=== PATIENT | male | born 1980 | race Caucasian/White ===

== ENCOUNTER 2020-02-26 09:19 | Emergency (ER) | payer OTHER ==
[~2020-02-26] VITALS: Ht 185.4 cm; Wt 65.8 kg
--- OUTSIDE RECORDS SUMMARY | ~2020-02-26 | XMS | Encounter Summary ---
Demographics + + + | Address | [address] [place] [address] | | | [place] [address] | + + + | Home Phone | | + + + | Preferred Language | Unknown | + + + | Marital Status | | + + + | Bahai Affiliation | Unknown | + + + | Race | Unknown | + + + | Ethnic Group | Unknown | + + + Author + + + | Author | [facility] | | | and [place] | + + + | Organization | [facility] | | | and [place] | + + + | Address | Unknown | + + + | Phone | Unavailable | + + + Support + + + + + | Name | Relationship | Address | Phone | + + + + + | Tyesha Mason | ECON | [address] | | | | | [place] | | | | | [address] | | + + + + + Care Team Providers + +------+ + | Care Rn Resource Nurse Name | Role | Phone | + +------+ + | No, Physician | PCP | Unavailable | + +------+ + Encounter Details +--------+ + + + + | Date | Type | Department | Care Team | Description | +--------+ + + + + | 10/31/ | Documentati | [facility] | Shagufta Matoszidavie Solano, | | | 2017 | on | MED CTR SPEECH | Speech Pathologist | | | | | [address] | | | | | | [place], | | | | | | [place] [address] | | | | | | [phone] | | | +--------+ + + + + Social History + + + +--------+------+ | Tobacco Use | Types | Packs/Day | Years | Date | | | | | Used | | + + + +--------+------+ | Current Every Day | Cigarettes | 0.25 | 25 | | | Smoker | | | | | + + + +--------+------+ + +---+---+--------+ | Smokeless Tobacco: | | | Quit: | | Former User | | | 2007 | + +---+---+--------+ + + +---------+ + | Alcohol Use | Drinks/Week | oz/Week | Comments | + + +---------+ + | Yes | | | Social | + + +---------+ + + + + | Sex Assigned at | Date Recorded | | | | + + + | Not on file | | + + + + + + + | Job Start Date | Occupation | Industry | + + + + | Not on file | Not on file | Not on file | + + + + + + + + | Travel History | Travel Start | Travel End | + + + + + + | No recent travel history available. | + + documented as of this encounter Progress Notes Divina Matos Speech Pathologist - 10/31/2017 9:34 [facility] [address] [place] [address] Cancellation/No Show Date: 10/31/2017 Patient Information Patient Name: Mookie Mason Date of : 1980 Age: 37 y.o. Reason for missed visit: Cancellation, Pt is ill Phone call placed: yes - Pt called to cancel Plan: Scheduling will call to see if he would like to re-schedule appointment for (authorization from 10/03/17- 11/03/17) 4 visits Electronically signed by: Marilee Anderson, 10/31/2017 9:35 Patient Name: Mookie Mason/: 1980/ docum ented in this encounter Plan of Treatment Not on filedocumented as of this encounter Visit Diagnoses + + | Diagnosis | + + | Traumatic brain injury, without loss of consciousness, subsequent encounter | + + documented in this encounter"
--- OUTSIDE RECORDS SUMMARY | ~2020-02-26 | XMS | Encounter Summary ---
Demographics + + + | Address | [address] [place] [address] | | | [place] [address] | + + + | Home Phone | | + + + | Preferred Language | Unknown | + + + | Marital Status | | + + + | Scientology Affiliation | Unknown | + + + | Race | Unknown | + + + | Ethnic Group | Unknown | + + + Author + + + | Author | [facility] | | | and [place] | + + + | Organization | [facility] | | | and [...] [place] | | | | | [address] | | + + + + + Care Team Providers + +------+ + | Care Tower Erector Name | Role | Phone | + +------+ + | Juli Squires DO | PCP | | + +------+ + Reason for Visit +--------+ + | Reason | Comments | +--------+ + | Other | | +--------+ + Encounter Details +--------+ + + + + | Date | Type | Department | Care Team | Description | +--------+ + + + + | 06/19/ | Telephone | [facility] | Iris Mast | Other | | 2018 | | OCCUPATIONAL HEALTH | MD Barb [address] | | | | | [address] [place] | | | | | [address] [place] | [place] [address] | | | | | [place], [place] | [phone] | | | | | [address] | | | | | | [phone] | | | +--------+ + + + [...] | | Former User | | | 2008 | + +---+---+--------+ + + +---------+ + [...] + + documented as of this encounter Plan of Treatment Not on filedocumented as of this encounter Visit Diagnoses Not on filedocumented in this encounter"
--- OUTSIDE RECORDS SUMMARY | ~2020-02-26 | XMS | Encounter Summary ---
Demographics + + + | Address | [address] [place] [address] | | | [place] [address] | + + + | Home Phone | | + + + | Preferred Language | Unknown | + + + | Marital Status | | + + + | Christian Affiliation | Unknown | + + + | Race | Unknown | + + + | Ethnic Group | Unknown | + + + Author + + + | Author | [facility] | | | and [place] | + + + | Organization | [facility] | | | and [...] [place] | | | | | [address] | | + + + + + Care Team Providers + +------+ + | Care Press Technician Name | Role | Phone | + +------+ + | No, Physician | PCP | Unavailable | + +------+ + Reason for Referral Evaluate & Treat (Routine) +--------+ + + + + + | Status | Reason | Specialty | Diagnoses / | Referred By | Referred To | | | | | Procedures | Contact | Contact | +--------+ + + + + + | Closed | Specialty | Orthopedic | Diagnoses | Pro, | [place], | | | Services | Surgery | Place of | Iris | Barrie Solano DO | | | Required | | occurrence, | MD Barb | [address] | | | | | industrial | [address] [place] | | | | | places and | [address] | [place], [place] | | | | | premises | [place], | [address] | | | | | Incomplete | [place] [address] | Phone: | | | | | tear of left | Phone: | [phone] | | | | | rotator | [phone] | Fax: | | | | | cuff | Fax: | [phone] | | | | | | [phone] | | +--------+ + + + + + Reason for Visit + + + | Reason | Comments | + + + | Head Injury | | + + + | Arm Injury | left arm injury | + + + Encounter Details +--------+---------+ + + + | Date | Type | Department | Care Team | Description | +--------+---------+ + + + | 09/28/ | Office | [facility] | Iris Mast | Incomplete tear of | | 2017 | Visit | OCCUPATIONAL HEALTH | MD [address] | left rotator cuff | | | | [address] | [address] [place] | (Primary Dx); Lumbar | | | | [address] [place] | [place] [address] | transverse process | | | | [place], [place] | [phone] | fracture, closed, | | | | [address] | | initial encounter | | | | [phone] | | (FORM[facility]LY [facility]); Place of | | | | | | occurrence, | | | | | | industrial places | | | | | | and premises | +--------+---------+ + + + Social History + + [...] + + documented as of this encounter Last Filed Vital Signs + + + + + | Vital Sign | Reading | Time Taken | Comments | + + + + + | Blood Pressure | 127/83 | 09/28/2017 1:36 PM | | | | | PST | | + + + + + | Pulse | 92 | 09/28/2017 1:36 PM | | | | | PST | | + + + + + | Temperature | 37.1 C (98.7 F) | 09/28/2017 1:36 PM | | | | | PST | | + + + + + | Respiratory Rate | - | - | | + + + + + | Oxygen Saturation | - | - | | + + + + + | Inhaled Oxygen | - | - | | | Concentration | | | | + + + + + | Weight | 63 kg (139 lb) | 09/28/2017 1:36 PM | | | | | PST | | + + + + + | Height | 185.4 cm (6' 1") | 09/28/2017 1:36 PM | | | | | PST | | + + + + + | Body Mass Index | 18.34 | 09/28/2017 1:36 PM | | | | | PST | | + + + + + documented in this encounter Progress Notes Iris Mast MD - 09/28/2017 2:00 PM PSTEmployer: [employer] Guarantor: [employer] Date of injury: 05/31/17 Claim number: [id number] Chief complaint: Follow-up multiple injuries Subjective: Injured workers a 37-year-old male presents today for scheduled follow-up. He states since his last visit his mental clarity has improved significantly. The fogginess that he was john nielson mentally has improved, has not had any dizzy episodes for the last 2 weeks. Has been attending physical therapy for this and feels that he has improved significantly. He contin ues to be under the care of Dr. veliz for his head injury. He is also been attending physic al therapy for the left shoulder. Recently had MRI imaging of the left shoulder which did r eveal partial supraspinatus tear. He states he has attended 3 sessions so far and feels charley t they were overly aggressive at the beginning of therapy and his symptoms were significantl y made worse. In terms of the humeral fracture he is doing well. Does have some mild disco mfort in the forearm and elbow region but not as significant as in the left shoulder. At mo s last visit with Dr. Henderson, he was essentially released from care. Still occasionally fee ls a popping sensation in the left rib, only notices when he takes a deep breath, feels a po p upon inhalation and then again with end of exhalation. No pain associated with this and h e has had no cough or shortness of breath and no fever or chills. Since his last visit peng thomas he has had increased tenderness over the lower lumbar spine, just to the left of the mid line. No new activities or injuries that may have exacerbated the symptoms. States that mo s last visit he felt that his back was doing better, but then started noticing increased ten derness mainly with just palpation. No radiation of pain into the legs or feet and no assoc iated numbness, tingling, or weakness. Denies saddle-type anesthesia or bladder incontinenc e. Past medical history, medications, allergies reviewed Review of systems: As per HPI Objective: Vital signs as noted, nursing notes reviewed. Csfbedb-laxf-dednhaszq, well-nourished, in no apparent distress, pleasant cooperative. Left Shoulder-normal to inspection. No gross asymmetry or bony deformity. Nearly full for de la torre flexion, abduction limited to approximately 120. Full extension. Pain and weakness with supraspinatus testing. Able to internally and externally rotate. Left elbow-full range of motion without limitation. Back-normal to inspection. No paraspinous muscle spasticity. No vertebral point tendernes s, crepitus, or step-off. Does have tenderness to palpation over the left paravertebral mus cles. No CVA tenderness. Full forward flexion, will not extend. Unlimited bilateral later al flexion. Neuro-Motor strength 5/5 bilat lower extremities DTR's- patellar and ankle - 2+/4 bilat Neg SLR from a seated position bilat Normal toe/heel walk Normal squat Gait steady and symmetric Sensation grossly intact to light touch bilat lower extremities. Skin-warm, dry, intact. No rashes or other suspicious lesions. Imaging/diagnostics: X-rays lumbar spine-per my review-no acute findings. Radiology review pending 08/30/17-MRI left shoulder-per radiology dictated report- IMPRESSIONS: Partial thickness articular sided tear of the supraspinatus tendon as detailed above with associated tendinosis. Dictated and Signed by: Silvestre Zacarias MD Pending interventions: Continue conservative management. Assessment: 1. Left shoulder sprain-partial rotator cuff tear 2. L1, 2, 3 transverse process fractures 3. Traumatic brain injury-post concussive Plan: Still with increased discomfort and restricted range of motion of the left shoulder. We wi ll send another referral to Dr. Henderson for this. Also the back has become more symptomatic. Will await radiology review of x-rays. Continue treatment as recommended by Dr. veliz for the head injury. Return here in 4 weeks, sooner for acute worsening other concerns. He vo ices understanding and agreement. E: Off work R: Off work Impairment undetermined at this point in time, based on current objective findings it is no t an anticipated consequence of this injury however patient has not yet reached MMI status. This note was dictated using Jike Xueyuan voice recognition software. Occasional wrong- word or sound-alike substitutions may have occurred due to the inherent limitations of voice recogni tion software. Please read the chart carefully and recognize, using context, where these zamora bstitutions have occurred. documented in th is encounter Plan of Treatment + + +--------+ + + | Name | Type | Priori | Associated Diagnoses | Order Schedule | | | | ty | | | + + +--------+ + + | amb ref ortho - | Outpatient | Routin | Place of | Ordered: 09/28/2017 | | [facility]ad | Referral | e | occurrence, | | | | | | industrial places | | | | | | and premises | | | | | | Incomplete tear of | | | | | | left rotator cuff | | + + +--------+ + + documented as of this encounter Results XR Lumbar Spine 2 or 3 Vw (09/28/2017 2:09 PM PST) + + | Specimen | + + | | + + + + + | Narrative | Performed At | + + + | XR LUMBAR SPINE 2 OR 3 VW 09/28/2017 2:09 PM HISTORY: pain. | [facility] | | COMPARISON: None. FINDINGS: There are no acute osseous findings. | | | Vertebral body height are preserved with no evidence for compression | | | fractures. Intervertebral disc spaces are preserved. Facets are | | | intact. Visualized ribs and pelvic osseous structures show no acute | | | findings. Soft tissues are unremarkable. IMPRESSION - No acute | | | findings. Normal 2 views of the lumbar spine. Healing chronic | | | fracture deformity of the left L3 transverse process. Dictated and | | | Signed by: Kaleb Combs MD Electronically signed: 09/28/2017 | | | 2:33 PM | | + + + + + | Procedure Note | + + | [place], Rad Results In - 09/28/2017 2:36 PM PST XR LUMBAR SPINE 2 OR 3 VW 09/28/2017 | | 2:09 PMHISTORY: pain.COMPARISON: None.FINDINGS:There are no acute osseous findings. | | Vertebral body height are preserved with noevidence for compression fractures. | | Intervertebral disc spaces are preserved.Facets are intact. Visualized ribs and pelvic | | osseous structures show no acutefindings. Soft tissues are unremarkable. IMPRESSION -No | | acute findings.Normal 2 views of the lumbar spine.Healing chronic fracture deformity of | | the left L3 transverse process.Dictated and Signed by: Kaleb Combs MD Electronically | | signed: 09/28/2017 2:33 PM | |evidence for compression fractures. Intervertebral disc spaces are preserved. | |Facets are intact. Visualized ribs and pelvic osseous structures show no acute | |findings. Soft tissues are unremarkable. | | | |IMPRESSION - | |No acute findings. | | | |Normal 2 views of the lumbar spine. | | | |Healing chronic fracture deformity of the left L3 transverse process. | | | |Dictated and Signed by: Kaleb Combs MD | | Electronically signed: 09/28/2017 2:33 PM | + + + +---------+ + + | Performing | Address | City/State/Zipcode | Phone Number | | Organization | | | | + +---------+ + + | [facility] | | | | + +---------+ + + documented in this encounter Visit Diagnoses + + | Diagnosis | + + | Incomplete tear of left rotator cuff - Primary | + + | Lumbar transverse process fracture, closed, initial encounter (HCC) | + + | Place of occurrence, industrial places and premises | + + documented in this encounter
--- OUTSIDE RECORDS SUMMARY | ~2020-02-26 | XMS | Encounter Summary ---
Demographics + + + | Address | [address] [place] [address] | | | [place] [address] | + + + | Home Phone | | + + + | Preferred Language | Unknown | + + + | Marital Status | | + + + | Oriental Orthodox Affiliation | Unknown | + + + [...] + + + + + | Tyesha Carolina | ECON | [address] | | | | | [place] | | | | | [address] | | + + + + + Care Team Providers + +------+ + | Care Registered Respiratory Technician Name | Role | Phone | + +------+ + | No, Physician | PCP | Unavailable | + +------+ + Reason for Visit + + + | Reason | Comments | + + + | Therapy Daily | | | Treatment | | + + + Evaluate & Treat (Routine) +--------+ + + + + + | Status | Reason | Specialty | Diagnoses / | Referred By | Referred To | | | | | Procedures | Contact | Contact | +--------+ + + + + + | Closed | Specialty | Physical | Diagnoses | Pro, | [facility] | | | Services | Therapy / | Incomplete | Iris | Pt Op [address] | | | Required | Rehabilitatio | tear of left | MD Barb | [address] | | | | n | rotator | [address] | [place], | | | | | cuff Place | [address] | [place] [address] | | | | | of | [place], | Phone: | | | | | occurrence, | [place] [address] | [phone] | | | | | industrial | Phone: | Fax: | | | | | places and | [phone] | [phone] | | | | | premises | Fax: | | | | | | | [phone] | | +--------+ + + + + + Encounter Details +--------+---------+ + + + | Date | Type | Department | Care Team | Description | +--------+---------+ + + + | 10/24/ | Office | [facility] | Iris Mast | Closed fracture of | | 2018 | Visit | MED CTR THERAPY PT | MD Barb [address] | shaft of left | | | | OP [address] | [address] [place] | humerus with routine | | | | [place], [place] | [place] [address] | healing, | | | | [address] | [phone] | unspecified fracture | | | | [phone] | | morphology, | | | | | Catie Squires, PT | subsequent | | | | | [address] | encounter; Dizziness | | | | | [place], [place] | due to old head | | | | | [address] | injury; Left upper | | | | | | arm pain; Imbalance; | | | | | | Place of | | | | | | occurrence, | | | | | | industrial places | | | | | | and premises; | | | | | | Chronic left-sided | | | | | | low back pain | | | | | | without sciatica; | | | | | | Neck pain | +--------+---------+ + + + Social History [...] + documented as of this encounter Progress Catie Mckenzie, PT - 10/24/2017 9:00 AM PST [facility] MED CTR THERAPY PT OP [address] [place] [address] Physical Therapy Daily Treatment Note Date: 10/24/2017 Patient Information Patient Name: Mookie Mason Date of : 1980 Age: 37 y.o. Encounter Diagnoses Code Name Primary? S42.302D Closed fracture of shaft of left humerus with routine healing, unspecified fra cture morphology, subsequent encounter 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 M79.622 Left upper arm pain R26.[address] occurrence, industrial places and premises M54.5, G89.29 Chronic left-sided low back pain without sciatica M54.2 Neck pain Date of Onset: 05/31/2017 Referring Provider: Iris Mast MD Rehab Precautions Flowsheet Row Office Visit from 08/10/2017 in [facility] CTR THERAPY PT OP Rehab Precautions Precautions None Rehab Learning Style Flowsheet Row Office Visit from 08/10/2017 in [facility] CTR THERAPY PT OP [facility] OP EVAL from 07/26/[address] [facility] SPEECH THERAPY Learning Style Patient's [employer] Learning Style listening, observation listening, observation Start Time: 0900 Stop time: 944 Duration: 45 minutes Timed Treatment Codes: 45 minutes # of PT Visits to Date: 14 Subjective: Long gap in care due to waiting for insurance auth. Pt reports that he is no longer having headaches/dizziness and balance is back to baseline. Pt reports that he cont. To have left a rm/shoulder pain and neck pain. Pt has new orders for OT to work on left arm so will now have PT focus on neck pain. Pain Assessment: Pain Scale Used: NUMERIC Pain Rating Pre Assessment: 4 Pain Rating During Assessment: 1 Location: neck Objective: Pre tx; right neck rotation 65 deg 4/10 pain Left neck rotation 55 deg 5/10 pain Manual therapy: STM and TPR to intra scap, pec., upper trap., levator scap., scalenes Grade III mob to left clavicle, SANGs to C3, C4 (central/extension and lateral/rotation) Post tx: right neck rotation 90 deg 0/10 pain Left neck rotation 85 deg 2/10 pain TherEx: neck rotation Left/Right 2x10 Levator scap. Stretch 3x30 sec Assessment: Pt tolerated session well and demonstrated improved neck ROM and less pain by end of sessio n. Pt would benefit from cont. Therapy with focus on cervical spine to increase strength, po sture and ROM to improve ability to complete daily tasks and return to work without limitati ons. Next Visit: received auth for 8 visits. Cont to progress neck ROM and posterior chain [facility] Electronically signed by: Catie Squires PT, 10/24/2017 10:01 Patient Name: Mookie Palmer Lu/: 1980/ documented in this enco unter Plan of Treatment + + +--------+ + + | Name | Type | Priori | Associated Diagnoses | Order Schedule | | | | ty | | | + + +--------+ + + | Ambulatory referral | Outpatient | Routin | Incomplete tear of | Ordered: 10/19/2017 | | to Physical Therapy | Referral | e | left rotator cuff | | | | | | Place of occurrence, | | | | | | industrial places | | | | | | and premises | | + + +--------+ + + documented as of this encounter Visit Diagnoses + + | Diagnosis | + + | Closed fracture of shaft of left humerus with routine healing, unspecified fracture | | morphology, subsequent encounter | + + | Dizziness due to old head injury Dizziness and giddiness | + + | Left upper arm pain Pain in limb | + + | Imbalance Abnormality of gait | + + | Place of occurrence, industrial places and premises | + + | Chronic left-sided low back pain without sciatica | + + | Neck pain Cervicalgia | + + documented in this encounter"
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
--- OUTSIDE RECORDS SUMMARY | ~2020-02-26 | XMS | Encounter Summary ---
Demographics + + + | Address | [address] [place] [address] | | | [place] [address] | + + + | Home Phone | | + + + | Preferred Language | Unknown | + + + | Marital Status | | + + + | Zoroastrianism Affiliation | Unknown | + + + | Race | Unknown | + + + | Ethnic Group | Unknown | + + + Author + + + | Author | [facility] | | | and [place] | + + + | Organization | [facility] | | | and [...] [place] | | | | | [address] | | + + + + + Care Team Providers + +------+ + | Care Chip Tester Name | Role | Phone | + +------+ + | Juli Squires DO | PCP | | + +------+ + Reason for Visit + + + | Reason | Comments | + + + | Re-Assessment/ | | | Significant Change | | | Assessment | | + + + Evaluate & Treat (Routine) +--------+--------+ + + + + | Status | Reason | Specialty | Diagnoses / | Referred By | Referred To | | | | | Procedures | Contact | Contact | +--------+--------+ + + + + | Closed | | Speech | Diagnoses | Pro, | Carlo, | | | | Pathology / | Place of | Iris | Mandy Solano, | | | | Rehabilitatio | occurrence, | Barb, MD | Speech | | | | n | industrial | [address] | Pathologist | | | | | places and | [address] | | | | | | premises | [place], | | | | | | Closed head | [place] [address] | | | | | | injury with | Phone: | | | | | | brief loss | [phone] | | | | | | of | Fax: | | | | | | consciousnes | [phone] | | | | | | s (HCC) | | | | | | | S06.9X9S | | | | | | | (ICD-10-CM) | | | | | | | - 907.0 | | | | | | | (ICD-9-CM) - | | | | | | | Traumatic | | | | | | | brain injury | | | | | | | with loss | | | | | | | of | | | | | | | consciousnes | | | | | | | s, sequela | | | | | | | (HCC) | | | | | | | G31.84 | | | | | | | (ICD-10-CM) | | | | | | | - 331.83 | | | | | | | (ICD-9-CM) - | | | | | | | Mild | | | | | | | cognitive | | | | | | | impairment | | | | | | | Procedures | | | | | | | [facility] | | | | | | | TREATMENT | | | +--------+--------+ + + + + Encounter Details +--------+ + + + + | Date | Type | Department | Care Team | Description | +--------+ + + + + | 12/20/ | Hospital | [facility] | Iris Mast | Traumatic brain | | 2018 | Encounter | MED CTR SPEECH | MD Barb [address] | injury, with loss of | | | | THERAPY [address] [place] | consciousness of 30 | | | | [place], | [place] [address] | minutes or less, | | | | [place] [address] | [phone] | initial encounter | | | | [phone] | | ([facility]) | | | | | Mandy Matos, | | | | | | Speech Pathologist | | +--------+ + + + + [...] + + documented as of this encounter Medications at Time of Discharge + + + +---------+ + + | Medication | Sig | Dispensed | Refills | Start | End Date | | | | | | Date | | + + + +---------+ + + | acetaminophen | Take 1,000 mg by | | 0 | 06/04/20 | | | (TYLENOL) 500 mg | mouth 2 times daily. | | | 17 | | | tablet | | | | | | + + + +---------+ + + | acetaminophen | Take 2 tablets by | 100 | 0 | 12/19/19 | | | (MAPAP) 500 mg | mouth every 6 hours | tablet | | 18 | 8 | | tablet | as needed for Pain. | | | | | + + + +---------+ + + | acetaminophen | Take 1,000 mg by | | 0 | 06/04/20 | | | (TYLENOL) 500 mg | mouth 4 times daily. | | | 17 | 9 | | tablet | | | | | | + + + +---------+ + + | citalopram | Take 1 tablet by | 30 | 2 | 12/07/19 | | | (CELEXA) 20 mg | mouth Daily. | tablet | | 18 | 8 | | tablet | | | | | | + + + +---------+ + + | docusate sodium | Take 100 mg by | | 0 | 06/04/20 | | | (COLACE) 100 mg | mouth. | | | 17 | 9 | | capsule | | | | | | + + + +---------+ + + | ibuprofen (ADVIL, | Take 200 mg by mouth | | 0 | | | | MOTRIN) 200 mg | daily (with | | | | 8 | | tablet | breakfast). | | | | | + + + +---------+ + + | methocarbamol | Take 750 mg by | | 0 | 06/04/20 | | | (ROBAXIN) 750 mg | mouth. | | | 17 | 9 | | tablet | | | | | | + + + +---------+ + + | oxyCODONE | Take 5-15 mg by | | 0 | 06/04/20 | | | (ROXICODONE) 5 mg | mouth. | | | 17 | 9 | | tablet | | | | | | + + + +---------+ + + | senna (SENEXON) | Take 8.6 mg by | | 0 | 06/04/20 | | | 8.6 mg tablet | mouth. | | | 17 | 9 | + + + +---------+ + + | traZODone | Take 1 tablet by | 30 | 2 | 12/07/19 | | | (DESYREL) 50 mg | mouth nightly. | tablet | | 18 | 8 | | tablet | | | | | | + + + +---------+ + + documented as of this encounter Progress Notes Mandy Matos, Speech Pathologist - 12/20/2017 8:08 AM PDT [facility] SPEECH THERAPY [address] [place] [address] Speech Therapy Progress Assessment Date: 12/20/2017 Patient Information Patient Name: Mookie Mason Date of : 1980 Age: 37 y.o. History Encounter Diagnoses Code Name Primary? S06.9X1A Traumatic brain injury, with loss of consciousness of 30 minutes or less, init ial encounter ([facility]) Date of Onset: 05/31/2017 Referring Provider: Iris Mast MD Rehab Precautions Flowsheet Row Office Visit from 08/10/2017 in [facility] CTR THERAPY PT OP Rehab Precautions Precautions None Rehab Learning Style Flowsheet Row Office Visit from 08/10/2017 in [facility] THERAPY PT OP [facility] OP EVAL from 07/26/2017 in [facility] SPEECH THERAPY Learning Style Patient's Optimum Learning Style listening, observation listening, observation Subjective Mookie Mason has completed 88 for treatment of Cognitive deficits s/p TB I. Patient reports improvements with use of compensatory strategies/memory strategies. Chitra er continues to report difficulty with attention, auditory comprehension, reading comprehens ion, visuospatial deficits, extra time to complete tasks and significant concussion symptoms after completing cognitive exercises which are limiting participation in ADLs. Objective: Cognitive aspects of Language: Significant overall improvements across all tested areas not ed. Moderate deficits in the area of attention impacting ability to participate successfully in auditory comprehension, safety (reports of several instances gettting distracted with it ems left burning on stove due to reduced attention to tasks), problem solving for safety wit h cooking discussed (timers, avoiding use of stove if not remaining in kitchen or if alone) reduced processing time, needs extra time to complete tasks. Halting/pausing noted in conver sation, needs extra time to answer and find words effectively. Standardized Tests: Test Date:07/26/17 Repeatable Battery for the Assessment of Neuropsychological Status (RBANS) The RBANS is comprised of 12 individual subtests and provides a measure of functioning acro ss a variety of cognitive domains. Subtest raw scores are converted to index scores for six general areas:immediate memory, visuospatial/constructional ability, language, attention , delayed memory, and overall function. Immediate Memory Visuospatial / Constructional Language Attention Delayed Memory TOTAL SCALE Index Score 83 78 74 53 56 61 Percentile 0.5 Test Date:10/03/17 Repeatable Battery for the Assessment of Neuropsychological Status (RBANS) The RBANS is comprised of 12 individual subtests and provides a measure of functioning acro ss a variety of cognitive domains. Subtest raw scores are converted to index scores for six general areas:immediate memory, visuospatial/constructional ability, language, attention , delayed memory, and overall function. Immediate Memory Visuospatial / Constructional Language Attention Delayed Memory TOTAL SCALE Index Score 90 96 112 75 91 89 Severity AVG AVG High AVG Borderline Moderate impairment AVG 23rd %ile Concussion symptoms (taken from the ImPACT test) Please give each item a score from 0-6. 0 = No symptom 6 = The worst possible symptom Date: 10/03/17 Symptoms Score Headache 2 Nausea 0 Vomiting 0 Balance Problems 1 Dizziness 2 Fatigue 3 Trouble falling asleep 4 Sleeping more than usual 3 Sleeping less than usual 3 Drowsiness 3 Sensitivity to light 2 Sensitivity to noise 2 Irritability 2 Sadness 0 Nervousness 2 Feeling more emotional 2 Numbness or tingling 0 Feeling slowed down 2 Feeling mentally foggy 3 Difficulty concentrating 3 Difficulty remembering 2 Visual problems 3 Total Symptom Score 44 Concussion Symptoms Re-Assessment Test Date 12/06/17: Overall concussion symptom score of 10 which improved significantly from 10/03/17 Assessment Mookie Mason has been participating in therapy for treatment of cognitive deficits s/p TBI. Patient demonstrates objective improvements with improved concussion symptoms, feliciano ry, attention, visuospatial skills, language and delayed memory. Mookie Mason contin ues to have impairments with moderate boarderline deficits in the area of attention and onse t of concussion symptoms after completing 10-15 minutes of cognitive exercises which is sofie rely limiting abilities to participate in ADLs. Informal assessment also had identified nota ble intermittent halting/pausing and losing train of thought due to word-finding difficultie s, difficulty sustaining concentration/attention and increased concussion symptoms of increa sed dizziness, mental fogginess, and c/o nausea after 10-15 minutes of cognitive exercises ( worse sx noted with computer based visuospatial tasks. These impairments and diagnosis are c ausing functional limitations with patient's inability to perform activities of sustained si mple elementary level reading tasks (Severe change from prior), maintaining attention, retur n to work, recall details from conversation participate and recall activities (reports has l eft stove on and walked away x2 this week and was alerted with burning smell for reminder), also reports inability to read/do paperwork for more than 10-15 minutes without headache whi ch has improved from 5 minutes prior. Signs and symptoms are consistent with cognitive defic its following a TBI. Complexities contributing to frequency and duration of therapy: Insuran ce evaluation only until further authorized visits. Skilled ST recommended and necessary to increase ability to maintain/sustain attention, perform cognitive rehabilitation exercises t o support return to PLOF, improve recall, instruct and support use of memory strategies and word finding techniques to increase ability to express thoughts/ideas effectively and effici ently. Rehabilitation potential: Patient demonstrates good potential to achieve established goals to address the documented impairments by participating in skilled speech and language therap y services. Goals: Patient Specific Functional Scale Goal 1: Pt will reduce concussion symptom score of <25 in 12 weeks. Patient Specific Functional Scale Goal 1 Status Comment: GOAL MET, GOAL CHANGED to particip ate in cognitive exercises for up to 20 minutes without onset of concussion symptoms. Only able to participate for about 10 minutes- 5 minutes with computer based exercises. Patient Specific Functional Scale Goal 2: Pt will complete moderate level delayed memory ta sks x90% accuracy with initial instruction of memory strategies in 12 weeks. Patient Specific Functional Scale Goal 2 Status Comment: Goal ALMOST MET, using memory stra tegies consisitently to support recall. Able to recall F:4 x100% with min-mod cues to use st rategies and F:5 x60% Alina and x80% with moderate phonemic cues/semantic cues Patient Specific Functional Scale Goal 3: Pt will complete divided and switching attention tasks x90% accuracy with min cues in 12 weeks. Patient Specific Functional Scale Goal 3 Status Comment: GOAL EMERGING, moderate-boarderlin e deficits. With categorization/deductive reasoning tasks needed moderate cues and verbal pr ompts to support organization of written materials/ categorization, needed increased time to complete switching attention tasks with word finds of differing topics and mathematical mix ed problems. Reduced accuracy and need for increased cues as task persisits (sustained atten tion deficits) Increased ability to sustain attention for 15 minutes today. Needs breaks between tasks d/t increased concussion sxs. Plan Date of Onset: 05/31/2017 Start of Care Date: 07/26/2017 Requested # of Visits: 12 visits 1x/week for 12 weeks Certification From: 12/21/17 Certification To: 03/23/18 Treatment Plan/Interventions 99989 - Cognitive [id number] - Cognitive [id number] - Speech Sound Language Comprehens [id number] - Speech/Hearing Treatment Patient and/or family has indicated understanding of treatment needs and actively participa elijah in the creation of this plan for care. Electronically signed by: Mandy Matos Speech Pathologist, 12/21/2017 12:36 Patient Name: Mookie Mason/: 1980/ documented in th is encounter Plan of Treatment Not on filedocumented as of this encounter Visit Diagnoses + + | Diagnosis | + + | Traumatic brain injury, with loss of consciousness of 30 minutes or less, initial | | encounter (HCC) | + + documented in this encounter"
--- OUTSIDE RECORDS SUMMARY | ~2020-02-26 | XMS | Encounter Summary ---
Demographics + + + | Address | [address] [place] [address] | | | [place] [address] | + + + | Home Phone | | + + + | Preferred Language | Unknown | + + + | Marital Status | | + + + | Scientologist Affiliation | Unknown | + + + | Race | Unknown | + + + | Ethnic Group | Unknown | + + + Author + + + | Author | [facility] | | | and [place] | + + + | Organization | [facility] | | | [...] [place] | | | | | [address] | | + + + + + Care Team Providers + +------+ + | Care Hog Cutter Name | Role | Phone | + +------+ + | Juli Squires DO | PCP | | + +------+ + Reason for Visit + + + | Reason | Comments | + + + | Head Injury | | + + + | Hip Injury | | + + + | Arm Injury | | + + + Encounter Details +--------+---------+ + + + | Date | Type | Department | Care Team | Description | +--------+---------+ + + + | 03/16/ | Office | [facility] | Iris Mast | Closed left arm | | 2018 | Visit | [facility]ALTH | MD Barb [address] | fracture, with | | | | [facility] [address] [place] | routine healing, | | | | [address] [place] | [place] [address] | subsequent encounter | | | | [facility], [place] | [phone] | (Primary Dx); Place | | | | [address] | | of occurrence, | | | | [phone] | | industrial places | | | [...] + + + | Blood Pressure | 135/83 | 03/16/2018 1:08 PM | | | | | PDT | | + + + + + | Pulse | 78 | 03/16/2018 1:08 PM | | | | | PDT | | + + + + + | Temperature | 37.1 C (98.7 F) | 03/16/2018 1:08 PM | | | | | PDT | | + + + + + | Respiratory Rate | - | - | | + + + + + | Oxygen Saturation | - | - | | + + + + + | Inhaled Oxygen | - | - | | | Concentration | | | | + + + + + | Weight | 63 kg (139 lb) | 03/16/2018 1:08 PM | | | | | PDT | | + + + + + | Height | 185.4 cm (6' 1") | 03/16/2018 1:08 PM | | | | | PDT | | + + + + + | Body Mass Index | 18.34 | 03/16/2018 1:08 PM | | | | | PDT | | + + + + + documented in this encounter Progress Notes Iris Mast MD - 03/16/2018 1:00 PM PDTEmployer: [employer] Guarantor: RIZWAN Date of injury: 05/31/17 Claim number: [id number] Chief complaint: Follow-up multiple injuries Subjective: Injured workers a 37-year-old male who presents today for scheduled follow-up. Since his l ast visit he has had reparative surgery on the left upper extremity. He was initially sched uled for hardware removal of the left upper extremity. He states they did not remove all christie rdware, he did have a bone graft from the left hip. He has already seen improvement in the discomfort in the left arm and improved range of motion only being 3 weeks postop. He does continue to have discomfort over the bone graft site of the left hip but otherwise feel that he is doing well. He is still understood and participating in physical therapy and he feel s that he can lie down without difficulty and has had enough healing from the recent surgery . X-rays obtained at his last visit reviewed by the radiologist, there were some questions about a possible labral injury of the right hip because of some acetabular calcifications. He states the majority of his discomfort is on the left side, occasionally feels a catching sensation in the left hip and on the right. Has intermittent discomforts random and alterna ting in the low back and occasionally bilateral groin. Past medical history, medications, allergies reviewed Review of systems: As per HPI Objective: Vital signs as noted, nursing notes reviewed. Vxriuow-iren-wywtosnez, well-nourished, in no apparent distress, pleasant cooperative. Left arm-healing surgical incision medial left upper arm. Is able to fully extend and flex . Bruising is noted of the proximal arm. No erythema or swelling. Left hip-healed surgical incision over the left bony pelvis. Full flexion and extension, i nternal and external rotation. Minimal discomfort with full internal rotation. No pain or limitation with AMBER testing. Right hip-normal to inspection. Nontender. Full flexion, extension, internal and external rotation. Mild discomfort with full internal rotation. No pain or limitation with AMBER t esting. Imaging/diagnostics: None indicated this visit Pending interventions: Continue conservative management. Assessment: 1. Left humerus fracture Plan: Continue with post operative activity modifications and rehabilitation per orthopedic recom mendations. When he feels he is able to participate fully, he will notify us that he may pr oceed with physical therapy services for the back injury. Hip exam today normal bilaterally . Return in 4 weeks, sooner for acute worsening other concerns. He voices understanding an d agreement. E: Modified duty R: No use of the left arm Impairment undetermined at this point in time, based on current objective findings it is an anticipated consequence of this injury however patient has not yet reached MMI status. This note was dictated using [employer] voice recognition software. Occasional wrong- word or sound-alike substitutions may have occurred due to the inherent limitations of voice recogni tion software. Please read the chart carefully and recognize, using context, where these zamora bstitutions have occurred. documented in th is encounter Plan of Treatment Not on filedocumented as of this encounter Visit Diagnoses + + | Diagnosis | + + | Closed left arm fracture, with routine healing, subsequent encounter - Primary | + + | Place of occurrence, industrial places and premises | + + documented in this encounter
--- OUTSIDE RECORDS SUMMARY | ~2020-02-26 | XMS | Encounter Summary ---
Demographics + + + | Address | [address] [place] [address] | | | [place] [address] | + + + | Home Phone | | + + + | Preferred Language | Unknown | + + + | Marital Status | | + + + | Baptist Affiliation | Unknown | + + + | Race | Unknown | + + + | Ethnic Group | Unknown | + + + Author + + + | Author | [facility] | | | and [place] | + + + | Organization | [facility] | | | and [place] | + + + | Address | Unknown | + + + | Phone | Unavailable | + + + Support + + + + + | Name | Relationship | Address | Phone | + + + + + | Tyesha Mason | ECON | [address] | | | | | [place] | | | | | [address] | | + + + + + Care Team Providers + +------+ + | Care Developer Analyst Name | Role | Phone | + +------+ + | Juli Squires DO | PCP | | + +------+ + Reason for Referral Evaluate & Treat (Routine) +--------+ + + + + + | Status | Reason | Specialty | Diagnoses / | Referred By | Referred To | | | | | Procedures | Contact | Contact | +--------+ + + + + + | Closed | Specialty | Physical | Diagnoses | Pro, | [facility] | | | Services | Therapy | Place of | Iris | PHYSICAL | | | Required | | occurrence, | MD Barb | THERAPY - | | | | | industrial | [address] | [place] | | | | | places and | [address] | [place] | | | | | premises | [place], | [address] | | | | | Lumbar | [place] [address] | [address] | | | | | transverse | Phone: | [facility] | | | | | process | [phone] | [place], [place] | | | | | fracture, | Fax: | [address] | | | | | closed, | [phone] | Phone: | | | | | initial | | [phone] | | | | | encounter | | Fax: | | | | | ([facility]) | | [phone] | +--------+ + + + + + + + | Scheduling Instructions | + + | [facility], [facility] | + + Encounter Details +--------+ + + + + | Date | Type | Department | Care Team | Description | +--------+ + + + + | 06/19/ | Orders Only | [facility] | [facility] | Lumbar transverse | | 2017 | | [facility] | MD Barb [address] | process fracture, | | | | [facility] [address] [place] | closed, initial | | | | [address] [place] | [place] [address] | encounter (HCC) | | | | [place], [place] | [phone] | (Primary Dx); Place | | | | [address] | | of occurrence, | | | | [phone] | | industrial places | | | | | | and premises | +--------+ + + + + Social [...] as of this encounter Plan of Treatment + + +--------+ + + | Name | Type | Priori | Associated Diagnoses | Order Schedule | | | | ty | | | + + +--------+ + + | Ambulatory referral | Outpatient | Routin | Place of | Ordered: 06/19/2018 | | to Physical Therapy | Referral | e | occurrence, | | | | | | industrial places | | | | | | and premises Lumbar | | | | | | transverse process | | | | | | fracture, closed, | | | | | | initial encounter | | | | | | ([facility]) | | + + +--------+ + + documented as of this encounter Visit Diagnoses + + | Diagnosis | + + | Lumbar transverse process fracture, closed, initial encounter ([facility]) - Primary | + + | Place of occurrence, industrial places and premises | + + documented in this encounter"
--- OUTSIDE RECORDS SUMMARY | ~2020-02-26 | XMS | Encounter Summary ---
Demographics + + + | Address | [address] [place] [address] | | | [place] [address] | + + + | Home Phone | | + + + | Preferred Language | Unknown | + + + | Marital Status | | + + + | Worship Affiliation | Unknown | + + + | Race | Unknown | + + + | Ethnic Group | Unknown | + + + Author + + + | Author | [facility] | | | and [place] | + + + | Organization | [facility] | | | [...] [place] | | | | | [address] | | + + + + + Care Team Providers + +------+ + | Care Injection Molding Machine Operator Name | Role | Phone | + +------+ + PCP | Unavailable | + +------+ + Encounter Details +--------+ + + + + | Date | Type | Department | Care Team | Description | +--------+ + + + + | 06/20/ | [facility] | PAVAN GONZALEZ | Horacio Ramey | | | 2014 | Encounter | HOSPITAL XRAY [address] | [place] [address] | | | | | [address] | [place] | | | | | [place] | [address] | | | | | [address] | | | | | | [phone] | | | +--------+ + + + + Social History + +-------+ +--------+------+ | Tobacco Use | Types | Packs/Day | Years | Date | | | | | Used | | + +-------+ +--------+------+ | Never Assessed | | | | | + +-------+ +--------+------+ + + + | Sex Assigned at [...] Not on filedocumented as of this encounter Procedures + +--------+ + + + | Procedure Name | Priori | Date/Time | Associated Diagnosis | Comments | | | ty | | | | + +--------+ + + + | XR LUMBAR SPINE 4 + | Routin | 06/20/2015 | | Results for this | | VW | e | 1:47 PM | | procedure are in the | | | | PDT | | results section. | + +--------+ + + + | XR THORACIC SPINE 2 | Routin | 06/20/2015 | | Results for this | | VW | e | 1:47 PM | | procedure are in the | | | | PDT | | results section. 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 | | | Findings: The alignment of the thoracic spine is normal. No | | | fracture, focal bone lesion, or subluxation is present. The disc | | | space height is well maintained, with no evidence of significant disc | | | degeneration. The paravertebral soft tissue interfaces also appear | | | normal. Summary: No evidence of acute radiographic abnormality. | | | Read By: ANTONIO PRADO MD Date: 06/20/2015 14:19 | | + + + + + | Procedure Note | + + | Andre Avila Results In - 08/09/2017 8:24 PM PST | | Clinical Indication: Reason for study: | | chiropractor | | | | . | | | | Findings: The alignment of the thoracic spine is normal. No fracture, | | focal bone lesion, or subluxation is present. The disc space height is well | | maintained, with no evidence of significant disc degeneration. The | | paravertebral soft tissue interfaces also appear normal. | | | | Summary: No evidence of acute radiographic abnormality. 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 | | | Findings: The alignment of the lumbar spine is normal. No fracture | | | or focal bone lesion is present. The disc spaces show normal | | | height, with no evidence of significant degenerative change. The | | | facet joints appear normal. No soft tissue abnormality is visible. | | | Summary: No evidence of acute radiographic abnormality. Read | | | By: ANTONIO PRADO MD Date: 06/20/2015 14:17 | | + + + + + | Procedure Note | + + | Austin, Andre Results In - 08/09/2017 8:24 PM PST | | Clinical Indication: Reason for study: | | chiropractor | | | | . | | | | Findings: The alignment of the lumbar spine is normal. No fracture or | | focal bone lesion is present. The disc spaces show normal height, with no | | evidence of significant degenerative change. The facet joints appear | | normal. No soft tissue abnormality is visible. | | | | Summary: No evidence of acute radiographic abnormality. | | | | Read By: ANTONIO PRADO MD | | Date: 06/20/2015 14:17 | | | + + documented in this encounter Visit Diagnoses Not on filedocumented in this encounter"
--- OUTSIDE RECORDS SUMMARY | ~2020-02-26 | XMS | Encounter Summary ---
Demographics + + + | Address | [address] [place] [address] | | | [place] [address] | + + + | Home Phone | | + + + | Preferred Language | Unknown | + + + | Marital Status | | + + + | Rastafari Affiliation | Unknown | + + + | Race | Unknown | + + + | Ethnic Group | Unknown | + + + Author + + + | Author | [facility] | | | and [place] | + + + | Organization | [facility] | | | [...] [place] | | | | | [address] | | + + + + + Care Team Providers + +------+ + | Care Orthoptist Name | Role | Phone | + +------+ + | No, Physician | PCP | Unavailable | + +------+ + Encounter Details +--------+ + + + + | Date | Type | Department | Care Team | Description | +--------+ + + + + | 08/29/ | Imaging | [facility] | Provider, | | | 2017 | Exam | [facility] | MD [address] | | | | | IMAGING [address] | [address] | | | | | [place] [address] | [place] [address] | | | | | [place] [address] | | | | | | [phone] | | | +--------+ + + + [...] + +--------+ + + + | XR PELVIS 1 OR 2 VW | Routin | 05/31/2017 | | Results for this | | | e | 2:55 PM | | procedure are in the | | | | PDT | | results section. | + +--------+ + + + documented in this encounter Results XR Pelvis 1 or 2 Vw (05/31/2017 2:55 PM PDT) + + | Specimen | + + | | + + + + + | Narrative | Performed At | + + + | External films | [facility] | | for comparison only - no result from [place]. | | + + + + +---------+ + + | Performing | Address | City/State/Zipcode | Phone Number | | Organization | | | | + +---------+ + + | [facility] | | | | + +---------+ + + documented in this encounter Visit Diagnoses Not on filedocumented in this encounter"
--- OUTSIDE RECORDS SUMMARY | ~2020-02-26 | XMS | Encounter Summary ---
Demographics + + + | Address | [address] [place] [address] | | | [place] [address] | + + + | Home Phone | | + + + | Preferred Language | Unknown | + + + | Marital Status | | + + + | Spiritism Affiliation | Unknown | + + + | Race | Unknown | + + + | Ethnic Group | Unknown | + + + Author + + + | Author | [facility] | | | and [place] | + + + | Organization | [facility] | | | [...] [place] | | | | | [address] | | + + + + + Care Team Providers + +------+ + | Care Java Technical Architect Name | Role | Phone | + +------+ + | No, Physician | PCP | Unavailable | + +------+ + Reason for Visit + + + | Reason | Comments | + + + | Results, Imaging | | + + + Encounter Details +--------+ + + + + | Date | Type | Department | Care Team | Description | +--------+ + + + + | 08/02/ | Telephone | [facility] | Raudel Chong | Results, Imaging | | 2017 | | NEUROSURGERY [address] | [address] | | | | | [address] | [address] | | | | | [place], [place] | [place] | | | | | [address] | [address] | | | | | [phone] | | | +--------+ + + + [...]
--- OUTSIDE RECORDS SUMMARY | ~2020-02-26 | XMS | Encounter Summary ---
Demographics + + + | Address | [address] [place] [address] | | | [place] [address] | + + + | Home Phone | | + + + | Preferred Language | Unknown | + + + | Marital Status | | + + + | Mu-Ism Affiliation | Unknown | + + + | Race | Unknown | + + + | Ethnic Group | Unknown | + + + Author + + + | Author | [facility] | | | and [place] | + + + | Organization | [facility] | | | [...] [place] | | | | | [address] | | + + + + + Care Team Providers + +------+ + | Care Offset Printing Operator Name | Role | Phone | + +------+ + | Juli Squires DO | PCP | | + +------+ + Reason for Visit + + + | Reason | Comments | + + + | Arm Injury | | + + + | Head Injury | | + + + Encounter Details +--------+---------+ + + + | Date | Type | Department | Care Team | Description | +--------+---------+ + + + | 07/13/ | Office | [facility] | Iris Mast | Closed fracture of | | 2018 | Visit | [facility] | MD [address] | shaft of left | | | | [address] [place] | humerus with routine | | | | [address] [place] | [place] [address] | healing, | | | | [place], [place] | [phone] | unspecified fracture | | | | [address] | | morphology, | | | | [phone] | | subsequent encounter | | | | | | (Primary Dx); Place | | | | | | of occurrence, | | | | | [...] + + + | Blood Pressure | 147/105 | 07/13/2018 1:05 PM | | | | | PDT | | + + + + + | Pulse | 95 | 07/13/2018 1:05 PM | | | | | PDT | | + + + + + | Temperature | 37.2 C (99 F) | 07/13/2018 1:05 PM | | | | | PDT [...] Weight | 63 kg (139 lb) | 07/13/2018 1:05 PM | | | | | PDT | | + + + + + | Height | 185.4 cm (6' 1") | 07/13/2018 1:05 PM | | | | | PDT | | + + + + + | Body Mass Index | 18.34 | 07/13/2018 1:05 PM | | | | | PDT | | + + + + + documented in this encounter Progress Notes Iris Mast MD - 07/13/2018 1:00 PM PDTEmployer: Tea mar Guarantor: RIZWAN Date of injury: 05/31/17 Claim number: [id number] Chief complaint: Follow-up multiple injuries Subjective: Injured workers a 38-year-old male presents today for scheduled follow-up. Since his last visit he has been participating in physical therapy for the low back and pelvis. He states he has had more discomfort in the pelvis and starting therapy. They have been asking him to do exercises that he is having a lot of difficulty with. The low back discomfort however h as seemed to improve but the pelvis is worsened. In terms of the rib fracture, he no longer is feeling any popping in that area. He has however noticed interval increase in discomfor t in the left arm. Feels like something sharp and stabbing in the bicep area especially whe n random direct pressure is applied to the arm. He feels that his symptoms are the same as they were prior to having the second surgery and voices frustration about this. Essentially is been released from care from the operating surgeon for the arm so is unsure if there is anything else to do. Prior to the second surgery he did participating in physical therapy, was given a variety of home exercises and he has been continuing to do these at home but has not felt that has been helpful. Past medical history, medications, allergies reviewed Review of systems: As per HPI Objective: Vital signs as noted, nursing notes reviewed. Axryhmk-atiu-wudggmhsf, well-nourished, in no apparent distress, pleasant cooperative. Imaging/diagnostics: Left humerus [id number] personally reviewed by me with the injured worker this visit-evid ence of healed fracture, hardware intact. Radiology review pending. Pending interventions: Continue conservative management. Assessment: 1. Left humeral fracture-status post ORIF 2 Plan: Left humerus x-rays today reveal fracture be healed, and hardware in place. Radiology revi ew is pending. I recommended he phoned his operating surgeon for the left arm to discuss hi s persistent and worsening symptoms and complaints of pain, to discuss the potential for oth er treatment options. He is participating in home exercise program with therapy for strengt hening and does not feel that formal therapy would be very helpful. In terms of the pelvic fracture, it has been temporarily worsened by the physical therapy. He may refrain from fur ther therapy if he desires, it is likely that the discomfort in the pelvis may continue for several months as per noted by Dr. veliz, physiatry, and part of the healing process, only t o be helped by the passage of time. He'll return here in 6 weeks, sooner for acute worsenin g or other concerns. He voices understanding and agreement. E: Regular duty R: None Impairment undetermined at this point in time, based on current objective findings it is no t an anticipated consequence of this injury however patient has not yet reached MMI status. This note was dictated using [employer] voice recognition software. Occasional wrong- word or sound-alike substitutions may have occurred due to the inherent limitations of voice recogni tion software. Please read the chart carefully and recognize, using context, where these zamora bstitutions have occurred. documented in th is encounter Plan of Treatment Not on filedocumented as of this encounter Results XR Humerus Left 2 + Vw (07/13/2018 1:45 PM PDT) + + | Specimen | + + | | + + + + + | Narrative | Performed At | + + + | TWO VIEWS LEFT HUMERUS 07/13/2018 1:45 PM CLINICAL HISTORY: s/p | [facility] | | ORIF COMPARISON: Radiographs April 13 and more remote imaging | | | FINDINGS: Lateral plate and screw fixation hardware persists along the | | | mid humeral diaphysis and appears stable in position. Fracture of | | | the neck of the fourth most superior screw is now apparent, and the | | | most distal screw demonstrates slightly proud positioning. The | | | hardware otherwise appears intact and well seated. Previously noted | | | fracture of the mid diaphysis now demonstrates a more completely | | | healed appearance, without deformity. No new osseous fracture or | | | subluxation is evident. The shoulder and elbow are grossly | | | unremarkable. Two surgical clips persist in the superficial soft | | | tissues of the lateral, mid upper arm. IMPRESSION - 1. NEW | | | FRACTURE OF ONE OF THE HUMERAL FIXATION SCREWS AND SLIGHTLY PROUD | | | POSITIONING OF THE MOST DISTAL SCREW WITH PROGRESSIVE HEALING OF THE | | | MID DIAPHYSEAL FRACTURE. Dictated and Signed by: Raj Almazan MD | | | Electronically signed: 07/13/2018 2:29 PM | | + + + + + | Procedure Note | + + | Austin, Rad Results In - 07/13/2018 2:32 PM PDT TWO VIEWS LEFT HUMERUS 07/13/2018 1:45 | | PMCLINICAL HISTORY: s/p ORIFCOMPARISON: Radiographs April 13 and more remote | | imagingFINDINGS: Lateral plate and screw fixation hardware persists along the midhumeral | | diaphysis and appears stable in position. Fracture of the neck of thefourth most | | superior screw is now apparent, and the most distal screwdemonstrates slightly proud | | positioning. The hardware otherwise appears intactand well seated. Previously noted | | fracture of the mid diaphysis nowdemonstrates a more completely healed appearance, | | without deformity. No newosseous fracture or subluxation is evident. The shoulder and | | elbow are grosslyunremarkable. Two surgical clips persist in the superficial soft | | tissues of thelateral, mid upper arm.IMPRESSION -1. NEW FRACTURE OF ONE OF THE HUMERAL | | FIXATION SCREWS AND SLIGHTLY PROUDPOSITIONING OF THE MOST DISTAL SCREW WITH PROGRESSIVE | | HEALING OF THE MIDDIAPHYSEAL FRACTURE.Dictated and Signed by: Raj Almazan MD | | Electronically signed: 07/13/2018 2:29 PM | |unremarkable. Two surgical clips persist in the superficial soft tissues of the | |lateral, mid upper arm. | | | |IMPRESSION - | |1. NEW FRACTURE OF ONE OF THE HUMERAL FIXATION SCREWS AND SLIGHTLY PROUD | |POSITIONING OF THE MOST DISTAL SCREW WITH PROGRESSIVE HEALING OF THE MID | |DIAPHYSEAL FRACTURE. | | | |Dictated and Signed by: Raj Almazan MD | | Electronically signed: 07/13/2018 2:29 PM | + + + +---------+ + [...] unspecified fracture | | morphology, subsequent encounter - Primary | + + | Place of occurrence, industrial places and premises | + + documented in this encounter
--- OUTSIDE RECORDS SUMMARY | ~2020-02-26 | XMS | Encounter Summary ---
Demographics + + + | Address | [address] [place] [address] | | | [place] [address] | + + + | Home Phone | | + + + | Preferred Language | Unknown | + + + | Marital Status | | + + + | Rastafari Affiliation | Unknown | + + + | Race | Unknown | + + + | Ethnic Group | Unknown | + + + Author + + + | Author | [facility] | | | and [place] | + + + | Organization | [facility] | | | [...] [place] | | | | | [address] | | + + + + + Care Team Providers + +------+ + | Care Law Firm Administrator Name | Role | Phone | + [...] | | Services | Therapy / | Place of | [place] | Pt Op [address] | | | Required | Rehabilitatio | occurrence, | MD Barb | [address] | | | | n | industrial | [address] | [place], | | | | | places and | [address] | [place] [address] | | | | | premises | [place], | Phone: | | | | | Closed head | [place] [address] | [phone] | | | | | injury with | Phone: | Fax: | | | | | brief loss | [phone] | [phone] | | | | | of | Fax: | | | | | | consciousnes | [phone] | | | | | | s (HCC) | | | | | | | S06.9X9A | | | | | | | (ICD-10-CM) | | | | | | | - 850.5 | | | | | | | (ICD-9-CM) - | | | | | | | Closed head | | | | | | | injury with | | | | | | | brief loss | | | | | | | of | | | | | | | consciousnes | | | | | | | s (HCC) | | | | | | | Procedures | | | | | | | pt eval | | | +--------+ + + + + + Encounter Details +--------+---------+ + + + | Date | Type | Department | Care Team | Description | +--------+---------+ + + + | 09/07/ | Office | [facility] | Iris Mast | Dizziness due to old | | 2017 | Visit | MED CTR THERAPY PT | MD [address] | head injury; Left | | | | OP [address] | [address] [place] | upper arm pain; | | | | [place], [place] | [place] [address] | Imbalance; Place of | | | | [address] | [phone] | occurrence, | | | | [phone] | | industrial places | | | | | Lashawn Cornelius, | and premises; | | | | | [employer] [address] | Chronic left-sided | | | | | [place], [place] | low back pain | | | | | [address] | without sciatica; | | | | [...] documented as of this encounter Progress Notes Lashawn Cornelius, [employer] - 09/07/2017 11:00 AM PST [facility] THERAPY PT OP [address] [place] [address] Physical Therapy Daily Treatment Note Date: 09/07/2017 Patient Information Patient Name: Mookie Mason Date of : 1980 Age: 37 y.o. Encounter Diagnoses Code Name Primary? 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 M79.622 Left upper arm pain R26.[address] occurrence, industrial places and premises M54.5, G89.29 Chronic left-sided low back pain without sciatica M54.2 Neck pain Date of Onset: 05/31/2017 Referring Provider: Iris Mast MD Rehab Precautions Flowsheet Row Office Visit from 08/10/2017 in [facility] CTR THERAPY PT OP Rehab Precautions Precautions None Rehab Learning Style Flowsheet Row Office Visit from 08/10/2017 in [facility] CTR THERAPY PT OP [facility] OP EVAL from 07/26/2017 in [facility] SPEECH THERAPY Learning Style Patient's [employer] Learning Style listening, observation listening, observation Start Time: 1100 Stop time: 1140 Duration: 40 minutes Timed Treatment Codes: 40 minutes # of PT Visits to Date: 6 Subjective: Pt reports that he has not had any dizziness since last visit, continues to have difficulty with focusing, still feels foggy but is improving. Pt does report that he has been "taking it easy" but wants to try reading and see how it go es. Pt's main complaint today is neck pain and left upper arm pain Pain Assessment: Pain Rating Pre Assessment: 5 Location: left arm, low back, neck, ninth rib Objective: Standing and on ariex pad: Eye exercises included saccades and smooth pursuits x10 for eac h position Green disc balance and bosu balance, did not have LOB. Walking with eyes fixed on discrete target with head turns/nod 15 feet x4 each (no dizziness or LOB with any vestibular ex) felt foggy not dizzy Manual therapy: STM and TPR to suboccipitals, levator scap, trap. Many tender paoints Cervical rotation: left 70 deg (2/10 pain on left), Right 70 deg (2/10 pain on left) Upper cycle 1 min x 2 forward Assessment: Pt demonstrated improved oculomotor function and did not have any dizziness this session. C omplete gentle soft tissue mobilizations; But did not tolerate them well. pt demonstrated improved ROM and decreased pain after. Did tolerate the upper cycle in forward. Pt is slow ly progressing towards goals and would benefit from cont. Therapy to improve strength, yeni ce and ROM to improve ability to complete daily tasks. Next Visit: Received new referral for UE eval; will complete re-eval next visit Electronically signed by: Lashawn Cornelius PTA, 09/07/2017 13:46 Patient Name: Mookie Mason/: 1980/ documented in this encounter Plan of Treatment Not on filedocumented as of this encounter Visit Diagnoses + + | Diagnosis | + + | Dizziness due to [...] Cervicalgia | + + documented in this encounter
--- OUTSIDE RECORDS SUMMARY | ~2020-02-26 | XMS | Encounter Summary ---
Demographics + + + | Address | [address] [place] [address] | | | [place] [address] | + + + | Home Phone | | + + + | Preferred Language | Unknown | + + + | Marital Status | | + + + | Spiritism Affiliation | Unknown | + + + | Race | Unknown | + + + | Ethnic Group | Unknown | + + + Author + + + | Author | [facility] | | | and [place] | + + + | Organization | [facility] | | | and [place] | + + + | Address | Unknown | + + + | Phone | Unavailable | + + + Support + + + + + | Name | Relationship | Address | Phone | + + + + + | Tyesha Marlon | ECON | [address] | | | | | [place] | | | | | [address] | | + + + + + Care Team Providers + +------+ + | Care Skein Dyer Name | Role | Phone | + +------+ + | No, Physician | PCP | Unavailable | + +------+ + Reason for Visit + + + | Reason | Comments | + + + | Medication Refill | | + + + Encounter Details +--------+--------+ + + + | Date | Type | Department | Care Team | Description | +--------+--------+ + + + | 03/02/ | Refill | [facility] | Iris Mast | Medication Refill | | 2018 | | [facility] | MD [address] | | | | | [address] | [address] [place] | | | | | [address] [place] | [place] [address] | | | | | [place], [place] | [phone] | | | | | [address] | | | | | | [phone] | | | +--------+--------+ + + + Social History + + [...]
--- OUTSIDE RECORDS SUMMARY | ~2020-02-26 | XMS | Encounter Summary ---
Demographics + + + | Address | [address] [place] [address] | | | [place] [address] | + + + | Home Phone | | + + + | Preferred Language | Unknown | + + + | Marital Status | | + + + | Jehovah'S Witness Affiliation | Unknown | + + + | Race | Unknown | + + + | Ethnic Group | Unknown | + + + Author + + + | Author | [facility] | | | and [place] | + + + | Organization | [facility] | | | and [...] [place] | | | | | [address] | | + + + + + Care Team Providers + +------+ + | Care Hinging Machine Operator Name | Role | Phone | + +------+ + | Juli Squires DO | PCP | | + +------+ + Reason for Visit + + + | Reason | Comments | + + + | Re-Assessment/ | | | Significant Change | | | Assessment | | + + + Encounter Details +--------+ + + + + | Date | Type | Department | Care Team | Description | +--------+ + + + + | 11/23/ | Documentati | [facility] | Mandy Matos, | Re-Assessment/ | | 2018 | on | MED CTR SPEECH | Speech Pathologist | Significant Change | | | | THERAPY [address] | | Assessment | | | | [place], | | | | | | [place] [address] | | | | | | [phone] | | | +--------+ + + + [...] Progress Notes Mandy Matos, Speech Pathologist - 11/23/2017 2:08 PM PST [facility] SPEECH THERAPY [address] [facility] [address] Speech Therapy Progress Assessment Date: 11/23/2017 Patient Information Patient Name: Mookie Mason Date of : 1980 Age: 37 y.o. History Encounter Diagnoses Code Name Primary? S06.9X1A Traumatic brain injury, with loss of consciousness of 30 minutes or less, init ial encounter ([facility]) Date of Onset: 05/31/2017 Referring Provider: No ref. provider found Rehab Precautions Flowsheet Row Office Visit from 08/10/[address] [facility] CTR THERAPY PT OP Rehab Precautions Precautions None Rehab Learning Style Flowsheet Row Office Visit from 08/10/[address] [facility] CTR THERAPY PT OP [facility] OP EVAL from 07/26/[address] [facility] CTR SPEECH THERAPY Learning Style Patient's Optimum Learning Style listening, observation listening, observation Subjective Mookie Mason has completed 5 for treatment of Cognitive deficits s/p TB I. Patient reports improvements with use of compensatory strategies/memory strategies. [facility] er continues to report difficulty with attention, auditory comprehension, reading comprehens ion, visuospatial deficits, extra time to complete tasks and significant concussion symptoms limiting participation in ADLs. Objective: Cognitive aspects [...] 74 53 56 61 Percentile 0.5 Test Date:07/26/17 Repeatable Battery for the Assessment [...] AVG High AVG Borderline Moderate impairment AVG rd %ile Concussion symptoms (taken from the ImPACT [...] Visual problems 3 Total Symptom Score 44 Overall total score consistent with prior, reduction of most severe symptom ratings except the area of trouble falling asleep. Assessment Mookie Mason has been participating in therapy for treatment of cognitive deficits s/p TBI. Patient demonstrates objective improvements with memory, attention, visuospatial sk ills, language and delayed memory. Mookie Mason continues to have impairments with m oderate boarderline deficits in the area of attention and consistent concussion symptoms mahajan iting abilities to participate in ADLs. Informal assessment also had identified notable inte rmittent halting/pausing and losing train of thought due to word-finding difficulties, diffi culty sustaining concentration/attention and increased concussion symptoms of increased dizz iness, mental fogginess, and c/o nausea. These impairments and diagnosis are causing functio nal limitations with patient's inability to perform activities of reading, maintaining atten tion, return to work, recall details from conversation participate and recall activities (corin santiago has left stove on and walked away x2 this week and was alerted with burning smell for reminder), also reports inability to read/do paperwork for more than 5 minutes without heada rody. Signs and symptoms are consistent with cognitive deficits following a TBI. Complexities contributing to frequency and duration of therapy: Insurance evaluation only until further authorized visits. Skilled ST recommended and necessary to increase ability to maintain/sust ain attention, perform cognitive rehabilitation exercises to support return to PLOF, improve recall, instruct and support use of memory strategies and word finding techniques to increa se ability to express thoughts/ideas effectively and efficiently. Rehabilitation potential: Patient demonstrates good potential to achieve established goals to address the documented impairments by participating in skilled speech and language therap y services. Goals: Patient Specific Functional Scale Goal 1: Pt will reduce concussion symptom score of <25 in 12 weeks. Patient Specific Functional Scale Goal 1 Status Comment: Goal not met, currently 44 Patient Specific Functional Scale Goal 2: Pt will complete moderate level delayed memory ta sks x90% accuracy with initial instruction of memory strategies in 12 weeks. Patient Specific Functional Scale Goal 2 Status Comment: Goal almost met, using memory stra tegies consisitently to support recall Patient Specific Functional Scale Goal 3: Pt will complete divided and switching attention tasks x90% accuracy with min cues in 12 weeks. Patient Specific Functional Scale Goal 3 Status Comment: Goal emerging, moderate-boarderlin e deficits. Plan Date of Onset: 05/31/2017 Start of Care Date: 07/26/2017 Requested # of Visits: 12 visits 1x/week for 12 weeks Certification From: 11/23/17 Certification To: 02/20/18 Treatment Plan/Interventions [id number] - Cognitive [id number] - Cognitive [id number] - Speech Sound Language Comprehens [id number] - Speech/Hearing Treatment Patient and/or family has indicated understanding of treatment needs and actively participa elijah in the creation of this plan for care. Electronically signed by: Mandy Matos Speech Pathologist, 11/23/2017 14:22 Patient Name: Mookie Mason/: 1980/ docum ented in this encounter Plan of Treatment Not on filedocumented as of this encounter Visit Diagnoses + + | Diagnosis | + + | Traumatic brain injury, with loss of consciousness of 30 minutes or less, initial | | encounter (HCC) | + + documented in this encounter"
--- OUTSIDE RECORDS SUMMARY | ~2020-02-26 | XMS | Encounter Summary ---
Demographics + + + | Address | [address] [place] [address] | | | [place] [address] | + + + | Home Phone | | + + + | Preferred Language | Unknown | + + + | Marital Status | | + + + | Islam Affiliation | Unknown | + + + | Race | Unknown | + + + | Ethnic Group | Unknown | + + + Author + + + | Author | [facility] | | | and [place] | + + + | Organization | [facility] | | [...] [place] | | | | | [address] | | + + + + + Care Team Providers + +------+ + | Care Fiber Product Cutting Machine Operator Name | Role | Phone | + +------+ + PCP | Unavailable | + +------+ + Encounter Details +--------+ + + + + | Date | Type | Department | Care Team | Description | +--------+ + + + + | 05/15/ | Hospital | [facility] | Ciro Cabrales | | | 2012 | Encounter | [facility] | MD [address] | | | | | C[address] | [address] | | | | | [address] [place], [place] | [place] [address] | | | | | [address] | [phone] | | | | | [phone] | | | +--------+ + + + [...]
--- OUTSIDE RECORDS SUMMARY | ~2020-02-26 | XMS | Encounter Summary ---
Demographics + + + | Address | [address] [place] [address] | | | [place] [address] | + + + | Home Phone | | + + + | Preferred Language | Unknown | + + + | Marital Status | | + + + | Jain Affiliation | Unknown | + + + | Race | Unknown | + + + | Ethnic Group | Unknown | + + + Author + + + | Author | [facility] | | | and [place] | + + + | Organization | [facility] | [...] [place] | | | | | [address] | | + + + + + Care Team Providers + +------+ + | Care Loader Operator/Ground Leader Name | Role | Phone | + +------+ + | Juli Squires DO | PCP | | + +------+ + Encounter Details +--------+ + + + + | Date | Type | Department | Care Team | Description | +--------+ + + + + | 02/27/ | Documentati | [facility] | Catie Squires, | | | 2018 | on | MED CTR THERAPY PT | PT [address] | | | | | OP [address] | [place], [place] | | | | | [place], [place] | [address] | | | | | [address] | | | | | | [phone] | | | +--------+ + + + [...] documented as of this encounter Progress Notes Catie Squires PT - 02/27/2018 3:56 [facility] [address] [place] [address] Physical Therapy Discharge Note This discharge is associated with the evaluation completed on 08/10/18. Date: 02/27/2018 Patient Information Patient Name: Mookie Mason Date of : 1980 Age: 37 y.o. No diagnosis found. Date of Onset: No data was found Referring Provider: Iris Mast Total Number of Visits Completed: 25 Total Cancellations: 1 Total No Shows: 0 Patient has failed to return to therapy for further treatment. Goal status is unknown at th is time. This note serves as discharge from therapy. Patient wished to postpone therapy. Pt had a recent surgery and is unable to attend physica l therapy at this time and requested to cancel appts. At this time we find it necessary to d ischarge this patient from therapy services. The last progress note or the patients initial evaluation will serve as objective status fo r purposes of discharge. Electronically signed by: Catie Squires PT, 02/27/2018 15:56 Patient Name: Mookie Mason/: 1980/ documented in this enco unter Plan of Treatment Not on filedocumented as of this encounter Visit Diagnoses Not on filedocumented in this encounter"
--- OUTSIDE RECORDS SUMMARY | ~2020-02-26 | XMS | Encounter Summary ---
Demographics + + + | Address | [address] [place] [address] | | | [place] [address] | + + + | Home Phone | | + + + | Preferred Language | Unknown | + + + | Marital Status | | + + + | Jew Affiliation | Unknown | + + + | Race | Unknown | + + + | Ethnic Group | Unknown | + + + Author + + + | Author | [facility] | | | and [place] | + + + | Organization | [facility] | | [...] [place] | | | | | [address] | | + + + + + Care Team Providers + +------+ + | Care Anesthesiology Faculty Name | Role | Phone | + [...] + + + | Closed | | Physical | Diagnoses | Pro, | Squires, | | | | Therapy / | Dizziness | Iris | Catie B, PT | | | | Rehabilitatio | and | MD Barb | [address] | | | [address] | fuad | [address] [place] | | | | | Procedures | [address] | [place] | | | | | [facility] | [place], | [address] Phone: | | | | | TREATMENT [address] | [place] [address] | [phone] | | | | | | Phone: | Fax: | | | | | | [phone] | [phone] | | | | | | Fax: | | | | | | | [phone] | | +--------+--------+ + + + + Encounter Details +--------+---------+ + + + | Date | Type | Department | Care Team | Description | +--------+---------+ + + + | 09/26/ | Office | [facility] | Iris Mast | Dizziness due to old | | 2017 | Visit | MED CTR THERAPY PT | MD Barb [address] | head injury; Left | | | | OP [address] | [address] [place] | upper arm pain; | | | | [place], [place] | [place] [address] | Imbalance; Place of | | | | [address] | [phone] | occurrence, | | | | [phone] | | industrial places | | | | | Catie Squires, PT | and premises; | | | | | [address] | Chronic left-sided | | | | | [place], [place] | low back pain | | | | | [address] | without sciatica; | | | | [...] as of this encounter Progress Notes Catie Squires, PT - 09/26/2017 9:45 AM PST [facility] CTR THERAPY PT OP [address] [place] [address] Physical Therapy Daily Treatment Note Date: 09/26/2017 Patient Information Patient Name: Mookie Mason Date [...] Flowsheet Row Office Visit from 08/10/2017 in [facility] CTR THERAPY PT OP Rehab Precautions Precautions None Rehab Learning Style Flowsheet Row Office Visit from 08/10/2017 in [facility] CTR THERAPY PT OP [facility] OP EVAL from 07/26/2017 in [facility] CTR SPEECH THERAPY Learning Style Patient's Optimum Learning Style listening, observation listening, observation Start Time: 944 Stop time: 1029 Duration: 45 minutes Timed Treatment Codes: 45 minutes # of PT Visits to Date: 9 Subjective: Pt reports that he has not been dizzy for the past few weeks, still feels "foggy" on occasi on. Pt reports that he is having increased pain since last session in his left shoulder and poi nts to anterior/pec. Area. Was feeling good that day but noticed that next day had increased pain. Pt continues to reports low back pain and is very sensitive to touch (can't lean against ch air due to pain). Pt reports that he had so much pain yesterday in his arm just from picking up a puppy (approx. 5#) Pain Assessment: Pain Rating Pre Assessment: 5 Location: left shoulder/forearm, low back (4/10) Objective: Manual therapy: STM and TPR to intra scap, pec., suboccipitals, left bicep/tricep TherEx: isometric scap. Retraction and depression, GH abd and flexion 2x10 each Gentle pec., bicep and Upper trap stretches 3x30 sec Assessment: Pt tolerated session with no increase in left shoulder pain but continues to have left fore arm, neck, low back pain. Pt was unable to tolerate therEx from previous session so did gent le isometrics. Pt is slowly progressing towards goals and has not been dizzy for a few weeks . Pt would benefit from cont. Therapy to improve strength, balance and ROM to improve abilit y to complete daily tasks and return to work. Next Visit: Cont. To progress left shoulder ROM and balance/vestibular rehab. Electronically signed by: Catie Squires PT, 09/26/2017 11:32 Patient Name: Mookie Mason/: 1980/ documented in [...]
--- OUTSIDE RECORDS SUMMARY | ~2020-02-26 | XMS | Encounter Summary ---
Demographics + + + | Address | [address] [place] [address] | | | [place] [address] | + + + | Home Phone | | + + + | Preferred Language | Unknown | + + + | Marital Status | | + + + | Rastafarian Affiliation | Unknown | + + + | Race | Unknown | + + + | Ethnic Group | Unknown | + + + Author + + + | Author | [facility] | | | and [place] | + + + | Organization | [facility] | | | and [...] [place] | | | | | [address] | | + + + + + Care Team Providers + +------+ + | Care Skin Piler Name | Role | Phone | + [...] Physical | Diagnoses | Pro, | [facility] | | | Services | Therapy / | Closed left | Iris | Oncology | | | Required | Rehabilitatio | arm | MD Barb | Therapy [address] | | | | n | fracture, | [address] | | | | | with routine | [address] | [place], | | | | | healing, | [place], | [place] [address] | | | | | subsequent | [place] [address] | Phone: | | | | | encounter | Phone: | [phone] | | | | | Place of | [phone] | Fax: | | | | | occurrence, | Fax: | [phone] | | | | | industrial | [phone] | | | | | | places and | | | | | | | premises | | | +--------+ + + + + + Encounter Details +--------+---------+ + + + | Date | Type | Department | Care Team | Description | +--------+---------+ + + + | 12/21/ | Office | [facility] | Iris Mast | Decreased activities | | 2018 | Visit | MED CNT ONCOLOGY | MD Barb [address] | of daily living | | | | THERAPY [address] [place] | (ADL); Left upper | | | | [place], | [place] [address] | arm pain | | | | [place] [address] | [phone] | | | | | [phone] | | | | | | | Iris Adan, OT | | | | | | [address] | | | | | | [place], [place] | | | | | | [address] | | | | | | | | +--------+---------+ + + + Social History [...] documented as of this encounter Progress Notes Iris Adan OT - 12/21/2017 1:45 PM PDTFormatting of this note might be different fr om the original. [facility] MED CTR THERAPY OT OP [address] [place] [address] Occupational Therapy Daily Treatment Note Date: 12/21/2017 Patient Information Patient Name: Mookie Mason Date of : 1980 Age: 37 y.o. History Encounter Diagnoses Code Name Primary? Z78.9 Decreased activities of daily living (ADL) M79.622 Left upper arm pain Date of Onset: 05/31/2017 Referring Provider: Iris Mast MD Rehab Precautions Flowsheet Row Office Visit from 08/10/2017 in [facility] CTR THERAPY PT OP Rehab Precautions Precautions None Rehab Learning Style Flowsheet Row Office Visit from 08/10/2017 in [facility] CTR THERAPY PT OP [facility] OP EVAL from 07/26/2017 in [facility] SPEECH THERAPY Learning Style Patient's Optimum Learning Style listening, observation listening, observation Today's Treatment Start Time: 1350 Stop time: Duration: minutes Timed Treatment Codes: minutes # of OT Visits: 4 Subjective: I was more sore yesterday after working more on the day before. I also didn't take any ibuprofen or tylenol yesterday. The laser and working on the tendon really helped. I don't remember if the TENS helped to decrease the pain in my am last tx. I know the both laser and working on the inside of the arm helped. Pain Assessment: Pain Rating Pre Assessment: 4 Objective Pt seen for LLLT to medial humerus x3 in preparation for MFR and cupping . Pt not patrick to t olerate the cupping due to increased pain over some areas. Pt seen for MFR and gentle positioning of the shoulder to improve ergonomic positioning and decrease pain. Pt seen for K tape to shoulder with applying the tape for training for home use. Pt seen for demonstration of theracane. He seemed to like the cane and will look for one f or home use Assessment Pt does not state that he has pain with treatment, but he grimaces and has tightness of the muscles that demonstrate pain with palpation and motion. Therapist continues to monitor du ring tx to be sure that the program is modified as indicated to limit pain and increase use of the arm Patient will benefit from continued OT for pain control, progressive strengthening, tissue management, upgrade HEP, ROM. . Plan Use TENS to determine if it will decrease the pain in the arm.tissue mobilization, gentle e xercises, possibly dowel. Exercise. Electronically signed by: Iris Adan OT, 12/21/2017 13:51 Patient Name: Mookie Palmer [place]/: 1980/ documented in this e ncounter Plan of Treatment Not on filedocumented as of this encounter Visit Diagnoses + + | Diagnosis | + + | Decreased activities of daily living (ADL) | + + | Left upper arm pain Pain in limb | + + documented in this encounter"
--- OUTSIDE RECORDS SUMMARY | ~2020-02-26 | XMS | Encounter Summary ---
Demographics + + + | Address | [address] [place] [address] | | | [place] [address] | + + + | Home Phone | | + + + | Preferred Language | Unknown | + + + | Marital Status | | + + + | Catholic Affiliation | Unknown | + + + [...] [place] | | | | | [address] | | + + + + + Care Team Providers + +------+ + | Care Family Medicine Physician Name | Role | Phone | + +------+ + PCP | Unavailable | + +------+ + Encounter Details +--------+ + + + + | Date | Type | Department | Care Team | Description | +--------+ + + + + | 10/12/ | [facility] | [facility] | Cedric Hameed MD | | | 2001 | Encounter | [facility] | [address] | | | | | EMERGENCY CENTER | [place], [place] | | | | | [address] | [phone] | | | | | [place], [place] | | | | | | [address] | | | | | | [phone] | | | +--------+ + + + [...]
--- OUTSIDE RECORDS SUMMARY | ~2020-02-26 | XMS | Encounter Summary ---
Demographics + + + | Address | [address] [place] [address] | | | [place] [address] | + + + | Home Phone | | + + + | Preferred Language | Unknown | + + + | Marital Status | | + + + | Quaker Affiliation | Unknown | + + + | Race | Unknown | + + + | Ethnic Group | Unknown | + + + Author + + + | Author | [facility] | | | and [place] | + + + | Organization | [facility] | | | [...] [place] | | | | | [address] | | + + + + + Care Team Providers + +------+ + | Care Teacher Of The Deaf/Hard Of Hearing Name | Role | Phone | + [...] + + | Closed | Specialty | Speech | Diagnoses | Pro, | [facility] | | | Services | Pathology / | Place of | [place] | [employer] Supervisor [address] | | | Required | Speech | occurrence, | MD Barb | [address] | | | | Therapy | industrial | [address] | [place] | | | | | places and | [address] | [address] | | | | | premises | [place], | Phone: | | | | | Closed head | [place] [address] | [phone] | | | | | injury with | Phone: | Fax: | | | | | brief loss | [phone] | [phone] | | | | | of | Fax: | | | | | | consciousnes | [phone] | | | | | | s ([facility]) | | | | | | | Procedures | | | | | | | music executive eval | | | +--------+ + + + + + Encounter Details +--------+ + + + + | Date | Type | Department | Care Team | Description | +--------+ + + + + | 10/25/ | Hospital | [facility] | [facility] [place] | Traumatic brain | | 2018 | Encounter | MED [facility] | MD Barb [address] | injury, with loss of | | | | THERAPY [address] [place] | consciousness of 30 | | | | [place], | [place] [address] | minutes or less, | | | | [place] [address] | [phone] | subsequent encounter | | | | [phone] | | (Primary Dx) | | | | | Mandy Matos, [...] tablets by | 100 | 0 | 10/19/19 | | | (MAPAP) 500 mg | [...] Take 1 tablet by | 30 | 1 | 09/14/20 | | | (CELEXA) 20 mg | mouth Daily. | tablet | | 17 | 8 | | tablet | | [...] Take 1 tablet by | 30 | 1 | 09/14/20 | | | (DESYREL) 50 mg | mouth nightly. | tablet | | 17 | 8 | | tablet | | | | | | + + + +---------+ + + documented as of this encounter Progress Notes Mnady Matos, Speech Pathologist - 10/25/2017 9:23 AM PST [facility] [address] [place] [address] Speech Therapy Daily Treatment Note Date: 10/25/2017 Patient Information Patient Name: Mookie Mason Date of : 1980 Age: 37 y.o. Encounter Diagnoses Code Name Primary? S06.9X1D Traumatic brain injury, with loss of consciousness of 30 minutes or less, subs equent encounter Yes Date of Onset: 05/31/2017 Referring Provider: Iris Mast MD Rehab Precautions Flowsheet Row Office Visit from 08/10/2017 in [facility]ERAPY PT OP Rehab Precautions Precautions None Rehab Learning Style Flowsheet Row Office Visit from 08/10/2017 in [facility] PT OP [facility] OP EVAL from 07/26/2017 in [facility] Learning Style Patient's [employer] Learning Style listening, observation listening, observation Today's Treatment Start Time: 919 Stop time: 100 Duration: 45 minutes Timed Treatment Codes: 45 minutes # of Speech Visits to Date: 4 Pain Assessment: Pain Scale Used: NUMERIC Pain Rating Pre Assessment: 5 Location: Arm, neck, pelvic Subjective: Again pt reports significant improvement with overall cognition and reduction o f dizziness/concussion symptoms. Reports some memory loss with (time lapse), using narration and active listening for memory strategy, continued mental fogginess. Home programming radha mmendations discussed.Offered to change rooms due to previous c/o trouble concentrating with fluorescent lights, no difficulty today. Objective/Assessment: Moderate deficits in the area of attention impacting ability to part icipate successfully in auditory comprehension with audiobook today (needed min-moderate cue s to identify problem in story, and state beginning/middle/end summary of story, safety (rep orts improved safety with cooking and more frequent checking on timers etc. to compensate fo r reduced attention to tasks), , needs extra time to complete tasks, increased difficulty pa rticipating in tasks with sustained attention greater than 15 minutes, difficulty switching between targeted stimuli with shape matching vs not visual/speed/attention activity. Halting /pausing noted in conversation, needs extra time to answer and find words effectively. Targeted visuo-spatial skills with moving targets able to initally identify location of f:4 with x1 error, with background noise significantly increased errors and only able to track 2 moving targets. Needs extra time. Brain HQ used throughout the session. Plan: ST to target attention, speed of thought and improved rate with conversational word f inding. 1 more authorized visit by 11/03/17. Electronically signed by: Mandy Matos Speech Pathologist, 10/25/2017 11:06 Patient Name: Mookie Mason/: 1980/ docum ented in this encounter Plan of Treatment Not on filedocumented as of this encounter Visit Diagnoses + + | Diagnosis | + + | Traumatic brain injury, with loss of consciousness of 30 minutes or less, subsequent | | encounter - Primary | + + documented in this encounter"
--- OUTSIDE RECORDS SUMMARY | ~2020-02-26 | XMS | Encounter Summary ---
Demographics + + + | Address | [address] [place] [address] | | | [place] [address] | + + + | Home Phone | | + + + | Preferred Language | Unknown | + + + | Marital Status | | + + + | Protestant Affiliation | Unknown | + + + | Race | Unknown | + + + | Ethnic Group | Unknown | + + + Author + + + | Author | [facility] | | | and [place] | + + + | Organization | [facility] | | | [...] BREANNA SMITH | | | | | [address] | | + + + + + Care Team Providers + +------+ + | Care Driver Starting Gate Name | Role | Phone | + [...] / | Dizziness | Iris | Catie Nash PT | | | | Rehabilitatio | and | MD Barb | [address] | | | | n | giddiness | [address] | | | | | Procedures | [address] | [place] | | | | | [facility] | [place] | [address] Phone: | | | | | TREATMENT [address] | [place] [address] | [phone] | | | | | | Phone: | Fax: | | | | | | [phone] | [phone] | | | | | | Fax: | | | | | | | [phone] | | +--------+--------+ + + + + Encounter Details +--------+---------+ + + + | Date | Type | Department | Care Team | Description | +--------+---------+ + + + | 10/06/ | Office | [facility] | Iris Mast | Closed fracture of | | 2018 | Visit | [facility] | MD Barb [address] | shaft of left | | | | OP [address] | [address] [place] | humerus with routine | | | | [place] | [place] [address] | healing, | | | | [address] | [phone] | unspecified fracture | | | | [phone] | | morphology, | | | | | Catie Squires, PT | subsequent encounter | | | | | [address] | (Primary Dx); | | | | | [place] | Dizziness due to old | | | | | [address] | head injury; Left | | | | | | upper arm pain; | | | | | | Imbalance; Place of | | | | | [...] this encounter Progress Catie Mckenzie, PT - 10/06/2017 1:00 PM PST Physical Therapy Plan of Care Date: 10/06/2017 Patient Name: Mookie Mason Date of : 1980 Encounter Diagnoses Code Name Primary? 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 pt reports that on 05/31/17 he fell off of a roof while at work approx. 20 foot fall. Pt had several injuries and was treated in [place]. S/p left humerus ORIF. Pt reports that he has been cleared by surgeon for left UE use but continues to have left ar m weakness and pain. Patient demonstrates improvements with dizziness and balance, minimal objective improvements with strength (due to pain in left UE), improved cervical spine and l eft shoulder ROM and pain intensity/frequency. Mookie Mason continues to have impairments with increased symptoms with any use of left arm, increased neck/low back pain. Increased pa in with bending/lifting/reaching/carrying, prolonged sitting/standing/walking which are affe cting his ability to complete functional tasks such as ADL's/IADL's, unable to return to wor k, difficulty with caring for young family. Primary focus will now be on left UE treatment a nd other areas as needed. Patient requires continued skilled therapy services to achieve the following updated functional goals. Goals: Dizziness Handicap Index Goal: Improve DHI score from 62/100 to <34/100 to reduce risk of f alls and increase functional mobility allowing for improved ability to complete ADL activiti es and return to work Dizziness Handicap Index Status: MET:currently 18 OP PT Goals OP PT Goals: Goal 3, Goal 4 Goal 1: Patient will be Independent in a home exercise program to address symptoms of dizzi ness/imbalance to decrease fall risk and to facilitate Ind. symptom management to improve ab ility to perform ADL's. Goal 1 Status: progressing Goal 2: Improve sensory usage with a M-CTSIB score with normal sways in conditions 1-4 Goal 2 Status: improved: impaired, used hip/ankle strategies to compensate. impaired condit ions 2 and 4 (eyes closed) Goal 3: Reduce DASH disability score by 10% points or greater indicating improved function with ADLs Goal 3 Status: currently 86.36% Goal 4: Demonstrate functional shoulder ROM to complete ADL s including reaching for bath ing, dressing & grooming activities of shampooing or drying hair. Goal 4 Status: pt is unable to reach overhead, behind back or tolerate lifting/carrying. pa in increases up to at least 6/10 Treatment Plan/Interventions PT [id number] - Therapeutic [id number] - Neuromuscular [id number] - Gait Brain [id number] - Therapeutic [id number] - Manual [id number] - Self Care/Home [id number] - Canalith [id number] - Vasopneumatic [id number] - Electrical Stimulation, Unat tended Electronically signed by: Catie Squires PT, 10/06/2017 17:52 Patient Name: Mookie Mason/: 1980/ atie Squires P T - 10/06/2017 1:[address] [facility] PT OP [address] [place] [address] Physical Therapy Progress Assessment Re-certification Date: 10/06/2017 Patient Information Patient Name: Mookie Mason Date of : 1980 Age: 37 y.o. Encounter Diagnoses Code Name Primary? S42.302D Closed fracture of shaft of left humerus with routine healing, unspecified fra cture morphology, subsequent encounter Yes 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 M79.622 Left upper arm pain R26.[address], industrial [address] and premises M54.5, G89.29 Chronic left-sided low back pain without sciatica M54.2 Neck pain Date of Onset: 05/31/2017 Referring Provider: Iris Mast MD Rehab Precautions Flowsheet Row Office Visit from 08/10/[address] [facility] PT OP Rehab Precautions Precautions None Rehab Learning Style Flowsheet Row Office Visit from 08/10/[address] [facility] PT OP [facility] EVAL from 07/26/2017 in [facility]ECH THERAPY Learning Style Patient's [employer] Learning Style listening, observation listening, observation Pain Assessment: Pain Rating Pre Assessment: 3 Location: left forearm/shoulder, low back and neck SUBJECTIVE: Mookie Mason has completed 12 visits for treatment of persistent dizzin ess related to concussion from fall, neck pain, left arm/shoulder pain, low back pain and ri b pain. pt reports that on 05/31/17 he fell off of a roof while at work approx. 20 foot fall. Pt had several injuries and was treated in [place]. S/p left humerus ORIF. Pt reports charley t he has been cleared by surgeon for left UE use but continues to have left arm weakness and pain. Patient reports improvements with dizziness and balance. However continues to report neck/low back pain and left shoulder/arm pain (with any movement but worse with flexion, rot ation if reaching for something, can't reach behind back). Pt reports that he continues to h ave daily pain but overall the pain intensity and frequency is improving. Pt's primary compl aints is left UE pain and will make this main focus for the next several sessions; unable to reach/carry/lift. Pt reports that he continues to have limitations with standing (approx 5- 10 min.), walking (approx. 20 min.) and sitting (approx 60 min.) OBJECTIVE: Observation/Posture/Alignment/Gait: Significant forward posture with fixed thoracic kyphosi s Initial Assessment Initial Assessment Progress Note / Discharge Progress Note / Discharge Testing: Left Right Left Right Malathi-Hallpike test neg neg Neg. Neg. Horizontal Canal test neg neg Neg. Neg. Cervical ROM Initial Assessment Initial Assessment Progress Note 09/05/17 Progress Note Prog. Note 10/06/17 Prog. Note 10/06/17 Left Right Left Right Left Right Flexion 60 deg 66 deg (pain/pull in left shoulder) 60 deg Extension 45 53 deg (pain upper left) 50 deg (mild pain) Lateral flexion 45 28 (pain upper left) 40 (pain left and right) 35 30 deg 36 deg (pain on left) Rotation 58 (pain end range upper left) 42 (pain upper left) 67 deg (pain on left) 40 deg ( pain on left) 60 deg (pain on left) 55 deg Sensation: Intact: intermittent N/T intact Intact: intermittent N/T intact Neurovascular: intact intact intact Cerebellar Function /Coordination: Left Right Left Right Left Right Finger to nose good good good good good good Heel to tapia good good good good good good UE ROM: Progress Note 09/05/17 Progress Note 09/05/17 Prog. Note 10/06/17 Left Right Left Flexion 72 deg 170 deg 115 deg painful arc starting at 90 deg at shoulder and elbow Abduction 91 deg 170 142 deg, pain through whole range ER full full full Extension 40 deg 90 deg 55 deg (pain at 10-55 deg) Strength Testing: Initial Assessment Initial Assessment Progress Note 09/05/17 Progress Note 09/05/17 Prog. Note 10/06/17 Prog. Note 10/06/17 Left Right Left Right Leftlimited by pain Right Deltoid (C5): 3+/5 4-/5 3+ 4+ 3+ 4+ Biceps (C6): 3+ 4- 3+ 4+ 3+ 4+ Wrist Ext (C6): 3+ 4- 3+ 4+ 3+ 4+ Supination (C6): 3+ 4- 3+ 4+ 3+ 4+ Triceps (C7): 3+ 4- 3+ 4+ 3+ 4+ EPL/EPB (C8): 3+ 4- 3+ 4+ 3+ 4+ Finger ABD (T1): 3+ 4- 3+ 4+ 3+ 4+ Supervisor Anodizing Strength: 50 # elbow pain 120 65 # 120 # 95# 135# Postural Muscles: impaired impaired impaired increased left arm pain with MMT Oculomotor Exam Initial Assessment/Progress Note Initial Assessment/Progress Note Prog. Not e 10/06/17 Left Right Left and Right Smooth pursuits(central) impaired impaired Improving, slow Saccades (central) impaired impaired Improving, slow Convergence normal normal normal Fast VOR-head thrust (peripheral) normal normal normal VOR cancellation (central) impaired impaired improving Outcome Measure: Initial Assessment Progress Note 09/05/17 Progress Note 10/06/17 Dizziness Handicap Inventory 62/100 points (16-34 Points: mild handicap) (36-52 Points:moderate handicap) (54+ Points:severe handicap) 52/100 18/100 Modified-Clinical Test of sensory interaction in balance (M-CTSIB) Condition 1(eyes open/fi rm surface):30 seconds Condition 2(eyes closed/firm surface): 20 seconds, mod sway Condition 3 (eyes open/foam surface): 30 seconds, min sway Condition 4(eyes closed/foam surface):20 seconds, mod. sway Condition 1(eyes open/firm surf kathe):30 seconds Condition 2(eyes closed/firm surface): 20 seconds, min sway Condition 3 (eyes open/foam surface): 30 seconds, min sway Condition 4(eyes closed/foam surface):20 seconds, mod. sway Condition 1(eyes open/firm surf kathe):30 seconds Condition 2(eyes closed/firm surface): 30 seconds, min sway Condition 3 (eyes open/foam surface): 30 seconds Condition 4(eyes closed/foam surface):30 seconds, min. sway NDI 32/100% 56/100% 52/100% Quick DASH 88.64/100% 86.36/100% Standardized Tests: QuickDASH (QD) Open a tight or new jar: 5 - Unable Do heavy rose grader: 5 - Unable Carry a shopping bag or briefcase: 3 - Moderate Difficulty Wash your back: 5 - Unable Use a Knife to cut food: 5 - Unable Recreational Activities which impact the UE: 5 - Unable Interfered with Social Activities: 4 - Quite a bit Limit Work or Regular Daily Activities: 5 - Unable Arm, shoulder or hand pain: 4 - Severe Tingling in arm, shoulder or hand: 4 - Severe Difficulty Sleeping due to pain in UE: 4 - Severe Difficulty QuickDASH Mean Score (Calculated): 4.45 QuickDASH Disability/Symptom Score (Calculated): 86.36 Neck Disability Index (NDI) Pain Intensity: 2 - The pain is moderate at the moment Personal Care (Washing, Dressing, etc.): 1 - I can look after myself normally but it causes extra pain Liftin - I can only lift very light weights Readin - I can't read as much as I want because of moderate pain in my neck Headaches: 1 - I have slight headaches which come infrequently Concentration: 2 - I have a fair degree of difficulty in concentrating when I want to Work: 4 - I can hardly do any work at all Drivin - I can't drive my car as long as I want because of moderate pain in my neck Sleepin - My sleep is moderately disturbed (2-3 hrs sleepless) Recreation: 3 - I am able to engage in a few of my usual recreation activities because of p ain in my neck Neck Disability Index Score: 26 Neck Disability Index Percentage Score (Calculated): 52 Dizziness Handicap Inventory P1 Does looking up increase your problem?: 2-Sometimes E2 Because of your problem, do you feel frustrated?: 2-Sometimes F3 Because of your problem, do you restrict your travel for business or recreation?: 2-Some times P4 Does walking down an aisle of a super[employer] increase your problem?: 0-No F5 Because of your problem, do you have difficutly getting into or out of bed?: 0-No F6 Does your problem significantly restrict your participation in social activities such as going out to dinner, going to movies, dancing, or to parties?: 2-Sometimes F7 Because of your problem, do you have difficulty reading?: 2-Sometimes P8 Does performing more ambitious activities, like sports, dancing, rose grader such a s sweeping or putting dishes away, increase your problem?: 2-Sometimes E9 Because of your problem are you afraid to leave your home without having someone accompa ny you?: 0-No E10 Because of your problem, have you been embarrassed in front of others?: 0-No P11 Do quick movements of your head increase your problems?: 0-No F12 Because of your problem, do you avoid heights?: 0-No P13 Does turning over in bed increase your problem?: 0-No F14 Because of your problem, is it difficult for you to do strenuous housework or yardwork? : 0-No E15 Because of your problem, are you afraid people may think you are intoxicated?: 0-No F16 Because of your problem, is it difficult for you to go for a walk by yourself?: 0-No P17 Does walking down a sidewalk increase your problem?: 0-No E18 Because of your problem, is it difficult for you to concentrate?: 0-No F19 Because of your problem, is it difficult for you to walk around your house in the dark? : 2-Sometimes E20 Because of your problem, are you afraid to stay home alone?: 0-No E21 Because of your problem, do you feel handicapped?: 0-No E22 Has your problem placed stress on your relationships with members of your family or fri ends?: 0-No E23 Because of your problem, are you depressed?: 0-No F24 Does your problem interfere with your job or household responsibilities?: 2-Sometimes P25 Does bending over increase your problem?: 2-Sometimes Dizziness Handicap Total Score (Calculated): 18 Dizziness Handicap Index Goal: Improve DHI score from 62/100 to <34/100 to reduce risk of f alls and increase functional mobility allowing for improved ability to complete ADL activiti es and return to work Dizziness Handicap Index Status: MET:currently 18/100 Assessment Mookie Mason has been participating in therapy for treatment of persistent dizziness rela elijah to concussion from fall, neck pain, left arm/shoulder pain, low back pain and rib pain. pt reports that on 05/31/17 he fell off of a roof while at work approx. 20 foot fall. Pt had several injuries and was treated in [place]. S/p left humerus ORIF. Pt reports that he has been cleared by surgeon for left UE use but continues to have left arm weakness and pain. Patient demonstrates improvements with dizziness and balance, minimal objective improvements with strength (due to pain in left UE), improved cervical spine and left shoulder ROM and p ain intensity/frequency. Mookie Mason continues to have impairments with increased symptom s with any use of left arm, increased neck/low back pain. Increased pain with bending/liftin g/reaching/carrying, prolonged sitting/standing/walking which are affecting his ability to c omplete functional tasks such as ADL's/IADL's, unable to return to work, difficulty with car ing for young family. Primary focus will now be on left UE treatment and other areas as need ed. Patient requires continued skilled therapy services to achieve the following updated fun ctional goals. Rehabilitation potential: Patient demonstrates good potential to achieve established goals to address the documented impairments by participating in skilled physical therapy services. Goals: Dizziness Handicap Index Goal: Improve DHI score from 62/100 to <34/100 to reduce risk of f alls and increase functional mobility allowing for improved ability to complete ADL activiti es and return to work Dizziness Handicap Index Status: MET:currently 18/100 OP PT Goals OP PT Goals: Goal 3, Goal 4 Goal 1: Patient will be Independent in a home exercise program to address symptoms of dizzi ness/imbalance to decrease fall risk and to facilitate Ind. symptom management to improve ab ility to perform ADL's. Goal 1 Status: progressing Goal 2: Improve sensory usage with a M-CTSIB score with normal sways in conditions 1-4 Goal 2 Status: improved: impaired, used hip/ankle strategies to compensate. impaired condit ions 2 and 4 (eyes closed) Goal 3: Reduce DASH disability score by 10% points or greater indicating improved function with ADLs Goal 3 Status: currently 86.36% Goal 4: Demonstrate functional shoulder ROM to complete ADL s including reaching for bath ing, dressing & grooming activities of shampooing or drying hair. Goal 4 Status: pt is unable to reach overhead, behind back or tolerate lifting/carrying. pa in increases up to at least 6/10 Plan Date of Onset: 05/31/2017 Start of Care Date: 08/10/2017 Requested # of Visits: 24 visits 2x/week for 12 weeks Certification From: 10/06/2017 Certification To: 12/29/2017 Treatment Plan/Interventions PT [id number] - Therapeutic [id number] - Neuromuscular [id number] - Gait Brain [id number] - Therapeutic [id number] - Manual [id number] - Self Care/Home [id number] 92 - Canalith Dkhumuoglhneq13543 - Vasopneumatic [id number] - Electrical Stimulation, Unat tended Patient and/or family has indicated understanding of treatment needs and actively participa elijah in the creation of this plan for care. Today's Treatment Start Time: 1300 Stop time: 1345 Duration: 45 minutes Timed Treatment Codes: 45 minutes # of PT Visits: 12 Objective: Re-assessment completed today. Manual therapy: STM and TPR to left posterior shoulder/paraspinals, C4 SNAG x6 reps and pt instructed in self SNAG (extension after tx: 70 deg and left rotation 60 deg with no pain) Next Visit: Cont. To progress balance/vestibular rehab with primary focus now on left UE Electronically signed by: Catie Squires PT, 10/06/2017 17:53 Patient Name: Mookie Palmer Luse/: 1980/ documented in this enco unter Plan of Treatment Not on filedocumented as of this encounter Visit Diagnoses + + | Diagnosis | + + | Closed fracture of shaft of left humerus with routine healing, unspecified fracture | | morphology, subsequent encounter - Primary | + + | Dizziness due to [...]
--- OUTSIDE RECORDS SUMMARY | ~2020-02-26 | XMS | Encounter Summary ---
Demographics + + + | Address | [address] [place] [address] | | | [place] [address] | + + + | Home Phone | | + + + | Preferred Language | Unknown | + + + | Marital Status | | + + + | Sabianist Affiliation | Unknown | + + + | Race | Unknown | + + + | Ethnic Group | Unknown | + + + Author + + + | Author | [facility] | | | and [place] | + + + | Organization | [facility] | | | [...] [place] | | | | | [address] | | + + + + + Care Team Providers + +------+ + | Care Commercial Lender Name | Role | Phone | + [...] | | | | ABIOLA SONJA | [place] [address] | | | | | [place] [address] | | | | | | [phone] | | | +--------+ + + + [...] + +--------+ + + + | XR CHEST AP PORTABLE | Routin | 05/31/2017 | | Results for this | | | e | 2:15 PM | | procedure are in the | | | | PDT | | results section. | + +--------+ + + + documented in this encounter Results XR Chest AP Portable (05/31/2017 2:15 PM PDT) + + | Specimen | + + | | + + + + + | Narrative | Performed At | + + + | External films | [facility] | | for comparison only - no result from [place]. | | + + + + +---------+ + + | Performing | Address | City/State/Zipcode | Phone Number | | Organization | | | | + +---------+ + + | [facility] | | | | + +---------+ + + documented in this encounter Visit Diagnoses Not on filedocumented in this encounter"
--- OUTSIDE RECORDS SUMMARY | ~2020-02-26 | XMS | Encounter Summary ---
Demographics + + + | Address | [address] [place] [address] | | | [place] [address] | + + + | Home Phone | | + + + | Preferred Language | Unknown | + + + | Marital Status | | + + + | Yarsani Affiliation | Unknown | + + + [...] BREANNA SMITH | | | | | [address] | | + + + + + Care Team Providers + +------+ + | Care Carbon Furnace Operator Name | Role | Phone | [...] | fracture, | [address] | | | | | with routine | [address] | [place], | | | | | healing, | [place], | [place] [address] | | | | | subsequent | [place] [address] | Phone: | | | | | encounter | Phone: | [phone] | | | | | Place of | [phone] | Fax: | | | | | occurrence, | Fax: | [phone] | | | | | industrial | [phone] | | | | | | places and | | | | | | | premises | | | +--------+ + + + + + Encounter Details +--------+---------+ + + + | Date | Type | Department | Care Team | Description | +--------+---------+ + + + | 01/01/ | Office | [facility] | Iris Mast | Decreased activities | | 2018 | Visit | MED CNT ONCOLOGY | MD Barb [address] | of daily living | | | | THERAPY [address] [place] | (ADL); Left upper | | | | [place] [place], | [place] [address] | arm pain | | | | [place] [address] | [phone] | | | | | [phone] | | | | | | | Iris Adan, OT | | | | | | [address] | | | | | | [place], [place] | | | | | | [address] | | | | | | | [...] encounter Progress Notes Iris Adan OT - 01/01/2018 1:45 PM PDTFormatting of this note might be different fr om the original. [facility] MED CTR THERAPY OT OP [address] [place] [address] Occupational Therapy Daily Treatment Note Date: 01/01/2018 Patient Information Patient Name: Mookie Mason Date of : 1980 Age: 37 y.o. History Encounter Diagnoses Code Name Primary? R68.89 Decreased activities of daily living (ADL) M79.622 Left upper arm pain Date of Onset: 05/31/2017 Referring Provider: Iris Mast MD Rehab Precautions Office Visit from 08/10/2017 in [facility] CTR THERAPY PT OP Rehab Precautions Precautions None Rehab Learning Style Office Visit from 08/10/2017 in [facility] CTR THERAPY PT OP [facility] RECEIVER STOCKER OP EVAL f rom 07/26/2017 in [facility] CTR SPEECH THERAPY Learning Style Patient's Optimum Learning Style listening, observation listening, observation Today's Treatment Start Time: 1335 Stop time: Duration: minutes Timed Treatment Codes: minutes # of OT Visits: 6 Subjective: The TENS did help the arm after my last tx. The inside of the upper arm is no t as intense s it was last week. The shoulder is still really sore. The inside of the uppe r arm is down one level of pain and has not increased since the last tx. Pain Assessment: Pain Rating Pre Assessment: 4 Location: arm, 7-8 in back Objective Pt seen for TENS to medial humerus and anterior shoulder Pt seen for Cybex row 1 plate 1x10 for both handles Pt attempted to do the UBC, but he had severe increase in pain in the elbow so exercises wa s stopped. Pt seen for MFR and cupping to lateral epicondyle and medial humerus. Pt states that the l ateral elbow is less painful than it was initially. He did not want to have a lateral epico ndyle brace at this time . Pt encouraged to practice correct posture to correct anterior displacement of the shoulder that he currently positions. Assessment Pain is slowly chuck, but is still limiting his function use of the arm. Pt to contact MD as to use of TENS For back pain. He shoulder be instructed in applicatio n by a physical therapist to determine correct placement of electrodes. Patient will benefit from continued OT for pain control, progressive strengthening, tissu e management, upgrade HEP, ROM. . Plan Monitor response to TENS. Increase strength, decrease pain. Electronically signed by: Iris Adan OT, 01/01/2018 13:39 Patient Name: Mookie Palmer Marlon/: 1980/ documented in this e ncounter Plan of Treatment Not on filedocumented as of this encounter Visit Diagnoses + + | Diagnosis | + + | Decreased activities of daily living (ADL) | + + | Left upper arm pain Pain in limb | + + documented in this encounter"
--- OUTSIDE RECORDS SUMMARY | ~2020-02-26 | XMS | Encounter Summary ---
Demographics + + + | Address | [address] [place] [address] | | | [place] [address] | + + + | Home Phone | | + + + | Preferred Language | Unknown | + + + | Marital Status | | + + + | Baptism Affiliation | Unknown | + + + | Race | Unknown | + + + | Ethnic Group | Unknown | + + + Author + + + | Author | [facility] | | | and [place] | + + + | Organization | [facility] | | | and [...] [place] SMITH | | | | | [address] | | + + + + + Care Team Providers + +------+ + | Care Medical Advisor Name | Role | Phone | + +------+ + PCP | Unavailable | + +------+ + Encounter Details +--------+ + + + + | Date | Type | Department | Care Team | Description | +--------+ + + + + | 12/17/ | [facility] | PAVAN GONZALEZ | Waqar Roche | | | 2013 | Encounter | HOSPITAL EMERGENCY | [address] | | | | | CENTER [address] [place], [place] | | | | | [place] | [address] | | | | | [address] | | | | | | [phone] | | | +--------+ + + + [...]
--- OUTSIDE RECORDS SUMMARY | ~2020-02-26 | XMS | Encounter Summary ---
Demographics + + + | Address | [address] [place] [address] | | | [place] [address] | + + + | Home Phone | | + + + | Preferred Language | Unknown | + + + | Marital Status | | + + + | Yarsanism Affiliation | Unknown | + + + [...] [place] SMITH | | | | | [address] | | + + + + + Care Team Providers + +------+ + | Care Carding Supervisor Name | Role | Phone | + [...] Description | +--------+---------+ + + + | 09/11/ | Office | [facility] | Sam Chopra, | Traumatic brain | | 2017 | Visit | PHYSIATRY [address] | [address] | injury with loss of | | | | [address] | [place] | consciousness, | | | | [facility] [place] | [address] | sequela (HCC) | | | | [address] | | (Primary Dx); | | | | [phone] | | Insomnia due to | | | | | | medical condition; | | | | | | Irritability; | | | | | | Post-concussion | | | | | | vertigo; Mild | | | | | | cognitive | | | | | | impairment; Chronic | | | | | | left shoulder pain; | | | | | | Incomplete tear of | | | | | | left rotator cuff | +--------+---------+ + + + Social History [...] + + + | Blood Pressure | 119/78 | 09/11/2017 10:20 AM | | | | | PST | | + + + + + | Pulse | 78 | 09/11/2017 10:20 AM | | | | | PST | | + + + + + | Temperature | - | - | | + + + + + | Respiratory Rate | 16 | 09/11/2017 10:20 AM | | | | | PST | | + + + + + | Oxygen Saturation | - | - | | + + + + + | Inhaled Oxygen | - | - | | | Concentration | | | | + + + + + | Weight | 63 kg (139 lb) | 09/11/2017 10:20 AM | | | | | PST | | + + + + + | Height | 185.4 cm (6' 1") | 09/11/2017 10:20 AM | | | | | PST | | + + + + + | Body Mass Index | 18.34 | 09/11/2017 10:20 AM | | | | | PST | | + + + + + documented in this encounter Patient Instructions Patient Instructions Tejal Villegas, Power Originator - 09/11/2017 10:10 AM PSTTake t razodone and Celexa as prescribed. Return to clinic in one month. documented in this encounter Progress Notes Sam Chopra MD - 09/11/2017 10:10 AM PSTFormatting of this note might be different fro m the original. Physical Medicine & Rehabilitation Concussion Consult Referring Provider: Iris Peterson Date of Service: 09/11/17 L&I date: 05/31/17 L&I number: [id number] Patient ID: 37 y.o. Male with traumatic brain injury occuring on 05/31/17 with loss of consc iousness; resulting from a fall; first Life-Time brain injury. HPI Mookie Mason was last seen on 07/17/17. It was recommended that he start medication 10 mg Celexa and Trazodone. He was also advised to participate in physical therapy and speech the rapy. Mookie Mason reports that he has discontinued medication Trazodone because it was no t providing relief. He reports that he took medication trazodone for 30 day 1/2 tablet. He r eports that medication made him drowsy for about 10 minutes after he took it but was still o nly sleeping 4-5 hours a night. He reports that he continues to take medication Celexa. He r eports that medication worked best for about 30 days and is now feeling an increase in irrit ability as previously stated before taking medication Celexa. Mookie Mason reports that he had his first speech therapy and has not followed up since. Mookie Mason reports that he would really like to be back to work but his functionality is not quite back to normal. Mookie Mason reports physical symptoms including: headache and dizziness. Mookie Mason reports that headaches are minute in nature and seem to be present with exertion such as re ading. He reports headaches maybe twice a week. He reports that dizziness and balance probl ems have greatly improved. He reports that physical therapy has improved greatly. Mookie Mason denies: nausea, vomiting, balance problems, visual problems, fatigue, sensi tivity to light, sensitivity to noise and numbness & tingling. Mookie Mason reports cognitive symptoms including: feeling mentally foggy, feeling slowe d down, difficulty concentrating and difficulty remembering. Mookie Mason reports emotional symptoms including: irritability, sadness, more emotional and nervousness. Mookie Mason reports sleep symptoms including: drowsiness, sleeping less than usual and trouble falling asleep. Mookie Mason denies: sleeping more than usual. Symptoms are not exacerbated by physical activity. Symptoms are exacerbated by cognitive activity. On a scale of 0 to 6 where 0 is normal and 6 is feeling and acting very different than thei r "normal self" they rate themselves as a 2. Mookie Mason reports that he feels much glenn r at this time. Past Medical History Past Medical History: Diagnosis Date Asthma Depression Place of occurrence, industrial places and premises Past Surgical History Past Surgical History: Procedure Laterality Date HUMERUS SURGERY Left 06/14/2017 [facility] [place] Family History: Family History Problem Relation Age of Onset Heart disease Maternal Grandfather No Known Problems Mother No Known Problems Father No Known Problems Sister No Known Problems Brother No Known Problems Maternal Grandmother No Known Problems Paternal Grandmother No Known Problems Paternal Grandfather Social History: Social History Social History Marital status: Spouse name: Tyesha Mason Number of children: 4 Years of education: 12 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 Social History Main Topics Smoking status: Current Every Day Smoker Packs/day: 0.25 Years: 25.00 Types: Cigarettes Smokeless tobacco: Former User Quit date: 2007 Alcohol use Yes Comment: Social Drug use: No Comment: In the past Sexual activity: Yes Partners: Female Other Topics Concern Not on file Social History Narrative No narrative on file Allergies: Allergies Allergen Reactions Amoxicillin Anaphylaxis Aspirin Anaphylaxis Erythromycin Anaphylaxis Penicillins Anaphylaxis Medications: Outpatient Encounter Prescriptions as of 09/11/2017 Medication Sig Dispense Refill acetaminophen (MAPAP) 500 mg tablet Take 2 tablets by mouth every 6 hours as needed for Pain. 100 tablet 0 citalopram (CELEXA) 10 mg tablet Take 1 tablet by mouth Daily. 30 tablet 1 ibuprofen (ADVIL, MOTRIN) 200 mg tablet Take 200 mg by mouth daily (with breakfast). traZODone (DESYREL) 50 mg tablet 1/2 tablet 30 min prior to sleep. (Patient not taking: Reported on 08/17/2017) 30 tablet 0 No facility-administered encounter medications on file as of 09/11/2017. Review of Systems: ROS GENERALLY: No fever, no night sweats, no anemia, no fatigue, no recent profound weight ch anges. EYES: No eye problems, + use of corrective lenses, no eye injury, no double vision, no bli ndness. EARS, NOSE, AND THROAT: No changes in taste or smell, no hearing difficulty, no ringing in the ears, no ear drainage, +dizziness, no voice changes, no difficulty swallowing, no signi ficant snoring, no sleep apnea, no sinus problems, no major dental work. NEUROLOGICALLY:The patient has no numbness/pain of arms, no numbness/pain of legs, no awake with numbness/pain, no weakness, no muscle aching, no coordination difficulty, no change in walk, no head injury, no neck injury, no back injury, no pain in neck,+ pain in back, no st roke, no fainting spells, no loss of consciousness, no tremor/shaking, no seizures,+ headach es, no migraine, no memory loss, no speech difficulty, no confusion and no numbness of face. PSYCHIATRIC: +depression, no sleep disorders, no anxiety, no bipolar disorder, no psychoti c episodes. CARDIOVASCULAR: No heart attacks, no heart murmur, no heart fluttering, no chest pain, no ankle swelling. LUNG DISEASE: No shortness of breath, no cough, no tuberculosis, no bloody cough, no asth ma, no emphysema/COPD. GASTROINTESTINAL: No bowel disease, no nausea or vomiting, no rectal bleeding, no constipa tion, no stool incontinence, no liver disease, no gallbladder disease, no abdominal pain, no ulcers. KIDNEY DISEASE: No urinary frequency, no painful or difficult urination, no incontinence. ENDOCRINE: No diabetes, no thyroid disease, no osteopenia or osteoporosis, no breast drain age. SKIN: No breast lumps, no skin changes, no rashes, no itches. HEMATOLOGIC/LYMPHATIC: No enlarged lymph nodes, no easy or unusual bleeding, no personal h istory of cancer. RHEUMATOLOGIC: No joint arthritis, no rheumatoid arthritis. Objective Physical Exam: General Appearance: Alert and Oriented to person, place, time and situation, no distress. HEENT: PERRL, conjunctiva clear, no scleral icterus, EOM's intact Neck: No tenderness to cervical paraspinal muscles, normal ROM, Spurling's test negative bi laterally Heart: Regular Rate and Rhythm Lungs: No audible wheezing or crackles Abdomen: Non-distended Back: Symmetric, seated straight leg raise negative bilaterally Extremities: Full cans test positive, pain reproduce with external rotation against resist ance. Near normal range of left shoulder Neurological: Cranial Nerves: Intact Speech: Normal Memory: intact Concentration: Able to maintain concentration with addition of serial 3's to 72. Judgment: Intact Sensory: Intact Balance: Romberg test negative, no swaying Database: Shoulder MRI completed on 08/30/17 were reviewed personally by me, I concur with the result s as reported by the Radiologist. The imaging demonstrates: Assessment 1. Traumatic brain injury with loss of consciousness, sequela (HCC) 2. Insomnia due to medical condition 3. Irritability 4. Post-concussion vertigo 5. Mild cognitive impairment 6. Chronic left shoulder pain 7. Incomplete tear of left rotator cuff Plan 1. Mookie Mason should restart medication Trazodone 50 mg nightly for one month. By his history he was actually having some emotional improvement with Trazodone 25 mg nightly in co mbination with Celexa 10 mg daily, but was still having insomnia. When he was taking both m edications his emotional symptoms were improved, but still bothersome. It may be that the d iscontinuation of trazodone at 25 mg caused an increase in emotional symptoms. He reports t hat since stopping Trazodone he has had more anxiety, depression, and emotional lability. He will also increase medication Celexa to 20 mg which hopefully will reduce symptoms of depre ssion and emotional lability. Increasing dose of trazodone further may help address persist ing insomnia. It is felt that his emotional symptoms and insomnia are secondary to his TBI on a more probable than not basis. 2. Mookie Mason should continue with plans to treat shoulder pain with Iris Peterson. He should move forward with speech therapy. He had ST evaluation with recommended visits, b ut no subsequent follow up. Further therapy may need approval through his PCP, or insurance . He was asked to follow up with Iris Mast MD. He should also continue physical therapy. Overall Mookie Mason TBI symptoms are greatly i mproved. His vestibular dysfunction has dramatically improved on today's exam compared to pr ior exam. He should return to clinic in one month time to review medication changes to Trazo done and Celexa; as well has his response to continued therapy. I, Sam Chopra MD personally performed the services described in this documentation, as scribed by in my presence, DESHAWN Carlisle and are both accurate and complete. Sam Chopra MD - 09/11/2017 documented in this en counter Plan of Treatment Not on filedocumented as of this encounter Visit Diagnoses + + | Diagnosis | + + | Traumatic brain injury with loss of consciousness, sequela (HCC) - Primary | + + | Insomnia due to medical condition Insomnia due to medical condition classified | | elsewhere | + + | Irritability | + + | Post-concussion vertigo Postconcussion syndrome | + + | Mild cognitive impairment Mild cognitive impairment, so stated | + + | Chronic left shoulder pain Pain in joint, shoulder region | + + | Incomplete tear of left rotator cuff | + + documented in this encounter
--- OUTSIDE RECORDS SUMMARY | ~2020-02-26 | XMS | Encounter Summary ---
Demographics + + + | Address | [address] [place] [address] | | | [place] [address] | + + + | Home Phone | | + + + | Preferred Language | Unknown | + + + | Marital Status | | + + + | Restorationist Affiliation | Unknown | + + + | Race | Unknown | + + + | Ethnic Group | Unknown | + + + Author + + + | Author | [facility] | | | and [place] | + + + | Organization | [facility] | | [...] [place] | | | | | [address] | | + + + + + Care Team Providers + +------+ + | Care Injection Mold Technician Name | Role | Phone | + +------+ + | Juli Squires DO | PCP | | + +------+ + Reason for Visit + + + | Reason | Comments | + + + | Imaging Only | | + + + Encounter Details +--------+ + + + + | Date | Type | Department | Care Team | Description | +--------+ + + + + | 08/01/ | Telephone | [facility] | Raudel Chong | Imaging Only | | 2016 | | NEUROSURGERY [address] | [address] [address] | | | | | [address] | [address] | | | | | [place], [place] | [place] | | | | | [address] | [address] | | | | | [phone] | | | +--------+ + + + [...]
--- OUTSIDE RECORDS SUMMARY | ~2020-02-26 | XMS | Encounter Summary ---
Demographics + + + | Address | [address] [place] [address] | | | [place] [address] | + + + | Home Phone | | + + + | Preferred Language | Unknown | + + + | Marital Status | | + + + | Lutheran Affiliation | Unknown | + + + [...] [place] SM[place] | | | | | [address] | | + + + + + Care Team Providers + +------+ + | Care Inspector Exhaust Emissions Name | Role | Phone | + +------+ + | Juli Squires DO | PCP | | + +------+ + Reason for Visit Evaluate & Treat (Routine) +--------+--------+ + + [...] | | premises | [place], | | | | | | Closed head | [place] [address] | | | | | | injury with | Phone: | | | | | | brief loss | [phone] | | | | | | of | Fax: | | | | | | consciousnes | [phone] | | | | | | s [...] | | | | | | | ([facility]) | | | | | | | [...] | | | | | | [facility] VARNISHING MACHINE 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 OP | | | | | | | TREATMENT | | | +--------+--------+ + + + + Encounter Details +--------+ + + + + | Date | Type | Department | Care Team | Description | +--------+ + + + + | 12/13/ | Hospital | [facility] | Iris Mast | Traumatic brain | | 2018 | Encounter | MED CTR SPEECH | MD Barb [address] | injury, with loss of | | | | THERAPY [address] [place] | consciousness of 30 | | | | [place], | [place] [address] | minutes or less, | | | | [place] [address] | [phone] | initial encounter | | | | [phone] | | ([facility]) | | | | | Mandy Matos, [...] Progress Notes Mandy Matos, Speech Pathologist - 12/13/2017 11:03 AM PDT [facility] SPEECH THERAPY [address] [place] [address] Speech Therapy Daily Treatment Note Date: 12/13/2017 Patient Information Patient Name: Mookie Mason Date of : 1980 Age: 37 y.o. Encounter Diagnoses Code Name Primary? S06.9X1A Traumatic brain injury, with loss of consciousness of 30 minutes or less, init ial encounter (HCC) Date of Onset: 05/31/2017 Referring Provider: Iris Mast MD Rehab Precautions Flowsheet Row Office Visit from 08/10/2017 in [facility] THERAPY PT OP Rehab Precautions Precautions None Rehab Learning Style Flowsheet Row Office Visit from 08/10/2017 in [facility] THERAPY PT OP [facility] S LP OP EVAL from 07/26/2017 in [facility] SPEECH THERAPY Learning Style Patient's Optimum Learning Style listening, observation listening, observation Today's Treatment Start Time: 1100 Stop time: 1145 Duration: 45 minutes Timed Treatment Codes: 0 minutes # of Speech Visits to Date: 7 Pain Assessment: Pain Scale Used: NUMERIC Location: mental fog, pressure at back of head Subjective: Pt seen with and ST present. Continues to target reading comprehension/ at tention exercises. Objective/Assessment: Reading comprehension: Reading with inflection to support attention to detail/sustained attention to improve recal l.5 W's strategy for improving recall/retention of written information. Patient Specific Functional Scale Goal 1: Pt will reduce concussion symptom score of <25 in 12 weeks. Patient Specific Functional Scale Goal 1 Status Comment: Goal met Patient Specific Functional Scale Goal 2: Pt will complete moderate level delayed memory ta sks x90% accuracy with initial instruction of memory strategies in 12 weeks. x75% accuracy Alina with children's book materials, omitted whole ending of story. Benefits from verbalization of important details, repetition, note taking Patient Specific Functional Scale Goal 2 Status Comment: Goal almost met, using memory stra tegies consisitently to support recall. Patient Specific Functional Scale Goal 3: Pt will complete divided and switching attention tasks x90% accuracy with min cues in 12 weeks. With categorization/deductive reasoning tasks needed moderate cues and verbal prompts to zamora pport organization of written materials/ categorization Increased mental fog to the point of needing to end therapy after this activity- 40 minutes into session. Patient Specific Functional Scale Goal 3 Status Comment: Goal emerging, moderate-boarderlin e deficits. Increased ability to sustain attention for 15-20 minutes. Onset of mental fog and headache again after therapy today. Session ended to reduce s/sx. Plan:Address attention, auditory processing, and memory strategies for improved recall. Electronically signed by: Mandy Matos Speech Pathologist, 12/13/2017 12:52 Patient Name: Mookie Mason/: 1980/ docum ented in this encounter Plan of Treatment Not on filedocumented as of this encounter Visit Diagnoses + + | Diagnosis | + + | Traumatic brain injury, with loss of consciousness of 30 minutes or less, initial | | encounter (HCC) | + + documented in this encounter"
--- OUTSIDE RECORDS SUMMARY | ~2020-02-26 | XMS | Encounter Summary ---
Demographics + + + | Address | [address] [place] [address] | | | [place] [address] | + + + | Home Phone [...] [place] | | | | | [address] | | + + + + + Care Team Providers + +------+ + | Care Marketing Program Coordinator Name | Role | Phone | + [...] | | | [facility] | [place], | [address] Phone: | | | | | TREATMENT [address] | [place] [address] | [phone] | | | | | | Phone: | Fax: | | | | | | [phone] | [phone] | | | | | | Fax: | | | | | | | [phone] | | +--------+--------+ + + + + Encounter Details +--------+---------+ + + + | Date | Type | Department | Care Team | Description | +--------+---------+ + + + | 10/09/ | Office | [facility] | [facility] | Closed fracture of | | 2018 | Visit | MED CTR THERAPY PT | MD Barb [address] | shaft of left | | | | OP [address] | [address] [place] | humerus with routine | | | | [place], [place] | [place] [address] | healing, | | | | [address] | [phone] | unspecified fracture | | | | [phone] | | morphology, | | | | | Catie Squires, PT | subsequent | | | | | [address] | encounter; Dizziness | | | | | [place] | due to old head | | | | | [address] | injury; Left upper | | | [...] this encounter Progress Catie Mckenzie, PT - 10/09/2017 3:30 PM PST [facility] MED CTR THERAPY PT OP [address] [place] [address] Physical Therapy Daily Treatment Note Date: 10/09/2017 Patient Information Patient Name: Mookie Mason Date [...] Flowsheet Row Office Visit from 08/10/2017 in [facility] CTR THERAPY PT OP Rehab Precautions Precautions None Rehab Learning Style Flowsheet Row Office Visit from 08/10/2017 in [facility] CTR THERAPY PT OP [facility] OP EVAL from 07/26/2017 in [facility] CTR SPEECH THERAPY Learning Style Patient's Optimum Learning Style listening, observation listening, observation Start Time: 1520 Stop time: 1610 Duration: 50 minutes Timed Treatment Codes: 35 minutes # of PT Visits to Date: 13 Subjective: Pt reports that he had increased pain after last therapy session but has been feeling "real ly good" for the past two days. Pain Assessment: Pain Rating Pre Assessment: 3 Location: left forearm/shoulder, low back Objective: Manual therapy: STM and TPR to intra scap, pec., left bicep/tricep, lats, upper trap. Grade III mob to left clavicle with left shoulder abduction: pt able to increased ROM with less pain after TherEx: isometric scap. Retraction and depression, GH abd and flexion 2x10 each Gentle pec., bicep and Upper trap stretches 3x30 sec Game Ready for last 15 min for pain management Assessment: Pt tolerated session with no increase in left shoulder pain and demonstrated improved ROM. Pt continues to only tolerate gentle isometrics. Pt would benefit from cont. Therapy to impr ove strength, balance and ROM to improve ability to complete daily tasks and return to work. Next Visit: waiting for authorization Electronically signed by: Catie Squires PT, 10/09/2017 16:15 Patient Name: Mookie Palmer [place]/: 1980/ documented in this enco unter Plan [...]
--- OUTSIDE RECORDS SUMMARY | ~2020-02-26 | XMS | Encounter Summary ---
Demographics + + + | Address | [address] [place] [address] | | | [place] [address] | + + + | Home Phone | | + + + | Preferred Language | Unknown | + + + | Marital Status | | + + + | Religion Affiliation | Unknown | + + + | Race | Unknown | + + + | Ethnic Group | Unknown | + + + Author + + + | Author | [facility] | | | and [place] | + + + | Organization | [facility] | | [...] [place] | | | | | [address] | | + + + + + Care Team Providers + +------+ + | Care Superintendent Communications Name | Role | Phone | + [...] | | | Rehabilitatio | occurrence, | MD Barb | Speech | | | | n | industrial | [address] | Pathologist | | | | | places and | [address] | | | | | | premises | [place], | | | | | | Closed head | [place] [address] | | | | | | injury with | Phone: | | | | | | brief loss | [phone] | | | | | | of | Fax: | | | | | | consciousnes | [phone] | | | | | | s (HCC) | | | | | | | Procedures | | | | | | | [facility] DIRECTOR OF PLAYER PERSONNEL OP | | | | | | | TREATMENT | | | +--------+--------+ + + + + Encounter Details +--------+ + + + + | Date | Type | Department | Care Team | Description | +--------+ + + + + | 10/03/ | Hospital | [facility] | Iris Mast | Traumatic brain | | 2018 | Encounter | MED CTR SPEECH | MD Barb [address] | injury, with loss of | | | | THERAPY [address] [place] | consciousness of 30 | | | | [place], | [place] [address] | minutes or less, | | | | [place] [address] | [phone] | subsequent encounter | | | | [phone] | | (Primary Dx) | | | [...] tablets by | 100 | 0 | 08/17/20 | | | (MAPAP) 500 mg | mouth every 6 hours | tablet | | 17 | 8 | | tablet | as [...] Progress Notes Mandy Matos, Speech Pathologist - 10/03/2017 11:46 AM PST [facility] SPEECH THERAPY [address] [place] [address] Speech Therapy Daily Treatment Note Date: 10/03/2017 Patient Information Patient Name: Mookie Mason Date of : 1980 Age: 37 y.o. Encounter Diagnoses Code Name Primary? S06.9X1D Traumatic brain injury, with loss of consciousness of 30 minutes or less, subs equent encounter Yes Date of Onset: 05/31/2017 Referring Provider: Iris Mast MD Rehab Precautions Flowsheet Row Office Visit from 08/10/2017 in [facility] THERAPY PT OP Rehab Precautions Precautions None Rehab Learning Style Flowsheet Row Office Visit from 08/10/2017 in [facility] THERAPY PT OP [facility] OP EVAL from 07/26/2017 in [facility] SPEECH THERAPY Learning Style Patient's Optimum Learning Style listening, observation listening, observation Today's Treatment Start Time: 1100 Stop time: 1200 Duration: 60 minutes Timed Treatment Codes: 60 minutes # of Speech Visits to Date: 2 Pain Assessment: Pain Scale Used: NUMERIC Pain Rating During Assessment: 3 Location: low forearm Subjective: Reports significant improvement with overall cognition and reduction of dizzine ss/concussion symptoms. Discussed importance of seeing eye doctor due to c/o blurriness and nystagmus. Objective: Significant overall improvements across all tested areas noted. Moderate deficit s in the area of attention impacting ability to participate successfully in auditory compreh ension, safety (reports of several instances gettting distracted with items left burning on stove due to reduced attention to tasks), problem solving for safety with cooking discussed (timers, avoiding use of stove if not remaining in kitchen or if alone) reduced processing t domenica, needs extra time to complete tasks. Halting/pausing noted in conversation, needs extra time to answer and find words effectively. Assessment: Standardized Tests: Test Date:07/26/17 Repeatable Battery for [...] AVG AVG High AVG Borderline Moderate impairment 23rd %ile Concussion symptoms (taken from the [...] except the area of trouble falling asleep. Plan: ST to target attention, speed of thought and improved rate with conversational word f inding. Electronically signed by: Mandy Matos Speech Pathologist, 10/03/2017 12:18 Patient Name: Mookie Palmer Marlon/: 1980/ docum ented in this encounter Plan of Treatment Not on filedocumented as of this encounter Visit Diagnoses + + | Diagnosis | + + | Traumatic brain injury, with loss of consciousness of 30 minutes or less, subsequent | | encounter - Primary | + + documented in this encounter"
--- OUTSIDE RECORDS SUMMARY | ~2020-02-26 | XMS | Encounter Summary ---
Demographics + + + | Address | [address] [place] [address] | | | [place] [address] | + + + | Home Phone | | + + + | Preferred Language | Unknown | + + + | Marital Status | | + + + | Moravian Affiliation | Unknown | + + + | Race | Unknown | + + + | Ethnic Group | Unknown | + + + Author + + + | Author | [facility] | | | and [place] | + + + | Organization | [facility] | | | and [place] | + + + | Address | Unknown | + + + | Phone | Unavailable | + + + Support + + + + + | Name | Relationship | Address | Phone | + + + + + | Tyesha Mason | ECON | [address] | | | | | [place] | | | | | [address] | | + + + + + Care Team Providers + +------+ + | Care Defect Cutter Name | Role | Phone | + +------+ + PCP | Unavailable | + +------+ + Encounter Details +--------+ + + + + | Date | Type | Department | Care Team | Description | +--------+ + + + + | 01/27/ | [facility] | Fernando Troncoso | | | 2009 | Encounter | HOSPITAL EMERGENCY | MD [address] | | | | | [place] [address] | [place] | | | | | [place] | [address] | | | | | [address] | [phone] | | | | | [phone] | | | +--------+ + + + [...]
--- OUTSIDE RECORDS SUMMARY | ~2020-02-26 | XMS | Encounter Summary ---
Demographics + + + | Address | [address] [place] [address] | | | [place] [address] | + + + | Home Phone | | + + + | Preferred Language | Unknown | + + + | Marital Status | | + + + | Baptism Affiliation | Unknown | + + + | Race | Unknown | + + + | Ethnic Group | Unknown | + + + Author + + + | Author | [facility] | | | and [place] | + + + | Organization | [facility] | | | [...] [place] | | | | | [address] | | + + + + + Care Team Providers + +------+ + | Care Stock Supervisor Name | Role | Phone | [...] | | IMAGING [address] | [address] | | | | | [place] | [place] [address] | | | | | [place] [address] | | | | | | [phone] | | | +--------+ + + + [...] for comparison only - no result from [facility]. | | + + + + +---------+ + + | Performing | Address | City/State/Zipcode | Phone Number | | Organization | | | | + +---------+ + + | [facility] | | | | + +---------+ + + documented in this encounter Visit Diagnoses Not on filedocumented in this encounter"
--- OUTSIDE RECORDS SUMMARY | ~2020-02-26 | XMS | Encounter Summary ---
Demographics + + + | Address | [address] [place] [address] | | | [place] [address] | + + + | Home Phone | | + + + | Preferred Language | Unknown | + + + | Marital Status | | + + + | Congregational Affiliation | Unknown | + + + | Race | Unknown | + + + | Ethnic Group | Unknown | + + + Author + + + | Author | [facility] | | | and [place] | + + + | Organization | [facility] | | [...] [place] | | | | | [address] | | + + + + + Care Team Providers + +------+ + | Care Patient Care Secretary Name | Role | Phone | + [...] + + | 03/16/ | Office | [facility] | Iris Mast | Closed left arm | | 2018 | Visit | [facility] | MD Barb [address] | fracture, with | | | | [place] [address] | [address] [place] | routine healing, | | | | [address] [place] | [place] [address] | subsequent encounter | | | | [facility], [place] | [phone] | (Primary Dx); Place | | | | [address] | | of occurrence, | | | | [phone] | | industrial places | | | [...] RIZWAN Date of injury: 05/31/17 Claim number: [id number] Chief complaint: Follow-up multiple injuries Subjective: Injured [...] Vital signs as noted, nursing notes reviewed. Gbcodbf-fxdk-[id number], well-nourished, in no apparent distress, pleasant cooperative. [...] MMI status. This note was dictated using [employer] voice recognition software. Occasional wrong- word or [...]
--- OUTSIDE RECORDS SUMMARY | ~2020-02-26 | XMS | Encounter Summary ---
Demographics + + + | Address | [address] [place] [address] | | | [place] [address] | + + + | Home Phone | | + + + | Preferred Language | Unknown | + + + | Marital Status | | + + + | Hoahaoism Affiliation | Unknown | + + + | Race | Unknown | + + + | Ethnic Group | Unknown | + + + Author + + + | Author | [facility] | | | and [place] | + + + | Organization | [facility] | | | and [...] [place] | | | | | [address] | | + + + + + Care Team Providers + +------+ + | Care Cranberry Bog Supervisor Name | Role | Phone | [...] | [facility] | [place], | [address] Phone: | | | | | TREAT[address] | [place] [address] | [phone] | | | | | | Phone: | Fax: | | | | | | [phone] | [phone] | | | | | | Fax: | | | | | | | [phone] | | +--------+--------+ + + + + Encounter Details +--------+---------+ + + + | Date | Type | Department | Care Team | Description | +--------+---------+ + + + | 10/04/ | Office | [facility] | [facility] | Left upper arm pain | | 2018 | Visit | MED CTR THERAPY PT | MD Barb [address] | (Primary Dx); | | | | OP [address] | [address] [place] | Dizziness due to old | | | | [place], [place] | [place] [address] | head injury; | | | | [address] | [phone] | Imbalance; Place of | | | | [phone] | | occurrence, | | | | | Tonia Hernández R, | industrial places | | | | | ORDER TRACER [address] | and premises; | | | | | [place] | Chronic left-sided | | | | | [address] | low back pain | | | | | [phone] | without sciatica; | | | | [...] documented as of this encounter Progress Notes Tonia Hernández, ORDER TRACER - 10/04/2017 8:45 AM PSTFormatting of this note might be different f rom the original. [facility] CTR THERAPY PT OP [address] [place] [address] Physical Therapy Daily Treatment Note Date: 10/04/2017 Patient Information Patient Name: Mookie Mason Date of : 1980 Age: 37 y.o. Encounter Diagnoses Code Name Primary? 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 R26.[address] occurrence, industrial places and premises M54.5, G89.29 Chronic left-sided low back pain without sciatica M54.2 Neck pain Date of Onset: 05/31/2017 Referring Provider: Iris Mast MD Rehab Precautions Flowsheet Row Office Visit from 08/10/2017 in [facility] CTR THERAPY PT OP Rehab Precautions Precautions None Rehab Learning Style Flowsheet Row Office Visit from 08/10/2017 in [facility] CTR THERAPY PT OP [facility] OP EVAL from 07/26/2017 in [facility] SPEECH THERAPY Learning Style Patient's Optimum Learning Style listening, observation listening, observation Start Time: 845 Stop time: 50 Duration: 64 minutes Timed Treatment Codes: 64 minutes # of PT Visits to Date: 11 Subjective: Pt reports that his self massager has helped pointing to pectoralis region. Pt trying to be more aware of preventing of muscle guarding. Pt reported change in low back p ain with change in hip height of mat. Pt drinks mostly milk and coffee. No water as the [place] se he is living in has bad pipes. Pt does not have a walking program. Pain Assessment: Pain Rating Pre Assessment: 4 Location: forearm and low back > neck, shoulder Objective: Manual therapy to reduce muscle tension and pain to allow for greater functional mobility a nd tolerance to ADLs. STM and light TPR to intra scap, pec., suboccipitals, latissimus. Education: Extended time was spent on persistent pain. Pictures were taken pre and post posture education with pt cell phone for visual feedback. Responded well to seeing pictures of his posture. Posture awareness with hips and knees being at 90 degrees. Encouraged pt to stand up and mo ve every 45 min or less from chair. Dont wait until there is pain to move. Graded Exposure and pacing self with ADLs to prevent exacerbations in symptoms during funct ional activity. Patient was instructed establishing baseline and gradual progression of daily walking progr am. Start once weather allows and safe to walk outside. Start with small amount of walking. Pt was given education on the importance of drinking adequate water daily for proper hydrat ion and tissue repair. Pt tends to hold breath with transitional movement or other movement that causes pain. Log roll Assessment: Pt has poor slouched, rounded shoulder posture. Able to self correct for short period of time before faulty postures occur again. Pt is very tight along the latissimus. S enstive to touch with manual therapy. Tolerates min touch with manual therapy. Pt was very receptive to information given to him today. Pt continues to muscle guard with majority of movement. Next Visit: Cont. To progress left shoulder ROM and balance/vestibular rehab. Further work on posture and scapular stabilization. TrA awareness and strengthening. Electronically signed by: Tonia Hernández PTA, 10/04/2017 16:24 Patient Name: Mookie Mason/: 1980/ documented in this encounter Plan of Treatment Not on filedocumented as of this encounter Visit Diagnoses + + | Diagnosis | + + | Left upper arm pain - Primary Pain in limb | + + | Dizziness due to old head injury Dizziness and giddiness | + + | Imbalance Abnormality of gait | + + | Place of occurrence, industrial places and premises | + + | Chronic left-sided low back pain without sciatica | + + | Neck pain Cervicalgia | + + documented in this encounter"
--- OUTSIDE RECORDS SUMMARY | ~2020-02-26 | XMS | Encounter Summary ---
Demographics + + + | Address | [address] [place] [address] | | | [place] [address] | + + + | Home Phone | | + + + | Preferred Language | Unknown | + + + | Marital Status | | + + + | Confucianist Affiliation | Unknown | + + + [...] [place] | | | | | [address] | | + + + + + Care Team Providers + +------+ + | Care Balance Wheel Screw Hole Driller Name | Role | Phone | + [...] | [facility] | [place], | [address] Phone: | | | | | TREAT[address] | [place] [address] | [phone] | | | | | | Phone: | Fax: | | | | | | [phone] | [phone] | | | | | | Fax: | | | | | | | [phone] | | +--------+--------+ + + + + Encounter Details +--------+---------+ + + + | Date | Type | Department | Care Team | Description | +--------+---------+ + + + | 09/21/ | Office | [facility] | Iris Mast | Dizziness due to old | | 2017 | Visit | MED CTR THERAPY PT | MD Barb [address] | head injury; Left | | | | OP [address] | [address] [place] | upper arm pain; | | | | [place], [place] | [place] [address] | Imbalance; Place of | | | | [address] | [phone] | occurrence, | | | | [phone] | | industrial places | | | | | Catie Squires, PT | and premises; | | | | | [address] | Chronic left-sided | | | | | [place] | low back pain | | | | | [address] | without sciatica; | | | | [...] encounter Progress Notes Catie Squires, PT - 09/21/2017 2:30 PM PST [facility] MED CTR THERAPY PT OP [address] [place] [address] Physical Therapy Daily Treatment Note Date: 09/21/2017 Patient Information Patient Name: Mookie Mason Date [...] Flowsheet Row Office Visit from 08/10/2017 in [facility] CTR THERAPY PT OP Rehab Precautions Precautions None Rehab Learning Style Flowsheet Row Office Visit from 08/10/2017 in [facility] CTR THERAPY PT OP [facility] S [facility] OP EVAL from 07/26/2017 in [facility] CTR SPEECH THERAPY Learning Style Patient's Optimum Learning Style listening, observation listening, observation Start Time: 1430 Stop time: 1515 Duration: 45 minutes Timed Treatment Codes: 45 minutes # of PT Visits to Date: 8 Subjective: Pt reports that he has not been dizzy since last session. Pt reports that he is having increased pain since last session in his left shoulder and poi nts to anterior/pec. Area. Was feeling good that day but noticed that next day had increased pain. Pt continues to reports low back pain and is very sensitive to touch (can't lean against ch air due to pain) Pain Assessment: Pain Rating Pre Assessment: 3 Location: left shoulder/neck low back/left forearm (4/10) Objective: Manual therapy: STM and TPR to intra scap, pec., suboccipitals TherEx: S/L iso. scap retraction and depression 2x10 S/L ER: 2x10 (no #) Reactive isometric IR/ER: yellow 4 laps each Kenzie: 3 min (scaption) Ball roll on wall at 90 deg. Shoulder flexion: 2x10 each direction Assessment: Pt tolerated session with no increase in left shoulder pain but continues to have left fore arm, neck, low back pain. Pt is slowly progressing towards goals but is limited with therEx due to other areas of pain. Pt would benefit from cont. Therapy to improve strength, balance and ROM to improve ability to complete daily tasks and return to work. Next Visit: Cont. To progress left shoulder ROM and balance/vestibular rehab. Electronically signed by: Catie Squires PT, 09/21/2017 16:45 Patient Name: Mookie Mason/: 1980/ documented in [...]
--- OUTSIDE RECORDS SUMMARY | ~2020-02-26 | XMS | Encounter Summary ---
Demographics + + + | Address | [address] [place] [address] | | | [place] [address] | + + + | Home Phone | | + + + | Preferred Language | Unknown | + + + | Marital Status | | + + + | Confucianism Affiliation | Unknown | + + + [...] [place] | | | | | [address] | | + + + + + Care Team Providers + +------+ + | Care Open Soaper Tender Name | Role | Phone | + +------+ + PCP | Unavailable | + +------+ + Encounter Details +--------+ + + + + | Date | Type | Department | Care Team | Description | +--------+ + + + + | 01/27/ | [facility] | Fernando Troncoso | | | 2009 | Encounter | HOSPITAL EMERGENCY | MD [address] | | | | | [place] [address] | [place] | | | | | [place] | [address] | | | | | [address] | [phone] | | | | | [phone] | | | +--------+ + + + [...]
--- OUTSIDE RECORDS SUMMARY | ~2020-02-26 | XMS | Encounter Summary ---
Demographics + + + | Address | [address] [place] [address] | | | [place] [address] | + + + | Home Phone | | + + + | Preferred Language | Unknown | + + + | Marital Status | | + + + | Evangelical Affiliation | Unknown | + + + | Race | Unknown | + + + | Ethnic Group | Unknown | + + + Author + + + | Author | [facility] | | | and [place] | + + + | Organization | [facility] | | [...] [place] | | | | | [address] | | + + + + + Care Team Providers + +------+ + | Care Handstitching Machine Armhole Feller Name | Role | Phone | + +------+ + PCP | Unavailable | + +------+ + Encounter Details +--------+ + + + + | Date | Type | Department | Care Team | Description | +--------+ + + + + | [facility]17[facility] | Waqar Roche | | | 2013 | Encounter | HOSPITAL EMERGENCY | [address] | | | | | CENTER [address] | [address] [place], [place] | | | | | [place] | [address] | | | | | [address] | | | | | | [phone] | | | +--------+ + + + [...]
--- OUTSIDE RECORDS SUMMARY | ~2020-02-26 | XMS | Encounter Summary ---
Demographics + + + | Address | [address] [place] [address] | | | [place] [address] | + + + | Home Phone | | + + + | Preferred Language | Unknown | + + + | Marital Status | | + + + | Voodoo Affiliation | Unknown | + + + | Race | Unknown | + + + | Ethnic Group | Unknown | + + + Author + + + | Author | [facility] | | | and [place] | + + + | Organization | [facility] | | [...] [place] | | | | | [address] | | + + + + + Care Team Providers + +------+ + | Care Auto Vinyl Top Installer Name | Role | Phone | + +------+ + | No, Physician | PCP | Unavailable | + +------+ + Encounter Details +--------+ + + + + | Date | Type | Department | Care Team | Description | +--------+ + + + + | 08/28/ | Documentati | [facility] | Lashawn Cornelius, | | | 2017 | on | MED CTR THERAPY PT | DOG BEHAVIORIST [address] | | | | | OP [address] | [place] | | | | | [place] | [address] | | | | | [address] | | | | | | [phone] | | | +--------+ + + + [...] as of this encounter Progress Notes Lashawn Cornelius PTA - 08/28/2017 10:01 [facility] [address] [place] [address] Cancellation/No Show Date: 08/28/2017 Patient Information Patient Name: Mookie Mason Date of : 1980 Age: 37 y.o. Reason for missed visit:no show Phone call placed: left a message Plan: see pt next scheduled visit. Electronically signed by: Lashawn Cornelius PTA, 08/28/2017 10:02 Patient Name: Mookie Mason/: 1980/ documented in this encounter Plan of Treatment Not on filedocumented as of this encounter Visit Diagnoses Not on filedocumented in this encounter"
--- OUTSIDE RECORDS SUMMARY | ~2020-02-26 | XMS | Encounter Summary ---
Demographics + + + | Address | [address] [place] [address] | | | [place] [address] | + + + | Home Phone | | + + + | Preferred Language | Unknown | + + + | Marital Status | | + + + | Shinto Affiliation | Unknown | + + + | Race | Unknown | + + + | Ethnic Group | Unknown | + + + Author + + + | Author | [facility] | | | and [place] | + + + | Organization | [facility] | | | [...] [place] | | | | | [address] | | + + + + + Care Team Providers + +------+ + | Care Tour Narrator Name | Role | Phone | + +------+ + | No, Physician | PCP | Unavailable | + +------+ + Reason for Visit Diagnostic/Screening (Routine) +--------+--------+ + + + + | Status | Reason | Specialty | Diagnoses / | Referred By | Referred To | | | | | Procedures | Contact | Contact | +--------+--------+ + + + + | Closed | | Radiology | Procedures | Provider, | | | | | | CT | Historical, | | | | | | Cervical | [address] | | | | | | Spine wo | [address] | | | | | | Contrast | [place] | | | | | | | [address] | | +--------+--------+ + + + + Encounter Details +--------+ + + + + | Date | Type | Department | Care Team | Description | +--------+ + + + + | 08/29/ | Imaging | [facility] | Provider, | | | 2016 | Exam | MED CTR EXTERNAL | Historical, [address] | | | | | IMAGING [address] | [address] | | | | | [address] [place] | [place] [address] | | | | | [place] [address] | | | | | | [phone] | | | +--------+ + + + [...] | + +--------+ + + + | CT CERVICAL SPINE WO | Routin | 05/31/2017 | | Results for this | | CONTRAST | e | 2:25 PM | | procedure are in the | | | | PDT | | results section. | + +--------+ + + + documented in this encounter Results CT Cervical Spine wo Contrast (05/31/2017 2:25 PM PDT) + + | Specimen | + + | | + + + + + | Narrative | Performed At | + + + | External films | [facility] | | for comparison only - no result from [facility]. | | + + + + +---------+ + + | Performing | Address | City/State/Zipcode | Phone Number | | Organization | | | | + +---------+ + + | [facility] | | | | + +---------+ + + documented in this encounter Visit Diagnoses Not on filedocumented in this encounter"
--- OUTSIDE RECORDS SUMMARY | ~2020-02-26 | XMS | Encounter Summary ---
Demographics + + + | Address | [address] [place] [address] | | | [place] [address] | + + + | Home Phone | | + + + | Preferred Language | Unknown | + + + | Marital Status | | + + + | Scientology Affiliation | Unknown | + + + | Race | Unknown | + + + | Ethnic Group | Unknown | + + + Author + + + | Author | [facility] | | | and [place] | + + + | Organization | [facility] | | | and [...] [place] | | | | | [address] | | + + + + + Care Team Providers + +------+ + | Care Network Manager Name | Role | Phone | + +------+ + PCP | Unavailable | + +------+ + Encounter Details +--------+ + + + + | Date | Type | Department | Care Team | Description | +--------+ + + + + | 08/02/ | [facility] | Wil Lakhani | | | 2010 | Encounter | HOSPITAL EMERGENCY | MD [address] | | | | | CENTER [address] | [facility] | | | | | [address] [place] | [place] [address] | | | | | [address] | [phone] | | | | | [phone] | | | +--------+ + + + [...]
--- OUTSIDE RECORDS SUMMARY | ~2020-02-26 | XMS | Encounter Summary ---
Demographics + + + | Address | [address] [place] [address] | | | [place] [address] | + + + | Home Phone | | + + + | Preferred Language | Unknown | + + + | Marital Status | | + + + | Jewish Affiliation | Unknown | + + + | Race | Unknown | + + + | Ethnic Group | Unknown | + + + Author + + + | Author | [facility] | | | and [place] | + + + | Organization | [facility] | | | and [...] [place] | | | | | [address] | | + + + + + Care Team Providers + +------+ + | Care Center Receptionist Name | Role | Phone | + [...] Description | +--------+--------+ + + + | 01/14/ | Refill | [facility] | Iris Mast | Medication Refill | | 2018 | | [facility] | MD [address] | | | | | [address] [place] | | | | | [address] [place] | [place] [address] | | | | | [place], [place] | [phone] | | | | | [address] | | | | | | [phone] | | | +--------+--------+ + + + [...]
--- OUTSIDE RECORDS SUMMARY | ~2020-02-26 | XMS | Encounter Summary ---
Demographics + + + | Address | [address] [place] [address] | | | [place] [address] | + + + | Home Phone | | + + + | Preferred Language | Unknown | + + + | Marital Status | | + + + | Mandaen Affiliation | Unknown | + + + | Race | Unknown | + + + | Ethnic Group | Unknown | + + + Author + + + | Author | [facility] | | | and [place] | + + + | Organization | [facility] | | | [...] [place] | | | | | [address] | | + + + + + Care Team Providers + +------+ + | Care Transport Engineer Name | Role | Phone | + [...] | | Required | | occurrence, | Barb MD | THERAPY - | | | | | industrial | [address] | [address] | | | | | places and | [address] | [place] | | | | | premises | [place], | [address] | | | | | Closed | [place] [address] | [address] | | | | | fracture of | Phone: | [facility] | | | | | transverse | [phone] | [place], [place] | | | | | process of | Fax: | [address] | | | | | lumbar | [phone] | Phone: | | | | | vertebra | | [phone] | | | | | with routine | | Fax: | | | | | healing, | | [phone] | | | | | subsequent | | | | | | | encounter | | | +--------+ + + + + + + + | Scheduling Instructions | + + | [facility] [place] | + + Reason for Visit + + + | Reason | Comments | + + + | Arm Injury | | + + + Encounter Details +--------+---------+ + + + | Date | Type | Department | Care Team | Description | +--------+---------+ + + + | 04/13/ | Office | [facility] | Iris Mast | Closed left arm | | 2018 | Visit | OCCUPATIONAL HEALTH | MD Barb [address] | fracture, with | | | | [place] [address] [place] | routine healing, | | | | [address] [place] | [place] [address] | subsequent encounter | | | | [place], [place] | [phone] | (Primary Dx); Place | | | | [address] | | of occurrence, | | | | [phone] | | industrial places | | | | | | and premises; Closed | | | | | | fracture of | | | | | | transverse process | | | | | | of lumbar vertebra | | | | | | with routine | | | | | | healing, subsequent | | | | | | encounter | +--------+---------+ + + + Social History [...] + + + | Blood Pressure | 124/87 | 04/13/2018 1:25 PM | | | | | PDT | | + + + + + | Pulse | 71 | 04/13/2018 1:25 PM | | | | | PDT | | + + + + + | Temperature | 37.2 C (98.9 F) | 04/13/2018 1:25 PM | | | | | PDT [...] Weight | 63 kg (139 lb) | 04/13/2018 1:25 PM | | | | | PDT | | + + + + + | Height | 185.4 cm (6' 1") | 04/13/2018 1:25 PM | | | | | PDT | | + + + + + | Body Mass Index | 18.34 | 04/13/2018 1:25 PM | | | | | PDT | | + + + + + documented in this encounter Progress Notes Iris Mast MD - 04/13/2018 1:30 PM PDTEmployer:[employer] Guarantor: RIZW[employer] Date of injury: 05/31/17 Claim number: [id number] Chief complaint: Follow-up left humerus fracture, status post hardware removal Subjective: Injured workers a 37-year-old male who presents today for scheduled follow-up. He states s gianfranco his last visit, approximately 3 weeks ago, he awoke from sleeping, was sleeping on his left side, and awoke with increased pain in the left upper arm and left hip area. He states he did not injure or overuse the arm. Thinks it was probably related to him lying on his l eft side during the night, however is continued to have fairly persistent discomfort, and in creased sensitivity to even light touch and pressure on the left arm and left hip area. Pre viously had a hematoma over the left hip incision but that has subsequently resolved. He christie s had no fevers or chills, no problems with the wounds themselves. No swelling or discolora tion. No abdominal pain, nausea, vomiting, diarrhea or constipation, no blood in the urine. He states he does note pain over the left pelvic area at the site of the incision when he coughs or has a bowel movement but has noticed no bulges or other abnormalities. He has not contacted the surgeon who performed the procedure. States he was supposed to have follow-u p, but canceled the appointment due to finances in traveling. He does feel that since he is able to roll over and move from qefq-ka-uceq he is ready to participate in some physical th erapy for his low back which was discussed at his last visit a postponed because of his rece nt surgery on the left arm. Past medical history, medications, allergies reviewed Review of systems: As per HPI Objective: Vital signs as noted, nursing notes reviewed. Ttirfkw-pbcl-pmpusamxn, well-nourished, in no apparent distress, pleasant cooperative. Left upper tizqfwdrl-mjhq-biiuhn surgical incision. Diffusely tender over the medial upper arm, over the incision and in general over the bicep. Bicep is intact. There is no swelli ng or erythema. He does have full range of motion of the elbow, able to fully extend, flex, supinate and pronate. Pelvis-anterior left pelvic surgical incision is well healed. No surrounding erythema or i nduration. No tenderness with palpation. Some tenderness with deep palpation just medial t o the incision and medial to the anterior left pelvic rim. There are no palpable masses. N o guarding or rebound. Imaging/diagnostics: Left humerus x-ray-per my review- Pending interventions: Continue conservative management. Assessment: 1. Left humerus fracture-status post ORIF and subsequent hardware removal 2. Lumbar transverse process fracture, pelvic fracture-persistent pain and discomfort Plan: Recent increased symptoms without identifiable cause, concern for low level/underlying infe ctious etiology. X-rays reviewed by me today reveal no acute findings. We will check CBC, ESR,CRP and notify him of these results when they are made available. Recommend follow-up w ith the operating surgeon for further evaluation. Physical therapy referral for the low robbie k is place this visit. Return here after that evaluation, in 4 weeks, sooner for acute wors ening or other concerns. He voices understanding and agreement. E: Modified duty R: Limited use of the left arm. Impairment undetermined at this point in time, based on current objective findings it is no t an anticipated consequence of this injury however patient has not yet reached medically st ationary status. This note was dictated using [employer] voice recognition software. Occasional wrong- word or [...] | Routin | Place of | Ordered: 04/13/2018 | | to Physical Therapy | Referral | e | occurrence, | | | | | | industrial places | | | | | | and premises Closed | | | | | | fracture of | | | | | | transverse process | | | | | | of lumbar vertebra | | | | | | with routine | | | | | | healing, subsequent | | | | | | encounter | | + + +--------+ + + documented as of this encounter Procedures + +--------+ + + + | Procedure Name | Priori | Date/Time | Associated Diagnosis | Comments | | | ty | | | | + +--------+ + + + | EXTRA LAVENDER TOP | Routin | 04/13/2018 | Closed left arm | Results for this | | TUBE | e | 2:10 PM | fracture, with | procedure are in the | | | | PDT | routine healing, | results section. | | | | | subsequent encounter | | | | | | Place of | | | | | | occurrence, | | | | | | industrial places | | | | | | and premises Closed | | | | | | fracture of | | | | | | transverse process | | | | | | of lumbar vertebra | | | | | | with routine | | | | | | healing, subsequent | | | | | | encounter | | + +--------+ + + + | EXTRA GREEN TOP TUBE | Routin | 04/13/2018 | Closed left arm | Results for this | | | e | 2:10 PM | fracture, with | procedure are in the | | | | PDT | routine healing, | results section. | | | | | subsequent encounter | | | | | | Place of | | | | | | occurrence, | | | | | | industrial places | | | | | | and premises Closed | | | | | | fracture of | | | | | | transverse process | | | | | | of lumbar vertebra | | | | | | with routine | | | | | | healing, subsequent | | | | | | encounter | | + +--------+ + + + | SEDIMENTATION RATE | Routin | 04/13/2018 | Closed left arm | Results for this | | | e | 2:09 PM | fracture, with | procedure are in the | | | | PDT | routine healing, | results section. | | | | | subsequent encounter | | | | | | Place of | | | | | | occurrence, | | | | | | industrial places | | | | | | and premises | | + +--------+ + + + | CBC WITH | Routin | 04/13/2018 | Closed left arm | Results for this | | DIFFERENTIAL | e | 2:09 PM | fracture, with | procedure are in the | | | | PDT | routine healing, | results section. | | | | | subsequent encounter | | | | | | Place of | | | | | | occurrence, | | | | | | industrial places | | | | | | and premises | | + +--------+ + + + | C-REACTIVE PROTEIN | Routin | 04/13/2018 | Closed left arm | Results for this | | | e | 2:09 PM | fracture, with | procedure are in the | | | | PDT | routine healing, | results section. | | | | | subsequent encounter | | | | | | Place of | | | | | | occurrence, | | | | | | industrial places | | | | | | and premises | | + +--------+ + + + documented in this encounter Results Extra Green Top Tube (04/13/2018 2:10 PM PDT) + +-------+ + + + | Component | Value | Ref Range | Performed | Pathologist | | | | | At | Signature | + +-------+ + + + | Extra Green | Done | | [facility] | | | Top Tube | | | [facility] | | | | | | [facility] | | | | | | C[facility] - | | | | | | LABORATORY | | + +-------+ + + + + + | Specimen | + + | Blood | + + + + + + + | Performing | Address | City/State/Zipcode | Phone Number | | Organization | | | | + + + + + | [facility] | [address] | [place] | [phone] | | [facility] | | [address] | | | - LABORATORY | | | | + + + + + Extra Lavender Top Tube (04/13/2018 2:10 PM PDT) + +-------+ + + + | Component | Value | Ref Range | Performed | Pathologist | | | | | At | Signature | + +-------+ + + + | Extra | Done | | [facility] | | | Lavender | | | [facility] | | | Top Tube | | | MEDICAL | | | | | | CENTER - | | | | | | LABORATORY | | + +-------+ + + + + + | Specimen | + + | Blood | + + + + + + + | Performing | Address | City/State/Zipcode | Phone Number | | Organization | | | | + + + + + | [facility] | [address] | [place] | [phone] | | [facility] | | [address] | | | - LABORATORY | | | | + + + + + C-Reactive Protein (04/13/2018 2:09 PM PDT) + +-------+ + + + | Component | Value | Ref Range | Performed | Pathologist | | | | | At | Signature | + +-------+ + + + | CRP | 1.17 | <8.00 mg/L | [facility] | | | | | | [facility] | | | | | | [facility]ICAL | | | | | | CENTER - | | | | | | LABORATORY | | + +-------+ + + + + + | Specimen | + + | Blood | + + + + + + + | Performing | Address | City/State/Zipcode | Phone Number | | Organization | | | | + + + + + | [facility] | [address] | [place] | [phone] | | [facility] | | [address] | | | - LABORATORY | | | | + + + + + Sedimentation Rate (04/13/2018 2:09 PM PDT) + +-------+ + + + | Component | Value | Ref Range | Performed | Pathologist | | | | | At | Signature | + +-------+ + + + | Erythrocyte | 9 | <15 mm/hr | [facility] | | | | | | [facility] | | | [facility] | | | MEDICAL | | | on Rate | | | CENTER - | | | | | | LABORATORY | | + +-------+ + + + + + | Specimen | + + | Blood | + + + + + + + | Performing | Address | City/State/Zipcode | Phone Number | | Organization | | | | + + + + + | [facility] | [address] | [place] | [phone] | | [facility] | | [address] | | | - LABORATORY | | | | + + + + + CBC with Differential (04/13/2018 2:09 PM PDT) + + + + + + | Component | Value | Ref Range | Performed | Pathologist | | | | | At | Signature | + + + + + + | WBC | 7.4 | 4.0 - 11.0 K/uL | [facility] | | | | | | [facility] | | | | | | MEDICAL | | | | | | CENTER - | | | | | | LABORATORY | | + + + + + + | RBC | 4.51 | 4.30 - 5.70 | [facility] | | | | | M/uL | [facility] | | | | | | MEDICAL | | | | | | CENTER - | | | | | | LABORATORY | | + + + + + + | Hemoglobin | 15.5 | 13.5 - 18.0 | [facility] | | | | | g/dL | [facility] | | | | | | MEDICAL | | | | | | CENTER - | | | | | | LABORATORY | | + + + + + + | Hematocrit | 45.1 | 40.0 - 51.0 % | [facility] | | | | | | [facility] | | | | | | [facility]ICAL | | | | | | CENTER - | | | | | | LABORATORY | | + + + + + + | MCV | 99.9 | 83.0 - 101.0 fL | [facility] | | | | | | [facility] | | | | | | MEDICAL | | | | | | CENTER - | | | | | | LABORATORY | | + + + + + + | MCH | 34.4 | 28.0 - 35.0 pg | [facility] | | | | | | [facility] | | | | | | [facility]ICAL | | | | | | CENTER - | | | | | | LABORATORY | | + + + + + + | MCHC | 34.5 | 32.0 - 36.0 | [facility] | | | | | g/dL | [facility] | | | | | | [facility]ICAL | | | | | | CENTER - | | | | | | LABORATORY | | + + + + + + | RDW-CV | 12.7 | <15.0 % | [facility] | | | | | | [facility] | | | | | | [facility]ICAL | | | | | | CENTER - | | | | | | LABORATORY | | + + + + + + | Platelet | 230 | 140 - 440 K/uL | [facility] | | | Count | | | [facility] | | | | | | MEDICAL | | | | | | CENTER - | | | | | | LABORATORY | | + + + + + + | MPV | 8.4 | fL | [facility] | | | | | | [facility] | | | | | | MEDICAL | | | | | | CENTER - | | | | | | LABORATORY | | + + + + + + | % | 71.9 | 45.0 - 82.0 % | [facility] | | | Neutrophils | | | [facility] | | | | | | MEDICAL | | | | | | CENTER - | | | | | | LABORATORY | | + + + + + + | % | 18.8 (L) | 20.0 - 45.0 % | [facility] | | | Lymphocytes | | | [facility] | | | | | | MEDICAL | | | | | | CENTER - | | | | | | LABORATORY | | + + + + + + | % Monocytes | 8.0 | 4.0 - 12.0 % | [facility] | | | | | | [facility] | | | | | | [facility]ICAL | | | | | | CENTER - | | | | | | LABORATORY | | + + + + + + | % | 0.6 | 0.0 - 5.0 % | [facility] | | | Eosinophils | | | [facility] | | | | | | [facility] | | | | | | CENTER - | | | | | | LABORATORY | | + + + + + + | % Basophils | 0.7 | 0.0 - 1.0 % | [facility] | | | | | | [facility] | | | | | | [facility] | | | | | | CENTER - | | | | | | LABORATORY | | + + + + + + | Absolute | 5.30 | 1.80 - 8.50 | [facility] | | | Neutrophils | | K/uL | [facility] | | | | | | [facility]ICAL | | | | | | CENTER - | | | | | | LABORATORY | | + + + + + + | Absolute | 1.40 | 0.60 - 3.20 | [facility] | | | Lymphocytes | | K/uL | [facility] | | | | | | [facility]ICAL | | | | | | CENTER - | | | | | | LABORATORY | | + + + + + + | Absolute | 0.60 | 0.00 - 1.00 | [facility] | | | Monocytes | | K/uL | [facility] | | | | | | [facility]ICAL | | | | | | CENTER - | | | | | | LABORATORY | | + + + + + + | Absolute | 0.00 | 0.00 - 0.40 | [facility] | | | Eosinophils | | K/uL | [facility] | | | | | | MEDICAL | | | | | | CENTER - | | | | | | LABORATORY | | + + + + + + | Absolute | 0.00 | 0.00 - 0.10 | [facility] | | | Basophils | | K/uL | [facility] | | | | | | MEDICAL | | | | | | CENTER - | | | | | | LABORATORY | | + + + + + + + + | Specimen | + + | Blood | + + + + + + + | Performing | Address | City/State/Zipcode | Phone Number | | Organization | | | | + + + + + | [facility] | [address] | [place] | [phone] | | [facility] | | [address] | | | - LABORATORY | | | | + + + + + XR Humerus Left 2 + Vw (04/13/2018 1:57 PM PDT) + + | Specimen | + + | | + + + + + | Narrative | Performed At | + + + | CLINICAL INFORMATION: s/p hardware removal, incresed pain. | [facility] | | COMPARISON: 07/05/2017. FINDINGS: 2 views of the left humerus. | | | Status post ORIF of the left humeral diaphysis fracture which | | | demonstrates interval increased sclerosis and bony bridging | | | consistent with healing. New fixation screws are noted. No | | | findings to suggest hardware complication. IMPRESSION - Healing | | | humeral fracture. No evidence of fixation hardware complication. | | | Dictated and Signed by: Silvestre Zacarias MD Electronically | | | signed: 04/13/2018 4:52 PM | | + + + + + | Procedure Note | + + | [place], Rad Results In - 04/13/2018 4:55 PM PDT CLINICAL INFORMATION: s/p hardware | | removal, incresed pain.COMPARISON: 07/05/2017.FINDINGS: 2 views of the left humerus. | | Status post ORIF of the left humeral diaphysis fracture which demonstratesinterval | | increased sclerosis and bony bridging consistent with healing. Newfixation screws are | | noted. No findings to suggest hardware complication.IMPRESSION - Healing humeral | | fracture. No evidence of fixation hardwarecomplication.Dictated and Signed by: Silvestre | | MD Rell Electronically signed: 04/13/2018 4:52 PM | |Status post ORIF of the left humeral diaphysis fracture which demonstrates | |interval increased sclerosis and bony bridging consistent with healing. New | |fixation screws are noted. No findings to suggest hardware complication. | | | |IMPRESSION - Healing humeral fracture. No evidence of fixation hardware | |complication. | | | |Dictated and Signed by: Silvestre Zacarias MD | | Electronically signed: 04/13/2018 4:52 PM | + + + +---------+ + [...] places and premises | + + | Closed fracture of transverse process of lumbar vertebra with routine healing, | | subsequent encounter | + + documented in this encounter
--- OUTSIDE RECORDS SUMMARY | ~2020-02-26 | XMS | Encounter Summary ---
Demographics + + + | Address | [address] [place] [address] | | | [place] [address] | + + + | Home Phone [...] BREANNA SMITH | | | | | [address] | | + + + + + Care Team Providers + +------+ + | Care Business Continuity Planner Name | Role | Phone | + +------+ + | No, Physician | PCP | Unavailable | + +------+ + Encounter Details +--------+ + + + + | Date | Type | Department | Care Team | Description | +--------+ + + + + | 07/21/ | Abstract | [facility] | Raudel Chong | | | 2017 | | NEUROSURGERY [address] | [facility] [address] | | | | | [address] | [address] | | | | | [place], [place] | [place] | | | | | [address] | [address] | | | | | [phone] | | | +--------+ + + + + Social History + + + +--------+------+ | Tobacco Use | Types | Packs/Day | Years | Date | | | | | Used | | + + + +--------+------+ | Current Every Day | Cigarettes | 0.25 | 25 | | | Smoker | | | | | + + + +--------+------+ + +---+---+---+ | Smokeless Tobacco: | | | | | Former User | | | | + +---+---+---+ + + +---------+ + | Alcohol Use [...]
--- OUTSIDE RECORDS SUMMARY | ~2020-02-26 | XMS | Encounter Summary ---
Demographics + + + | Address | [address] [place] [address] | | | [place] [address] | + + + | Home Phone | | + + + | Preferred Language | Unknown | + + + | Marital Status | | + + + | Anglican Affiliation | Unknown | + + + | Race | Unknown | + + + | Ethnic Group | Unknown | + + + Author + + + | Author | [facility] | | | and [place] | + + + | Organization | [facility] | | [...] BREANNA SMITH | | | | | [address] | | + + + + + Care Team Providers + +------+ + | Care Sequins Spooler Name | Role | Phone | + [...] Rehabilitatio | occurrence, | MD Barb | [place] | | | | n | industrial | [address] | [place], | | | | | places and | [address] | [place] [address] | | | | | premises | [place], | Phone: | | | | | Closed head | [place] [address] | [phone] | | | | | injury with | Phone: | Fax: | | | | | brief loss | [phone] | [phone] | | | | | of | Fax: | | | | | | consciousnes | [phone] | | | | | | s [...] Description | +--------+---------+ + + + | 09/05/ | Office | [facility] | [facility] | Dizziness due to old | | 2017 | Visit | [facility] | MD Barb [address] | head injury; Left | | | | OP [address] | [address] [place] | upper arm pain; | | | | [place], [place] | [place] [address] | Imbalance; Place of | | | | [address] | [phone] | occurrence, | | | | [phone] | | industrial places | | | | | Catie Squires B, PT | and premises; | | | | | [address] | Chronic left-sided | | | | | [place], [place] | low back pain | | | | | [address] | without sciatica; | | | | | | Neck pain; Closed | | | | | | fracture of shaft of | | | | | | left humerus with | | | | | | routine healing, | | | | | | unspecified fracture | | | | | | morphology, | | | | | | subsequent encounter | +--------+---------+ + + + Social [...] encounter Progress Notes Catie Squires, PT - 09/05/2017 4:15 PM PST Physical Therapy Plan of Care Recertification Date: 09/05/2017 Patient Name: Mookie Mason Date of : 1980 Encounter Diagnoses Code Name Primary? 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 M79.622 Left upper arm pain R26.[address] occurrence, industrial places and premises M54.5, G89.29 Chronic left-sided low back pain without sciatica M54.2 Neck pain S42.302D Closed fracture of shaft of left humerus with routine healing, unspecified fra cture morphology, subsequent encounter Date of Onset: 05/31/2017 Start of Care Date: 08/10/2017 Requested # of Visits: 24 visits 2x/week for No data was found Certification From: 09/05/2017 Certification To: 11/28/2017 Clinical Impression: Mookie Mason has been participating in therapy for treatment of per sistent dizziness related to concussion from fall, neck pain, left arm/shoulder pain, low ba ck pain and rib pain. pt reports that on 05/31/17 he fell off of a roof while at work approx. 20 foot fall. Pt had several injuries and was treated in [place]. S/p left humerus ORIF. Pt reports that he has been cleared by surgeon for left UE use but continues to have left ar m weakness and pain. Patient demonstrates minimal objective improvements with strength, ROM and pain. Mookie Mason continues to have impairments with increased symptoms with any use of left arm, increased low back and left shoulder/arm pain and intermittent dizziness, look ing up/down, turning head, bending/lifting, prolonged sitting/standing/walking which are aff ecting his ability to complete functional tasks such as ADL's/IADL's, unable to return to wo rk, difficulty with caring for young family. Patient requires continued skilled therapy serv ices to achieve the following updated functional goals. Received new referral from Dr. Donald bautista for left Humeral fracture Goals: Dizziness Handicap Index Goal: Improve DHI socre form 62/100 to <34/100 to reduce risk of f alls and increase functional mobility allowing for improved ability to complete ADL activiti es and return to work Dizziness Handicap Index Status: currently 52/100 OP PT Goals Goal 1: Patient will be Independent in a home exercise program to address symptoms of dizzi ness/vertigo/imbalance to decrease fall risk and improve ability to perform ADL's. Goal 1 Status: progressing Goal 2: Improve sensory usage with a M-CTSIB score with normal sways in conditions 1-4 Goal 2 Status: slightly improved: impaired, used hip/ankle strategies to compensate. impair ed conditions 2 and 4 (eyes closed) Treatment Plan/Interventions PT [id number] - Therapeutic [id number] - Neuromuscular [id number] - Gait Brain [id number] - Therapeutic [id number] - Manual [id number] - Self Care/Home [id number] - Canalith [id number] - Vasopneumatic [id number] - Electrical Stimulation, Unat tended Electronically signed by: Catie Squires PT, 09/05/2017 18:02 Patient Name: Mookie Mason/: 1980/ Catie Rich P T - 09/05/2017 4:15 PM PST [facility] OP [address] [place] [address] Physical Therapy Progress Assessment Re-certification Date: 09/05/2017 Patient Information Patient Name: Mookie Mason Date of : 1980 Age: 37 y.o. Encounter Diagnoses Code Name Primary? 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 M79.622 Left upper arm pain R26.[address] of occurrence, industrial places and premises M54.5, G89.29 Chronic left-sided low back pain without sciatica M54.2 Neck pain S42.302D Closed fracture of shaft of left humerus with routine healing, unspecified fra cture morphology, subsequent encounter Date of Onset: 05/31/2017 Referring Provider: Iris Mast MD Rehab Precautions Flowsheet Row Office Visit from 08/10/2017 in [facility] OP Rehab Precautions Precautions None Rehab Learning Style Flowsheet Row Office Visit from 08/10/2017 in [facility] OP [facility] OP EVAL from 07/26/2017 in [facility] Learning Style Patient's [employer] Learning Style listening, observation listening, observation Pain Assessment: Pain Scale Used: NUMERIC Pain Rating During Assessment: 6 Location: left arm, low back, neck SUBJECTIVE: Mookie Mason has completed 5 visits for treatment of persistent dizziness rel ated to concussion from fall, neck pain, left arm/shoulder pain, low back pain and rib pain. pt reports that on 05/31/17 he fell off of a roof while at work approx. 20 foot fall. Pt had several injuries and was treated in [place]. S/p left humerus ORIF. Pt reports that he christie s been cleared by surgeon for left UE use but continues to have left arm weakness and pain. Patient reports improvements with pelvic pain. However continues to report neck pain, increa sed low back (started to get worse last week) and left shoulder/arm (with any movement but w orse with flexion, rotation if reaching for something, can't reach behind back) pain and int ermittent dizziness (two episodes since last therapy session). Pt continues to have increase d symptoms with any use of left arm, looking up/down, turning head, bending/lifting, prolong ed sitting/standing/walking Received new referral from Dr. Mast for left Humeral fracture OBJECTIVE: Observation/Posture/Alignment/Gait: Significant forward posture with fixed thoracic kyphosi s Initial Assessment Initial Assessment Progress Note / Discharge Progress Note / Discharge Testing: Left Right Left Right [place]-Hallpike test neg neg Neg. Neg. Horizontal Canal test neg neg Neg. Neg. Cervical ROM Initial Assessment Initial Assessment Progress Note / Discharge Progress Not e / Discharge Left Right Left Right Flexion 60 deg 66 deg (pain/pull in left shoulder) Extension 45 53 deg (pain upper left) Lateral flexion 45 28 (pain upper left) 40 (pain left and right) 35 Rotation 58 (pain end range upper left) 42 (pain upper left) 67 deg (pain on left) 40 deg ( pain on left) Sensation: Intact: intermittent N/T intact Intact: intermittent N/T Neurovascular: intact intact Cerebellar Function /Coordination: Left Right Left Right Finger to nose good good good good Heel to tapia good good good good UE ROM: Progress Note Progress Note Discharge Discharge Left Right Left Right Flexion 72 deg 170 deg Abduction 91 deg 170 ER full full Extension 40 deg 90 deg Strength Testing: Initial Assessment Initial Assessment Progress Note / Discharge Progress Note / Discharge Left Right Left Right Deltoid (C5): 3+/5 4-/5 3+ 4+ Biceps (C6): 3+ 4- 3+ 4+ Wrist Ext (C6): 3+ 4- 3+ 4+ Supination (C6): 3+ 4- 3+ 4+ Triceps (C7): 3+ 4- 3+ 4+ EPL/EPB (C8): 3+ 4- 3+ 4+ Finger ABD (T1): 3+ 4- 3+ 4+ 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 Strength: 50 # elbow pain 120 65 # 120 # Postural Muscles: impaired impaired increased left arm pain with MMT Oculomotor Exam Initial Assessment/Progress Note Initial Assessment/Progress Note Discharg e / Discharge Left Right Left Right Smooth pursuits(central) impaired impaired Saccades (central) impaired impaired Convergence normal normal Fast VOR-head thrust (peripheral) normal normal VOR cancellation (central) impaired impaired Outcome Measure: Initial Assessment Progress Note / Discharge Dizziness Handicap Inventory 62/100 points (16-34 Points: mild handicap) (36-52 Points:moderate handicap) (54+ Points:severe handicap) 52/100 Modified-Clinical Test of sensory interaction in balance [...] Condition 4(eyes closed/foam surface):20 seconds, mod. sway NDI 32/100% 56/100% Quick DASH 88.64/100% Standardized Tests: QuickDASH (QD) Open a tight or new jar: 5 - Unable Do heavy hybrid corn breeder: 5 - Unable Carry a shopping bag or briefcase: 4 - Severe Difficulty Wash your back: 5 - Unable Use a Knife to cut food: 4 - Severe Difficulty Recreational Activities which impact the UE: 5 - Unable Interfered with Social Activities: 5 - Extremely Limit Work or Regular Daily Activities: 5 - Unable Arm, shoulder or hand pain: 4 - Severe Tingling in arm, shoulder or hand: 4 - Severe Difficulty Sleeping due to pain in UE: 4 - Severe Difficulty QuickDASH Mean Score (Calculated): 4.55 QuickDASH Disability/Symptom Score (Calculated): 88.64 Neck Disability Index (NDI) Pain Intensity: 2 - The pain is moderate at the moment Personal Care (Washing, Dressing, etc.): 3 - I need some help but can manage most of my per hussain care Liftin - Pain prevents me from lifting heavy weights but I can manage light to medium w eights if they are conveniently positioned Readin - I can't read as much as I want because of moderate pain in my neck Headaches: 1 - I have slight headaches which come infrequently Concentration: 3 - I have a lot of difficulty in concentrating when I want to Work: 3 - I cannot do my usual work Drivin - I can't drive my car as long as I want because of moderate pain in my neck Sleepin - My sleep is moderately disturbed (2-3 hrs sleepless) Recreation: 4 - I can hardly do any recreation activities because of pain in my neck Neck Disability Index Score: 28 Neck Disability Index Percentage Score (Calculated): 56 Dizziness Handicap Inventory P1 Does looking up increase your problem?: 4-Yes E2 Because of your problem, do you feel frustrated?: 4-Yes F3 Because of your problem, do you restrict your travel for business or recreation?: 4-Yes P4 Does walking down an aisle of a supermarket increase your problem?: 0-No F5 Because of your problem, do you have difficutly getting into or out of bed?: 2-Sometimes F6 Does your problem significantly restrict your participation in social activities such as going out to dinner, going to movies, dancing, or to parties?: 4-Yes F7 Because of your problem, do you have difficulty reading?: 4-Yes P8 Does performing more ambitious activities, like sports, dancing, hybrid corn breeder such a s sweeping or putting dishes away, increase your problem?: 2-Sometimes E9 Because of your problem are you afraid to leave your home without having someone accompa ny you?: 0-No E10 Because of your problem, have you been embarrassed in front of others?: 0-No P11 Do quick movements of your head increase your problems?: 4-Yes F12 Because of your problem, do you avoid heights?: 2-Sometimes P13 Does turning over in bed increase your problem?: 0-No F14 Because of your problem, is it difficult for you to do strenuous housework or yardwork? : 2-Sometimes E15 Because of your problem, are you afraid people may think you are intoxicated?: 0-No F16 Because of your problem, is it difficult for you to go for a walk by yourself?: 2-Somet imes P17 Does walking down a sidewalk increase your problem?: 0-No E18 Because of your problem, is it difficult for you to concentrate?: 4-Yes F19 Because of your problem, is it difficult for you to walk around your house in the dark? : 2-Sometimes E20 Because of your problem, are you afraid to stay home alone?: 0-No E21 Because of your problem, do you feel handicapped?: 2-Sometimes E22 Has your problem placed stress on your relationships with members of your family or fri ends?: 2-Sometimes E23 Because of your problem, are you depressed?: 2-Sometimes F24 Does your problem interfere with your job or household responsibilities?: 4-Yes P25 Does bending over increase your problem?: 2-Sometimes Dizziness Handicap Total Score (Calculated): 52 Dizziness Handicap Index Goal: Improve DHI socre form 62/100 to <34/100 to reduce risk of f alls and increase functional mobility allowing for improved ability to complete ADL activiti es and return to work Dizziness Handicap Index Status: currently 52/100 Assessment Mookie Mason has been participating in therapy for treatment of persistent dizziness rela elijah to concussion from fall, neck pain, left arm/shoulder pain, low back pain and rib pain. pt reports that on 05/31/17 he fell off of a roof while at work approx. 20 foot fall. Pt had several injuries and was treated in [place]. S/p left humerus ORIF. Pt reports that he has been cleared by surgeon for left UE use but continues to have left arm weakness and pain. Patient demonstrates minimal objective improvements with strength, ROM and pain. Mookie hernandez continues to have impairments with increased symptoms with any use of left arm, increase d low back and left shoulder/arm pain and intermittent dizziness, looking up/down, turning h ead, bending/lifting, prolonged sitting/standing/walking which are affecting his ability to complete functional tasks such as ADL's/IADL's, unable to return to work, difficulty with ca ring for young family. Patient requires continued skilled therapy services to achieve the [facility] updated functional goals. Received new referral from Dr. Mast for left Humeral fracture Rehabilitation potential: Patient demonstrates good potential to achieve established goals to address the documented impairments by participating in skilled physical therapy services. Goals: Dizziness Handicap Index Goal: Improve DHI socre form 62/100 to <34/100 to reduce risk of f alls and increase functional mobility allowing for improved ability to complete ADL activiti es and return to work Dizziness Handicap Index Status: currently 52/100 OP PT Goals Goal 1: Patient will be Independent in a home exercise program to address symptoms of dizzi ness/vertigo/imbalance to decrease fall risk and improve ability to perform ADL's. Goal 1 Status: progressing Goal 2: Improve sensory usage with a M-CTSIB score with normal sways in conditions 1-4 Goal 2 Status: slightly improved: impaired, used hip/ankle strategies to compensate. impair ed conditions 2 and 4 (eyes closed) Plan Date of Onset: 05/31/2017 Start of Care Date: 08/10/2017 Requested # of Visits: 24 visits 2x/week for No data was found Certification From: 09/05/2017 Certification To: 11/28/2017 Treatment Plan/Interventions PT [id number] - Therapeutic [id number] - Neuromuscular [id number] - Gait Brain [id number] - Therapeutic Cvmvofcxfx44262 - Manual Myqvqwy47736 - Self Care/Home [id number] 92 - Canalith Dzvjvdsciclvg18544 - Vasopneumatic [id number] - Electrical Stimulation, Unat tended Patient and/or family has indicated understanding of treatment needs and actively participa elijah in the creation of this plan for care. Today's Treatment Start Time: 1615 Stop time: 1700 Duration: 45 minutes Timed Treatment Codes: 45 minutes # of PT Visits: 5 Objective: Re-assessment completed today. Next Visit: Cont. To progress balance, vestibular rehab, left shoulder ROM Electronically signed by: Catie Squirse PT, 09/05/2017 17:58 Patient Name: Mookie Mason/: 1980/ documented in [...] | Neck pain Cervicalgia | + + | Closed fracture of shaft of left humerus with routine healing, unspecified fracture | | morphology, subsequent encounter | + + documented in this encounter"
--- OUTSIDE RECORDS SUMMARY | ~2020-02-26 | XMS | Clinical Summary ---
Demographics + + + | Address | [address] [place] [address] | | | [place] [address] | + + + | Home Phone | | + + + | Preferred Language | Unknown | + + + | Marital Status | | + + + | Baptist Affiliation | Unknown | + + + | Race | Unknown | + + + | Ethnic Group | Unknown | + + + Author + + + | Author | [facility] | | | and [place] | + + + | Organization | [facility] | | | [...] [place] | | | | | [address] | | + + + + + Care Team Providers + +------+ + | Care Cardroom Drawing Runner Name | Role | Phone | + +------+ + | No, Physician | PCP | Unavailable | + +------+ + Allergies + + + + + + | Active Allergy | Reactions | Severity | Noted | Comments | | | | | Date | | + + + + + + | Amoxicillin | Anaphylaxis | High | 06/29/20 | | | | | | 17 | | + + + + + + | Aspirin | Anaphylaxis | High | 06/29/20 | | | | | | 17 | | + + + + + + | Erythromycin | Anaphylaxis | High | 06/29/20 | | | | | | 17 | | + + + + + + | Penicillins | Anaphylaxis | High | 07/06/20 | | | | | | 17 | | + + + + + + Medications + + + +---------+------+------+-------+ | Medication | Sig | Dispensed | Refills | Star | End | Statu | | | | | | t | Date | s | | | | | | Date | | | + + + +---------+------+------+-------+ | acetaminophen | Take 1,000 mg by | | 0 | 09/0 | | Activ | | (TYLENOL) 500 mg | mouth 2 times daily. | | | 12/19 | | e | | tablet | | | | 17 | | | + + + +---------+------+------+-------+ Active Problems + + + | Problem | Noted Date | + + + | Memory deficit | 02/16/2018 | + + + | Attention deficit | 02/16/2018 | + + + | Cognitive changes | 02/16/2018 | + + + | Decreased activities of daily living (ADL) | 11/06/2017 | + + + | Closed fracture of shaft of left humerus with routine healing | 09/05/2017 | + + + | Dizziness due to old head injury | 08/10/2017 | + + + | Left upper arm pain | 08/10/2017 | + + + | Imbalance | 08/10/2017 | + + + | Place of occurrence, industrial places and premises | 08/10/2017 | + + + | Chronic left-sided low back pain without sciatica | 08/10/2017 | + + + | Neck pain | 08/10/2017 | + + + | TBI (traumatic brain injury) | 07/26/2017 | + + + | Fracture of left humerus | 05/31/2017 | + + + | Fracture of ramus of left pubis | 05/31/2017 | + + + | Lumbar transverse process fracture, sequela | 05/31/2017 | + + + Encounters +--------+---------+ + + + | Date | Type | Specialty | Care Team | Description | +--------+---------+ + + + | 12/16/ | Office | Immediate Care | Jacinto Rousseau, | Upper respiratory | | 2020 | Visit | | MD | tract infection, | | | | | | unspecified type | | | | | | (Primary Dx); Sore | | | | | | throat | +--------+---------+ + + + from Last 3 Months Family History + + +------+ + | Medical History | Relation | Name | Comments | + + +------+ + | No known problems | Brother | | | + + +------+ + | No known problems | Father | | | + + +------+ + | Heart disease | Maternal | | | | | Grandfath | | | | | er | | | + + +------+ + | No known problems | Maternal | | | | | Grandmoth | | | | | er | | | + + +------+ + | No known problems | Mother | | | + + +------+ + | No known problems | Paternal | | | | | Grandfath | | | | | er | | | + + +------+ + | No known problems | Paternal | | | | | Grandmoth | | | | | er | | | + + +------+ + | No known problems | Sister | | | + + +------+ + + +------+--------+ + | Relation | Name | Status | Comments | + +------+--------+ + | Brother | | | | + +------+--------+ + | Father | | | | + +------+--------+ + | Maternal Grandfather | | | | + +------+--------+ + | Maternal Grandmother | | | | + +------+--------+ + | Mother | | | | + +------+--------+ + | Paternal Grandfather | | | | + +------+--------+ + | Paternal Grandmother | | | | + +------+--------+ + | Sister | | | | + +------+--------+ + Social History + + + +--------+ + | Tobacco Use | Types | Packs/Day | Years | Date | | | | | Used | | + + + +--------+ + | Current Every Day | Cigarettes | 0.25 | 25 | Quit: 11/02/2018 | | Smoker | | | | | + + + +--------+ + + +---+---+--------+ | Smokeless Tobacco: | | | Quit: | | Current User | | | 2008 | + +---+---+--------+ + + +---------+ + | Alcohol Use | Drinks/Week | oz/Week | Comments | + + +---------+ + | No | | | | + + +---------+ + + + [...] recent travel history available. | + + Last Filed Vital Signs + + + + + | Vital Sign | Reading | Time Taken | Comments | + + + + + | Blood Pressure | 135/83 | 12/17/2019 11:16 AM | | | | | PDT | | + + + + + | Pulse | 74 | 12/17/2019 11:16 AM | | | | | PDT | | + + + + + | Temperature | 37.3 C (99.2 F) | 12/17/2019 11:16 AM | | | | | PDT | | + + + + + | Respiratory Rate | 16 | 12/17/2019 11:16 AM | | | | | PDT | | + + + + + | Oxygen Saturation | 97% | 12/17/2019 11:16 AM | | | | | PDT | | + + + + + | Inhaled Oxygen | - | - | | | Concentration | | | | + + + + + | Weight | 69.7 kg (153 lb 10.6 | 12/17/2019 11:16 AM | | | | oz) | PDT | | + + + + + | Height | 185.4 cm (6' 1") | 12/17/2019 11:16 AM | | | | | PDT | | + + + + + | Body Mass Index | 20.27 | 12/17/2019 11:16 AM | | | | | PDT | | + + + + + Plan of Treatment + + + + + | Health Maintenance | Due Date | Last Done | Comments | + + + + + | Vaccine: | | | | | Pneumococcal 19-64 | 6 | | | | (1 of 1 - PPSV23) | | | | + + + + + | Vaccine: | | | | | Dtap/Tdap/Td (1 - | 1 | | | | Tdap) | | | | + + + + + | Vaccine: Influenza | | | | | (Season Ended) | 0 | | | + + + + + | Primary Care | | 12/17/2019, 04/26/2019, | | | Outreach (Moderate | 1 | 11/17/2018, Additional history | | | Risk) | | exists | | + + + + + Procedures + +--------+ + + + | Procedure Name | Priori | Date/Time | Associated Diagnosis | Comments | | | ty | | | | + +--------+ + + + | STREP A DNA PROBE, | Routin | 12/17/2019 | Sore throat | Results for this | | NAAT | e | 11:55 AM | | procedure are in the | | | | PDT | | results section. | + +--------+ + + + | INFLUENZA A AND B | STAT | 12/17/2019 | Upper respiratory | Results for this | | RNA, NAAT | | 11:55 AM | tract infection, | procedure are in the | | | | PDT | unspecified type | results section. | + +--------+ + + + from Last 3 Months Results Influenza A and B RNA, NAAT (12/17/2019 11:55 AM PDT) + + + + + + | Component | Value | Ref Range | Performed | Pathologist | | | | | At | Signature | + + + + + + | Influenza A | Negative | Negative, Test | [facility] | | | PCR | | not performed | [facility] | | + + + + + + | Influenza B | Negative | Negative, Test | [facility] | | | PCR | | not performed | [facility] | [facility] | | + + + + + + + + | Specimen | + + | Tissue - Specimen | | from throat | | (specimen) | + + + + + + + | Performing | Address | City/State/Zipcode | Phone Number | | Organization | | | | + + + + + | [facility] | [address] | [place] | [phone] | | [facility] | | [address] | | | [facility] | | | | + + + + + Strep A DNA probe, NAAT (12/17/2019 11:55 AM PDT) + + + + + + | Component | Value | Ref Range | Performed | Pathologist | | | | | At | Signature | + + + + + + | Group A | Negative | Negative | [facility] | | | Strep, DNA | | | [facility] | [facility] | | | | [facility] | | + + + + + + + + | Specimen | + + | Tissue - Specimen | | from throat | | (specimen) | + + + + + + + | Performing | Address | City/State/Zipcode | Phone Number | | Organization | | | | + + + + + | [facility] | [address] | [place] | [phone] | | [facility] | | [address] | | | [facility] | | | | + + + + + from Last 3 Months Insurance + +--------+ +--------+ +---------+--------+ | Payer | Benefi | Subscriber | Effect | Phone | Address | Type | | | t Plan | ID | yina | | | | | | / | | Dates | | | | | | Group | | | | | | + +--------+ +--------+ +---------+--------+ | [employer] | SAIF | [id number] | 07/27/ | [phone] | | PPO | | | [place] | | 2017-P | 5 | | | | | S MCO | | resent | | | | + +--------+ +--------+ +---------+--------+ | [employer] | [employer] | [id number] | | [phone] | | Medica | | MEDICAID HMO | HEALTH | | [id number]-Pr | 1 | | id | | | MDCD | | esent | | | | | | [place] | | | | | | + +--------+ +--------+ +---------+--------+ + +--------+ +--------+ + + | Guarantor Name | Accoun | Relation to | Date | Phone | Billing Address | | | t Type | Patient | of | | | | | | | | | | + +--------+ +--------+ + + | Mookie Mason | Person | Self [birth year] | [address] | | | al/Fam | | 1979 | [phone] | [place], [place] | | | tone | | | 6 (Home) | [address] | + +--------+ +--------+ + + | Mookie Mason | Worker | Self | [birth year] | | [address] [place] | | | s Comp | | 1979 | [phone] | [place] [address] | | | | | | 6 (Home) | | + +--------+ +--------+ + + Advance Directives + + + + + | Type | Date Recorded | Patient | Explanation | | | | Field Coil Winder | | + + + + + | Power of | | | | | Improvement Nurse | | | | + + + + + | Advance | | | | | Directive | | | | + + + + +
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
--- OUTSIDE RECORDS SUMMARY | ~2020-02-26 | XMS | Encounter Summary ---
Demographics + + + | Address | [address] [place] [address] | | | [place] [address] | + + + | Home Phone | | + + + | Preferred Language | Unknown | + + + | Marital Status | | + + + | Mormon Affiliation | Unknown | + + + | Race | Unknown | + + + | Ethnic Group | Unknown | + + + Author + + + | Author | [facility] | | | and [place] | + + + | Organization | [facility] | | | and [place] | + + + | Address | Unknown | + + + | Phone | Unavailable | + + + Support + + + + + | Name | Relationship | Address | Phone | + + + + + | Tyeshagertrude Mason | ECON | [address] | | | | | [place] | | | | | [address] | | + + + + + Care Team Providers + +------+ + | Care Scrap Handler Name | Role | Phone | + +------+ + | No, Physician | PCP | Unavailable | + +------+ + Reason for Visit + + + | Reason | Comments | + + + | Initial Assessment | | + + + Evaluate & Treat (Routine) +--------+ + + + + + | Status | Reason | Specialty | Diagnoses / | Referred By | Referred To | | | | | Procedures | Contact | Contact | +--------+ + + + + + | Closed | Specialty | Rehabilitatio | Diagnoses | Nav, | Carlo, | | | Services | n | Traumatic | Sam Chapman MD | Mandy Solano, | | | Required | | brain injury | [address] | Speech | | | | | with loss | [address] | Pathologist | | | | | of | [place], | | | | | | consciousnes | [place] [address] | | | | | | s, sequela | Phone: | | | | | | ([facility]) Mild | [phone] | | | | | | cognitive | Fax: | | | | | | impairment | [phone] | | | | | | S06.9X9S [...] | | | | | | | ([facility]) | | | | | | | Procedures | | | | | | | speech eval | | | +--------+ + + + + + Encounter Details +--------+ + + + + | Date | Type | Department | Care Team | Description | +--------+ + + + + | 07/26/ | Hospital | [facility] | Sam Chopra, | Traumatic brain | | 2017 | Encounter | MED CTR SPEECH | MD [address] | injury with loss of | | | | THERAPY [address] | [place], [place] | consciousness, | | | | [place], | [address] | initial encounter | | | | [place] [address] | | ([facility]) (Primary Dx) | | | | [phone] | Mandy Matos, | | | | [...] tablets by | 100 | 0 | 06/29/20 | | | (MAPAP) 500 mg | mouth every 6 hours | tablet | | 17 | 7 | | tablet | as needed for [...] Take 1 tablet by | 30 | 0 | 07/17/20 | | | (CELEXA) 10 mg | mouth Daily. | tablet | | 17 | 7 | | tablet | | | | [...] + +---------+ + + | traZODone | 1/2 tablet 30 min | 30 | 0 | 07/17/20 | | | (DESYREL) 50 mg | prior to sleep. | tablet | | 17 | 7 | | tablet | | | | | | + + + +---------+ + + documented as of this encounter Progress Notes Mandy Matos, Speech Pathologist - 07/26/2017 9:50 AM PDT [facility] SPEECH THERAPY [address] [place] [address] Speech Therapy Initial Assessment Date: 07/26/2017 Patient Information Patient Name: Mookie Mason Date of : 1980 Age: 37 y.o. History No problems updated. 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 S06.9X9A Traumatic brain injury with loss of consciousness, initial encounter ([facility]) Yes Date of Onset: 05/31/17 Referring Provider: Sam Chopra MD No history on file. Past Medical History: Diagnosis Date Asthma Depression Place of occurrence, industrial places and premises Past Surgical History: Procedure Laterality Date HUMERUS SURGERY Left 06/14/2017 [facility] [place] Family History Problem Relation Age of Onset Heart disease Maternal Grandfather No Known Problems Mother No Known Problems Father No Known Problems Sister No Known Problems Brother No Known Problems Maternal Grandmother No Known Problems Paternal Grandmother No Known Problems Paternal Grandfather Developmental History Allergies Allergen Reactions Amoxicillin Anaphylaxis Aspirin Anaphylaxis Erythromycin Anaphylaxis Penicillins Anaphylaxis Prior Treatment:No previous ST Rehab Precautions Flowsheet Row [facility] [employer] SUBSTATION OP EVAL from 07/26/2017 in [facility] SPEECH THERAPY Rehab Precautions Precautions None Learning Style Patient's Optimum Learning Style: listening, observation Abuse Assessment Do you feel safe in your current relationship or home?: Yes Action taken by clinician: No concerns Pain Assessment: Pain Scale Used: NUMERIC Pain Rating During Assessment: 3 Location: L arm, lower back ,pelvic Subjective: History of Presenting Problem: Mookie Mason is a 37 y.o. male who presents to therapy with report of memory changes, difficulty putting thoughts together, difficulty remembering day-day activities, difficulty remembering details in conversations (upsets me and causes frustration), recalls events during the day but increased difficulty recalling details from day prior, Difficulty with word finding, difficulty recalling dates, negativel y impacting ability to work/complete ADLs- Pt has been off work since TBI 05/31 2017 loss of conscisouness less than 24 hours. Functional Limitations: Difficult to communicate, feels less intelligent than I used to be, extremely increased effort to communicate, inability to focus/maintain attention without wo rsening negative concussion symptoms of dizziness/spinning and cranial pressure. C/o increas ed nausea 20-30 minutes into cognitive assessment. Patient s Goals: Put words together easier and find words with increased speed, read for greater than 5 minutes without dizziness, Be able to spell again. Objective: Expressive Language: Mild-Moderate impairments, Needs increased time to formulate responses , some halting/pausing due to word finding deficits, loses train of thought, Impaired word f inding, impaired word fluency. Receptive Language: Understands complex directions well. Difficulty recalling details in st ory and poor ability to recall word list. Cognitive aspects of Language: Severe deficits in the areas of Delayed memory and attention , moderate deficits in the area of Language and visuospatial/constructional abilities and Mi ld-moderate immediate memory deficits. person, place, time/date, day of week, month of year and year Standardized Tests: Repeatable Battery for the Assessment of Neuropsychological Status (RBANS) The RBANS is comprised of 12 individual subtests and provides a measure of functioning acro ss a variety of cognitive domains. Subtest raw scores are converted to index scores for six general areas: immediate memory, visuospatial/constructional ability, language, attention, delayed memory, and overall function. Immediate Memory Visuospatial / Constructional Language Attention Delayed Memory TOTAL SCALE Index Score 83 78 74 53 56 61 Percentile 0.5 Concussion symptoms (taken from the ImPACT test) Please give each item a score from 0-6. 0 = No symptom 6 = The worst possible symptom Date: 07/26/17 Symptoms Score Headache 0 Nausea 0 Vomiting 0 Balance Problems 3 Dizziness 4 Fatigue 1 Trouble falling asleep 2 Sleeping more than usual 0 Sleeping less than usual 2 Drowsiness 0 Sensitivity to light 3 Sensitivity to noise 2 Irritability 4 Sadness 3 Nervousness 2 Feeling more emotional 4 Numbness or tingling 0 Feeling slowed down 3 Feeling mentally foggy 4 Difficulty concentrating 4 Difficulty remembering 3 Visual problems 0 Total Symptom Score 44 Assessment Patient presents to speech therapy with moderate-severe deficits in cognition s/p TBI with loss of consciousness on 05/31/17. Repeatable Battery for the Assessment of Neuropsychologica l Status (RBANS) reveals severe impairments with delayed memory and attention, moderate defi cits with visuospatial/constructional abilities and language, and mild-moderate deficits wit h immediate memory. Informal assessment parallels formal assessment findings with notable in termittent halting/pausing and losing train of thought due to word-finding difficulties, dif ficulty sustaining concentration/attention and increased concussion symptoms of increased di zziness, mental fogginess, and c/o nausea during the assessment. These impairments and diagn osis are causing functional limitations with patient's inability to perform activities of re ading, maintaining attention, return to work, recall details from conversation participate a nd recall activities (reports has left stove on and walked away x2 this week and was alerted with burning smell for reminder), also reports inability to read/do paperwork for more than 5 minutes without headache. Signs and symptoms are consistent with cognitive deficits follo wing a TBI. Complexities contributing to frequency and duration of therapy: Insurance evalua tion only until further authorized visits. Skilled ST recommended and necessary to increase ability to maintain/sustain attention, perform cognitive rehabilitation exercises to support return to PLOF, improve recall, instruct and support use of memory strategies and word find ing techniques to increase ability to express thoughts/ideas effectively and efficiently. Rehabilitation potential: Patient demonstrates good potential to achieve established goals to address the documented impairments by participating in skilled speech and language therap y services. Goals: Patient Specific Functional Scale Goal 1: Pt will reduce concussion symptom score of <25 in 12 weeks. Patient Specific Functional Scale Goal 1 Status Comment: Concussion symptom score at beginn ing of session =44 See report for full details. Patient Specific Functional Scale Goal 2: Pt will complete moderate level delayed memory ta sks x90% accuracy with initial instruction of memory strategies in 12 weeks. Plan Date of Onset: 05/31/2017 Start of Care Date: 07/26/2017 Requested # of Visits: 12 visits 1x/week for 12 weeks Certification From: 07/26/2017 Certification To: 10/26/2017 Treatment Plan/Interventions 58517 - Cognitive [id number] - Cognitive [id number] - Speech Sound Language Comprehens [id number] - Speech/Hearing Treatment Patient and/or family has indicated understanding of treatment needs and actively participa elijah in the creation of this plan for care. Today's Treatment Start Time: 939 Stop time: 1040 Duration: 60 minutes Timed Treatment Codes: 60 minutes # of Speech Visits to Date: 1 Objective: Completed RBANS, discussed areas of deficits. Next Visit: Memory strategies, attention, and HEP Electronically signed by: Mandy Matos Speech Pathologist, 07/29/2017 14:45 Patient Name: Mookie Mason/: 1980/ a doc umented in this encounter Plan of Treatment Not on filedocumented as of this encounter Visit Diagnoses + + | Diagnosis | + + | Traumatic brain injury with loss of consciousness, initial encounter (HCC) - Primary | + + documented in this encounter"
--- OUTSIDE RECORDS SUMMARY | ~2020-02-26 | XMS | Encounter Summary ---
Demographics + + + | Address | [address] [place] [address] | | | [place] [address] | + + + | Home Phone [...] + | Author | [facility] | | | and [place] | + + + | Organization | [facility] | | | and [...] [place] | | | | | [address] | | + + + + + Care Team Providers + +------+ + | Care Business Banking Manager Name | Role | Phone | + +------+ + | No, Physician | PCP | Unavailable | + +------+ + Reason for Referral Evaluate & Treat (Urgent) +--------+ + + + + + | Status | Reason | Specialty | Diagnoses / | Referred By | Referred To | | | | | Procedures | Contact | Contact | +--------+ + + + + + | Closed | Specialty | Neurosurgery | Diagnoses | [place], | [place], | | | Services | | Place of | Kailey Betito, | Huy Chapman DO | | | Required | | occurrence, | MD Need | [address] | | | | | industrial | updated | [address] | | | | | places and | address | [place], [place] | | | | | premises | | [address] Phone: | | | | | | | [phone] | | | | | | | Fax: | | | | | | | [phone] | +--------+ + + + + + Reason for Visit + + + | Reason | Comments | + + + | Follow-up | Exam 4/ WC 05/31/17 | + + + Encounter Details +--------+---------+ + + + | Date | Type | Department | Care Team | Description | +--------+---------+ + + + | 06/29/ | Office | [facility] | Kailey Otoole, | Place of occurrence, | | 2017 | Visit | CARE [address] | MD Need updated | industrial places | | | | [place], [place] | address | and premises | | | | [address] | | (Primary Dx); Closed | | | | [phone] | | nondisplaced | | | | | | fracture of pelvis, | | | | | | unspecified part of | | | | | | pelvis, initial | | | | | | encounter ([facility]); | | | | | | Closed fracture of | | | | | | lumbar spine without | | | | | | lesion of spinal | | | | | | cord, initial | | | | | | encounter ([facility]); | | | | | | Closed fracture of | | | | | | cervical vertebra, | | | | | | unspecified cervical | | | | | | vertebral level, | | | | | | initial encounter | | | | | | ([facility]); Closed left | | | | | | arm fracture, with | | | | | | routine healing, | | | | | | subsequent | | | | | | encounter; Bleeding | | | | | | in brain ([facility]); Fall | | | | | | from roof, initial | | | | | | encounter | +--------+---------+ + + + Social History + +-------+ +--------+------+ | Tobacco Use | Types | Packs/Day | Years | Date | | | | | Used | | + +-------+ +--------+------+ | Current Every Day | | | | | | Smoker | | | | | + +-------+ +--------+------+ + +---+---+---+ | Smokeless Tobacco: | [...] + + + | Blood Pressure | 124/89 | 06/29/2017 1:36 PM | | | | | PDT | | + + + + + | Pulse | 92 | 06/29/2017 1:36 PM | | | | | PDT | | + + + + + | Temperature | 37.6 C (99.7 F) | 06/29/2017 1:36 PM | | | | | PDT | | + + + + + | Respiratory Rate | 16 | 06/29/2017 1:36 PM | | | | | PDT | | + + + + + | Oxygen Saturation | 99% | 06/29/2017 1:36 PM | | | | | PDT | | + + + + + | Inhaled Oxygen | - | - | | | Concentration | | | | + + + + + | Weight | 61.3 kg (135 lb 3.2 | 06/29/2017 1:36 PM | | | | oz) | PDT | | + + + + + | Height | 185.4 cm (6' 1") | 06/29/2017 1:36 PM | | | | | PDT | | + + + + + | Body Mass Index | 17.84 | 06/29/2017 1:36 PM | | | | | PDT | | + + + + + documented in this encounter Progress Notes Kailey Otoole MD - 06/29/2017 12:30 PM PDTFormatting of this note might be different fro m the original. Subjective: Chief Complaint: Follow-up (Exam 4/ WC 05/31/17) [facility] [employer] Date of injury 05/31/17 History of Present Illness: Mookie is a 37 y.o. male who comes in with his Tyesha complaining of needing to get hooked up with occupational medicine here in [place]. He fell off a roof about 20 feet 05/31 while he was mojgan. This occurred at work. He was working in [employer]. Other peo ple were working with him. It started to rain and they were on a metal roof. He has a lot of experience and so he went to move the ladder but his shoes were still not tachycardia olga ugh and he slid off. He was transported to [facility] and then airlifted to [facility]. They took him to [facility]. He suffered 2 spots of bleeding on the brain, a broken neck, broken L1-L2 and L3, pelvic fr acture, left arm fracture with ORIF, 2 broken ribs. He says his neck doesn't really bother him at all and he never really been no was broken. His low back hurts and he has a hard ryley e sitting in a knee chair for any length of time because the pelvic fracture. He needs some one to take the stitches out of his left arm today. He had a plate, [place] and screws inserted and he has a follow-up with [facility] orthopedics on July 05. He tried to be se en over there for this but they referred him here due to occupational medicine injuries. He isn't feeling dizzy last couple of days. He is only taking Tylenol and pain medicine no ib uprofen because of the head injuries. No other complaints. Patient's medications, allergies, past medical, surgical, social and family histories were reviewed and updated as appropriate. ROS: see HPI Objective: BP 124/89 | Pulse 92 | Temp 37.6 C (99.7 F) (Temporal) | Resp 16 | Ht 1.854 m (6' 1 ") | Wt 61.3 kg (135 lb 3.2 oz) | SpO2 99% | BMI 17.84 kg/m General Appearance: Alert, cooperative, no distress, appears stated age Patient alert and oriented and gave his own history. He has no visible damage to the skull . He had no surgery sites. The neck is supple and nontender. The low back is mildly tende r to palpation over L1 L2 L3 vertebra. He's got good strength in his legs. He has sutures in the left upper arm which were removed. The wound looks clean and dry. He has fairly goo d range of motion of the shoulder and elbow He sits and stands a lot and seems uncomfortable. He is tender to palpation over the left lateral ribs His speech is normal Pupils equal round reactive to light, extraocular movements intact, facial muscle strong an d symmetric, 5 out of 5 strength bilateral upper bilateral lower extremities proximally and distally. Assessment and Plans: 1. Place of occurrence, industrial places and premises * [facility] Neuro[facility] - AMB Refe rral 2. Closed nondisplaced fracture of pelvis, unspecified part of pelvis, initial encounter ([facility]) 3. Closed fracture of lumbar spine without lesion of spinal cord, initial encounter ([facility]) 4. Closed fracture of cervical vertebra, unspecified cervical vertebral level, initial enco unter ([facility]) 5. Closed left arm fracture, with routine healing, subsequent encounter 6. Bleeding in brain ([facility]) 7. Fall from roof, initial encounter I removed the stitches from his wound on his left arm. He will follow up with ortho 07/05. I referred him to neurosurgery to follow up the bleeding in the brain and the cervical and lumbar fractures. I put him off work again. I refilled his Tylenol and Robaxin he has weaned himself off his pain pills and he doesn't want anymore. Follow-up with Dr. Mast and orthopedics and neurosurgery. This note was dictated using [employer] voice recognition software. Occasional wrong- word or s ound-alike substitutions may have occurred due to the inherent limitations of voice recognit ion software. Please read the chart carefully and recognize, using context, where these subs titutions have occurred. documented in this en counter Plan of Treatment + + +--------+ + + | Name | Type | Priori | Associated Diagnoses | Order Schedule | | | | ty | | | + + +--------+ + + | * [facility] [place] | Outpatient | Routin | Place of | Ordered: 06/29/2017 | | Neurosurgery - AMB | Referral | e | occurrence, | | | Referral | | | industrial places | | | | | | and premises | | + + +--------+ + + documented as of this encounter Visit Diagnoses + + | Diagnosis | + + | Place of occurrence, industrial places and premises - Primary | + + | Closed nondisplaced fracture of pelvis, unspecified part of pelvis, initial encounter | | (HCC) | + + | Closed fracture of lumbar spine without lesion of spinal cord, initial encounter (HCC) | + + | Closed fracture of cervical vertebra, unspecified cervical vertebral level, initial | | encounter (HCC) | + + | Closed left arm fracture, with routine healing, subsequent encounter | + + | Bleeding in brain (HCC) | + + | Fall from roof, initial encounter | + + documented in this encounter
--- OUTSIDE RECORDS SUMMARY | ~2020-02-26 | XMS | Encounter Summary ---
Demographics + + + | Address | [address] [place] [address] | | | [place] [address] | + + + | Home Phone | | + + + | Preferred Language | Unknown | + + + | Marital Status | | + + + | Episcopalian Affiliation | Unknown | + + + | Race | Unknown | + + + | Ethnic Group | Unknown | + + + Author + + + | Author | [facility] | | | and [place] | + + + | Organization | [facility] | | [...] BREANNA SMITH | | | | | [address] | | + + + + + Care Team Providers + +------+ + | Care Postal Service Sectional Center Manager Name | Role | Phone | [...] Description | +--------+---------+ + + + | 05/18/ | Office | [facility] | Iris Mast | Closed left arm | | 2018 | Visit | [facility] | MD [address] | fracture, with | | | | [place] [address] [place] | routine healing, | | | | [address] | [place] [address] | subsequent encounter | | | | [place], [place] | [phone] | (Primary Dx); | | | | [address] | | Closed fracture of | | | | [phone] | | transverse process | | | | | | of lumbar vertebra | | | | | | with routine | | | | | | healing, subsequent | | | | | | encounter; Place of | | | | | [...] + + + | Blood Pressure | 128/92 | 05/18/2018 1:05 PM | | | | | PDT | | + + + + + | Pulse | 83 | 05/18/2018 1:05 PM | | | | | PDT | | + + + + + | Temperature | 36.8 C (98.3 F) | 05/18/2018 1:05 PM | | | | | [...] Weight | 63 kg (139 lb) | 05/18/2018 1:05 PM | | | | | PDT | | + + + + + | Height | 185.4 cm (6' 1") | 05/18/2018 1:05 PM | | | | | PDT | | + + + + + | Body Mass Index | 18.34 | 05/18/2018 1:05 PM | | | | | PDT | | + + + + + documented in this encounter Progress Notes Iris Mast MD - 05/18/2018 1:15 PM PDTEmployer: [employer] Guarantor: R[employer] Date of injury: 05/31/17 Claim number: [id number] Chief complaint: Follow-up multiple injuries Subjective: 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 Since his l ast visit he has been seen and evaluated by his operating surgeon for some recent increased discomfort in the left upper arm which occurred immediately postoperatively. He states x-ra ys were obtained which revealed proper healing of the bone and no other abnormalities. Over all he is doing better. He states his orthopedic surgeon has essentially released from care for the arm and allowed him to return to normal activity without any restrictions. 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 He still christie s some pain with full extension of the left arm but overall is doing well, some mild tendern ess over the proximal most aspect and distal most aspect of the incision in the upper arm bu t otherwise no significant pain or discomfort. He has been referred to physical therapy for the low back discomfort that he has as a resid ual of the transverse process fracture and pelvic fracture, it previously evaluated by Dr. fabián galo, who felt this was a normal process of healing and may take several months to years to completely go away but likely would improve over the course of time. He states because of s cheduling difficulties and therapist who have been on leave, he has not been able to start t he services but they are slated to occur within the next one to 2 weeks. In terms of the head injury, he still has some mild problems with memory and concentration word finding has improved, sleep is returned to normal. He is no longer using the Celexa or trazodone. He has had no headaches, no dizzy spells no nausea, light sensitivity or hearin g issues. He has been compliant with home exercises for memory and cognitive impairment charley t he received from his speech therapy treatments and he does find them to be helpful. Past medical history, medications, allergies reviewed Review of systems: As per HPI Objective: Vital signs as noted, nursing notes reviewed. Cxawasc-dtnp-ycyqytcth, well-nourished, in no apparent distress, pleasant cooperative. Left upper blz-eakt-jsgemn surgical incision. Near full extension of the elbow, full flexi on, supination and pronation. Back-normal to inspection. No paraspinous muscle spasticity. Full range of motion without limitation. Mild discomfort with right lateral flexion. Neuro-Motor strength 5/5 bilat lower extremities DTR's- patellar and ankle - 1+/4 bilat Neg SLR from a seated position bilat Normal toe/heel walk Normal squat Gait steady and symmetric Sensation grossly intact to light touch bilat lower extremities. Imaging/diagnostics: None indicated this visit Pending interventions: Continue conservative management. Assessment: 1.Lumbar transverse process fracture-L1- L3, pelvic fracture-right abhay-sacrum, left inferi or pubic ramus--persistent pain and discomfort 2. Left humerus fracture-status post ORIF and subsequent hardware removal-medically statio nary 3. Head injury with loss of consciousness-medically stationary 4. Left ninth rib fracture-medically stationary Plan: Proceed with physical therapy as scheduled in an attempt to reduce symptoms in the low back . Has been released from care from an orthopedic standpoint from the left arm without need for restriction. Remainder of his other injuries and symptoms are medically stationary. Pr oceed with physical therapy, follow-up in 6-8 weeks upon completion of therapy to recheck hi s progress and response to treatment, anticipate claims closure at that time pending no inte rim developments. He'll return sooner for acute worsening or other concerns. He voices und erstanding and agreement. E: Regular duty R: None Impairment undetermined at this point in time, based on current objective findings it is no t an anticipated consequence of this injury however patient has not yet reached MMI status. This note was dictated using SwiftStack voice recognition software. Occasional wrong- word or [...] encounter - Primary | + + | Closed fracture of transverse process of lumbar vertebra with routine healing, | | subsequent encounter | + + | Place of occurrence, industrial places and premises | + + documented in this encounter
--- OUTSIDE RECORDS SUMMARY | ~2020-02-26 | XMS | Encounter Summary ---
Demographics + + + | Address | [address] [place] [address] | | | [place] [address] | + + + | Home Phone | | + + + | Preferred Language | Unknown | + + + | Marital Status | | + + + | Holiness Affiliation | Unknown | + + + [...] BREANNA SMITH | | | | | [address] | | + + + + + Care Team Providers + +------+ + | Care Group Work Program Director Name | Role | Phone | + +------+ + | Juli Squires DO | PCP | | + +------+ + Reason for Visit +--------+ + | Reason | Comments | +--------+ + | Other | | +--------+ + Encounter Details +--------+ + + + + | Date | Type | Department | Care Team | Description | +--------+ + + + + | 11/13/ | Telephone | [facility] | Iris Mast | Other | | 2018 | | [facility] | MD [address] | | | | | [address] | [address] [place] | | | | | [address] [place] | [place] [address] | | | | | [place], [place] | [phone] | | | | | [address] | | | | | | [phone] | | | +--------+ + + + [...]
--- OUTSIDE RECORDS SUMMARY | ~2020-02-26 | XMS | Encounter Summary ---
Demographics + + + | Address | [address] [place] [address] | | | [place] [address] | + + + | Home Phone | | + + + | Preferred Language | Unknown | + + + | Marital Status | | + + + | Anabaptism Affiliation | Unknown | + + + | Race | Unknown | + + + | Ethnic Group | Unknown | + + + Author + + + | Author | [facility] | | | and [place] | + + + | Organization | [facility] | | | [...] BREANNA SMITH | | | | | [address] | | + + + + + Care Team Providers + +------+ + | Care Cradle Placer Name | Role | Phone | + +------+ + | Juli Squires DO | PCP | | + +------+ + Reason for Visit + + + | Reason | Comments | + + + | Missed Visit | | + + + Encounter Details +--------+ + + + + | Date | Type | Department | Care Team | Description | +--------+ + + + + | 02/27/ | Telephone | [facility] | Catie Squires, | Missed Visit | | 2018 | | [facility] THER[facility]Y PT | PT [address] | | | | | [address] | [place] | | | | | [place] | [address] | | | | | [address] | | | | | | [phone] | | | +--------+ + + + [...]
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
--- OUTSIDE RECORDS SUMMARY | ~2020-02-26 | XMS | Encounter Summary ---
Demographics + + + | Address | [address] [place] [address] | | | [place] [address] | + + + | Home Phone | | + + + | Preferred Language | Unknown | + + + | Marital Status | | + + + | Temple Affiliation | Unknown | + + + | Race | Unknown | + + + | Ethnic Group | Unknown | + + + Author + + + | Author | [facility] | | | and [place] | + + + | Organization | [facility] | | | [...] BREANNA SMITH | | | | | [address] | | + + + + + Care Team Providers + +------+ + | Care Project Systems Engineer Name | Role | Phone | + +------+ + | Juli Squires DO | PCP | | + +------+ + Reason for Referral Diagnostic/Screening (Routine) +--------+--------+ + + + + | Status | Reason | Specialty | Diagnoses / | Referred By | Referred To | | | | | Procedures | Contact | Contact | +--------+--------+ + + + + | Closed | | Radiology | Diagnoses | Chopra, | [facility] | | | | | Cervicalgia | Sam Chapman MD | [address] | | | | | Atrophy of | [address] | [place], | | | | | muscle of | [address] | [place] | | | | | left upper | [place], | [address] | | | | | arm Left | [place] [address] | Phone: | | | | | arm weakness | Phone: | [phone] | | | | | Procedures | [phone] | Fax: | | | | | MRI | Fax: | [phone] | | | | | Cervical | [phone] | | | | | | Spine wo | | | | | | | Contrast | | | | | | | HIM 12/22 | | | +--------+--------+ + + + + Reason for Visit + + + | Reason | Comments | + + + | Follow-up | TBI | + + + Encounter Details +--------+---------+ + + + | Date | Type | Department | Care Team | Description | +--------+---------+ + + + | 12/06/ | Office | [facility] [place] | Sam Chopra, | Traumatic brain | | 2018 | Visit | PHYSIATRY [address] | MD [address] | injury with loss of | | | | [address] | [place], [place] | consciousness, | | | | [place], [place] | [address] | sequela (HCC) | | | | [address] | | (Primary Dx); | | | | [phone] | | Cervicalgia; Atrophy | | | | | | of muscle of left | | | | | | upper arm; Left arm | | | | | | weakness; | | | | | | Irritability; Mild | | | | | | cognitive | | | | | | impairment; Insomnia | | | | | | due to medical | | | | | | condition | +--------+---------+ + + + Social History [...] this encounter Last Filed Vital Signs + +---------+ + + | Vital Sign | Reading | Time Taken | Comments | + +---------+ + + | Blood Pressure | 113/75 | 12/06/2017 1:22 PM | | | | | PST | | + +---------+ + + | Pulse | 80 | 12/06/2017 1:22 PM | | | | | PST | | + +---------+ + + | Temperature | - | - | | + +---------+ + + | Respiratory Rate | - | - | | + +---------+ + + | Oxygen Saturation | - | - | | + +---------+ + + | Inhaled Oxygen | - | - | | | Concentration | | | | + +---------+ + + | Weight | - | - | | + +---------+ + + | Height | - | - | | + +---------+ + + | Body Mass Index | - | - | | + +---------+ + + documented in this encounter Patient Instructions Patient Instructions Belen Rodriges RN - 12/06/2017 11:20 AM PSTPlease continue therapie s including speech, physical, and occupational. We will refill your medication. A MRI has been requested. Please complete the requested imaging. Within one week, you ronnie uld receive a call to schedule your MRI. If you have not heard from anyone within one week, please call the clinic. The results of your MRI will be reviewed at your next appointment. If your MRI demonstrates any emergent results, the clinic will contact you. documented in this encounter Progress Notes Sam Chopra MD - 12/06/2017 11:20 AM PSTFormatting of this note might be different fro m the original. Sam Chopra MD [address] [facility] [address] [place] [address] FAX: PHYSICAL MEDICINE AND REHABILITATION H&P L&I Date: 05/31/17 L&I Number: [id number] CHIEF COMPLAINT: Chief Complaint Patient presents with Follow-up TBI Patient ID: 37 y.o. male with TBI occurring on 05/31/17 with loss of consciousness; resulti ng from a fall; first Life-Time concussion. HISTORY OF PRESENT ILLNESS: Mookie Mason is a 37 y.o. male being seen today to follow-up on TBI. Previously it was recommended that Mookie Mason continue speech therapy, that he continue his cur rent medications including Celexa and trazodone, and that he complete cervical x-rays. Mookie Mason continues to participate in PT and ST. He has completed OT consult. Mookie Mason reports improved left arm strength since the last appointment, althoug h he indicates he still has weakness. Overall the Mookie Mason reports that the symptoms are continuing to improve. Mookie Mason reports physical symptoms including: headaches, balance problems, dizz iness, visual problems (blurred vision with headaches). Mookie Mason denies: nausea, vomiting and fatigue, numbness and tingling. Mookie Mason reports cognitive symptoms including: feeling mentally foggy, feeling slowed down, difficulty concentrating and difficulty remembering Mookie Mason indicates that his memory difficulty has improved since the last visi t. He continues to participate in ST and is having improvement related to this treatment. Mookie Mason reports emotional symptoms including: irritability. He reports that this symptom was improving, but 5 days ago he ran out of his Celexa which he feels caused an increase in his irritability. He denies any side effects to this medication. Mookie Mason denies: sadness, more emotional and nervousness. Mookie Mason reports sleep symptoms including: Difficulty falling asleep. He repo rts that this symptom returned after he ran out of his trazodone, when using trazodone he id not have difficulty falling asleep. Mookie Mason denies: sleeping less than usual, sleeping more than usual and drowsi ness. Symptoms are exacerbated by physical activity. Symptoms are exacerbated by cognitive activi ty. On a scale of 0 to 6 where 0 is normal and 6 is feeling and acting very different than thei r "normal self" they rate themselves as a 1-2. Patient's medications, allergies, past medical, surgical, social [...] for itching and rash. Neurological: Positive for dizziness and weakness. Negative for tingling, tremors, sensory change, speech change, focal weakness, seizures, loss of consciousness and headaches. Endo/Heme/Allergies: Negative for environmental allergies and polydipsia. Does not bruise/b leed easily. Psychiatric/Behavioral: Negative for depression, hallucinations, memory loss, substance abu se and suicidal ideas. The patient has insomnia. The patient is not nervous/anxious. PHYSICAL EXAMINATION: Blood pressure 113/75, pulse 80. There is no height or weight on file to calculate BMI. Vitals: 12/06/17 1322 BP: 113/75 Pulse: 80 Physical Exam: General Appearance: Alert and Oriented to person, place, time and situation, no distress. HEENT: PERRL, conjunctiva clear, no scleral icterus, EOM's intact. Neck: No tenderness to cervical paraspinal muscles, normal ROM Heart: Regular Rate and Rhythm Lungs: No audible wheezing or crackles. Abdomen: Soft, non-tender, non-distended Back: Symmetric Extremities: No clubbing, cyanosis or edema in all four extremities. Atrophy of left upper extremity when compared to right upper extremity. Surgical Incision scar located to left bi cep. Neurological: Cranial Nerves: Intact Speech: Normal with conversation Memory: Able to recall events Concentration: Able to maintain concentration with conversation Sensory: Intact to light touch and pin prick in upper extremities Fasciculations noted to left upper extremity. Coordination: Intact with ambulation. Gait: normal. . REFLEX: RIGHT LEFT BICEPS 2+ Absent BRACHIORADIALIS 2+ 2+ PATELLAR 2+ 2+ ACHILLES 1+ 3+ MOTOR EXAM: (5 IS NORMAL) * Indicates pain limited MUSCLE/ MOVEMENT: RIGHT LEFT Deltoids 5 5 Biceps 5 4+ Triceps 5 4+ Wrist Flexion 5 5 Wrist Extension 5 5 Finger Abduction 5 5 Entry Level Financial Analyst Strength 5 5 DATABASE: Cervical x-ray completed 10/12/17. I concur with the imaging findings as reported by the ra diologist. Imaging demonstrates; No scoliosis. In the neutral lateral position no spondy lolisthesis. No significant disc space narrowing. Small marginal osteophytes at C4-C5 an d C5-C6. Mild facet arthrosis at C3-C4. Mild left-sided uncinate hypertrophy at C6. Th ere is no abnormal translation with flexion or extension. The atlantodens interval is main tained throughout. Lumbar x-ray completed 09/28/17. I concur with the imaging findings as reported by the rad iologist. Imaging demonstrates; healing chronic fracture deformity of the left L3 transvers e process. ASSESSMENT: 1. Traumatic brain injury with loss of consciousness, sequela (HCC) 2. Cervicalgia 3. Atrophy of muscle of left upper arm 4. Left arm weakness 5. Irritability 6. Mild cognitive impairment 7. Insomnia due to medical condition PLAN: 1. Mookie Mason is seen today in the clinic to review post-concussion his TBI sympt oms and management of care of the symptoms. 2. Although improving, Mookie Mason does report he continues to have left arm weakn ess. We dicussed that the origin may be to variable causes including but not limited changes in the brain, trama that occurred to the arm during the accident, and cervical changes. Mookie Mason's previous cervical CT demonstrates degenerative changes of the cervic al spine and query of prior anterior superior endplate compression of C4. He will complete a cervical MRI to evaluate for neuroforaminal narrowing causing his left arm symptoms. These symptoms may be related to his humeral fracture, but given his mechanism of injury an d cervical history we will error on the side of cause looking into a possible cervical origi n. His left arm weakness and muscle loss is a large concern. His initial cervical CT demonstr ates possible endplate fracture. He also has suspected disc herniation at C5-6. Cervical p athology may be a contributing factor to his left upper extremity sensory changes, weakness, muscle atrophy, etc. If cervical MRI is unremarkable we will likely attribute these change s to left humeral fracture s/p ORIF. 3. Mookie Mason notes improvements to concentration and memory . He should continue these treatments as long as he continues to make gains and progress. 4. Mookie Mason was encouraged to move forward with his participation with Occupati onal Physical Therapy. Mookie Mason indicates that the authorization was on good un til the end of the week. Given that he is just starting would recommend that this authorizat ion be extended as he would benefit with occupation therapy. 5. Today Mookie Mason indicates his back pain is bothersome. He localizes pain to m idline back approximate levels of L1-L2-L3. He denies sciatic symptoms. He describes the pain as a bruised feeling pain. He reports that the back pain improved t o some point, but still persists. He has tenderness to the midline lumbar spine approximat dimitrios level L1-L2-L3 . Today we reviewed his lumbar imaging that demonstrates healing chronic fracture deformity of the left L3 transverse process. We dicussed that a fracture such as th is may result in a chronic lumbar ache, but is expected to gradual become less bothersome as it heals. We dicussed that fractures such as this typically reach maximum healing in approx imately one year. We dicussed in older age pain again may become more bothersome. If pain persist beyond this time further diagnostic testing may be considered. 6. Mookie Mason reports improved irritability with the use of Celexa. He denies guevara e effects to this medication. Medication will be refilled with a three month supply. His medication trazodone will also be refilled today with a three month supply. 7. Today we again reviewed that our goal with a brain injury is to get Mookie Mason as much improvement as possible, but we have to acknowledge that we may not be able to make him the exact person he was before the injury. He expresses understanding. 8. Mookie Mason will be scheduled to return to the clinic in approximately 2-3 marilee hs to review TBI symptoms, imaging, and to review his continued response to medications and therapies. Thank you for allowing me to be involved in the care of your patient. If you have any ques tions regarding the care of your patient please don't hesitate to call. Approximately 40 minutes was spent face to face with Mookie Mason, over half of [facility] ch was spent formulating and discussing their medical treatment plan. I, Sam Chopra MD personally performed the services described in this documentation, as scribed by in my presence, Belen Rodriges RN and are both accurate and complete. Sam Chopra MD - 12/06/2017 documented in this en counter Plan of Treatment Not on filedocumented as of this encounter Results MRI Cervical Spine wo Contrast (12/26/2017 1:05 PM PDT) + + | Specimen | + + | | + + + + + | Narrative | Performed At | + + + | MRI CERVICAL SPINE WO CONTRAST 12/26/2017 12:51 PM HISTORY: Neck | [facility] | | pain, left arm weakness, left arm muscle atrophy. COMPARISON: | | | Cervical spine x-ray 10/12/2017. PROTOCOL: Sagittal T2, sagittal | | | T1, axial T2, axial GRE, sagittal STIR, coronal T1. FINDINGS: | | | Motion limits evaluation on some sequences. Visualized brain and | | | skull base demonstrate no acute findings. Prevertebral soft tissues | | | are normal. Vertebral body height are preserved. Disc height | | | are maintained. Disc desiccation are present at multiple levels. | | | The spinal cord demonstrates normal signal with no evidence for | | | myelomalacia or mass lesions. The atlantoaxial joint demonstrates | | | no acute findings. C3-4: A 1 mm posterior disc bulge is present | | | with no stenosis. C4-5: No central canal or neural foramina canal | | | stenosis. C5-6: A 1 mm posterior disc bulge is present with no | | | stenosis. C6-7: No central canal or neural foramina canal | | | stenosis. C7-T1: No central canal or neural foramina canal | | | stenosis. Soft tissue structures of the neck are unremarkable. | | | Imaged upper thoracic spine and chest demonstrate no acute findings. | | | IMPRESSION - Minimal degenerative changes, no stenosis. | | | Dictated and Signed by: Gabino Mahoney MD Electronically signed: | | | 12/26/2017 1:59 PM | | + + + + + | Procedure Note | + + | [place], Rad Results In - 12/26/2017 2:02 PM PDT MRI CERVICAL SPINE WO CONTRAST | | 12/26/2017 12:51 PM HISTORY: Neck pain, left arm weakness, left arm muscle | | atrophy.COMPARISON: Cervical spine x-ray 10/12/2017.PROTOCOL: Sagittal T2, sagittal T1, | | axial T2, axial GRE, sagittal STIR, coronalT1.FINDINGS:Motion limits evaluation on some | | sequences.Visualized brain and skull base demonstrate no acute findings. Prevertebral | | softtissues are normal.Vertebral body height are preserved.Disc height are maintained. | | Disc desiccation are present at multiple levels.The spinal cord demonstrates normal | | signal with no evidence for myelomalacia ormass lesions.The atlantoaxial joint | | demonstrates no acute findings.C3-4: A 1 mm posterior disc bulge is present with no | | stenosis.C4-5: No central canal or neural foramina canal stenosis.C5-6: A 1 mm posterior | | disc bulge is present with no stenosis.C6-7: No central canal or neural foramina canal | | stenosis.C7-T1: No central canal or neural foramina canal stenosis.Soft tissue | | structures of the neck are unremarkable.Imaged upper thoracic spine and chest | | demonstrate no acute findings.IMPRESSION -Minimal degenerative changes, no | | stenosis.Dictated and Signed by: Gabino Mahoney MD Electronically signed: 12/26/2017 1:59 | | PM | | | |Disc height are maintained. Disc desiccation are present at multiple levels. | | | |The spinal cord demonstrates normal signal with no evidence for myelomalacia or | |mass lesions. | | | |The atlantoaxial joint demonstrates no acute findings. | | | |C3-4: A 1 mm posterior disc bulge is present with no stenosis. | | | |C4-5: No central canal or neural foramina canal stenosis. | | | |C5-6: A 1 mm posterior disc bulge is present with no stenosis. | | | |C6-7: No central canal or neural foramina canal stenosis. | | | |C7-T1: No central canal or neural foramina canal stenosis. | | | |Soft tissue structures of the neck are unremarkable. | | | |Imaged upper thoracic spine and chest demonstrate no acute findings. | | | |IMPRESSION - | |Minimal degenerative changes, no stenosis. | | | |Dictated and Signed by: Gabino Mahoney MD | | Electronically signed: 12/26/2017 1:59 PM | + + + +---------+ + [...] (HCC) - Primary | + + | Cervicalgia | + + | Atrophy of muscle of left upper arm | + + | Left arm weakness Other musculoskeletal symptoms referable to limbs | + + | Irritability | + + | Mild cognitive impairment Mild cognitive impairment, so stated | + + | 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
--- OUTSIDE RECORDS SUMMARY | ~2020-02-26 | XMS | Encounter Summary ---
Demographics + + + | Address | [address] [place] [address] | | | [place] [address] | + + + | Home Phone | | + + + | Preferred Language | Unknown | + + + | Marital Status | | + + + | Mu-Ism Affiliation | Unknown | + + + | Race | Unknown | + + + | Ethnic Group | Unknown | + + + Author + + + | Author | [facility] | | | and [place] | + + + | Organization | [facility] | | | [...] [place] SM[place] | | | | | [address] | | + + + + + Care Team Providers + +------+ + | Care Terrazzo Polisher Name | Role | Phone | + [...] Description | +--------+---------+ + + + | 11/20/ | Office | [facility] | Iris Mast | Closed left arm | | 2018 | Visit | OCCUPATIONAL HEALTH | MD [address] | fracture, with | | | | [place] [address] [place] | routine healing, | | | | [address] [place] | [place] [address] | subsequent encounter | | | | [place], [place] | [phone] | (Primary Dx); | | | | [address] | | Closed head injury | | | | [phone] | | with brief loss of | | | | | | consciousness (HCC); | | | | | | Place [...] + + + | Blood Pressure | 125/77 | 11/20/2017 1:10 PM | | | | | PST | | + + + + + | Pulse | 84 | 11/20/2017 1:10 PM | | | | | PST | | + + + + + | Temperature | 36.7 C (98.1 F) | 11/20/2017 1:10 PM | | | | | PST [...] Weight | 63 kg (139 lb) | 11/20/2017 1:10 PM | | | | | PST | | + + + + + | Height | 185.4 cm (6' 1") | 11/20/2017 1:10 PM | | | | | PST | | + + + + + | Body Mass Index | 18.34 | 11/20/2017 1:10 PM | | | | | PST | | + + + + + documented in this encounter Progress Notes Iris Mast MD - 11/20/2017 1:15 PM PSTEmployer: [employer] Guarantor: [employer] Date of injury: 05/31/17 Claim number: [id number] Chief complaint: Follow-up multiple injuries Subjective: Injured workers a 37-year-old male presents today for scheduled follow-up. Since his last visit he has been attending physical therapy for the left humerus fracture and is sent to be very helpful. He has regained full range of motion, still suffers with increased discomfor t and decreased strength. States his new goals have been to be able to pull his pants up, a nd be able to turn doorknobs to open and close doors. Still has quite a bit of discomfort a nd weakness in the upper extremity, feels that it is slowly improving. Global shoulder pain has decreased and now has only a very small area of discomfort in the shoulder which she fe els more anteriorly. He has been attending speech therapy, also finds it to be helpful in m florina improvement. Still finds difficulties multitasking. Has an appointment to [facility] and follow-up in 2 weeks. Past medical history, medications, allergies reviewed Review of systems: As per HPI Objective: Vital signs as noted, nursing notes reviewed. Tkoivnz-gkki-yrvfvdgox, well-nourished, in no apparent distress, pleasant cooperative. Left upper extremity-does have full range of motion E: Symmetric to the right unaffected ex tremity. Neuro-gait steady and symmetric. Psych-mood, affect, speech and thought processes appropriate Imaging/diagnostics: None indicated this visit Pending interventions: Continue conservative management. Assessment: 1. Left humerus fracture 2. Traumatic brain injury Plan: Continue physical therapy for improved strength of the left upper extremity. Continue spee ch therapy for memory issues. Follow-up with Dr. veliz as scheduled in 2 weeks. May need f urther evaluation of the upper extremity symptoms with either EMG nerve conduction studies, or MRI of the cervical spine as previously noted by Dr. veliz. We'll await his recommendati ons regarding this. 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 R eturn here in 4 weeks, sooner for acute worsening or other concerns. He voices understandin g and agreement. E: Modified duty R: 10 pound lifting, pushing, pulling limit with the left arm. Limited use of the left arm . Impairment undetermined at this point in time, based on current objective findings it is no t an anticipated consequence of this injury however patient has not yet reached MMI status. This note was dictated using [employer] voice recognition software. Occasional wrong- word or [...] - Primary | + + | Closed head injury with brief loss of consciousness (HCC) Concussion with loss of | | consciousness of unspecified duration | + + | Place of occurrence, industrial places and premises | + + documented in this encounter
--- OUTSIDE RECORDS SUMMARY | ~2020-02-26 | XMS | Encounter Summary ---
Demographics + + + | Address | [address] [place] [address] | | | [place] [address] | + + + | Home Phone | | + + + | Preferred Language | Unknown | + + + | Marital Status | | + + + | Taoist Affiliation | Unknown | + + + [...] [place] SMITH | | | | | [address] | | + + + + + Care Team Providers + +------+ + | Care Scrap Iron Cutter Name | Role | Phone | + +------+ + | Juli Squires DO | PCP | | + +------+ + Encounter Details +--------+ + + + + | Date | Type | Department | Care Team | Description | +--------+ + + + + | 03/28/ | Documentati | [facility] | [facility], | | | 2018 | on | [facility] | OT [address] | | | | | THERAPY [address] | [place], [place] | | | | | [place], | [address] | | | | | [place] [address] | | | | | | [phone] | | | +--------+ + + + [...] encounter Progress Notes Iris Adan OT - 03/28/2018 8:56 AM PDTFormatting of this note might be different fr om the original. [facility] OT OP [address] [place] [address] Occupational Therapy Discharge Note This discharge is associated with the evaluation completed on 11/06/17. Date: 03/28/2018 Patient Information Patient Name: Mookie Mason Date of : 1980 Age: 37 y.o. Encounter Diagnoses Code Name Primary? R68.89 Decreased activities of daily living (ADL) M79.622 Left upper arm pain Date of Onset: 05/31/2017 Referring Provider: Iris Mast MD Total Number of Visits Completed: 7 Total Cancellations: 0 Total No Shows: 0 Mookie Mason was last seen on 01/04/18. Patient cancelled tx's due to impending surge ry to the arm.. . At this time we find it necessary to discharge this patient from therapy s ervices. The last progress note or the patients initial evaluation will serve as objective status fo r purposes of discharge. Electronically signed by: Iris Adan OT, 03/28/2018 8:58 Patient Name: Mookie Palmer [place]/: 1980/ documented in this e ncounter Plan of Treatment Not on filedocumented as of this encounter Visit Diagnoses + + | Diagnosis | + + | Decreased activities of daily living (ADL) | + + | Left upper arm pain Pain in limb | + + documented in this encounter"
--- OUTSIDE RECORDS SUMMARY | ~2020-02-26 | XMS | Encounter Summary ---
Demographics + + + | Address | [address] [place] [address] | | | [place] [address] | + + + | Home Phone [...] BREANNA SMITH | | | | | [address] | | + + + + + Care Team Providers + +------+ + | Care Plant Tender Name | Role | Phone | + +------+ + | Juli Squires DO | PCP | | + +------+ + Reason for Visit + + + | Reason | Comments | + + + | Arm Injury | Left arm | + + + Encounter Details +--------+---------+ + + + | Date | Type | Department | Care Team | Description | +--------+---------+ + + + | 02/16/ | Office | [facility] | Pro Iris | Closed fracture of | | 2017 | Visit | OCCUPATIONAL HEALTH | MD [address] | transverse process | | | | [address] | [address] [place] | of lumbar vertebra | | | | [address] [place] | [place] [address] | with routine | | | | [place], [place] | [phone] | healing, subsequent | | | | [address] | | encounter (Primary | | | | [phone] | | Dx); Place of | | | | | | occurrence, | | | | | | industrial places | | | | | | and premises; Fall, | | | | | | subsequent [...] + + + | Blood Pressure | 136/89 | 02/16/2018 1:05 PM | | | | | PDT | | + + + + + | Pulse | 94 | 02/16/2018 1:05 PM | | | | | PDT | | + + + + + | Temperature | 37.1 C (98.7 F) | 02/16/2018 1:05 PM | | | | | [...] Weight | 63 kg (139 lb) | 02/16/2018 1:05 PM | | | | | PDT | | + + + + + | Height | 185.4 cm (6' 1") | 02/16/2018 1:05 PM | | | | | PDT | | + + + + + | Body Mass Index | 18.34 | 02/16/2018 1:05 PM | | | | | PDT | | + + + + + documented in this encounter Progress Notes Iris Mats MD - 02/16/2018 1:00 PM PDTEmployer: [employer] Guarantor: RIZWAN Date of injury: 05/31/17 Claim number: [id number] Chief complaint: Follow-up multiple injuries Subjective: Injured workers a 37-year-old male presents today for scheduled follow-up. Since his last visit he returned to his operating surgeon for the left humeral fracture, he states during h is evaluation, it was identified that the fracture has not healed, and a surgical procedure to remove the hardware and do a subsequent bone graft has been recommended. This has been a uthorized and improved and scheduled for next week, 02/20/18. At this time his current compl aints are of increased pain and discomfort in the low back. There is no radiation of pain i nto the extremities and no associated numbness, tingling, or weakness of the extremities, no bowel or bladder incontinence. States symptoms are made worse by walking and occasionally with prolonged sitting. Also finds it very difficult to apply any pressure to the low back as this is very uncomfortable, lying on his back at night to sleep is virtually impossible. He states he has been notified that the insurer her has allowed for physical therapy for th is and he would like to proceed with this, however in lieu of his upcoming surgery it is pro bably going to have to be postponed for a few weeks. Past medical history, medications, allergies reviewed Review of systems: As per HPI Objective: Vital signs as noted, nursing notes reviewed. Ggxpxdt-jknc-akixxrbpz, well-nourished, in no apparent distress, pleasant cooperative. Back-normal to inspection. No paraspinous muscle spasticity. He is diffusely tender over the upper lumbar spinous processes and vertebrae. No other tender points are elicited with palpation. No CVA tenderness with percussion. Full forward flexion. Limited extension. N o limitation to bilateral lateral flexion. Neuro-Motor strength 5/5 bilat lower extremities DTR's- patellar and ankle - 1+/4 bilat Neg SLR from a seated position bilat Normal toe/heel walk Normal squat Gait steady and symmetric Sensation grossly intact to light touch bilat lower extremities. Imaging/diagnostics: Thoracic, lumbar spine x-rays, pelvic x-ray-no acute findings per my review. Radiology rev iew pending Pending interventions: Continue conservative management. Assessment: 1. L1-L3 left transverse process fractures 2. Right abhay-sacrum and left inferior pubic ramus fracture Plan: Continues to remain symptomatic from the lumbosacral spine injuries. X-rays repeated today reveal no acute abnormalities however radiology review is pending. He will be notified of the report from this if there any changes to his treatment regimen indicated. He could bene fit from a course of physical therapy, however he is having surgery on the left arm next wee k and will likely be unable to participate for a few weeks following the procedure, therefor e and updated referral for physical therapy will not be submitted at this visit. He'll retu rn in 4 weeks, he will then be 3 weeks postop from his left arm hardware removal surgery, an d we will reassess his ability to participate in physical therapy and submitted new or graft that time if he is willing and able. He'll return sooner for acute worsening or other conc erns. He voices understanding and agreement. E: Modified duty. Off work as a 02/20/18 R: No use of the left arm. Impairment undetermined at this point in time, based on current objective findings it is an anticipated consequence of this injury however patient has not yet reached MMI status. This note was dictated using [employer] voice recognition software. Occasional wrong- word or sound-alike substitutions may have occurred due to the inherent limitations of voice recogni tion software. Please read the chart carefully and recognize, using context, where these zamora bstitutions have occurred. documented in th is encounter Plan of Treatment Not on filedocumented as of this encounter Results XR Thoracic Spine 2 Vw (02/16/2018 1:48 PM PDT) + + | Specimen | + + | | + + + + + | Narrative | Performed At | + + + | TWO VIEWS THORACIC SPINE 02/16/2018 1:48 PM CLINICAL HISTORY: | [facility] | | pain COMPARISON: LUMBAR RADIOGRAPHS FROM THE SAME DAY, CT MAY | | | 2016 FINDINGS: There is minimal S shaped thoracic curvature. | | | Vertebral height, disc spaces and alignment are otherwise | | | maintained without evident fracture or spondylolisthesis. Small | | | Schmorl's nodes are suggested within mid to lower thoracic endplates. | | | Imaged ribs are unremarkable. Pulmonary hyperinflation is | | | questioned. Imaged intrathoracic structures are otherwise | | | unremarkable. IMPRESSION - 1. MINIMAL S-SHAPED THORACIC | | | CURVATURE. 2. POSSIBLE PULMONARY HYPERINFLATION. Dictated | | | and Signed by: Raj Almazan MD Electronically signed: 02/16/2018 | | | 2:19 PM | | + + + + + | Procedure Note | + + | Austin, Rad Results In - 02/16/2018 2:23 PM PDT TWO [facility]IEWS THORACIC SPINE 02/16/2018 1:48 | | PMCLINICAL HISTORY: painCOMPARISON: LUMBAR RADIOGRAPHS FROM THE SAME DAY, CT MAY | | 2017FINDINGS: There is minimal S shaped thoracic curvature. Vertebral height, | | discspaces and alignment are otherwise maintained without evident fracture | | orspondylolisthesis. Small Schmorl's nodes are suggested within mid to lowerthoracic | | endplates. Imaged ribs are unremarkable. Pulmonary hyperinflation isquestioned. | | Imaged intrathoracic structures are otherwise unremarkable.IMPRESSION -1. MINIMAL | | S-SHAPED THORACIC CURVATURE.2. POSSIBLE PULMONARY HYPERINFLATION.Dictated and Signed | | by: Raj Almazan MD Electronically signed: 02/16/2018 2:19 PM | |thoracic endplates. Imaged ribs are unremarkable. Pulmonary hyperinflation is | |questioned. Imaged intrathoracic structures are otherwise unremarkable. | | | |IMPRESSION - | |1. MINIMAL S-SHAPED THORACIC CURVATURE. | | | |2. POSSIBLE PULMONARY HYPERINFLATION. | | | |Dictated and Signed by: Raj Almazan MD | | Electronically signed: 02/16/2018 2:19 PM | + + + +---------+ + + | Performing | Address | City/State/Zipcode | Phone Number | | Organization | | | | + +---------+ + + | [facility] | | | | + +---------+ + + XR Lumbar Spine 2 or 3 Vw (02/16/2018 1:48 PM PDT) + + | Specimen | + + | | + + + + + | Narrative | Performed At | + + + | TWO VIEWS LUMBAR SPINE 02/16/2018 1:48 PM CLINICAL HISTORY: pain | [facility] | | COMPARISON: THORACIC AND PELVIC RADIOGRAPHS FROM THE SAME DAY, | | | LUMBAR RADIOGRAPHS SEPTEMBER 2017 FINDINGS: Five non rib-bearing, | | | lumbar type vertebrae are visible. There is minimal rightward lumbar | | | curvature centered at L3-4. Vertebral height, disc spaces and | | | alignment are otherwise maintained without evident fracture, | | | spondylolysis or spondylolisthesis. The sacroiliac joints and imaged | | | sacrum, bony pelvis and lower ribs are unremarkable. Soft tissues | | | are unremarkable. IMPRESSION - 1. RIGHTWARD LUMBAR | | | CURVATURE. Dictated and Signed by: Raj Almazan MD | | | Electronically signed: 02/16/2018 2:21 PM | | + + + + + | Procedure Note | + + | Austin, Rad Results In - 02/16/2018 2:24 PM PDT TWO VIEWS LUMBAR SPINE 02/16/2018 1:48 | | PMCLINICAL HISTORY: painCOMPARISON: THORACIC AND PELVIC RADIOGRAPHS FROM THE SAME DAY, | | LUMBARRADIOGRAPHS SEPTEMBER 2017FINDINGS: Five non rib-bearing, lumbar type vertebrae are | | visible. There isminimal rightward lumbar curvature centered at L3-4. Vertebral | | height, discspaces and alignment are otherwise maintained without evident | | fracture,spondylolysis or spondylolisthesis. The sacroiliac joints and imaged | | sacrum,bony pelvis and lower ribs are unremarkable. Soft tissues are | | unremarkable.IMPRESSION -1. RIGHTWARD LUMBAR CURVATURE.Dictated and Signed by: Raj | | MD Tha Electronically signed: 02/16/2018 2:21 PM | |spaces and alignment are otherwise maintained without evident fracture, | |spondylolysis or spondylolisthesis. The sacroiliac joints and imaged sacrum, | |bony pelvis and lower ribs are unremarkable. Soft tissues are unremarkable. | | | |IMPRESSION - | | | |1. RIGHTWARD LUMBAR CURVATURE. | | | |Dictated and Signed by: Raj Almazan MD | | Electronically signed: 02/16/2018 2:21 PM | + + + +---------+ + + | Performing | Address | City/State/Zipcode | Phone Number | | Organization | | | | + +---------+ + + | [facility] | | | | + +---------+ + + XR Pelvis 1 or 2 Vw (02/16/2018 1:48 PM PDT) + + | Specimen | + + | | + + + + + | Narrative | Performed At | + + + | SINGLE AP PELVIS 02/16/2018 1:48 PM CLINICAL HISTORY: pain | [facility] | | COMPARISON: THORACIC AND LUMBAR RADIOGRAPHS FROM THE SAME DAY, PELVIC | | | RADIOGRAPHY AND CT MAY 2017 FINDINGS: Previously noted left | | | inferior pubic ramus fracture demonstrates a healed appearance. No | | | new fracture or subluxation is apparent. The hips and SI joints, | | | femoral head contours and pubic symphysis are maintained. A tiny | | | calcific density persists along the lateral margin of the right | | | acetabular roof. Rounded pelvic calcifications are unchanged and | | | consistent with phleboliths. Soft tissues are otherwise | | | unremarkable. IMPRESSION - 1. HEALED LEFT INFERIOR PUBIC RAMUS | | | FRACTURE AND STABLE CALCIFICATION ALONG THE LATERAL MARGIN OF THE | | | RIGHT ACETABULAR ROOF, POSSIBLY REFLECTING UNDERLYING LABRAL | | | PATHOLOGY. Dictated and Signed by: Raj Almazan MD | | | Electronically signed: 02/16/2018 2:25 PM | | + + + + + | Procedure Note | + + | Austin, Rad Results In - 02/16/2018 2:28 PM PDT SINGLE AP PELVIS 02/16/2018 1:48 PM | | | | CLINICAL HISTORY: pain | | | | COMPARISON: THORACIC AND LUMBAR RADIOGRAPHS FROM THE SAME DAY, PELVIC | | RADIOGRAPHY AND CT MAY 2017 | | | | FINDINGS: Previously noted left inferior pubic ramus fracture demonstrates a | | healed appearance. No new fracture or subluxation is apparent. The hips and SI | | joints, femoral head contours and pubic symphysis are maintained. A tiny | | calcific density persists along the lateral margin of the right acetabular roof. | | Rounded pelvic calcifications are unchanged and consistent with phleboliths. | | Soft tissues are otherwise unremarkable. | | | | IMPRESSION - | | 1. HEALED LEFT INFERIOR PUBIC RAMUS FRACTURE AND STABLE CALCIFICATION ALONG | | THE LATERAL MARGIN OF THE RIGHT ACETABULAR ROOF, POSSIBLY REFLECTING UNDERLYING | | LABRAL PATHOLOGY. | | | | Dictated and Signed by: Raj Almazan MD | | Electronically signed: 02/16/2018 2:25 PM | + + + +---------+ + [...] with routine healing, | | subsequent encounter - Primary | + + | Place of occurrence, industrial places and premises | + + | Fall, subsequent encounter | + + documented in this encounter
--- OUTSIDE RECORDS SUMMARY | ~2020-02-26 | XMS | Encounter Summary ---
Demographics + + + | Address | [address] [place] [address] | | | [place] [address] | + + + | Home Phone | | + + + | Preferred Language | Unknown | + + + | Marital Status | | + + + | Roman Catholic Affiliation | Unknown | + + + | Race | Unknown | + + + | Ethnic Group | Unknown | + + + Author + + + | Author | [facility] | | | and [place] | + + + | Organization | [facility] | | [...] [place] | | | | | [address] | | + + + + + Care Team Providers + +------+ + | Care Pearl Peller Name | Role | Phone | + [...] Rehabilitatio | occurrence, | MD Barb | [place] | | | | n | industrial | [address] | [place], | | | | | places and | [address] | [place] [address] | | | | | premises | [place], | Phone: | | | | | Closed head | [place] [address] | [phone] | | | | | injury with | Phone: | Fax: | | | | | brief loss | [phone] | [phone] | | | | | of | Fax: | | | | | | consciousnes | [phone] | | | | | | s [...] Description | +--------+---------+ + + + | 08/31/ | Office | [facility] | Iris Mast | Dizziness due to old | | 2017 | Visit | MED CTR THERAPY PT | MD [address] | head injury; Left | | | | OP [address] | [address] [place] | upper arm pain; | | | | [place], [place] | [place] [address] | Imbalance; Place of | | | | [address] | [phone] | occurrence, | | | | [phone] | | industrial places | | | | | Catie Squires B, PT | and premises; | | | | | [address] | Chronic left-sided | | | | | [place], [place] | low back pain | | | | | [address] | without sciatica; | | | | [...] encounter Progress Notes Catie Squires, PT - 08/31/2017 9:00 AM PST [facility] THERAPY PT OP [address] [place] [address] Physical Therapy Daily Treatment Note Date: 08/31/2017 Patient Information Patient Name: Mookie Mason Date [...] Row Office Visit from 08/10/[address] [facility] CTR THERAPY PT OP Rehab Precautions Precautions None Rehab Learning Style Flowsheet Row Office Visit from 08/10/2017 in [facility] THERAPY PT OP [facility] OP EVAL from 07/26/2017 in [facility] SPEECH THERAPY Learning Style Patient's [employer] Learning Style listening, observation listening, observation Start Time: 0900 Stop time: 0945 Duration: 45 minutes Timed Treatment Codes: 45 minutes # of PT Visits to Date: 4 Subjective: Pt reports that he has not had any dizziness since last visit, continues to have difficulty with focusing, still feels foggy but is improving. Pt does report that he has been "taking it easy" but wants to try reading and see how it go es. Pt's main complaint today is neck pain and left upper arm pain Pain Assessment: Pain Scale Used: NUMERIC Pain Rating During Assessment: 3 Location: neck, left upper arm Objective: Standing and marching on ariex pad: Eye exercises included saccades and smooth pursuits x10 for each position Walking with eyes fixed on discrete target with head turns/nod 15 feet x4 each (no dizziness or LOB with any vestibular ex) Manual therapy: STM and TPR to suboccipitals, levator scap, trap. Cervical rotation: left 70 deg (2/10 pain on left), Right 70 deg (2/10 pain on left) Assessment: Pt demonstrated improved oculomotor function and did not have any dizziness this session. C omplete gentle soft tissue mobilizations; pt demonstrated improved ROM and decreased pain af ter. Pt is slowly progressing towards goals and would benefit from cont. Therapy to improve strength, balance and ROM to improve ability to complete daily tasks. Next Visit: Received new referral for UE eval; will complete re-eval next visit Electronically signed by: Catie Squires PT, 08/31/2017 12:56 Patient Name: Mookie Mason/: 1980/ documented in [...]
--- OUTSIDE RECORDS SUMMARY | ~2020-02-26 | XMS | Encounter Summary ---
Demographics + + + | Address | [address] [place] [address] | | | [place] [address] | + + + | Home Phone | | + + + | Preferred Language | Unknown | + + + | Marital Status | | + + + | Uatsdin Affiliation | Unknown | + + + [...] BREANNA SMITH | | | | | [address] | | + + + + + Care Team Providers + +------+ + | Care Engagement Executive Name | Role | Phone | + [...] Description | +--------+--------+ + + + | 08/16/ | Refill | [facility] [place] | Sam Chopra, | Medication Refill | | 2017 | | PHYSIATRY [address] | MD [address] | | | | | [address] | [place] | | | | | [place] | [address] | | | | | [address] | | | | | | [phone] | | | +--------+--------+ + + + [...]
--- OUTSIDE RECORDS SUMMARY | ~2020-02-26 | XMS | Encounter Summary ---
Demographics + + + | Address | [address] [place] [address] | | | [place] [address] | + + + | Home Phone | | + + + | Preferred Language | Unknown | + + + | Marital Status | | + + + | Samaritan Affiliation | Unknown | + + + | Race | Unknown | + + + | Ethnic Group | Unknown | + + + Author + + + | Author | [facility] | | | and [place] | + + + | Organization | [facility] | | | [...] [place] | | | | | [address] | | + + + + + Care Team Providers + +------+ + | Care Cupboard Builder Name | Role | Phone | + [...] | [facility] | [place], | [address] Phone: | | | | | TREATMENT [address] | [place] [address] | [phone] | | | | | | Phone: | Fax: | | | | | | [phone] | [phone] | | | | | | Fax: | | | | | | | [phone] | | +--------+--------+ + + + + Encounter Details +--------+---------+ + + + | Date | Type | Department | Care Team | Description | +--------+---------+ + + + | 09/26/ | Office | [facility] | Iris Mast | Dizziness due to old | | 2017 | Visit | MED CTR THERAPY PT | MD Br[address] | head injury; Left | | | | OP [address] | [address] [place] | upper arm pain; | | | | [place], [place] | [place] [address] | Imbalance; Place of | | | | [address] | [phone] | occurrence, | | | | [phone] | | industrial places | | | | | Catie Squires, PT | and premises; | | | | | [address] | Chronic left-sided | | | | | [place], [place] | low back pain | | | | | [address] | without sciatica; | | | | [...] Squires, PT - 09/26/2017 9:45 AM PST [facility] CTR THERAPY PT OP [address] [place] [address] Physical Therapy Daily Treatment Note Date: 09/26/2017 [...] Flowsheet Row Office Visit from 08/10/2017 in [facility] CTR THERAPY PT OP Rehab Precautions Precautions None Rehab Learning Style Flowsheet Row Office Visit from 08/10/2017 in [facility] CTR THERAPY PT OP [facility] OP EVAL from 07/26/2017 in [facility] CTR SPEECH THERAPY Learning Style [...]
--- OUTSIDE RECORDS SUMMARY | ~2020-02-26 | XMS | Encounter Summary ---
Demographics + + + | Address | [address] [place] [address] | | | [place] [address] | + + + | Home Phone [...] BREANNA SMITH | | | | | [address] | | + + + + + Care Team Providers + +------+ + | Care Tie Layer Name | Role | Phone | + +------+ + PCP | Unavailable | + +------+ + Encounter Details +--------+ + + + + | Date | Type | Department | Care Team | Description | +--------+ + + + + | 03/31/ | Hospital | [facility] | Ciro Cabrales | | | 2013 | Encounter | [facility] | MD [address] | | | | CENTER [address] | [address] | | | | | [address] [place], [place] | [place] [address] | | | | | [address] | [phone] | | | | | [phone] | | | +--------+ + + + [...]
--- OUTSIDE RECORDS SUMMARY | ~2020-02-26 | XMS | Encounter Summary ---
Demographics + + + | Address | [address] [place] [address] | | | [place] [address] | + + + | Home Phone [...] BREANNA SMITH | | | | | [address] | | + + + + + Care Team Providers + +------+ + | Care Product Applications Engineer Name | Role | Phone | [...] | Orthopedic | Diagnoses | Pro, | Madey, | | | Services | Surgery | Closed left | Iris | David | | | Required | | arm | MD Barb | MD Barrie | | | | | fracture, | [address] | [address] | | | | | with routine | [address] | | | | | healing, | [place], | [place], [place] | | | | | subsequent | [place] [address] | [address] Phone: | | | | | encounter | Phone: | [phone] | | | | | Place of | [phone] | Fax: | | | | | occurrence, | Fax: | [phone] | | | | | industrial | [phone] | | | | | | places [...] Description | +--------+---------+ + + + | 01/19/ | Office | [facility] | ProIris | Closed left arm | | 2018 | Visit | [facility] | MD [address] | fracture, with | | | | [place] [address] | [address] [place] | routine healing, | | | | [address] [place] | [place] [address] | subsequent encounter | | | | [place] | [phone] | (Primary Dx); Place | | | | [address] | | of occurrence, | | | | [phone] | | industrial places | | | [...] + + + | Blood Pressure | 119/79 | 01/19/2018 1:10 PM | | | | | PDT | | + + + + + | Pulse | 94 | 01/19/2018 1:10 PM | | | | | PDT | | + + + + + | Temperature | 36.7 C (98.1 F) | 01/19/2018 1:10 PM | | | | | PDT [...] Weight | 63 kg (139 lb) | 01/19/2018 1:10 PM | | | | | PDT | | + + + + + | Height | 185.4 cm (6' 1") | 01/19/2018 1:10 PM | | | | | PDT | | + + + + + | Body Mass Index | 18.34 | 01/19/2018 1:10 PM | | | | | PDT | | + + + + + documented in this encounter Progress Notes Iris Mast MD - 01/19/2018 1:15 PM PDTEmployer: [employer] Guarantor: RIZWAN Date of injury: 05/31/17 Claim number: [id number] Chief complaint: Follow-up multiple injuries Subjective: Injured workers a 37-year-old male presents today for scheduled follow-up. He is accompani ed by his spouse attends with him. He states since his last visit his therapy sessions have been completed, he is currently awaiting authorization an approval to proceed with more the rapy. He states since stopping the therapy he has noted increased discomfort in the left up per arm, made worse by any type of ripping and grasping types of activities. He was partici pating in speech therapy and brain games, gets frustrated after prolonged participation in t hese activities because has increased difficulty with word finding. Past medical history, medications, allergies reviewed Review of systems: As per HPI Objective: Vital signs as noted, nursing notes reviewed. Gznhuft-vrlq-niboxdtiw, well-nourished, in no apparent distress, pleasant cooperative. Imaging/diagnostics: None indicated this visit Pending interventions: Continue conservative management. Assessment: 1. Left humeral fracture-status post ORIF Plan: Referral to orthopedics is placed this visit, operating surgeon for his left humeral fractu re to discuss any further treatment options are indicated in terms of his decreased strength and increased discomfort. Continue remaining therapies and follow-up with Dr. veliz as wen eduled. Return here in 4 weeks, sooner for acute worsening other concerns. He voices under standing and agreement. E: Modified duty R: Limited use of the left arm. 10 pound lifting limit with the left arm. Impairment undetermined at this point in time, based on current objective findings it is no t an anticipated consequence of this injury however patient has not yet reached MMI status. This note was dictated using [employer] voice recognition software. Occasional wrong- word or [...] | + + +--------+ + + | Orthopedic Surgery, | Outpatient | Routin | Closed left arm | Ordered: 01/19/2018 | | External - AMB | Referral | e | fracture, with | | | Referral | | | routine healing, | | [...]
--- OUTSIDE RECORDS SUMMARY | ~2020-02-26 | XMS | Encounter Summary ---
Demographics + + + | Address | [address] [place] [address] | | | [place] [address] | + + + | Home Phone | | + + + | Preferred Language | Unknown | + + + | Marital Status | | + + + | Oriental Orthodox Affiliation | Unknown | + + + | Race | Unknown | + + + | Ethnic Group | Unknown | + + + Author + + + | Author | [facility] | | | and [place] | + + + | Organization | [facility] | | | [...] BRE[place]NA SMITH | | | | | [address] | | + + + + + Care Team Providers + +------+ + | Care Bending Machine Operator Name | Role | Phone [...] | | | | ABIOLA SONJA | [place] [address] | | | | | [place] [address] | | | | | | [phone] | | | +--------+ + + + [...] for comparison only - no result from [place]. | | + + + + +---------+ + + | Performing | Address | City/State/Zipcode | Phone Number | | Organization | | | | + +---------+ + + | [facility] | | | | + +---------+ + + documented in this encounter Visit Diagnoses Not on filedocumented in this encounter"
--- OUTSIDE RECORDS SUMMARY | ~2020-02-26 | XMS | Encounter Summary ---
Demographics + + + | Address | [address] [place] [address] | | | [place] [address] | + + + | Home Phone | | + + + | Preferred Language | Unknown | + + + | Marital Status | | + + + | Orthodox Affiliation | Unknown | + + + | Race | Unknown | + + + | Ethnic Group | Unknown | + + + Author + + + | Author | [facility] | | | and [place] | + + + | Organization | [facility] | | | [...] [place] SMITH | | | | | [address] | | + + + + + Care Team Providers + +------+ + | Care Restuarant Crew Worker Name | Role | Phone | + +------+ + PCP | Unavailable | + +------+ + Encounter Details +--------+ + + + + | Date | Type | Department | Care Team | Description | +--------+ + + + + | 04/28/ | [facility] [place] [facility] | Gia Gonsalez, | | | 2016 | Encounter | 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
--- OUTSIDE RECORDS SUMMARY | ~2020-02-26 | XMS | Encounter Summary ---
Demographics + + + | Address | [address] [place] [address] | | | [place] [address] | + + + | Home Phone | | + + + | Preferred Language | Unknown | + + + | Marital Status | | + + + | Congregation Affiliation | Unknown | + + + [...] BREAN[place] SMITH | | | | | [address] | | + + + + + Care Team Providers + +------+ + | Care Product Sales Engineer Name | Role | Phone | [...] | Sam Chapman MD | [address] | | | | | Atrophy of | [address] | [place], | | | | | muscle of | [address] | [place] | | | | | left upper | [place], | [address] | | | | | arm Left | [place] [address] | Phone: | | | | | arm weakness | Phone: | [phone] | | | | | Procedures | [phone] | Fax: | | | | | MRI | Fax: | [phone] | | | | | Cervical | [phone] | | | | | | Spine wo | | | | | | | Contrast | | | | | | | HIM 323 | | | +--------+--------+ + + + + Reason for Visit Diagnostic/Screening (Routine) +--------+--------+ [...] | Sam Chapman MD | [address] | | | | | Atrophy of | [address] | [place], | | | | | muscle of | [address] | [place] | | | | | left upper | [place], | [address] | | | | | arm Left | [place] [address] | Phone: | | | | | arm weakness | Phone: | [phone] | | | | | Procedures | [phone] | Fax: | | | | | MRI | Fax: | [phone] | | | | | Cervical | [phone] | | | | | | Spine wo | | | | | | | Contrast | | | | | | | HIM 12/22 | | | +--------+--------+ + + + + Encounter Details +--------+ + + + + | Date | Type | Department | Care Team | Description | +--------+ + + + + | 12/26/ | Hospital | [facility] | Sam Chopra, | Cervicalgia; Atrophy | | 2018 | Encounter | [facility] MRI [address] | MD [address] | of muscle of left | | | | [address] [place], | [place], [place] | upper arm; Left arm | | | | [place] [address] | [address] | weakness | | | | [phone] | | | +--------+ + + + [...] | + +--------+ + + + | MRI CERVICAL SPINE | Routin | 12/26/2017 | Cervicalgia | Results for this | | WO CONTRAST | e | 1:05 PM | Atrophy of muscle of | procedure are in the | | | | PDT | left upper arm | results section. | | | | | Left arm weakness | | + +--------+ + + + documented in this encounter Results MRI Cervical Spine wo [...] + | Diagnosis | + + | Cervicalgia | + + | Atrophy of muscle of left upper arm | + + | Left arm weakness Other musculoskeletal symptoms referable to limbs | + + documented in this encounter"
--- OUTSIDE RECORDS SUMMARY | ~2020-02-26 | XMS | Encounter Summary ---
Demographics + + + | Address | [address] [place] [address] | | | [place] [address] | + + + | Home Phone | | + + + | Preferred Language | Unknown | + + + | Marital Status | | + + + | Christianity Affiliation | Unknown | + + + | Race | Unknown | + + + | Ethnic Group | Unknown | + + + Author + + + | Author | [facility] | | | and [place] | + + + | Organization | [facility] | | | and [...] [place] | | | | | [address] | | + + + + + Care Team Providers + +------+ + | Care Machine Stripper Name | Role | Phone | + +------+ + | No, Physician | PCP | Unavailable | + +------+ + Reason for Visit + + + | Reason | Comments | + + + | Insect Bite | RM8; wasp sting ~1800, 04/15/19. Today right arm swollen and red. | | | Feels intermittent SOB. Benadryl taken last night. | + + + Encounter Details +--------+---------+ + + + | Date | Type | Department | Care Team | Description | +--------+---------+ + + + | 04/26/ | Office | [facility] | Shay Garza | Allergic reaction to | | 2018 | Visit | CARE [address] | MD [place] [address] | insect sting, | | | | [address] | [address] | accidental or | | | | [address] | [address] | unintentional, | | | | [phone] | | initial encounter | | | | | | (Primary Dx); Wasp | | | | | | sting, accidental or | | | | | | unintentional, | | | | | | initial encounter | +--------+---------+ + + + Social History + + + +--------+ [...] + + + | Blood Pressure | 128/84 | 04/26/2019 2:02 PM | | | | | PDT | | + + + + + | Pulse | 66 | 04/26/2019 2:02 PM | | | | | PDT | | + + + + + | Temperature | 37.3 C (99.2 F) | 04/26/2019 2:02 PM | | | | | PDT | | + + + + + | Respiratory Rate | 18 | 04/26/2019 2:02 PM | | | | | PDT | | + + + + + | Oxygen Saturation | 99% | 04/26/2019 2:02 PM | | | | | PDT | | + + + + + | Inhaled Oxygen | - | - | | | Concentration | | | | + + + + + | Weight | 69.7 kg (153 lb 10.6 | 04/26/2019 2:02 PM | | | | oz) | PDT | | + + + + + | Height | 185.4 cm (6' 1") | 04/26/2019 2:02 PM | | | | | PDT | | + + + + + | Body Mass Index | 20.27 | 04/26/2019 2:02 PM | | | | | PDT | | + + + + + documented in this encounter Patient Instructions Patient Instructions Shay Garza MD - 04/26/2019 1:45 PM PDTElevate your right a rm above the level of your heart as needed for pain and swelling. Apply ice to the area of tenderness for no longer than 15 minutes as needed for pain and sw elling. Use a firmly placed Efrain wrap during the day for compression of the injured area. Avoid wra pping it too tight to prevent distal swelling and pain. Rest your right arm, avoiding any unnecessary exercise or activity. Take Medrol Dosepak with food as directed for swelling. Take Benadryl 25 to 50 mg every 6 hours as needed for itching. Take Pepcid 20 mg twice daily for 7 days to protect her stomach against medication and alejandro rgy. Return here or report to your primary care provider with any new or progressive symptoms or if you fail to rapidly improve over the next 1-2 days. Insect Sting Allergy, Generalized You are having an allergic reaction to an insect sting. This may occur after a sting by a w asp, honeybee, yellow jacket, or other insect. This may cause an itchy rash and swelling in the face or other parts of the body. A more severe reaction may cause you to feel dizzy, kareem nt, or have trouble breathing or swallowing.Other warning signs are listedbelow. Symptoms can include: Rash, hives, redness, welts, or blisters in areasother than the sting site Itching, burning, stinging, pain in areasother than the sting site Dry, flaky, cracking, scaly skin Swelling in areas other than the sting site Stomach pain or cramps More severe symptoms include: Swelling of the face or lips or drooling Trouble swallowing, feeling like your throat is closing Trouble breathing, wheezing Dizziness or a sudden decrease in blood pressure Hoarse voice or trouble speaking Severe nausea,vomiting, ordiarrhea Feeling faint or lightheaded Rapid heart rate Home care Medicine The healthcare provider may prescribe medicines to relieve swelling, itching, and pain. Fol low the provider s instructions when taking these medicines. If you had a severe reaction, the provider may prescribe an injectable epinephrine kit. Epinephrine will stop the progression of an allergic reaction.Beforeyou leave the hospit al, be sure that you understand when and how to use this medicine. Oral diphenhydramine is an verm-mdv-cfjledr antihistamine available at pharmacies and [facility]. Unless a prescription antihistamine was given, diphenhydramine may be used to reduce itching if large areas of the skin are involved. It may make you sleepy, so be carefu l using it in the daytime or when going to school, working, or driving. Note:Don t use d iphenhydramine if you have glaucoma or if you are a man with trouble urinating due to an enl arged prostate. There are other antihistamines that cause less drowsiness and are good choic es for daytime use. Ask your pharmacist for suggestions. Don t use diphenhydramine cream on your skin. It can cause a further reaction in some people. Calamine lotion or oatmeal baths sometimes help with itching. You may use acetaminophen or ibuprofento control pain, unless another pain medicine wa s prescribed. Note:If you have chronic liver or kidney disease or ever had a stomach ulcer orgastrointestinal bleeding, talk with your provider before using these medicines. General care Avoid tight clothing and things that heat up your skin (such as hot showers or baths, or di rect sunlight). Heat makes the itching worse. An ice pack will relieve local areas of intense itching and redness. Apply 5 to 10 minutes. To make an ice pack, put ice cubes in a plastic bag that seals at the top. Wrap the bag in aclean, thintowel or cloth. Don t put ice directly on the skin. Ticks If you try to remove a tick, do the following: Use a set of fine tweezers and occupational therapy supervisor the tick as close to the skin as is possible. Pull upwards, using even, steady pressure. Don t jerk or twist the tick. The tick s bodily fluids may contain infection-causing organisms. So don t squeeze, crush, or punctur e the body of the tick. Don t use a smoldering match or cigarette, nail fijian, petroleum jelly, liquid soap, or kerosene. They may irritate the tick. If any mouthparts of the tick remain in the skin,these can be removed with tweezers. I f you can t remove the mouth (of a tick) easily with clean tweezers, leave it alone and le t the skin heal. After the tick is removed, wash the bite area with rubbing alcohol, iodine, or soap and water. Put the tick in a sealed container and completely cover it with alcohol. Never try to ki ll or crush a tick with your hand or fingers. Stings Wasps, yellow jackets, and hornets don t leave a stinger behind. But ifa honeybee sting s you, a stinger may stay in your skin.The stinger of a honeybee releases a substance that will attract other bees to you. So try to move away from the nest immediately. Once you are away from the nest, then remove the stinger as quickly as possible by: Scraping the stingerout with the edge of a dull knife or plastic card (credit card). Don'tuse a tweezer or your fingers to remove the stinger since that may squeeze more t oxin from the stinger. Wash the affected area with soap and warm water 2 to 3 times a day. Don't break a bliste r, if present. Next apply an ice packfor 5 to 10 minutes. To make an ice pack, put ice cubes in a rosio stic bag that seals at the top. Wrap the bag in aclean, thintowel or cloth. Don t put ice directly on the skin. Contact your healthcare provider and ask what can be used to help decrease the swelling and itching to the affected area. To prevent an infection,don't scratch theaffected areas.Always check the sting are a for signs of an infection: increased redness, swelling, or pain to the affected area. Preventing future reactions Future reactions could be worse than this one. So try to avoid situations where you might b e stung: Don't walk in grass without shoes.Avoid wearing sandals. Don't leave food uncovered when eating outside. Sweet treats, watermelon, and ice cream attract insects. Don't drink from uncovered sweetened drinks in cans when outside. Insects are attracted to soda drink cans and sometimes crawl inside of them. Don't wear bright colored clothes with flowery prints and patterns when outside. Don t wear perfume when outside. Smell attracts insects. Wear long pants, long-sleeved shirts, socks, and work gloves when working outside. Be aware that honeybees nest in trees. Wasps and yellow jackets nest in the ground, tree s or roof eaves. Avoid garbage cans when outside. Auto-injectable epinephrine If you are at high risk for another sting due to where you work or play, or if your reac tion included dizziness, fainting or trouble breathing or swallowing, an auto-injectable epi nephrine may be prescribed. If not, ask your healthcare provider for one and always carry it with you. Learn how to use the device. If you begin to feel the symptoms of another reactio n in the future, use the auto-injectable epinephrineto inject yourself, and then call 911. Don't wait until symptoms become severe. Remember that the auto-injectable epinephrine is a rescue medicine only. You still need someone to take you to the hospital or call 911 after you have received the medicine. Follow-up care Follow up with yourhealthcare provider, or as advisedif your symptoms do not continue t o improve. Call 911 Call 911 if any of these occur: Trouble breathing or swallowing, wheezing Cool, moist, pale skin Hoarse voice or trouble speaking Confused Very drowsy or trouble waking up Fainting or loss of consciousness Rapid heart rate Low blood pressure or feeling dizzy or weak Feeling of doom Severe nausea, vomiting, or diarrhea Seizure Swelling in the face, eyelids, lips, mouth, throat or tongue Drooling When to seek medical advice Call your healthcare provider right away if any of the following occur: Spreading areas of itching, redness or swelling Headache, fever, chills, muscle or joint aching Increased pain or swelling Signs of infection of the affected area: ? Spreading redness ? Increase in pain or swelling ? Fluid or colored drainage from the affected site Date Last Reviewed: 11/30/201619994789-8561 [employer]. [address] [place] [address]. All [facility] reserved. This information is not intended as a substitute for professional medical care. Always follow your healthcare professional's instructions. documented in this encounter Progress Notes Netta Mahan RN - 04/26/2019 1:45 PM PDT Verified name and date of of patient before provider orders were carried out. Administrations This Visit diphenhydrAMINE (BENADRYL) tablet 50 mg Admin Date 04/26/2019 Action Given Dose 50 mg Route Oral Administered By Netta Mahan RN famotidine (PEPCID) tablet 40 mg Admin Date 04/26/2019 Action Given Dose 40 mg Route Oral Administered By Netta Mahan RN methylPREDNISolone sodium succinate (solu-MEDROL) 62.5 mg/mL injection 125 mg Admin Date 04/26/2019 Action Given Dose 125 mg Route Intramuscular Administered By Netta Mahan RN hay Garza MD - 04/26/2019 1:45 PM PDT Subjective: Chief Complaint: Insect Bite (RM8; wasp sting ~1800, 04/15/19. Today right arm swollen and r ed. Feels intermittent SOB. Benadryl taken last night. ) Mookie is a 39 y.o. male who comes in with his complaining of wasp sting to right arm occurring last night about 6 PM. He had mild initial pain, redness and swelling locally. He woke this morning at 3 AM with diffuse itching and progressive redness, warmth and swelli ng of the right forearm extending to the medial upper arm and itchy rash noted on both arms and torso, less on his legs. Rash remains itchy without tenderness. No open sores or drain age. He has had intermittent shortness of breath since this morning, none currently. Remot e history of asthma no longer taking albuterol. He denies wheezing and cough. There is bee n no swelling of his lips, tongue or throat. No fever, chills, nausea or vomiting. He has had previous wasp stings without this severe of a reaction. No other complaints. Patient's medications, allergies, past medical, surgical, social and family histories were reviewed and updated as appropriate. Review of Systems Constitutional: Negative for chills, diaphoresis, fever and weight loss. HENT: Negative for congestion, ear pain and sore throat. Eyes: Negative for blurred vision, pain and discharge. Respiratory: Positive for shortness of breath. Negative for cough, sputum production, wheez ing and stridor. Cardiovascular: Positive for palpitations. Negative for chest pain and leg swelling. Gastrointestinal: Negative for abdominal pain, heartburn, nausea and vomiting. Genitourinary: Negative for dysuria. Musculoskeletal: Negative for joint pain and myalgias. Skin: Positive for itching and rash. Neurological: Negative for dizziness and headaches. Endo/Heme/Allergies: Does not bruise/bleed easily. Psychiatric/Behavioral: Negative for memory loss. Objective: BP 128/84 | Pulse 66 | Temp 37.3 C (99.2 F) (Temporal) | Resp 18 | Ht 1.854 m (6' 1 ") | Wt 69.7 kg (153 lb 10.6 oz) | SpO2 99% | BMI 20.27 kg/m General Appearance: Alert, cooperative, well-appearing, middle-aged male in no distress, a ppears stated age. Breathing comfortably and speaking in full sentences. HEENT: No facial, periorbital, lip or lingual swelling. Nares are clear. Pharynx is unrem arkable. Neck: Supple without adenopathy. No stridor. He does not clear his throat. Chest: Clear to auscultation without rales or wheezes. Cardiac: Quiet precordium, regular rhythm without murmur. Abdomen: Flat with normal bowel sounds, soft and nontender. Skin: Patchy, slightly raised, erythematous rash noted on his back, abdomen both upper arms with less involvement of his legs. Larger, confluent area of erythema, warmth and edema on the proximal, dorsal right forearm extending medially above the elbow onto the upper arm wi th well demarcated margin of erythema which is nontender, nonfluctuant and without area of b reak in skin integrity or purulent drainage. There is no obvious stinger identified. Musculoskeletal: Normal range of motion of the right hand, wrist, elbow and shoulder. Neurovascular: Intact radial pulses. Light touch sensation and capillary refill intact thr oughout the right hand. Lymphatic: No lymphangitis on the right arm. No antecubital or axillary adenopathy. Assessment and Plans: 1. Allergic reaction to insect sting, accidental or unintentional, initial encounter methy lPREDNISolone sodium succinate (solu-MEDROL) 62.5 mg/mL injection 125 mg diphenhydrAMINE (BENADRYL) tablet 50 mg famotidine (PEPCID) tablet 40 mg famotidine (PEPCID) 20 mg tablet methylPREDNISolone (MEDROL DOSEPAK) 4 mg tablet 2. Wasp sting, accidental or unintentional, initial encounter Wasp sting last evening with large, local reaction on the right arm and associated, diffuse hives without airway difficulty, wheezing or hemodynamic compromise. IM Solu-Medrol, oral Benadryl and Pepcid were given here. After experiencing improvement, he was dismissed with his with the following instructions, prescriptions and a note for work. Plan: Elevate your right arm above the level of your heart as needed for pain and swelling. Apply ice to the area of tenderness for no longer than 15 minutes as needed for pain and sw elling. Use a firmly placed Efrain wrap during the day for compression of the injured area. Avoid wra pping it too tight to prevent distal swelling and pain. Rest your right arm, avoiding any unnecessary exercise or activity. Take Medrol Dosepak with food as directed for swelling. Take Benadryl 25 to 50 mg every 6 hours as needed for itching. Take Pepcid 20 mg twice daily for 7 days to protect her stomach against medication and alejandro rgy. Return here or report to your primary care provider with any new or progressive symptoms or if you fail to rapidly improve over the next 1-2 days. Shay Vanegas documented concha fiore this encounter Plan of Treatment Not on filedocumented as of this encounter Visit Diagnoses + + | Diagnosis | + + | Allergic reaction to insect sting, accidental or unintentional, initial encounter - | | Primary | + + | Wasp sting, accidental or unintentional, initial encounter | + + documented in this encounter Administered Medications + +--------+ +-------+------+------+ | Medication Order | MAR | Action | Dose | Rate | Site | | | Action | Date | | | | + +--------+ +-------+------+------+ | diphenhydrAMINE (BENADRYL) | Given | 04/26/20 | 50 mg | | | | tablet 50 mg 50 mg, Oral, ONCE, | | 19 3:23 | | | | | 04/26/19 at 1530, For 1 dose | | PM PDT | | | | + +--------+ +-------+------+------+ +---+---+ | | | +---+---+ + +-------+ +-------+---+---+ | famotidine (PEPCID) tablet 40 | Given | 04/26/20 | 40 mg | | | | mg 40 mg, Oral, ONCE, Fri | | 19 3:23 | | | | | 04/26/19 at 1530, For 1 dose | | PM PDT | | | | + +-------+ +-------+---+---+ +---+---+ | | | +---+---+ + +-------+ +--------+---+ + | methylPREDNISolone sodium | Given | 04/26/20 | 125 mg | | Glut-Rig | | succinate (solu-MEDROL) 62.5 | | 19 3:21 | | | ht | | mg/mL injection 125 mg 125 mg, | | PM PDT | | | | | Intramuscular, ONCE, 04/26/19 | | | | | | | at 1530, For 1 dose, Mix with 2 | | | | | | | mL provided diluent to make 62.5 | | | | | | | mg/mL., | | | | | | + +-------+ +--------+---+ + +---+---+ | | | +---+---+ documented in this encounter
--- OUTSIDE RECORDS SUMMARY | ~2020-02-26 | XMS | Encounter Summary ---
Demographics + + + | Address | [address] [place] [address] | | | [place] [address] | + + + | Home Phone | | + + + | Preferred Language | Unknown | + + + | Marital Status | | + + + | Holiness Affiliation | Unknown | + + + | Race | Unknown | + + + | Ethnic Group | Unknown | + + + Author + + + | Author | [facility] | | | and [place] | + + + | Organization | [facility] [...] BREANNA SMITH | | | | | [address] | | + + + + + Care Team Providers + +------+ + | Care Carpenter Packing Name | Role | Phone | + [...] | | | | Therapy / | Place of | Iris | Catie Nash, PT | | | | Rehabilitatio | occurrence, | MD Barb | [address] | | | n | industrial | [address] [place] | | | | | places and | [address] | [place], [place] | | | | | premises | [facility] [place], | [address] Phone: | | | | | Closed head | [place] [address] | [phone] | | | | | injury with | Phone: | Fax: | | | | | brief loss | [phone] | [phone] | | | | | of | Fax: | | | | | | consciousnes | [phone] | | | | | | s [...] | | | | | | [facility] | | | | | | | TREATMENT 45 | | | +--------+--------+ + + + + Encounter Details +--------+---------+ + + + | Date | Type | Department | Care Team | Description | +--------+---------+ + + + | 02/06/ | Office | [facility] | Iris Mast | Closed fracture of | | 2018 | Visit | MED CTR THERAPY PT | MD Barb [address] | shaft of left | | | | OP [address] | [address] [place] | humerus with routine | | | | [place], [place] | [place] [address] | healing, | | | | [address] | [phone] | unspecified fracture | | | | [phone] | | morphology, | | | | | Catie Squires B, PT | subsequent | | | | | [address] | encounter; Dizziness | | | | | [place] | due to old head | | | | | [address] | injury; Left upper | | | [...] encounter Progress Notes Catie Squires, PT - 02/06/2018 12:30 PM PDT [facility] CTR THERAPY PT OP [address] [place] [address] Physical Therapy Daily Treatment Note Date: 02/06/2018 Patient Information Patient Name: Mookie Mason Date [...] Rehab Precautions Office Visit from 08/10/[address] [facility] MED CTR THERAPY PT OP Rehab Precautions Precautions None Rehab Learning Style Office Visit from 08/10/2017 in [facility] CTR THERAPY PT OP [facility] OP EVAL f rom 07/26/2017 in LOCATED [facility]IN [facility] SPEECH THERAPY Learning Style Patient's Optimum Learning Style listening, observation listening, observation Start Time: 1230 Stop time: 1315 Duration: 45 minutes Timed Treatment Codes: 45 minutes # of PT Visits to Date: 23 Subjective: Pt reports that he had a follow up appt. In [place] with the surgeon who told pt that his left humerus is still not completely healed and will need a second surgery to fix it. (is wa iting for insurance to auth). Pt reports that he cont. To have pain in his left shoulder/neck area but is mostly soft tis denise pain and relates it to his arm pain (Authorization for 8 visit 02/05-03/08) Pain Assessment: Pain Rating Pre Assessment: 3 Location: neck (left side), left UE: 01/09 Objective: Manual therapy: STM and TPR to intra scap, pec.minor, upper trap., levator scap., sub-scap., scalenes, sub occipital release TherEx: HEP Supine cervical spine retraction 2x5 with 2 sec hold Prone cervical spine extension 2x10 with 3 sec hold Kinesio tape to unload left shoulder Assessment: pt reported decreased pain after manual therapy and was able to tolerate gentle therEx. Pt would benefit from cont. Therapy to increase strength, posture and ROM to improv e ability to complete daily tasks and return to work without limitations. Next Visit: Cont. To progress posterior chain/neck strength Electronically signed by: Catie Squires PT, 02/06/2018 14:17 Patient Name: Mookie Palmer Marlon/: 1980/ documented in this enco unter Plan [...]
--- OUTSIDE RECORDS SUMMARY | ~2020-02-26 | XMS | Encounter Summary ---
Demographics + + + | Address | [address] [place] [address] | | | [place] [address] | + + + | Home Phone | | + + + | Preferred Language | Unknown | + + + | Marital Status | | + + + | Hoahaoism Affiliation | Unknown | + + + | Race | Unknown | + + + | Ethnic Group | Unknown | + + + Author + + + | Author | [facility] | | | and [place] | + + + | Organization | [facility] | | | [...] BREANNA SMITH | | | | | [address] | | + + + + + Care Team Providers + +------+ + | Care Building Performance Consultant Name | Role | Phone | + +------+ + PCP | Unavailable | + +------+ + Encounter Details +--------+ + + + + | Date | Type | Department | Care Team | Description | +--------+ + + + + | 08/14/ | [facility] | [place] | Juli Sqiures | | | 2015 | Encounter | [facility] | [address] [place] [address] | | | | | [facility] [address] | [address] [place] | | | | | [address] [place], | [place] [address] | | | | | [place] [address] | [phone] | | | | | [phone] | | | +--------+ + + + [...]
--- OUTSIDE RECORDS SUMMARY | ~2020-02-26 | XMS | Encounter Summary ---
Demographics + + + | Address | [address] [place] [address] | | | [place] [address] | + + + | Home Phone | | + + + | Preferred Language | Unknown | + + + | Marital Status | | + + + | Restorationist Affiliation | Unknown | + + + | Race | Unknown | + + + | Ethnic Group | Unknown | + + + Author + + + | Author | [facility] | | | and [place] | + + + | Organization | [facility] | | [...] BREANNA SMITH | | | | | [address] | | + + + + + Care Team Providers + +------+ + | Care Shell Trim Tool Setter Name | Role | Phone | + [...] Closed | | Radiology | Diagnoses | [place], | [address] | | | | | Brain bleed | Raudel Cisse, | [address] | | | | | ([facility]) | PA-C [address] | [place], | | | | | Procedures | [address] | [place] [address] | | | | | CT Head wo | [address] | Phone: | | | | | Contrast | [place], | [phone] | | | | | | [place] [address] | Fax: | | | | | | Phone: | [phone] | | | | | | [phone] | | | | | | | Fax: | | | | | | | [phone] | | +--------+--------+ + + + + Reason for Visit + + + | Reason | Comments | + + + | New Patient | | + + + Evaluate & Treat (Urgent) +--------+ + + [...] Services | | Place of | Kailey D, | Huy Chapman DO | | | Required | | occurrence, | MD Need | [address] | | | | | industrial | updated | [address] | | | | | places and | address | [place], [place] | | | | | premises | | [address] Phone: | | | | | | | [phone] | | | | | | | Fax: | | | | | | | [phone] | +--------+ + + + + + Encounter Details +--------+---------+ + + + | Date | Type | Department | Care Team | Description | +--------+---------+ + + + | 07/24/ | Office | [facility] | Raudel Chong | Brain bleed (HCC) | | 2017 | Visit | NEUROSURGERY [address] | D, PA-C [address] | (Primary Dx); Closed | | | | [address] | [address] | fracture of left | | | | [place], [place] | [place] | upper extremity with | | | | [address] | [address] | routine healing, | | | | [phone] | | subsequent encounter | +--------+---------+ + [...] + + + | Blood Pressure | 117/79 | 07/24/2017 8:33 AM | | | | | PDT | | + + + + + | Pulse | 95 | 07/24/2017 8:33 AM | | | | | PDT [...] + + + + | Weight | 63.3 kg (139 lb 8.8 | 07/24/2017 8:33 AM | | | | oz) | PDT | | + + + + + | Height | 185.4 cm (6' 1") | 07/24/2017 8:33 AM | | | | | PDT | | + + + + + | Body Mass Index | 18.41 | 07/24/2017 8:33 AM | | | | | PDT | | + + + + + documented in this encounter Patient Instructions Patient Instructions Raudel Chong PA-C - 07/24/2017 8:30 AM PDTWe will have you get a new CT scan of your brain. Call us when you complete this so we can review and make recommendations. Likely we will c kaitlynn to just monitor this as long as she were not having worsening symptoms.Electronicall y signed by Raudel Chong PA-C at 07/24/2017 9:31 AM PDT documented in this encounter Progress Notes Raudel Chong PA-C - 07/24/2017 8:30 AM PDTFormatting of this note might be diffe rent from the original. Raudel Chong PA-C [address] [facility], [address] [place] [address] FAX: NEUROSURGERY HISTORY AND PHYSICAL EXAMINATION CHIEF COMPLAINT: Chief Complaint Patient presents with New Patient HISTORY OF PRESENT ILLNESS: The patient is a 37 y.o. male . The patient states that on he slid off a roof while at work he fell and landed on a ladder. He states that it w as raining and he fell about 20 ft. He broke his left arm and has had surgery. He states charley t when waking up in the mornings he has dizziness. He also complains off trouble concentrati ng. He is now using a walking cane but prior to the injury he wasn't using a cane. He uses t he cane due to pelvis pain. He describes mild stabbing pain of the pelvis region. His dizzin ess last about 10 sec to 1 minute. He has loss of hearing of the left ear since the injury b ut this has improved. The patient states that since his injury food doesn't taste the same. He thought that this was due to medication but since stopping this medication food continuou s to taste "weird" . He is not limited to walking. His main concern is his lack on concentr ation and dizziness. He states bright lights bother his eyes and he does describe seeing spo ts at times. The patient states he has loss of memory from day to day. His spelling is affec elijah and at times he is unable to remember certain words. PAST MEDICAL HISTORY: Past Medical History: Diagnosis Date Asthma Depression Place of occurrence, industrial places and premises PAST SURGICAL HISTORY: Past Surgical History: Procedure Laterality Date HUMERUS SURGERY Left 06/14/2017 [facility] [place] CURRENT MEDICATIONS: Current Outpatient Prescriptions Medication Sig Dispense Refill acetaminophen (MAPAP) 500 mg tablet Take 2 tablets by mouth every 6 hours as needed for Pain. 100 tablet 0 citalopram (CELEXA) 10 mg tablet Take 1 tablet by mouth Daily. 30 tablet 0 traZODone (DESYREL) 50 mg tablet 1/2 tablet 30 min prior to sleep. 30 tablet 0 No current facility-administered medications for this visit. ALLERGIES: Allergies Allergen Reactions Amoxicillin Anaphylaxis Aspirin Anaphylaxis Erythromycin Anaphylaxis Penicillins Anaphylaxis SOCIAL HISTORY: The patient reports that he has been smoking Cigarettes. He has a 6.25 pack-year smoking history. He quit smokeless tobacco use about 9 years ago. He reports that he drinks alcohol. He reports that he does not use drugs. FAMILY HISTORY: Family History Problem Relation Age of Onset Heart disease Maternal Grandfather No Known Problems Mother No Known Problems Father No Known Problems Sister No Known Problems Brother No Known Problems Maternal Grandmother No Known Problems Paternal Grandmother No Known Problems Paternal Grandfather REVIEW OF SYSTEMS: GENERALLY: No fever, + night sweats, no anemia, + fatigue, no recent profound weight salazar ges. EYES: No eye problems, + use of corrective lenses, no eye injury, no double vision, no bli ndness. EARS, NOSE, AND THROAT: No changes in taste or smell, no hearing difficulty, no ringing in the ears, no ear drainage, + dizziness, no voice changes, no difficulty swallowing, no sign ificant snoring, no sleep apnea, no sinus problems, no major dental work. NEUROLOGICALLY: Please see the review of systems discussed above in the history of present illness. In addition, the patient has numbness and pain of arms, awake with numbness and p ain, weakness, muscle aching, coordination difficulty, change in walk, head injury, back inj ury, pain in back, loss of consciousness, tremor/shaking, memory loss, confusion. PSYCHIATRIC: + depression, + sleep disorders, + anxiety, no bipolar disorder, no psychotic episodes. CARDIOVASCULAR: No heart attacks, no heart murmur, no heart fluttering, no chest pain, no ankle swelling. LUNG DISEASE: No shortness of breath, no cough, no tuberculosis, no bloody cough, no asth ma, no emphysema/COPD. GASTROINTESTINAL: No bowel disease, + nausea or vomiting, no rectal bleeding, no constipat ion, no stool incontinence, no liver disease, no [...] no personal h istory of cancer. RHEUMATOLOGIC: + joint arthritis, no rheumatoid arthritis. PHYSICAL EXAMINATION: Blood pressure 117/79, pulse 95, height 1.854 m (6' 1"), weight 63.3 kg (139 lb 8.8 oz). Nickolas dy mass index is 18.41 kg/m. GENERAL: Mookie Mason is in no acute distress with unlabored respirations. The patient d oes not appear uncomfortable throughout the exam today. HEENT: HEAD/FACE: EYES: EARS: NASOPHARNYX: OROPHARNYX: Normocephalic and atraumatic. There are no areas of recent trauma. Normal sclerae without icterus. No drainage or tenderness. Clear without drainage. Clear without erythema. NECK (ANTERIOR): Supple and without palpable masses. CHEST: Clear to ausculation without crackles or wheeze. HEART: Regular rate and rhythm without murmurs. ABDOMEN: Soft, non-tender, non-distended, and without palpable masses. The patient is not obese. SPINE: There is no tenderness in the midline of the cervical, thoracic, or lumbar region. There is no major palpable deformity of the spine. EXTREMITIES: No cyanosis, clubbing, or edema. Distal pulses are palpable. NEUROLOGICAL EXAM: MENTAL STATUS: The patient is awake, alert, and oriented. He follows simple and complex commands. His speech is fluent, he comprehends speech well, and he repeats well. He has no apparent deficits with short or emt intermediate memory. CRANIAL NERVES: II: Acuity is intact. Gonzalez are full to confrontation. III, IV, : The pupils are reactive. Extraocular movements are intact. No ptosis is note d. V: Facial sensation is intact and symmetric. VII: Facial movements are symmetric. VIII: Hearing is intact bilaterally. IX, X: The uvula and palate move appropriately. XI: Shrug is equal bilaterally. XII: Tongue protrusion is midline. MOTOR EXAM: (5 IS NORMAL) * Indicates pain limited MUSCLE/ MOVEMENT: RIGHT LEFT Deltoids 5 Biceps 5 Triceps 5 Wrist Flexion 5 5 Wrist Extension 5 5 Median Intrinsics 5 5 Ulnar Intrinsics 5 5 Egg Grader Strength 5 5 Hip Flexion 5 5 Hip Extension 5 5 Knee Flexion 5 5 Knee Extension 5 5 Dorsiflexion 5 5 Extensor Hallicus Longus 5 5 Plantarflexion 5 5 SENSORY EXAM: Sensory exam shows no diminished sensation to light touch or pain throughout the upper and lower extremities. REFLEXES: (2 OR 2+ IS NORMAL) REFLEX: RIGHT LEFT BICEPS 2 2 BRACHIORADIALIS 2 2 TRICEPS 2 2 PATELLAR 1 1 ACHILLES 1 1 AGGARWAL'S ABSENT ABSENT PLANTAR DOWNGOING DOWNGOING GAIT: Gait is steady. He uses a cane. PERIPHERAL NERVE/MISC: Tinel is negative at the wrists and elbows bilaterally. Phalen is negative. Straight leg raise is negative bilaterally. Silvestre's test of the hips is negative bilaterally. RADIOGRAPHIC REVIEW: The patient's imaging was reviewed in detail with the patient today during the visit. The CT head "Impression: Query small amount of hemorrhage within the quadrigeminal plate cistern ." ASSESSMENT: NEUROSURGICAL DIAGNOSES: Encounter Diagnoses Name Primary? Brain bleed (HCC) Yes Closed fracture of left upper extremity with routine healing, subsequent encounter GENERAL DIAGNOSES: Past Medical History: Diagnosis Date Asthma Depression Place of occurrence, industrial places and premises PLAN: It was a pleasure meeting and evaluating this patient today, and I greatly appreciate the r jessica. The patient has Traumatic brain injury with a small bleed on his CT. I had a lengthy discussion with the patient about his options for care including surgical a nd non-surgical options. We will likely hold on any surgical intervention at this time. Th e patient will first need a new CT of his head to assess the bleed and its progression. Wit h his relatively stable symptoms, it is likely that this is healing on its own. He is seeing Dr. Chopra regarding his postconcussive symptoms and medication management for this. The patient will obtain the CT of his head and contact our office so we can make recommenda tions. ELECTRONICALLY SIGNED BY: Raudel Chong PA-C, 07/24/2017 9:41 I, Raudel Chong PA-C, personally performed the services described in this documentati on, as scribed by Anna Cabezas CMA in my presence, and it is both accurate and complete. Raudel Chong PA-C 07/24/2017 documented in this encounter Plan of Treatment + +---------+--------+ + + | Name | Type | Priori | Associated Diagnoses | Order Schedule | | | | ty | | | + +---------+--------+ + + | CT Head wo Contrast | Imaging | Routin | Brain bleed (HCC) | Expected: | | | | e | | 07/24/2017, Expires: | | | | | | 07/24/2018 | + +---------+--------+ + + documented as of this encounter Visit Diagnoses + + | Diagnosis | + + | Brain bleed (HCC) - Primary Intracerebral hemorrhage | + + | Closed fracture of left upper extremity with routine healing, subsequent encounter | + + documented in this encounter
--- OUTSIDE RECORDS SUMMARY | ~2020-02-26 | XMS | Encounter Summary ---
Demographics + + + | Address | [address] [place] [address] | | | [place] [address] | + + + | Home Phone | | + + + | Preferred Language | Unknown | + + + | Marital Status | | + + + | Pentecostal Affiliation | Unknown | + + + [...] BREANNA SMITH | | | | | [address] | | + + + + + Care Team Providers + +------+ + | Care Or Rn Name | Role | Phone | + [...] | +--------+ + + + + | 10/13/ | Telephone | [facility] | Sam Chopra, | Results, Imaging | | 2018 | | PHYSIATRY [address] | MD [address] | | | | | [address] | [place], [place] | | | | | [place] | [address] | | | | | [address] | | | | | | [phone] | | | +--------+ + + + [...]
--- OUTSIDE RECORDS SUMMARY | ~2020-02-26 | XMS | Encounter Summary ---
Demographics + + + | Address | [address] [place] [address] | | | [place] [address] | + + + | Home Phone [...] BREANNA SMITH | | | | | [address] | | + + + + + Care Team Providers + +------+ + | Care Lining Setter Name | Role | Phone | + +------+ + PCP | Unavailable | + +------+ + Encounter Details +--------+ + + + + | Date | Type | Department | Care Team | Description | +--------+ + + + + | 08/14/ | [facility] | [place] [facility] | Juli Squires | | | 2015 | Encounter | [facility] | [address] [place] [address] | | | | | [facility] [address] | [address] [place] | | | | | [address] [place], | [place] [address] | | | | | [place] [address] | [phone] | | | | | [phone] | | | +--------+ + + + [...]
--- OUTSIDE RECORDS SUMMARY | ~2020-02-26 | XMS | Encounter Summary ---
Demographics + + + | Address | [address] [place] [address] | | | [place] [address] | + + + | Home Phone [...] BREANNA SMITH | | | | | [address] | | + + + + + Care Team Providers + +------+ + | Care Skein Mercerizing Machine Operator Name | Role | Phone | + +------+ + | Juli Squires DO | PCP | | + +------+ + Encounter Details +--------+ + + + + | Date | Type | Department | Care Team | Description | +--------+ + + + + | 02/12/ | Documentati | [facility] | Catie Squires, | | | 2018 | on | MED CTR THERAPY PT | PT [address] | | | | | OP [address] | [place], [place] | | | | | [place], [place] | [address] | | | | | [address] | | | | | | [phone] | | | +--------+ + + + [...] documented as of this encounter Progress Catie Mckenzie PT - 02/12/2018 7:51 AM [facility] [address] [place] [address] Cancellation/No Show Date: 02/12/2018 Patient Information Patient Name: Mookie Mason Date of : 1980 Age: 37 y.o. Reason for missed visit: called to cancel Phone call placed: no Plan: Cont with POC Electronically signed by: Catie Squires PT, 02/12/2018 7:52 Patient Name: Mookie Mason/: 1980/ documented in this enco unter Plan of Treatment Not on filedocumented as of this encounter Visit Diagnoses Not on filedocumented in this encounter"
--- OUTSIDE RECORDS SUMMARY | ~2020-02-26 | XMS | Encounter Summary ---
Demographics + + + | Address | [address] [place] [address] | | | [place] [address] | + + + | Home Phone | | + + + | Preferred Language | Unknown | + + + | Marital Status | | + + + | Moravian Affiliation | Unknown | + + + | Race | Unknown | + + + | Ethnic Group | Unknown | + + + Author + + + | Author | [facility] | | | and [place] | + + + | Organization | [facility] | | [...] [place] SMITH | | | | | [address] | | + + + + + Care Team Providers + +------+ + | Care Concrete Crusher Loader Operator Name | Role | Phone | + +------+ + | No, Physician | PCP | Unavailable | + +------+ + Encounter Details +--------+ + + + + | Date | Type | Department | Care Team | Description | +--------+ + + + + | 08/29/ | Imaging | [facility] | Provider, | | | 2017 | Exam | MED CTR EXTERNAL | MD [address] | | | | | IMAGING [address] | [address] | | | | | [address] | [place] [address] | | | | | [place] [address] | | | | | | [phone] | | | +--------+ + + + [...] + +--------+ + + + | XR HUMERUS LEFT 2 + | Routin | 05/31/2017 | | Results for this | | VW | e | 3:40 PM | | procedure are in the | | | | PDT | | results section. | + +--------+ + + + documented in this encounter Results XR Humerus Left 2 + Vw (05/31/2017 3:40 PM PDT) + + | Specimen | + + | | + + + + + | Narrative | Performed At | + + + | External films | [facility] | | for comparison only - no result from Jeannette. | | + + + + +---------+ + + | Performing | Address | City/State/Zipcode | Phone Number | | Organization | | | | + +---------+ + + | [facility] | | | | + +---------+ + + documented in this encounter Visit Diagnoses Not on filedocumented in this encounter"
--- OUTSIDE RECORDS SUMMARY | ~2020-02-26 | XMS | Encounter Summary ---
Demographics + + + | Address | [address] [place] [address] | | | [place] [address] | + + + | Home Phone | | + + + | Preferred Language | Unknown | + + + | Marital Status | | + + + | Church Affiliation | Unknown | + + + [...] BREANNA SMITH | | | | | [address] | | + + + + + Care Team Providers + +------+ + | Care Top Ironer Name | Role | Phone | + [...] | Place of | Iris | Catie B, PT | | | | Rehabilitatio | occurrence, | Barb, MD | [address] | | | | n | industrial | [address] [place] | | | | | places and | [address] | [place] | | | | | premises | [place], | [address] Phone: | | | | | Closed head | [place] [address] | [phone] | | | | | injury with | Phone: | Fax: | | | | | brief loss | [phone] | [phone] | | | | | of | Fax: | | | | | | consciousnes | [phone] | | | | | | s [...] Description | +--------+---------+ + + + | 12/15/ | Office | [facility] | Iris Mast | Closed fracture of | | 2018 | Visit | MED CTR THERAPY PT | MD Barb [address] | shaft of left | | | | OP [address] | [address] [place] | humerus with routine | | | | [place], [place] | [place] [address] | healing, | | | | [address] | [phone] | unspecified fracture | | | | [phone] | | morphology, | | | | | Catie Squires, PT | subsequent | | | | | [address] | encounter; Dizziness | | | | | [place] | due to old head | | | | | [address] | injury; Left upper | | | [...] encounter Progress Notes Catie Squires, PT - 12/15/2017 4:00 PM PDT Physical Therapy Plan of Care Date: 12/15/2017 Patient Name: Mookie Mason Date of : [...] visits 2x/week for 12 weeks Certification From: 12/15/2017 Certification To: 03/09/2018 Clinical Impression: Mookie Mason has been participating in therapy for treatment of per sistent dizziness related to concussion from fall, neck pain, left arm/shoulder pain, low ba ck pain and rib pain. pt reports that on 05/31/17 he fell off of a roof while at work approx. 20 foot fall. Pt had several injuries and was treated in [place]. S/p left humerus ORIF. Pt reports that he has been cleared by surgeon for left UE use but continues to have left ar m weakness and pain. Patient demonstrates improvements with complete resolution of dizzines s and normal balance, minimal objective improvements with left UE strength (due to pain), im proved cervical spine and left shoulder ROM and pain intensity/frequency. Mookie Mason con tinues to have impairments with increased symptoms with any use of left arm, increased neck/ low back pain. Increased pain with bending/lifting/reaching/carrying, prolonged sitting/vince ding/walking which are affecting his ability to complete functional tasks such as ADL's/IADL 's, unable to return to work, difficulty with caring for young family. Patient is now receiv ing occupational therapy for treatment of left UE so primary focus in physical therapy will now be on cervical spine. Patient requires continued skilled therapy services to achieve the following updated functional goals. Goals: QuickDASH Goal: Reduce QuickDash disability score from 69 to 50 or less indicating improved ADL function and mobility. Dizziness Handicap Index Goal: Improve DHI score from 62/100 to <34/100 to reduced risk of falls and increase functional mobility allowing for improved ability to complete ADL activit ies and return to work Dizziness Handicap Index Status: MET: 0/100 OP PT Goals Goal 1: Patient will be Independent in a home exercise program to address symptoms of dizzi ness/imbalance to decrease fall risk and to facilitate Ind. symptom management to improve ab ility to perform ADL's. Goal 1 Status: progressing Goal 2: Improve sensory usage with a M-CTSIB score with normal sways in conditions 1-4 Goal 2 Status: MET Goal 3: Reduce DASH disability score by 10% points or greater indicating improved function with ADLs Goal 3 Status: porgressing: currently 86.36% Goal 4: Demonstrate functional shoulder ROM to complete ADL s including reaching for bath ing, dressing & grooming activities of shampooing or drying hair. Goal 4 Status: progressing: pt is able to reach overhead, behind back, tolerate lifting/car rying. pain increases up to at least 6/10 Treatment Plan/Interventions PT [id number] - Therapeutic [id number] - Neuromuscular [id number] - Gait Brain [id number] - Therapeutic [id number] - Manual [id number] - Self Care/Home [id number] 92 - Canalith [id number] - Vasopneumatic [id number] - Electrical Stimulation, Unat tended Electronically signed by: Catie Squires PT, 12/15/2017 17:05 Patient Name: Mookie Mason/: 1980/ atie Squires P T - 12/15/2017 4:00 PM PDT [facility] THERAPY PT OP [address] [place] [address] Physical Therapy Progress Assessment Re-certification Date: 12/15/2017 Patient Information Patient Name: Mookie Mason Date [...] Flowsheet Row Office Visit from 08/10/2017 in [facility] CTR THERAPY PT OP Rehab Precautions Precautions None Rehab Learning Style Flowsheet Row Office Visit from 08/10/2017 in [facility] CTR THERAPY PT OP [facility] OP EVAL from 07/26/2017 in [facility] SPEECH THERAPY Learning Style Patient's [employer] Learning Style listening, observation listening, observation Pain Assessment: Pain Rating Pre Assessment: 4 Location: neck/left UE SUBJECTIVE: Mookie Mason has completed 22 visits for treatment of dizziness related to concussion from fall, neck pain, left arm/shoulder pain, low back pain and rib pain. pt reports that on 05/31/17 he fell off of a roof while at work approx. 20 foot fall. Pt had sev eral injuries and was treated in [place]. S/p left humerus ORIF. Pt reports that he has be en cleared by surgeon for left UE use but continues to have left arm weakness and pain. Anne ent reports improvements with dizziness and balance. However continues to report neck/low ba ck pain and left shoulder/arm pain (with any movement but worse with flexion, rotation if re aching for something, and behind back). Pt reports that he continues to have daily pain but overall the pain intensity and frequency is improving. Pt is now seeing occupational therapy for left UE treatment and so pt's primary complaints for physical therapy is is neck pain. Pt is waiting to have an MRI of his neck and would like to wait to cont. With Physical Thera py until he has the results of his MRI to know if therapy is the best treatment option due t o persistent neck pain. OBJECTIVE: Observation/Posture/Alignment/Gait: Significant forward posture with fixed thoracic kyphosi s Initial Assessment Initial Assessment Progress Note / Discharge Progress Note / Discharge Testing: Left Right Left Right Malathi-Hallpike test neg neg Neg. Neg. Horizontal Canal test neg neg Neg. Neg. Cervical ROM Initial Assessment Initial Assessment Progress Note 09/05/17 Progress Note Prog. Note 10/06/17 Prog. Note 10/06/17 Prog. Note 12/15/17 Prog. Note 12/15/17 Left Right Left Right Left Right Left Right Flexion 60 deg 66 deg (pain/pull in left shoulder) 60 deg 60 deg (chin to chest) Extension 45 53 deg (pain upper left) 50 deg (mild pain) 70 deg (pain mid cervical) Lateral flexion 45 28 (pain upper left) 40 (pain left and right) 35 30 deg 36 deg (pain on left) 40 deg, pain 45 deg, pain++ Rotation 58 (pain end range upper left) 42 (pain upper left) 67 deg (pain on left) 40 deg ( pain on left) 60 deg (pain on left) 55 deg 87 deg, pain 75 deg Sensation: Intact: intermittent N/T intact Intact: intermittent N/T intact intact Neurovascular: intact intact intact intact Cerebellar Function /Coordination: Left Right Left Right Left Right Left Right Finger to nose good good good good good good good good Heel to tapia good good good good good good good good UE ROM: Progress Note 09/05/17 Progress Note 09/05/17 Prog. Note 10/06/17 prog. Note 12/15/17 Left Right Left Left Flexion 72 deg 170 deg 115 deg painful arc starting at 90 deg at shoulder and elbow 160 deg , painful arc starting at 90 deg (anterior shoulder) Abduction 91 deg 170 142 deg, pain through whole range 178, pain in anterior shoulder after 90 deg to End range ER full full full full Extension 40 deg 90 deg 55 deg (pain at 10-55 deg) 55 deg (pain at 30 deg at anterior shoul juan and pulls down to elbow Strength Testing: Initial Assessment Initial Assessment Progress Note 09/05/17 Progress Note 09/05/17 Prog. Note 10/06/17 Prog. Note 10/06/17 Prog. Note 12/15 Prog. Note 12/15 Left Right Left Right Leftlimited by pain Right Left limited by pain Right Deltoid (C5): 3+/5 4-/5 3+ 4+ 3+ 4+ 3+ 4+ Biceps (C6): 3+ 4- 3+ 4+ 3+ 4+ 3+ 4+ Wrist Ext (C6): 3+ 4- 3+ 4+ 3+ 4+ 3+ 4+ Supination (C6): 3+ 4- 3+ 4+ 3+ 4+ 3+ 4+ Triceps (C7): 3+ 4- 3+ 4+ 3+ 4+ 3+ 4+ EPL/EPB (C8): 3+ 4- 3+ 4+ 3+ 4+ 4- 4+ Finger ABD (T1): 3+ 4- 3+ 4+ 3+ 4+ 4- 4+ Drawing Tender Strength: 50 # elbow pain 120 65 # 120 # 95# 135# 115# 140# Postural Muscles: impaired impaired impaired impaired increased left arm pain with MMT Oculomotor Exam Initial Assessment/Progress Note Initial Assessment/Progress Note Prog. Not e 10/06/17 Prog. Note 12/15/17 Left Right Left and Right Left and Right Smooth pursuits(central) impaired impaired Improving, slow normal Saccades (central) impaired impaired Improving, slow normal Convergence normal normal normal normal Fast VOR-head thrust (peripheral) normal normal normal normal VOR cancellation (central) impaired impaired improving normal Outcome Measure: Initial Assessment Progress Note 09/05/17 Progress Note 10/06/17 Progress No te 12/15/17 Dizziness Handicap Inventory 62/100 points (16-34 Points: mild handicap) (36-52 Points:moderate handicap) (54+ Points:severe handicap) 52/100 18/100 0/100 Modified-Clinical Test of sensory interaction in balance (M-CTSIB) Condition 1(eyes open/fi rm surface):30 seconds Condition 2(eyes closed/firm surface): 20 seconds, mod sway Condition 3 (eyes open/foam surface): 30 seconds, min sway Condition 4(eyes closed/foam surface):20 seconds, mod. sway Condition 1:30 seconds Condition 2: 20 seconds, min sway Condition 3: 30 seconds, min sway Condition 4:20 seconds, mod. sway Condition 1:30 seconds Condition 2: 30 seconds, min sway Condition 3 : 30 seconds Condition 4:30 seconds, min. sway Condition 1:30 seconds Condition 2: 30 seconds Condition 3 : 30 seconds Condition 4:30 seconds, min. sway NDI 32/100% 56/100% 52/100% 32 Quick DASH 88.64/100% 86.36/100% 70.45% Standardized Tests: QuickDASH (QD) Open a tight or new jar: 5 - Unable Do heavy computer applications instructor: 4 - Severe Difficulty Carry a shopping bag or briefcase: 3 - Moderate Difficulty Wash your back: 4 - Severe Difficulty Use a Knife to cut food: 5 - Unable Recreational Activities which impact the UE: 5 - Unable Interfered with Social Activities: 5 - Extremely Limit Work or Regular Daily Activities: 4 - Very Limited Arm, shoulder or hand pain: 3 - Moderate Tingling in arm, shoulder or hand: 1 - None Difficulty Sleeping due to pain in UE: 3 - Moderate Difficulty QuickDASH Mean Score (Calculated): 3.82 QuickDASH Disability/Symptom Score (Calculated): 70.45 QuickDASH Goal: Reduce QuickDash disability score from 69 to 50 or less indicating improved ADL function and mobility. Neck Disability Index (NDI) Pain Intensity: 2 - The pain is moderate at the moment Personal Care (Washing, Dressing, etc.): 1 - I can look after myself normally but it causes extra pain Liftin - I can lift heavy weights but it gives extra pain Readin - I can read as much as I want with moderate pain in my neck Headaches: 1 - I have slight headaches which come infrequently Concentration: 2 - I have a fair degree of difficulty in concentrating when I want to Work: 3 - I cannot do my usual work Drivin - I can drive my car as long as I want with slight pain in my neck Sleepin - My sleep is slightly disturbed (less than 1 hr sleepless) Recreation: 2 - I am able to engage in most, but not all of my usual recreation activities because of pain in my neck Neck Disability Index Score: 16 Neck Disability Index Percentage Score (Calculated): 32 Dizziness Handicap Inventory P1 Does looking up increase your problem?: 0-No E2 Because of your problem, do you feel frustrated?: 0-No F3 Because of your problem, do you restrict your travel for business or recreation?: 0-No P4 Does walking down an aisle of a supermarket increase your problem?: 0-No F5 Because of your problem, do you have difficutly getting into or out of bed?: 0-No F6 Does your problem significantly restrict your participation in social activities such as going out to dinner, going to movies, dancing, or to parties?: 0-No F7 Because of your problem, do you have difficulty reading?: 0-No P8 Does performing more ambitious activities, like sports, dancing, computer applications instructor such a s sweeping or putting dishes away, increase your problem?: 0-No E9 Because of your problem are you [...] around your house in the dark? : 0-No E20 Because of your problem, are you afraid to stay home alone?: 0-No E21 Because of your problem, do you feel handicapped?: 0-No E22 Has your problem placed stress on your relationships with members of your family or fri ends?: 0-No E23 Because of your problem, are you depressed?: 0-No F24 Does your problem interfere with your job or household responsibilities?: 0-No P25 Does bending over increase your problem?: 0-No Dizziness Handicap Total Score (Calculated): 0 Dizziness Handicap Index Goal: Improve DHI score from 62/100 to <34/100 to reduced risk of falls and increase functional mobility allowing for improved ability to complete ADL activit ies and return to work Dizziness Handicap Index Status: MET: 0/100 Assessment Mookie Mason has been participating in therapy for treatment of persistent dizziness rela elijah to concussion from fall, neck pain, left arm/shoulder pain, low back pain and rib pain. pt reports that on 05/31/17 he fell off of a roof while at work approx. 20 foot fall. Pt had several injuries and was treated in [place]. S/p left humerus ORIF. Pt reports that he has been cleared by surgeon for left UE use but continues to have left arm weakness and pain. Patient demonstrates improvements with complete resolution of dizziness and normal balance, minimal objective improvements with left UE strength (due to pain), improved cervical spine and left shoulder ROM and pain intensity/frequency. Mookie Mason continues to have impairm ents with increased symptoms with any use of left arm, increased neck/low back pain. Increas ed pain with bending/lifting/reaching/carrying, prolonged sitting/standing/walking which are affecting his ability to complete functional tasks such as ADL's/IADL's, unable to return t o work, difficulty with caring for young family. Patient is now receiving occupational thera py for treatment of left UE so primary focus in physical therapy will now be on cervical spi ne. Patient requires continued skilled therapy services to achieve the following updated fun ctional goals. Rehabilitation potential: Patient demonstrates good potential to achieve established goals to address the documented impairments by participating in skilled physical therapy services. Goals: Dizziness Handicap Index Goal: Improve DHI score from 62/100 to <34/100 to reduced risk of falls and increase functional mobility allowing for improved ability to complete ADL activit ies and return to work Dizziness Handicap Index Status: MET: 0/100 OP PT Goals Goal 1: Patient will be Independent in a home exercise program to address symptoms of dizzi ness/imbalance to decrease fall risk and to facilitate Ind. symptom management to improve ab ility to perform ADL's. Goal 1 Status: progressing Goal 2: Improve sensory usage with a M-CTSIB score with normal sways in conditions 1-4 Goal 2 Status: MET Goal 3: Reduce DASH disability score by 10% points or greater indicating improved function with ADLs Goal 3 Status: porgressing: currently 86.36% Goal 4: Demonstrate functional shoulder ROM to complete ADL s including reaching for bath ing, dressing & grooming activities of shampooing or drying hair. Goal 4 Status: progressing: pt is able to reach overhead, behind back, tolerate lifting/car rying. pain increases up to at least 6/10 Plan Date of Onset: 05/31/2017 Start of Care Date: 08/10/2017 Requested # of Visits: 24 visits 2x/week for 12 weeks Certification From: 12/15/2017 Certification To: 03/09/2018 Treatment Plan/Interventions PT [id number] - Therapeutic [id number] - Neuromuscular Toblojpsiiu15890 - Gait Brain [id number] - Therapeutic Pgirywxank07981 - Manual Asexjis12972 - Self Care/Home Dpvgvmfvjj772 92 - Canalith Mgqzfptqxqpqa47494 - Vasopneumatic Wcvauph68104 - Electrical Stimulation, Unat tended Patient and/or family has indicated understanding of treatment needs and actively participa elijah in the creation of this plan for care. Today's Treatment Start Time: 1600 Stop time: 1645 Duration: 45 minutes Timed Treatment Codes: 45 minutes # of PT Visits: 22 Objective: Re-assessment completed today. Next Visit: Waiting for Auth. Would like to cont. PT with focus on cervical spine once we have MRI resu lts (pt will cont. Working with OT on left UE) Electronically signed by: Catie Squires PT, 12/15/2017 17:05 Patient Name: Mookie Palmer Marlon/: 1980/ documented [...]
--- OUTSIDE RECORDS SUMMARY | ~2020-02-26 | XMS | Encounter Summary ---
Demographics + + + | Address | [address] [place] [address] | | | [place] [address] | + + + | Home Phone [...] BREANNA SMITH | | | | | [address] | | + + + + + Care Team Providers + +------+ + | Care Collections Assistant Name | Role | Phone | + +------+ + | Juli Squires DO | PCP | | + +------+ + Encounter Details +--------+ + + + + | Date | Type | Department | Care Team | Description | +--------+ + + + + | 02/16/ | Hospital | [facility] | Iris Mast | Place of occurrence, | | 2018 | Encounter | MED CTR CHRIS XRAY | MD Barb [address] | industrial places | | | | [address] [place] | [address] [place] | and premises; [place], | | | | [place], [place] | [place] [address] | subsequent encounter | | | | [address] | [phone] | | | | | [phone] | | | +--------+ + + + [...] + + + +---------+ + + | RA ACETAMINOPHEN | take 2 tablet by | 100 | 0 | 01/16/20 | | | EX ST 500 MG tablet | mouth every 6 hours | tablet | | 18 | 8 | | | if needed for pain | | | | | + + [...] 1 OR 2 VW | Routin | 02/16/2018 | Place of | Results for this | | | e | 1:48 PM | occurrence, | procedure are in the | | | | PDT | industrial places | results section. | | | | | and premises [place], | | | | | | subsequent encounter | | + +--------+ + + + | XR LUMBAR SPINE 2 OR | Routin | 02/16/2018 | Place of | Results for this | | 3 VW | e | 1:48 PM | occurrence, | procedure are in the | | | | PDT | industrial places | results section. | | | | | and premises [place], | | | | | | subsequent encounter | | + +--------+ + + + | XR THORACIC SPINE 2 | Routin | 02/16/2018 | Place of | Results for this | | VW | e | 1:48 PM | occurrence, | procedure are in the | | | | PDT | industrial places | results section. | | | | | and premises [place], | | | | | | subsequent encounter | | + +--------+ + + [...] SAME DAY, CT MAY | | | 2017 FINDINGS: There is minimal S shaped thoracic [...] + + | Performing | Address | City/State[facility] | Phone Number | | Organization | [...] -1. RIGHTWARD LUMBAR CURVATURE.Dictated and Signed by: aRj | | MD Tha Electronically signed: 02/16/2018 [...]
--- OUTSIDE RECORDS SUMMARY | ~2020-02-26 | XMS | Encounter Summary ---
Demographics + + + | Address | [address] [place] [address] | | | [place] [address] | + + + | Home Phone | | + + + | Preferred Language | Unknown | + + + | Marital Status | | + + + | Muslim Affiliation | Unknown | + + + | Race | Unknown | + + + | Ethnic Group | Unknown | + + + Author + + + | Author | [facility] | | | and [place] | + + + | Organization | [facility] | | | [...] [place] | | | | | [address] | | + + + + + Care Team Providers + +------+ + | Care Vascular Ultrasound Technologist Name | Role | Phone | + [...] / | Place of | Iris | Synthetic [employer]in Operator [address] | | | Required | Speech | occurrence, | MD Barb | [address] | | | | Therapy | industrial | [address] | [place] | | | | | places and | [address] | [address] | | | | | premises | [place], | Phone: | | | | | Closed head | [place] [address] | [phone] | | | | | injury with | Phone: | Fax: | | | | | brief loss | [phone] | [phone] | | | | | of | Fax: | | | | | | consciousnes | [phone] | | | | | | s [facility] | | | | | | | Procedures | | | | | | | sales order clerk eval | | | +--------+ + + + + + Encounter Details +--------+ + + + + | Date | Type | Department | Care Team | Description | +--------+ + + + + | 11/02/ | Hospital | [facility] | Iris Mast | Traumatic brain | | 2018 | Encounter | MED CTR SPEECH | MD Barb [address] | injury with loss of | | | | THERAPY [address] [place] | consciousness, | | | | [place], | [place] [address] | subsequent encounter | | | | [place] [address] | [phone] | | | | | [phone] | | | | | | | Mandy Matos, [...] Progress Notes Mandy Matos, Speech Pathologist - 11/02/2017 10:28 AM PST [facility] SPEECH THERAPY [address] [place] [address] Speech Therapy Daily Treatment Note Date: 11/02/2017 Patient Information Patient Name: Mookie Mason Date of : 1980 Age: 37 y.o. Encounter Diagnoses Code Name Primary? S06.9X9D Traumatic brain injury with loss of consciousness, subsequent encounter Date of Onset: 05/31/2017 Referring Provider: Iris Mast MD Rehab Precautions Flowsheet Row Office Visit from 08/10/2017 in [facility] THERAPY PT OP Rehab Precautions Precautions None Rehab Learning Style Flowsheet Row Office Visit from 08/10/2017 in [facility] THERAPY PT OP [facility] OP EVAL from 07/26/2017 in [facility] SPEECH THERAPY Learning Style Patient's [employer] Learning Style listening, observation listening, observation Today's Treatment Start Time: 1020 Stop time: 1110 Duration: 50 minutes Timed Treatment Codes: 45 minutes # of Speech Visits to Date: 5 Pain Assessment: Pain Scale Used: NUMERIC Pain Rating Pre Assessment: 3 Location: back of neck Subjective: Pt seen for 1:1 ST, not feeling well this week. Neck pain noted. Objective/Assessment: Moderate deficits in the area of attention impacting ability to part icipate successfully in auditory comprehension with answering question re: auditory paragrap hs(needed min-moderate cues to identify details in story), needs extra time. Completed funct ional auditory comprehension- 4/6 Independently, increase to 5/6 with moderate pausing. Targ eted reading comprehension with small paragraph level material, increased difficulty with re calling details/main topic.Needs to re-read material for retaining details. Reports improved safety with cooking and more frequent checking on timers etc. to compensat e for reduced attention to tasks. Needs to continue to self cue to increase safety with cook ing. Targeted visuospatial skills and self monitoring with sustained attention completing tangra ms. Pt needs extra time to complete tasks, needs to reposition/arrage several times to make desired figures. Plan: ST to target attention, speed of thought and improved rate with conversational word f inding. Needs further authorization. Electronically signed by: Mandy Matos Speech Pathologist, 11/02/2017 17:53 Patient Name: Mookie Mason/: 1980/ docum ented in this encounter Plan of Treatment Not on filedocumented as of this encounter Visit Diagnoses + + | Diagnosis | + + | Traumatic brain injury with loss of consciousness, subsequent encounter | + + documented in this encounter"
--- OUTSIDE RECORDS SUMMARY | ~2020-02-26 | XMS | Encounter Summary ---
Demographics + + + | Address | [address] [place] [address] | | | [place] [address] | + + + | Home Phone | | + + + | Preferred Language | Unknown | + + + | Marital Status | | + + + | Christianity Affiliation | Unknown | + + + | Race | Unknown | + + + | Ethnic Group | Unknown | + + + Author + + + | Author | [facility] | | | and [place] | + + + | Organization | [facility] | | | [...] BREANNA SMITH | | | | | [address] | | + + + + + Care Team Providers + +------+ + | Care Web Page Designer Name | Role | Phone | + [...] | | | | OP [address] | [place], [place] | | | | | [place], [place] | [address] | | | | | [address] | | | | | | [phone] | | | +--------+ + + + [...] Mckenzie PT - 02/12/2018 7:51 AM [facility] [address] [facility] [address] Cancellation/No Show Date: 02/12/2018 Patient Information Patient [...]
--- OUTSIDE RECORDS SUMMARY | ~2020-02-26 | XMS | Encounter Summary ---
Demographics + + + | Address | [address] [place] [address] | | | [place] [address] | + + + | Home Phone [...] BREANNA SMITH | | | | | [address] | | + + + + + Care Team Providers + +------+ + | Care Brick Burner Head Name | Role | Phone | + [...] [address] | | | | | [place], [place] | [place] | | | | | [address] | [address] | | | | | [phone] | | | +--------+ + + + [...]
--- OUTSIDE RECORDS SUMMARY | ~2020-02-26 | XMS | Encounter Summary ---
Demographics + + + | Address | [address] [place] [address] | | | [place] [address] | + + + | Home Phone [...] [place] | | | | | [address] | | + + + + + Care Team Providers + +------+ + | Care Cigarette Lighter Repairer Name | Role | Phone | + [...] Rehabilitatio | occurrence, | MD Barb | [place] | | | | n | industrial | [address] | [place], | | | | | places and | [address] | [place] [address] | | | | | premises | [place], | Phone: | | | | | Closed head | [place] [address] | [phone] | | | | | injury with | Phone: | Fax: | | | | | brief loss | [phone] | [phone] | | | | | of | Fax: | | | | | | consciousnes | [phone] | | | | | | s [...] + | 08/31/ | Office | [facility] | Iris Mast | Dizziness due to old | | 2017 | Visit | MED CTR THERAPY PT | MD Barb [address] | head injury; Left | | | | OP [address] | [address] [place] | upper arm pain; | | | | [place], [place] | [place] [address] | Imbalance; Place of | | | | [address] | [phone] | occurrence, | | | | [phone] | | industrial places | | | | | Catie Squires B, PT | and premises; | | | | | [address] | Chronic left-sided | | | | | [place], [place] | low back pain | | | | | [address] | without sciatica; | | | | [...] Squires, PT - 08/31/2017 9:00 AM PST [facility] [facility] THERAPY PT OP [address] [place] [address] Physical Therapy Daily Treatment Note Date: 08/31/2017 [...] Flowsheet Row Office Visit from 08/10/2017 in [facility] TH[facility] PT OP Rehab Precautions Precautions None Rehab Learning Style Flowsheet Row Office Visit from 08/10/2017 in [facility] [facility] THERAPY PT OP [facility] OP EVAL from 07/26/2017 in [facility] [facility] SPEECH THERAPY Learning Style Patient's Optimum [...]
--- OUTSIDE RECORDS SUMMARY | ~2020-02-26 | XMS | Encounter Summary ---
Demographics + + + | Address | [address] [place] [address] | | | [place] [address] | + + + | Home Phone [...] BREANNA SMITH | | | | | [address] | | + + + + + Care Team Providers + +------+ + | Care Director Of Vocational Guidance Name | Role | Phone | + [...] Closed | | Radiology | Diagnoses | Pro, | [address] | | | | | Closed head | Iris | [address] [place] | | | | | injury with | MD Barb | [place], | | | | | brief loss | [address] | [place] [address] | | | | | of | [address] | Phone: | | | | | consciousnes | [place], | [phone] | | | | | s (HCC) | [place] [address] | Fax: | | | | | Place of | Phone: | [phone] | | | | | occurrence, | [phone] | | | | | | industrial | Fax: | | | | | | places and | [phone] | | | | | | premises | | | | | | | Procedures | | | | | | | CT Head wo | | | | | | | Contrast | | | +--------+--------+ + + + + Encounter Details +--------+ + + + + | Date | Type | Department | Care Team | Description | +--------+ + + + + | 07/20/ | Orders Only | [facility] [place] | Iris Mast | Closed head injury | | 2017 | | OCCUPATIONAL HEALTH | MD Barb [address] | with brief loss of | | | | [place] [address] | [address] [place] | consciousness (HCC) | | | | [address] [place] | [place] [address] | (Primary Dx); Place | | | | [place], [place] | [phone] | of occurrence, | | | | [address] | | industrial places | | | | [phone] | | and premises | +--------+ + [...] as of this encounter Progress Notes Iris Mast MD - 07/20/2017 10:03 AM PDTCT head without contrast requested per mi urosurgery prior to appointment scheduling. Ordered at their request. documented in this encounter Plan of Treatment Not on filedocumented as of this encounter Results CT Head wo Contrast (07/31/2017 12:34 PM PDT) + + | Specimen | + + | | + + + + + | Narrative | Performed At | + + + | EXAM: CT HEAD WO CONTRAST dated 07/31/2017 12:24 PM HISTORY: | [facility] | | h/o bleed s/p trauma-f/u ct Comparison: None. TECHNIQUE: | | | Noncontrast CT is performed from the top of calvarium through the | | | skull base. Coronal and sagittal reformats are performed. DOSE: | | | DLP 536.61 mGy-cm FINDINGS: BRAIN: Ventricles, sulci and | | | cisterns are unremarkable for age. No areas of increased | | | attenuation to suggest intracranial hemorrhage. There is no mass, | | | mass effect, or midline shift. There are no abnormal extra-axial | | | fluid or air collections. There is preservation of the corea-white | | | differentiation at this time. There is no significant white matter | | | disease. There is the suggestion of tonsillar ectopia. This is | | | partially visualized. SCALP/ CALVARIUM: The scalp and skull are | | | intact and are unremarkable. SINUSES / ORBITS/ MASTOIDS: The | | | visible mastoid air cells and paranasal sinuses are clear. The | | | globes and retroconal contents are intact and are unremarkable. | | | IMPRESSION - No evidence for residual posttraumatic abnormalities | | | in the brain. There is a suggestion of tonsillar ectopia that is | | | partially visualized on the sagittal sequence. Dictated and | | | Signed by: Kaushik Lovett MD Electronically signed: 07/31/2017 | | | 12:41 PM | | + + + + + | Procedure Note | + + | [place], Rad Results In - 07/31/2017 12:44 PM PDT EXAM: CT HEAD WO CONTRAST dated | | 07/31/2017 12:24 PMHISTORY: h/o bleed s/p trauma-f/u ctComparison: None.TECHNIQUE: | | Noncontrast CT is performed from the top of calvarium through theskull base. Coronal | | and sagittal reformats are performed.DOSE: DLP 536.61 mGy-cmFINDINGS: BRAIN: | | Ventricles, sulci and cisterns are unremarkable for age. No areas ofincreased | | attenuation to suggest intracranial hemorrhage. There is no mass,mass effect, or | | midline shift. There are no abnormal extra-axial fluid or aircollections. There is | | preservation of the corea-white differentiation at thistime. There is no significant | | white matter disease. There is the suggestion oftonsillar ectopia. This is partially | | visualized.SCALP/ CALVARIUM: The scalp and skull are intact and are unremarkable.SINUSES | | / ORBITS/ MASTOIDS: The visible mastoid air cells and paranasal sinusesare clear. The | | globes and retroconal contents are intact and are unremarkable.IMPRESSION -No evidence | | for residual posttraumatic abnormalities in the brain.There is a suggestion of tonsillar | | ectopia that is partially visualized on thesagittal sequence.Dictated and Signed by: | | Kaushik Lovett MD Electronically signed: 07/31/2017 12:41 PM | |mass effect, or midline shift. There are no abnormal extra-axial fluid or air | |collections. There is preservation of the corea-white differentiation at this | |time. There is no significant white matter disease. There is the suggestion of | |tonsillar ectopia. This is partially visualized. | | | |SCALP/ CALVARIUM: The scalp and skull are intact and are unremarkable. | | | |SINUSES / ORBITS/ MASTOIDS: The visible mastoid air cells and paranasal sinuses | |are clear. The globes and retroconal contents are intact and are unremarkable. | | | |IMPRESSION - | | | |No evidence for residual posttraumatic abnormalities in the brain. | | | |There is a suggestion of tonsillar ectopia that is partially visualized on the | |sagittal sequence. | | | | | | | |Dictated and Signed by: Kaushik Lovett MD | | Electronically signed: 07/31/2017 12:41 PM | + + + +---------+ + + | Performing | Address | City/State/Zipcode | Phone Number | | Organization | | | | + +---------+ + + | [facility] | | | | + +---------+ + + documented in this encounter Visit Diagnoses + + | Diagnosis | + + | Closed head injury with brief loss of consciousness (HCC) - Primary Concussion with | | loss of consciousness of unspecified duration | + + | Place of occurrence, industrial places and premises | + + documented in this encounter"
--- OUTSIDE RECORDS SUMMARY | ~2020-02-26 | XMS | Encounter Summary ---
Demographics + + + | Address | [address] [place] [address] | | | [place] [address] | + + + | Home Phone [...] BREANNA SMITH | | | | | [address] | | + + + + + Care Team Providers + +------+ + | Care Tax Services Professional Name | Role | Phone | + [...] | | | | | premises | [facility] [place], | [address] Phone: | | | | | Closed head | [place] [address] | [phone] | | | | | injury with | Phone: | Fax: | | | | | brief loss | [phone] | [phone] | | | | | of | Fax: | | | | | | consciousnes | [phone] | | | | | | s [...] Description | +--------+---------+ + + + | 11/27/ | Office | [facility] | Iris Mast | Closed fracture of | | 2018 | Visit | MED CTR THERAPY PT | MD Barb [address] | shaft of left | | | | OP [address] | [address] [place] | humerus with routine | | | | [place], [place] | [place] [address] | healing, | | | | [address] | [phone] | unspecified fracture | | | | [phone] | | morphology, | | | | | Catie Squires B, PT | subsequent | | | | | [address] | encounter; Dizziness | | | | | [place] | due to old head | | | | | [address] | injury; Left upper | | | [...] encounter Progress Notes Catie Squires, PT - 11/27/2017 4:00 PM PST [facility] CTR THERAPY PT OP [address] [place] [address] Physical Therapy Daily Treatment Note Date: 11/27/2017 Patient Information Patient Name: Mookie Mason Date [...] Flowsheet Row Office Visit from 08/10/2017 in [facility] CTR THERAPY PT OP Rehab Precautions Precautions None Rehab Learning Style Flowsheet Row Office Visit from 08/10/2017 in [facility] CTR THERAPY PT OP [facility] OP EVAL from 07/26/[address] [facility] SPEECH THERAPY Learning Style Patient's Optimum Learning Style listening, observation listening, observation Start Time: 1600 Stop time: 1645 Duration: 45 minutes Timed Treatment Codes: 45 minutes # of PT Visits to Date: 17 Subjective: pt reports that he is now only having more localized left shoulder pain and kia morel is having less pain. Pt does cont. To have difficulty with pulling up pants. Pt reports that he has been release back to light duty but isn't sure how he will find a aly b that will hire him until he is released back to full duty. Pain Assessment: Pain Rating Pre Assessment: 3 Location: neck and left shoulder Objective: Pre tx; right neck rotation 55 deg 3/10 pain Left neck rotation 60 deg 4/10 pain Manual therapy: STM and TPR to intra scap, pec.minor, upper trap., levator scap., scalenes, sub occipital r elease Post tx: right neck rotation 78 deg 0/10 pain Left neck rotation 83 deg 1/10 pain TherEx: prone scap. Depression and retraction with light manual resistance 2x5 each with 5 sec hold. Assessment: pt demonstrated improved ROM and decreased pain after manual therapy and was ab le to tolerate therEx without increased pain. Pt would benefit from cont. Therapy with focus on cervical/thoracic spine to increase strength, posture and ROM to improve ability to comp lete daily tasks and return to work without limitations. Next Visit: Cont to progress neck ROM and posterior chain strength Electronically signed by: Catie Squires PT, 11/27/2017 16:54 Patient Name: Mookie Palmer Marlon/: 1980/ documented [...]
--- OUTSIDE RECORDS SUMMARY | ~2020-02-26 | XMS | Encounter Summary ---
Demographics + + + | Address | [address] [place] [address] | | | [place] [address] | + + + | Home Phone | | + + + | Preferred Language | Unknown | + + + | Marital Status | | + + + | Congregation Affiliation | Unknown | + + + | Race | Unknown | + + + | Ethnic Group | Unknown | + + + Author + + + | Author | [facility] | | | and [place] | + + + | Organization | [facility] | | [...] BREANNA SMITH | | | | | [address] | | + + + + + Care Team Providers + +------+ + | Care Machinist Supervisor Name | Role | Phone | + +------+ + PCP | Unavailable | + +------+ + Encounter Details +--------+ + + + + | Date | Type | Department | Care Team | Description | +--------+ + + + + | 08/10/ | [facility] | Wil Lakhani | | | 2010 | Encounter | HOSPITAL EMERGENCY | MD [address] | | | | | CENTER [address] | [facility] | | | | | [address] [place] | [place] [address] | | | | | [address] | [phone] | | | | | [phone] | | | +--------+ + + + [...]
--- OUTSIDE RECORDS SUMMARY | ~2020-02-26 | XMS | Encounter Summary ---
Demographics + + + | Address | [address] [place] [address] | | | [place] [address] | + + + | Home Phone [...] BREANNA SMITH | | | | | [address] | | + + + + + Care Team Providers + +------+ + | Care Patient Safety Sitter Name | Role | Phone | + [...] | | Services | Pathology / | Closed head | Iris | Prosthetic Aide [address] | | | Required | Speech | injury with | MD Barb | [address] [place] | | | | Therapy | brief loss | [address] | [place] | | | | | of | [address] | [address] | | | | | consciousnes | [place], | Phone: | | | | | s ([facility]) | [place] [address] | [phone] | | | | | Place of | Phone: | Fax: | | | | | occurrence, | [phone] | [phone] | | | | | industrial | Fax: | | | | | | places and | [phone] | | | | | | premises [...] / | Closed left | Iris | Pt Op [address] | | | Required | Rehabilitatio | arm | MD Barb | [place] | | | | n | fracture, | [address] | [place], | | | | | with routine | [address] | [place] [address] | | | | | healing, | [place], | Phone: | | | | | subsequent | [place] [address] | [phone] | | | | | encounter | Phone: | Fax: | | | | | Place of | [phone] | [phone] | | | | | occurrence, | Fax: | | | | | | industrial | [phone] | | | | | | places and | | | | | | | premises | | | +--------+ + + + + + Encounter Details +--------+ + + + + | Date | Type | Department | Care Team | Description | +--------+ + + + + | 11/14/ | Orders Only | [facility] [place] | Pro, Iris | Closed head injury | | 2018 | | OCCUPATIONAL HEALTH | MD Barb [address] | with brief loss of | | | | [place] [address] | [address] [place] | consciousness (HCC) | | | | [address] [place] | [place] [address] | (Primary Dx); Closed | | | | [place], [place] | [phone] | left arm fracture, | | | | [address] | | with routine | | | | [phone] | | healing, subsequent | | | [...] Routin | Closed left arm | Ordered: 11/14/2017 | | to Physical Therapy | Referral [...] Speech Therapy | Outpatient | Routin | Closed head injury | Ordered: 11/14/2017 | | - AMB Referral | Referral | e | with brief loss of | | | | | | consciousness (HCC) | | | | | | Place [...] of unspecified duration | + + | Closed left arm fracture, with routine healing, subsequent encounter | + + | Place of occurrence, industrial places and premises | + + documented in this encounter"
--- OUTSIDE RECORDS SUMMARY | ~2020-02-26 | XMS | Encounter Summary ---
Demographics + + + | Address | [address] [place] [address] | | | [place] [address] | + + + | Home Phone | | + + + | Preferred Language | Unknown | + + + | Marital Status | | + + + | Latter Day Affiliation | Unknown | + + + [...] BREANNA SMITH | | | | | [address] | | + + + + + Care Team Providers + +------+ + | Care Molder Apprentice Name | Role | Phone | + [...] Radiology | Diagnoses | Pro, | [facility] | | | | | Closed left | Iris | [address] | | | | | arm | MD Barb | [place], | | | | | fracture, | [address] | [place] | | | | | with routine | [address] | [address] | | | | | healing, | [place], | Phone: | | | | | subsequent | [place] [address] | [phone] | | | | | encounter | Phone: | Fax: | | | | | Place of | [phone] | [phone] | | | | | occurrence, | Fax: | | | | | | industrial | [phone] | | | | | | places and | | | | | | | premises | | | | | | | Procedures | | | | | | | MRI Shoulder | | | | | | | Left wo | | | | | | [...] Radiology | Diagnoses | Pro, | [facility] | | | | | Closed left | Iris | [address] | | | | | arm | MD Barb | [place], | | | | | fracture, | [address] | [place] | | | | | with routine | [address] | [address] | | | | | healing, | [place], | Phone: | | | | | subsequent | [place] [address] | [phone] | | | | | encounter | Phone: | Fax: | | | | | Place of | [phone] | [phone] | | | | | occurrence, | Fax: | | | | | | industrial | [phone] | | | | | | places and | | | | | | | premises | | | | | | | Procedures | | | | | | | MRI Shoulder | | | | | | | Left wo | | | | | | | Contrast | | | +--------+--------+ + + + + Encounter Details +--------+ + + + + | Date | Type | Department | Care Team | Description | +--------+ + + + + | 08/30/ | Hospital | [facility] | Iris Mast | Closed left arm | | 2017 | Encounter | MED CTR MRI [address] | MD Barb [address] | fracture, with | | | | [address] [place], | [address] [place] | routine healing, | | | | [place] [id number] | [place] [address] | subsequent | | | | [phone] | [phone] | encounter; Place of | | | [...] tablet by | 30 | 1 | 08/17/20 | | | (CELEXA) 10 mg | [...] + +--------+ + + + | MRI SHOULDER LEFT WO | Routin | 08/30/2017 | Closed left arm | Results for this | | CONTRAST | e | 3:49 PM | fracture, with | procedure are in the | | | | PST | routine healing, | results section. | | | | | subsequent encounter | | | | | | Place of | | | | | | occurrence, | | | | | | industrial places | | | | | | and premises | | + +--------+ + + + documented in this encounter Results MRI Shoulder Left wo Contrast (08/30/2017 3:49 PM PST) + + | Specimen | + + | | + + + + + | Narrative | Performed At | + + + | TECHNIQUE: MRI of the left shoulder with sequences to include | [facility] | | axial T2, coronal T2, sagittal T1, sagittal T2, and axial merge. | | | CLINICAL INFORMATION: r/o internal derangement COMPARISON: | | | Radiographs dated 07/05/2017 FINDINGS: Rotator cuff: Focal high T2 | | | signal intensity noted within the lateral anterior aspect of the | | | supraspinatous tendon measuring 10 mm in the transverse dimension and | | | 4 mm in the anterior to posterior dimension, most consistent with a | | | partial-thickness articular sided tear with moderate focal tendinosis. | | | Infraspinatus, teres minor, and subscapularis tendons are intact. | | | The long head biceps tendon appears intact. Labrum: No labral | | | tear. Bone and joint: There is no fracture, Hill-Sachs or Bankart | | | defect, or bone marrow edema. Type II acromion is seen with mild | | | degeneration of the acromioclavicular joint. Neurovascular | | | structures:The neurovascular structures have normal course and signal | | | through the shoulder girdle. Other findings: There is no soft | | | tissue mass or abnormal fluid collection. IMPRESSIONS: Partial | | | thickness articular sided tear of the supraspinatus tendon as | | | detailed above with associated tendinosis. Dictated and Signed by: | | | Silvestre Zacarias MD Electronically signed: 08/30/2017 9:20 PM | | + + + + + | Procedure Note | + + | [place], Rad Results In - 08/30/2017 9:23 PM PST | | TECHNIQUE: MRI of the left shoulder with sequences to include axial T2, coronal | | T2, sagittal T1, sagittal T2, and axial merge. | | | | CLINICAL INFORMATION: r/o internal derangement | | | | COMPARISON: Radiographs dated 07/05/2017 | | | | FINDINGS: | | Rotator cuff: Focal high T2 signal intensity noted within the lateral anterior | | aspect of the supraspinatous tendon measuring 10 mm in the transverse dimension | | and 4 mm in the anterior to posterior dimension, most consistent with a | | partial-thickness articular sided tear with moderate focal tendinosis. | | Infraspinatus, teres minor, and subscapularis tendons are intact. The long head | | biceps tendon appears intact. | | | | Labrum: No labral tear. | | | | Bone and joint: There is no fracture, Hill-Sachs or Bankart defect, or bone | | marrow edema. Type II acromion is seen with mild degeneration of the | | acromioclavicular joint. | | | | Neurovascular structures:The neurovascular structures have normal course and | | signal through the shoulder girdle. | | | | Other findings: There is no soft tissue mass or abnormal fluid collection. | | | | | | IMPRESSIONS: Partial thickness articular sided tear of the supraspinatus tendon | | as detailed above with associated tendinosis. | | | | Dictated and Signed by: Silvestre Zacarias MD | | Electronically signed: 08/30/2017 9:20 PM | + + + +---------+ + [...]
--- OUTSIDE RECORDS SUMMARY | ~2020-02-26 | XMS | Encounter Summary ---
Demographics + + + | Address | [address] [place] [address] | | | [place] [address] | + + + | Home Phone | | + + + | Preferred Language | Unknown | + + + | Marital Status | | + + + | Taoism Affiliation | Unknown | + + + [...] [place] SM[place] | | | | | [address] | | + + + + + Care Team Providers + +------+ + | Care Medical Logistics Specialist Name | Role | Phone | + +------+ + | Kaci Squires DO | PCP | | + +------+ + Reason for Visit + + + | Reason | Comments | + + + | Neck Pain | | + + + | Arm Pain | | + + + Encounter Details +--------+ + + + + | Date | Type | Department | Care Team | Description | +--------+ + + + + | 10/16/ | Emergency | [facility] | Carlin Willson MD | Cervical | | 2019 | | [facility] | [address] | radiculopathy | | | | CENTER [address] | [place], [place] | (Primary Dx) | | | | [place], [place] | [address] | | | | | [address] | | | | | | [phone] | | | +--------+ + + + [...] + + + | Blood Pressure | 127/78 | 10/16/2018 3:31 PM | | | | | PST | | + + + + + | Pulse | 75 | 10/16/2018 3:31 PM | | | | | PST | | + + + + + | Temperature | 36.4 C (97.5 F) | 10/16/2018 1:04 PM | | | | | PST | | + + + + + | Respiratory Rate | 12 | 10/16/2018 3:31 PM | | | | | PST | | + + + + + | Oxygen Saturation | 98% | 10/16/2018 3:31 PM | | | | | PST | | + + + + + | Inhaled Oxygen | - | - | | | Concentration | | | | + + + + + | Weight | 63.5 kg (140 lb) | 10/16/2018 1:04 PM | | | | | PST | | + + + + + | Height | 185.4 cm (6' 1") | 10/16/2018 1:04 PM | | | | | PST | | + + + + + | Body Mass Index | 18.47 | 10/16/2018 1:04 PM | | | | | PST | | + + + + + documented in this encounter Discharge Instructions Instructions Carlin Willson MD - 10/16/2018Continue naproxen 500 mg twice a day Pain medication as needed Slowly resume normal activities as tolerated Return for worsening symptoms, the new complaints documented in this encounter Medications at Time of Discharge [...] + + + +---------+ + + | | Take 1-2 tablets by | 20 | 0 | 10/16/19 | | | HYDROcodone-acetamin | mouth every 6 hours | tablet | | 19 | 9 | | ophen (NORCO) 5-325 | as needed for Pain. | | | | | | mg per tablet | | | | | | + + + +---------+ + + | methocarbamol | Take 750 mg by | | 0 | 06/04/20 | | | (ROBAXIN) 750 mg | mouth. | | | 17 | 9 | | tablet | | | | | | + + + +---------+ + + | naproxen | Take 1,000 mg by | | 0 | | | | (NAPROSYN) 250 mg | mouth 6 times daily. | | | | 9 | | tablet | | [...] tablet by | 100 | 0 | 03/05/20 | | | EX ST 500 MG tablet | mouth every 6 hours | tablet | | 18 | 9 | | | if needed for pain [...] + + | MRI CERVICAL SPINE | STAT | 10/16/2018 | | Results for this | | WO CONTRAST | | 2:59 PM | | procedure are in the | | | | PST | | results section. | + +--------+ + + + | XR HUMERUS LEFT 2 + | STAT | 10/16/2018 | | Results for this | | VW | | 2:01 PM | | procedure are in the | | | | PST | | results section. | + +--------+ + + + documented in this encounter Results MRI Cervical Spine wo Contrast (10/16/2018 2:59 PM PST) + + | Specimen | + + | | + + + + + | Narrative | Performed At | + + + | MRI CERVICAL SPINE WO CONTRAST 10/16/2018 2:38 PM HISTORY: Neck | [facility] | | pain with left radiculopathy and arm weakness ARM PAIN. | | | COMPARISON: 12/26/2017 PROTOCOL: Sagittal T2, sagittal T1, axial | | | T2, axial GRE, sagittal STIR, coronal T1. FINDINGS: Vertebral | | | body height and alignment is maintained. Small posterior disc bulge | | | at C3-C4 and C5-C6 which is similar to 2018. Mild disc space | | | narrowing at C3-C4, C4-C5, and C5-C6. Prevertebral and paraspinal | | | soft tissues show no acute abnormality. Cervicomedullary junction and | | | atlantoaxial articulations are unremarkable. Imaged spinal cord | | | demonstrates normal signal with no evidence for myelomalacia or mass | | | lesions. C2-3: No central canal or neural foramina canal stenosis. | | | C3-4: Small posterior disc bulge at C3-C4 which is eccentric and | | | more pronounced along the right foraminal aspect without significant | | | neuroforaminal narrowing or central spinal stenosis. C4-5: Mild | | | bilateral uncovertebral spondylosis contributes to borderline mild | | | right-sided neural foraminal narrowing. Central canal is patent. | | | C5-6: Small broad-based posterior disc bulge and mild facet | | | spondylosis at C5-C6 cause now mild to moderate left-sided neural | | | foraminal narrowing. No evidence of right-sided neural foraminal | | | narrowing or central spinal stenosis. Findings have worsened since | | | 2017 C6-7: No central canal or neural foramina canal stenosis. | | | C7-T1: No central canal or neural foramina canal stenosis. | | | IMPRESSION - 1. Small posterior disc bulge at C3-C4 which is | | | eccentric and more pronounced along the right foraminal aspect | | | without significant neuroforaminal narrowing or central spinal | | | stenosis. 2. Small broad-based posterior disc bulge and mild facet | | | spondylosis at C5-C6 cause now mild to moderate left-sided neural | | | foraminal narrowing. -Mildly worsened since 12/26/2017 | | | Dictated and Signed by: Kaleb Combs MD Electronically signed: | | | 10/16/2018 3:08 PM | | + + + + + | Procedure Note | + + | [place], Rad Results In - 10/16/2018 3:11 PM PST MRI CERVICAL SPINE WO CONTRAST | | 10/16/2018 2:38 PM HISTORY: Neck pain with left radiculopathy and arm weaknessARM | | PAIN.COMPARISON: 12/26/2017PROTOCOL: Sagittal T2, sagittal T1, axial T2, axial GRE, | | sagittal STIR, coronalT1.FINDINGS:Vertebral body height and alignment is maintained. | | Small posterior disc bulge atC3-C4 and C5-C6 which is similar to 2018. Mild disc space | | narrowing at C3-C4,C4-C5, and C5-C6. Prevertebral and paraspinal soft tissues show no | | acuteabnormality. Cervicomedullary junction and atlantoaxial articulations | | areunremarkable. Imaged spinal cord demonstrates normal signal with no evidence | | formyelomalacia or mass lesions.C2-3: No central canal or neural foramina canal | | stenosis.C3-4: Small posterior disc bulge at C3-C4 which is eccentric and more | | pronouncedalong the right foraminal aspect without significant neuroforaminal narrowing | | orcentral spinal stenosis.C4-5: Mild bilateral uncovertebral spondylosis contributes to | | borderline mildright-sided neural foraminal narrowing. Central canal is patent.C5-6: | | Small broad-based posterior disc bulge and mild facet spondylosis at C5-A4niscw now mild | | to moderate left-sided neural foraminal narrowing. No evidence ofright-sided neural | | foraminal narrowing or central spinal stenosis. Findings haveworsened since 3832E4-3: No | | central canal or neural foramina canal stenosis.C7-T1: No central canal or neural | | foramina canal stenosis.IMPRESSION -1. Small posterior disc bulge at C3-C4 which is | | eccentric and more pronouncedalong the right foraminal aspect without significant | | neuroforaminal narrowing orcentral spinal stenosis.2. Small broad-based posterior disc | | bulge and mild facet spondylosis at C5-W6mykcy now mild to moderate left-sided neural | | foraminal narrowing. -Mildly worsened since 12/26/2017Dictated and Signed by: Kaleb | | MD Lauryn Electronically signed: 10/16/2018 3:08 PM | |central spinal stenosis. | | | |C4-5: Mild bilateral uncovertebral spondylosis contributes to borderline mild | |right-sided neural foraminal narrowing. Central canal is patent. | | | | | |C5-6: Small broad-based posterior disc bulge and mild facet spondylosis at C5-C6 | |cause now mild to moderate left-sided neural foraminal narrowing. No evidence of | |right-sided neural foraminal narrowing or central spinal stenosis. Findings have | |worsened since 2018 | | | |C6-7: No central canal or neural foramina canal stenosis. | | | |C7-T1: No central canal or neural foramina canal stenosis. | | | | | |IMPRESSION - | |1. Small posterior disc bulge at C3-C4 which is eccentric and more pronounced | |along the right foraminal aspect without significant neuroforaminal narrowing or | |central spinal stenosis. | | | |2. Small broad-based posterior disc bulge and mild facet spondylosis at C5-C6 | |cause now mild to moderate left-sided neural foraminal narrowing. | |-Mildly worsened since 12/26/2017 | | | | | |Dictated and Signed by: Kaleb Combs MD | | Electronically signed: 10/16/2018 3:08 PM | + + + +---------+ + + | Performing | Address | City/State/Zipcode | Phone Number | | Organization | | | | + +---------+ + + | [facility] | | | | + +---------+ + + XR Humerus Left 2 + Vw (10/16/2018 2:01 PM PST) + + | Specimen | + + | | + + + + + | Narrative | Performed At | + + + | XR HUMERUS LEFT 2 + VW 10/16/2018 2:01 PM HISTORY: NECK PAIN ARM | [facility] | | PAIN. COMPARISON: Multiple priors. FINDINGS: There has been | | | interval removal of the plate screw hardware involving the mid left | | | humerus. A residual screw fragment is in the mid humerus. Mild disuse | | | osteopenia is present. Clips are in the mid to distal anterior soft | | | tissues of the upper arm. IMPRESSION - Interval removal of the | | | plate screw hardware involving the mid left humerus with a residual | | | screw fragment in the mid humerus. Dictated and Signed by: Gabino | | | MD Denzel Electronically signed: 10/16/2018 2:35 PM | | + + + + + | Procedure Note | + + | [place], Rad Results In - 10/16/2018 2:38 PM PST XR HUMERUS LEFT 2 + VW 10/16/2018 2:01 | | PMHISTORY: NECK PAINARM PAIN.COMPARISON: Multiple priors.FINDINGS:There has been | | interval removal of the plate screw hardware involving the midleft humerus. A residual | | screw fragment is in the mid humerus. Mild disuseosteopenia is present. Clips are in the | | mid to distal anterior soft tissues ofthe upper arm.IMPRESSION -Interval removal of the | | plate screw hardware involving the mid left humerus witha residual screw fragment in | | the mid humerus.Dictated and Signed by: Gabino Mahoney MD Electronically signed: | | 10/16/2018 2:35 PM | |There has been interval removal of the plate screw hardware involving the mid | |left humerus. A residual screw fragment is in the mid humerus. Mild disuse | |osteopenia is present. Clips are in the mid to distal anterior soft tissues of | |the upper arm. | | | |IMPRESSION - | |Interval removal of the plate screw hardware involving the mid left humerus with | |a residual screw fragment in the mid humerus. | | | |Dictated and Signed by: Gabino Mahoney MD | | Electronically signed: 10/16/2018 2:35 PM | + + + +---------+ + + | Performing | Address | City/State/Zipcode | Phone Number | | Organization | | | | + +---------+ + + | [facility] | | | | + +---------+ + + documented in this encounter Visit Diagnoses + + | Diagnosis | + + | Cervical radiculopathy - Primary Brachial neuritis or radiculitis nos | + + documented in this encounter
--- OUTSIDE RECORDS SUMMARY | ~2020-02-26 | XMS | Encounter Summary ---
Demographics + + + | Address | [address] [place] [address] | | | [place] [address] | + + + | Home Phone [...] [place] | | | | | [address] | | + + + + + Care Team Providers + +------+ + | Care Scientific Writer Name | Role | Phone | + +------+ + | Juli Squires DO | PCP | | + +------+ + Encounter Details +--------+ + + + + | Date | Type | Department | Care Team | Description | +--------+ + + + + | 02/16/ | Hospital | [facility] | Iris Mast | Place of occurrence, | | 2018 | Encounter | [facility] | MD [address] | industrial places | | | | [address] [place] | [address] [place] | and premises; [place], | | | | [place], [place] | [place] [address] | subsequent encounter | | | | [address] | [phone] | | | | | [phone] | | | +--------+ + + + [...] + + | Performing | Address | City[facility]State[facility] | Phone Number | | Organization | [...]
--- OUTSIDE RECORDS SUMMARY | ~2020-02-26 | XMS | Encounter Summary ---
Demographics + + + | Address | [address] [place] [address] | | | [place] [address] | + + + | Home Phone | | + + + | Preferred Language | Unknown | + + + | Marital Status | | + + + | Restorationist Affiliation | Unknown | + + + | Race | Unknown | + + + | Ethnic Group | Unknown | + + + Author + + + | Author | [facility] | | | and [place] | + + + | Organization | [facility] | | | [...] [place] | | | | | [address] | | + + + + + Care Team Providers + +------+ + | Care Vp Cardiovascular Name | Role | Phone | + [...] tear of left | MD Barb | [place] | | | | n | rotator | [address] | [place], | | | | | cuff Place | [address] | [place] [address] | | | | | of | [place], | Phone: | | | | | occurrence, | [place] [address] | [phone] | | | | | industrial | Phone: | Fax: | | | | | places and | [phone] | [phone] | | | | | premises | Fax: | | | | | | | [phone] | | +--------+ + + + + + Encounter Details +--------+---------+ + + + | Date | Type | Department | Care Team | Description | +--------+---------+ + + + | 11/07/ | Office | [facility] | Pro [place]ris | Closed fracture of | | 2018 | Visit | MED CTR THERAPY PT | MD Barb [address] | shaft of left | | | | OP [address] | [address] [place] | humerus with routine | | | | [place], [place] | [place] [address] | healing, | | | | [address] | [phone] | unspecified fracture | | | | [phone] | | morphology, | | | | | Catie Squires, PT | subsequent | | | | | [address] | encounter; Dizziness | | | | | [place], [place] | due to old head | | | | | [address] | injury; Left upper | | | [...] this encounter Progress Catie Mckenzie PT - 11/07/2017 9:00 AM PST [facility] CTR THERAPY PT OP [address] [place] [address] Physical Therapy Daily Treatment Note Date: 11/07/2017 Patient Information Patient Name: Mookie Mason Date [...] Row Office Visit from 08/10/2017 in [facility] CTR THERAPY PT OP Rehab Precautions Precautions None Rehab Learning Style Flowsheet Row Office Visit from 08/10/2017 in [facility] CTR THERAPY PT OP [facility] OP EVAL from 07/26/2017 in [facility] SPEE[facility]ER[facility] Learning Style Patient's [employer] Learning Style listening, observation listening, observation Start Time: 0900 Stop time: 0945 Duration: 45 minutes Timed Treatment Codes: 45 minutes # of PT Visits to Date: 16 Subjective: pt reports that his neck pain cont. To increase with neck rotation but overall is feeling better at rest and feels that he has better ROM Pain Assessment: Pain Rating Pre Assessment: 3 Pain Rating During Assessment: 1 Location: neck Objective: Pre tx; right neck rotation 55 deg 3/10 pain Left neck rotation 60 deg 4/10 pain Manual therapy: STM and TPR to intra scap, pec., upper trap., levator scap., scalenes Grade III-IV mobs to T1-5 to improve ROM Post tx: right neck rotation 89 deg 0/10 pain Left neck rotation 80 deg 1/10 pain TherEx: prone scap. Depression and retraction with light manual resistance 2x5 each with 5 sec hold. Assessment: pt demonstrated improved ROM and decreased pain after manual therapy and was ab le to tolerate therEx without pain. Pt would benefit from cont. Therapy with focus on cervic al/thoracic spine to increase strength, posture and ROM to improve ability to complete daily tasks and return to work without limitations. Next Visit: Cont to progress neck ROM and posterior chain strength (has 5 remaining visits, waiting for date extension) Electronically signed by: Catie Squires PT, 11/07/2017 9:54 Patient Name: Mookie Palmer Marlon/: 1980/ documented [...]
--- OUTSIDE RECORDS SUMMARY | ~2020-02-26 | XMS | Encounter Summary ---
Demographics + + + | Address | [address] [place] [address] | | | [place] [address] | + + + | Home Phone | | + + + | Preferred Language | Unknown | + + + | Marital Status | | + + + | Christianity Affiliation | Unknown | + + + | Race | Unknown | + + + | Ethnic Group | Unknown | + + + Author + + + | Author | [facility] | | | and [place] | + + + | Organization | [facility] | | | [...] [place] | | | | | [address] | | + + + + + Care Team Providers + +------+ + | Care Health Commissioner Name | Role | Phone | + [...] Description | +--------+---------+ + + + | 12/18/ | Office | [facility] | Iris Mast | Closed left arm | | 2018 | Visit | [facility] | MD Barb [address] | fracture, with | | | | [place] [address] | [address] [place] | routine healing, | | | | [address] [place] | [place] [address] | subsequent encounter | | | | [place], [place] | [phone] | (Primary Dx); | | | | [address] | | Closed head injury | | | | [phone] | | with brief loss of | [...] + + + | Blood Pressure | 131/78 | 12/18/2017 2:18 PM | | | | | PDT | | + + + + + | Pulse | 73 | 12/18/2017 2:18 PM | | | | | PDT | | + + + + + | Temperature | 36.8 C (98.2 F) | 12/18/2017 2:18 PM | | | | | PDT [...] Weight | 63 kg (139 lb) | 12/18/2017 2:18 PM | | | | | PDT | | + + + + + | Height | 185.4 cm (6' 1") | 12/18/2017 2:18 PM | | | | | PDT | | + + + + + | Body Mass Index | 18.34 | 12/18/2017 2:18 PM | | | | | PDT | | + + + + + documented in this encounter Progress Notes Iris Mast MD - 12/18/2017 2:30 PM PDTEmployer: 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 Since his last visit he has been seen and evaluated by Dr. veliz, cervical MRI has been requested, however not yet scheduled as authorization an approval are currently pe nding. There is concern that his left arm symptoms and atrophy or a consequence of an undia gnosed cervical issue as a result of this fall. He has been participating in OT for the arm and has found it to be helpful, feels that his strength is slowly improving. Feels that he is now able to lift a gallon of milk with the left arm and use force to tie his shoes. He was attending physical therapy for the neck and posterior upper back and finding it to be he lpful, and notes decreased symptoms and improved range of motion. Still has pain and tightn ess in the posterior left neck that radiates into the shoulder but not below the shoulder. Majority of his discomfort is over the medial aspect of the upper arm, feels pain radiating from the elbow through the medial upper arm and into the anterior chest. He has also been a ttending speech therapy, has been given exercises to perform, when he tends to overdo it he notes increased headache and limited ability to focus with issues with word finding and reca ll which tends to recover and respond rest. He is currently not working but seeking employm ent. He does request a prescription for extra strength Tylenol. Past medical history, medications, allergies reviewed Review of systems: As per HPI Objective: Vital signs as noted, nursing notes reviewed. Fcsvgbk-wciu-mamuxqjnp, well-nourished, in no apparent distress, pleasant cooperative. Left shoulder-does have full unrestricted range of motion, except internal rotation is limi elijah and pain is elicited with both internal rotation and extension. Left elbow-full range of motion without limitation. Psych-mood, affect, speech and thought processes appropriate. Imaging/diagnostics: None indicated this visit Pending interventions: Continue conservative management. Assessment: 1. Left humeral fracture-status post ORIF 2. Traumatic brain injury Plan: Proceed with cervical MRI once authorized and approved. If there is no etiology for his cu rrent left arm symptoms, based on the results of this diagnostic testing, plan referral back to his operating orthopedic surgeon in [place] to discuss the persistent left arm symptoms and to discuss treatment recommendations if any. Continue with occupational therapy, physi kian therapy once results of MRI are available as well as speech therapy. Follow-up with Dr. veliz as scheduled. Return here in 4 weeks, sooner for acute worsening other concerns. A prescription for Tylenol is provided to him this date per his request. He voices understand ing and agreement. E: Modified duty R: Avoid pushing, pulling, or lifting more than 10 pounds with the left arm. Limited use o f the left arm. Impairment undetermined at this point in time, based on current objective findings it is no t an anticipated consequence of this injury however patient has not yet reached MMI status. This note was dictated using [employer] voice recognition software. Occasional wrong- word or [...]
--- OUTSIDE RECORDS SUMMARY | ~2020-02-26 | XMS | Encounter Summary ---
Demographics + + + | Address | [address] [place] [address] | | | [place] [address] | + + + | Home Phone | | + + + | Preferred Language | Unknown | + + + | Marital Status | | + + + | Taoist Affiliation | Unknown | + + + | Race | Unknown | + + + | Ethnic Group | Unknown | + + + Author + + + | Author | [facility] | | | and [place] | + + + | Organization | [facility] | | | [...] BREANNA SMITH | | | | | [address] | | + + + + + Care Team Providers + +------+ + | Care Line Builder Name | Role | Phone | [...] | | | Closed head | [place] [address] | | | | | | injury with | Phone: | | | | | | brief loss | [phone] | | | | | | of | Fax: | | | | | | consciousnes | [phone] | | | | | | s [...] | | | | | | | (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) (Primary Dx) | | | | | [...] Progress Notes Mandy Matos, Speech Pathologist - 12/06/2017 8:11 AM PST [facility] SPEECH THERAPY [address] [place] [address] Speech Therapy Daily Treatment Note Date: 12/06/2017 Patient Information Patient Name: Mookie Mason Date of : 1980 Age: 37 y.o. Encounter Diagnoses Code Name Primary? S06.9X1A Traumatic brain injury, with loss of consciousness of 30 minutes or less, init ial encounter (HCC) Yes Date of Onset: 05/31/2017 Referring Provider: Iris Mast MD Rehab Precautions Flowsheet Row Office Visit from 08/10/2017 in [facility] THERAPY PT OP Rehab Precautions Precautions None Rehab Learning Style Flowsheet Row Office Visit from 08/10/2017 in [facility] THERAPY PT OP [facility] OP EVAL from 07/26/2017 in [facility] SPEECH THERAPY Learning Style Patient's Optimum Learning Style listening, observation listening, observation Today's Treatment Start Time: 804 Stop time: 844 Duration: 40 minutes Timed Treatment Codes: minutes # of Speech Visits to Date: 6 Pain Assessment: Pain Scale Used: NUMERIC Pain Rating Pre Assessment: 4 Location: neck, low back Subjective: Pt seen with and ST present. Discussed desire to return to work and cognit yina limitations. Objective/Assessment: Patient Specific Functional Scale Goal 1: Pt will reduce concussion symptom score of <25 in 12 weeks. Patient Specific Functional Scale Goal 1 Status Comment: Goal met, score of 10 today. Impro susie from score of 44 last session Patient Specific Functional Scale Goal 2: Pt will complete moderate level delayed memory ta sks x90% accuracy with initial instruction of memory strategies in 12 weeks. Patient Specific Functional Scale Goal 2 Status Comment: Goal almost met, using memory stra tegies consisitently to support recall. Discussed memory/safety strategies for return to work, needed min-mod verbal cues to improv e mental flexibility. Patient Specific Functional Scale Goal 3: Pt will complete divided and switching attention tasks x90% accuracy with min cues in 12 weeks. Patient Specific Functional Scale Goal 3 Status Comment: Goal emerging, moderate-boarderlin e deficits. 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 Onset of mental fog and headache with visuospatial sweeps for attention/speed. Plan:Address attention, auditory processing, and memory strategies for improved recall. Electronically signed by: Mandy Matos Speech Pathologist, 12/07/2017 9:50 Patient Name: Mookie Palmer Marlon/: 1980/ docum ented in this encounter Plan of Treatment Not on filedocumented as of this encounter Visit Diagnoses + + | Diagnosis | + + | Traumatic brain injury, with loss of consciousness of 30 minutes or less, initial | | encounter ([facility]) - Primary | + + documented in this encounter"
--- OUTSIDE RECORDS SUMMARY | ~2020-02-26 | XMS | Encounter Summary ---
Demographics + + + | Address | [address] [place] [address] | | | [place] [address] | + + + | Home Phone | | + + + | Preferred Language | Unknown | + + + | Marital Status | | + + + | Denominational Affiliation | Unknown | + + + | Race | Unknown | + + + | Ethnic Group | Unknown | + + + Author + + + | Author | [facility] | | | and [place] | + + + | Organization | [facility] | | | and [...] BREANNA SMITH | | | | | [address] | | + + + + + Care Team Providers + +------+ + | Care Chemical Applicator Name | Role | Phone | + [...] + + | 11/20/ | Office | [facility] | Iris Mast | Closed left arm | | 2018 | Visit | [facility] | MD Barb [address] | fracture, with | | | | [facility] [address] [place] | routine healing, | | | | [address] [place] | [place] [address] | subsequent encounter | | | | [place], [place] | [phone] | (Primary Dx); | | | | [address] | | Closed head injury | | | | [phone] | | with brief loss of | [...] RIZWAN Date of injury: 05/31/17 Claim number: [id number] Chief complaint: Follow-up multiple injuries Subjective: Injured [...] Has an appointment to see Dr. zazueta [facility] and follow-up in 2 weeks. Past medical history, medications, allergies reviewed Review of systems: As per HPI Objective: Vital signs as noted, nursing notes reviewed. Xpjqyms-prvo-ulsgmdpyh, well-nourished, in no apparent distress, pleasant cooperative. [...] MMI status. This note was dictated using [employer] voice recognition software. Occasional wrong- word or [...]
--- OUTSIDE RECORDS SUMMARY | ~2020-02-26 | XMS | Encounter Summary ---
Demographics + + + | Address | [address] [place] [address] | | | [place] [address] | + + + | Home Phone | | + + + | Preferred Language | Unknown | + + + | Marital Status | | + + + | Islam Affiliation | Unknown | + + + | Race | Unknown | + + + | Ethnic Group | Unknown | + + + Author + + + | Author | [facility] | | | and [place] | + + + | Organization | [facility] | | | and [...] [place] | | | | | [address] | | + + + + + Care Team Providers + +------+ + | Care Autism Teacher Name | Role | Phone | + [...] Rehabilitatio | occurrence, | MD Barb | [address] | | | | n | industrial | [address] | [place], | | | | | places and | [address] | [place] [address] | | | | | premises | [place], | Phone: | | | | | Closed head | [place] [address] | [phone] | | | | | injury with | Phone: | Fax: | | | | | brief loss | [phone] | [phone] | | | | | of | Fax: | | | | | | consciousnes | [phone] | | | | | | s [...] Description | +--------+---------+ + + + | 08/22/ | Office | [facility] | Iris Mast | Dizziness due to old | | 2017 | Visit | MED CTR THERAPY PT | MD Barb [address] | head injury; Left | | | | OP [address] | [address] [place] | upper arm pain; | | | | [place], [place] | [place] [address] | Imbalance; Place of | | | | [address] | [phone] | occurrence, | | | | [phone] | | industrial places | | | | | Catie Squires B, PT | and premises; | | | | | [address] | Chronic left-sided | | | | | [place] | low back pain | | | | | [address] | without sciatica; | | | | [...] encounter Progress Notes Catie Squires, PT - 08/22/2017 9:45 AM PST [facility] THERAPY PT OP [address] [place] [phone] Physical Therapy Daily Treatment Note Date: 08/22/2017 Patient Information Patient Name: Mookie Mason Date [...] Flowsheet Row Office Visit from 08/10/2017 in [facility] THERAPY PT OP Rehab Precautions Precautions None Rehab Learning Style Flowsheet Row Office Visit from 08/10/2017 in [facility] THERAPY PT OP [facility] OP EVAL from 07/26/2017 in [facility] SPEECH THERAPY Learning Style Patient's [employer] Learning Style listening, observation listening, observation Start Time: 0945 Stop time: 1030 Duration: 45 minutes Timed Treatment Codes: 45 minutes # of PT Visits to Date: 3 Subjective: pt reports that he has only had one episode of dizziness since last session (was looking up at stars), pt does cont. To have left UE pain that kept him up most of the night. Pt also reports increased neck pain recently. Upon further exam pt has midline tenderness. Pain Assessment: Pain Scale Used: NUMERIC Pain Rating During Assessment: 5 Location: neck, left upper arm Objective: Seated Eye exercises included saccades and smooth pursuits x10 for each position Manual therapy: STM and TPR to suboccipitals, levator scap, trap. Cervical rotation: left 80 deg (4/10 pain on left), Right 70 deg (2/10 pain on right) Assessment: Pt continues to demonstrate impaired oculomotor function but is improving speed/accuracy. P t reported midline tenderness/increased neck pain over the past few days; recommended that p t request an x-ray to rule out fracture related to fall. Pt is slowly progressing towards go als and would benefit from cont. Therapy to improve strength, balance and ROM to improve estrellita lity to complete daily tasks. Next Visit: Cont to progress balance and strength Electronically signed by: Catie Squires PT, 08/22/2017 12:11 Patient Name: Mookie Lamb [place]/: 1980/ documented in this enco unter [...]
--- OUTSIDE RECORDS SUMMARY | ~2020-02-26 | XMS | Encounter Summary ---
Demographics + + + | Address | [address] [place] [address] | | | [place] [address] | + + + | Home Phone | | + + + | Preferred Language | Unknown | + + + | Marital Status | | + + + | Confucianism Affiliation | Unknown | + + + | Race | Unknown | + + + | Ethnic Group | Unknown | + + + Author + + + | Author | [facility] | | | and [place] | + + + | Organization | [facility] | | [...] [place] | | | | | [address] | | + + + + + Care Team Providers + +------+ + | Care Health Education Director Name | Role | Phone | + +------+ + | No, Physician | PCP | Unavailable | + +------+ + Encounter Details +--------+ + + + + | Date | Type | Department | Care Team | Description | +--------+ + + + + | 09/12/ | Documentati | [facility] | Chloe Fulton S, | | | 2019 | on | [facility] | Speech Pathologist | | | | | [address] | [address] | | | | | [place] | [place] | | | | | [address] | [address] | | | | | [phone] | | | +--------+ + + + [...] + | Diagnosis | + + | Memory deficit Memory loss | + + | Attention deficit Attention or concentration deficit | + + | Cognitive changes Other signs and symptoms involving cognition | + + documented in this encounter"
--- OUTSIDE RECORDS SUMMARY | ~2020-02-26 | XMS | Encounter Summary ---
Demographics + + + | Address | [address] [place] [address] | | | [place] [address] | + + + | Home Phone | | + + + | Preferred Language | Unknown | + + + | Marital Status | | + + + | Restoration Affiliation | Unknown | + + + [...] BREANNA SMITH | | | | | [address] | | + + + + + Care Team Providers + +------+ + | Care Communications And Signals Supervisor Name | Role | Phone | [...] Rehabilitatio | occurrence, | MD Barb | [place] | | | | n | industrial | [address] | [place], | | | | | places and | [address] | [place] [address] | | | | | premises | [place], | Phone: | | | | | Closed head | [place] [address] | [phone] | | | | | injury with | Phone: | Fax: | | | | | brief loss | [phone] | [phone] | | | | | of | Fax: | | | | | | consciousnes | [phone] | | | | | | s (FORM[facility]LY [facility]) | | | | | | | [...] | Physical | Diagnoses | Pro, | Sam Chopra | | | Services | Medicine and | Place of | Iris | Bridgette Chapman MD [address] | | | Required | Rehabilitatio | occurrence, | MD Barb | [address] | | | | n | industrial | [address] | [place], | | | | | places and | [address] | [place] [address] | | | | | premises | [place], | Phone: | | | | | Closed head | [place] [address] | [phone] | | | | | injury with | Phone: | Fax: | | | | | brief loss | [phone] | [phone] | | | | | of | Fax: | | | | | | consciousnes | [phone] | | | | | | s (FORM[facility]LY [facility]) | | | +--------+ + + + + + Reason for Visit + + + | Reason | Comments | + + + | Arm Injury | | + + + | Head Injury | | + + + | Neck Injury | | + + + | Back Injury | | + + + | Hip Injury | | + + + Encounter Details +--------+---------+ + + + | Date | Type | Department | Care Team | Description | +--------+---------+ + + + | 07/06/ | Office | [facility] | Iris Mast | Closed traumatic | | 2017 | Visit | [facility] | MD Barb [address] | displaced fracture | | | | [place] [address] | [address] [place] | of shaft of left | | | | [address] [place] | [place] [address] | humerus, initial | | | | [place], [place] | [phone] | encounter (Primary | | | | [address] | | Dx); Place of | | | | [phone] | | occurrence, | | | | | | industrial places | | | | | | and premises; Lumbar | | | | | | transverse process | | | | | | fracture, closed, | | | | | | initial encounter | | | | | | (FORM[facility]LY [facility]); Closed | | | | | | fracture of one rib | | | | | | of left side, | | | | | | initial encounter; | | | | | | Closed nondisplaced | | | | | | fracture of pelvis, | | | | | | unspecified part of | | | | | | pelvis, initial | | | | | | encounter ([facility]); | | | | | | Closed head injury | | | | | | with brief loss of | | | | | | consciousness ([facility]) | +--------+---------+ + + + Social History [...] + + + | Blood Pressure | 131/96 | 07/06/2017 9:55 AM | | | | | PDT | | + + + + + | Pulse | 87 | 07/06/2017 9:55 AM | | | | | PDT | | + + + + + | Temperature | 37.1 C (98.8 F) | 07/06/2017 9:55 AM | | | | | PDT [...] + + + + | Weight | 61.2 kg (135 lb) | 07/06/2017 9:55 AM | | | | | PDT | | + + + + + | Height | 185.4 cm (6' 1") | 07/06/2017 9:55 AM | | | | | PDT | | + + + + + | Body Mass Index | 17.81 | 07/06/2017 9:55 AM | | | | | PDT | | + + + + + documented in this encounter Progress Notes Iris Mast MD - 07/06/2017 10:00 AM PDTEmployer: [employer] Guarantor: RIZWAN Date of injury: 05/31/17 Claim number: [id number] B Chief complaint: Follow-up fall, multiple injuries Subjective: Injured workers a 37-year-old male presents today for scheduled follow-up, initial evaluati on by me, for continuation of care for work-related injury. 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 It began to ra in, he attempted to crab crawl off of the roof in attempt to move the ladder so that other m embers of his team could get off of the now wet roof. Point time he slipped and fell, causi ng the ladder to fall to the ground as well. He is unsure but thinks he may have landed on the ladder. He did lose consciousness, states he was told he was unconscious for 5-6 minute s. He does not remember anything after the fall, remembers waking up in the emergency room. Initial evaluation included a CT of the head, abdomen, chest and pelvis. He had x-rays of the left humerus as well. He states he was diagnosed with a cervical fracture, with eviden ce of old injury, but had no complaints at the time of evaluation of neck pain so feels that he needs to dispute that. He was diagnosed with left rib fractures, lumbar fractures, left humerus fracture, pelvic fractures, and states there were 2 small bleeds in his head. Tarah use of his injuries he was transported to the [facility] in [place]. He was h ospitalized, ultimately having surgery, ORIF of the left humeral fracture, state approximate 6 days in the hospital, then released. Recently he was seen and evaluated in the urgent ca re, and had surgical sutures over the left arm removed. He had arty been referred to orthop edics, Dr. Henderson, and was seen there yesterday by the physician ex assistant/program director. Had x-rays of h is left shoulder performed at that visit and told there were no bony abnormalities. From urgent care he was referred to neurosurgery. Currently his claim is in undetermined statu s son appointment has not yet been made as authorization an approval are pending. Review of the medical record from his hospitalization indicates that on 06/06/17 he underwent ORIF for the left humeral fracture. Orthopedics was consulted for the sacral and pubic peter i fractures and it was recommended for him to be weightbearing as tolerated. He did have a neurosurgical consultation for the L1-L3 left transverse process fractures and the questiona ble intracranial abnormality noted on initial CT scan. No neurosurgical intervention was re commended. They initially identified small left apical pneumothorax, noted on his initial C T scan that was not present on initial chest x-ray was treated conservatively with follow-up chest x-ray-being negative. No specific treatment for the nondisplaced left ninth rib frac ture with adjacent lung contusion. Currently he has had no problems with headaches, but has noted intermittent dizziness, made worse with looking up, first thing in the morning, and after periods of increased concentra tion. He has had no associated headaches, nausea, or vomiting. Dizziness seems to come and go. He has noted problems with memory and word finding although speech he feels has been n ormal. No problems with mood, sleep, or appetite. He has noted some decreased hearing in t he left ear, feels as if the hearing is muffled in that ear but has had no pain associated w ith this. He has no neck pain or discomfort. Does have some mild discomfort in the left el bow and left shoulder, no significant pain over the incision site on the left upper arm. No problems with the wound since sutures were removed. He does note increased discomfort in t he left shoulder with any type of overhead activities. He does have pain with cough and sne daniel over the left chest and occasionally feels a popping sensation in that area. Has had no shortness of breath, cough, fever or chills or sputum production. He has had no abdominal pain but does note pain in the mid low back and over the left flank area. He does report a history of dark urine for several days, states that is since improved and resolved. Has had tenderness of the left abdomen and flank since his hospital discharge and prior to that, do es feel that it is slowly improving. Majority of discomfort is in the pelvic area. He is w eightbearing and walking with assistance of a cane which she finds to be helpful. No radiat ion of pain into the legs or feet and no numbness, tingling, or weakness of the lower extrem ities. No bowel or bladder incontinence and no saddle-type anesthesia. He has no prior his tory of injury or trauma to any of the injured areas. States he sustained a muscle strain t o the low back, treated with physical therapy but recovered and has had no problems since. States he did injure his neck as a child he thinks, had some chiropractic treatments but not clarissa to his knowledge since. He is scheduled for follow-up with orthopedics in one month. Past medical history, past surgical history, family history, social history, medications, a llergies reviewed Review of systems: 13 point review of systems reviewed, positive for recent weight loss, appetite change, diff iculty sleeping, joint stiffness, muscle pain, back pain, and hearing difficulty. Otherwise ROS is As per HPI Objective: Vital signs as noted, nursing notes reviewed. Qoefytw-ypie-tdonqavct, well-nourished, in no apparent distress, pleasant cooperative. HEENT-normocephalic and atraumatic. PERRLA, EOMI, conjunctiva pink and moist. TMs and can als clear bilaterally. No hemotympanum. No nasal drainage. Oropharynx is pink and moist. Tongue and uvula are midline. Neck-supple, nontender, no lymphadenopathy or thyromegaly. No vertebral point tenderness, crepitus, or step-off. Full range of motion without pain or limitation. Cardiovascular-regular rate rhythm without murmur rub or gallop. Lungs-clear to auscultation bilaterally. Chest-normal to inspection. Diffusely tender over the left lateral lower ribs. No crepitu s or step-off. No pain with AP compression, minimal discomfort with lateral compression. Abdomen-normal bowel sounds, soft, mild tenderness over the left flank area. No rebound or masses, no hepatosplenomegaly. Back-normal to inspection. No paraspinous muscle spasticity. Tenderness over the spinous processes of the lumbar spine. Also tender over the left flank and left low back. Limited range of motion because of discomfort. Pelvis-stable Hips-pain with internal and external rotation. No pain with flexion and extension. Left shoulder-normal to inspection. No bony deformity or gross asymmetry. Forward flexion and abduction to approximate 90. Full extension. Limited external/internal rotation. Left upper arm-healing anterior cervical incision. No swelling, erythema, edema, drainage or warmth. No significant tenderness with palpation. Left elbow-will to inspection. Unable to fully extend the elbow but does have full flexion . Pain is elicited with supination and pronation. Extremities-no clubbing, cyanosis, or edema. No discrepancy in muscle bulk or tone. Perip heral pulses 2+/4. Neuro- Cranial nerves II through XII grossly intact. Normal PETER. Normal finger to nose. Negativ e Romberg. Motor strength 5/5 bilat upper extremities DTR's biceps,triceps, brachioradialis 2+/4 bilat Sensation grossly intact to light touch bilat upper extremities Motor strength 5/5 bilat lower extremities DTR's- patellar and ankle - 2+/4 bilat Neg SLR from a supine position bilat Normal toe/heel walk Normal squat Gait steady and symmetric Sensation grossly intact to light touch bilat lower extremities. Skin-warm, dry, intact. Aging ecchymoses over the left forearm is noted. No other rashes, erythema, ecchymoses, abrasions, or other lesions are noted. Psych-mood, affect, speech and thought processes appropriate. Imaging/diagnostics: 05/31/17-single view chest x-ray-per radiology dictated report- "Impression: No acute cardiopulmonary process" 05/31/17-pelvis x-ray-per radiology dictated report- "Impression: Right sacral and left inferior pubic rami fractures." 05/31/17-CT cervical spine-per radiology dictated report- "Impression: Query small left apical pneumothorax. Degenerative changes of the cervical spine without evidence of an acute process. Query prior anterior superior endplate compression at C4. 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 Nondisplaced left ninth rib fracture with adjacent lung contusion. 2. Very small left apical pneumothorax. 3. Fractures of the right abhay-sacrum and left inferior pubic ramus. 4. L1-2 L3 left transverse process fractures." 05/31/17-x-ray left humerus-per radiology dictated report- "Impression: Displaced diaphyseal fracture of the left humerus." Urinalysis today-negative for blood. Pending interventions: Continue conservative management. Assessment: 1. Left humeral shaft fracture-status post ORIF 2. Left ninth rib fracture 3. L1-L3 left transverse process fractures 4. Right hemisacrum and left inferior pubic ramus fracture 5. Head injury with loss of consciousness Plan: Recommend physiatry referral, Dr. chopra, for head injury. Physical therapy referral for ve stibular training is placed. Reviewed the importance of mental rest to improve symptoms. F ollow-up with orthopedics as scheduled for the humeral fracture. We'll continue to monitor the shoulder is healing progress for the humerus, some concern for shoulder injury itself, b ut he is scheduled to see orthopedics next month. Conservative/symptomatic treatment for th e pelvic fracture and rib fractures. Neurosurgical consultation for the head injury and lum bar fractures. Remain off work. Follow-up in 2 weeks, sooner for acute worsening or other concerns. He voices understanding and agreement. E: Off work R: Off work Impairment undetermined at this point in time, based on current objective findings it is no t an anticipated consequence of this injury however patient has not yet reached MMI status. This note was dictated using [employer] voice recognition software. Occasional wrong- word or [...] | Routin | Place of | Ordered: 07/06/2017 | | to Physical Medicine | Referral | e | occurrence, | | | Rehab | | | industrial places | | | | | | and premises Closed | | | | | | head injury with | | | | | | brief loss of | | | | | | consciousness (HCC) | | + + +--------+ + + | Ambulatory referral | Outpatient | Routin | Place of | Ordered: 07/06/2017 | | to Physical Therapy | Referral [...] | + +--------+ + + + | POCT URINALYSIS, | Routin | 07/06/2017 | Closed | Results for this | | AUTO WITH CONF | e | 4:49 PM | nondisplaced | procedure are in the | | | | PDT | fracture of pelvis, | results section. | | | | | unspecified part of | | | | | | pelvis, initial | | | | | | encounter (HCC) | | + +--------+ + + + documented in this encounter Results POCT Urinalysis Dipstick Automated (07/06/2017 4:49 PM PDT) + + + + + + | Component | Value | Ref Range | Performed | Pathologist | | | | | At | Signature | + + + + + + | Color, UA, | Yellow | Yellow, Light | | | | POC | | Yellow | | | + + + + + + | Clarity, | Cloudy | | | | | UA, POC | | | | | + + + + + + | Glucose, | Negative | Negative | | | | UA, POC | | | | | + + + + + + | Bilirubin, | Negative | Negative | | | | UA, POC | | | | | + + + + + + | Ketones, | Negative | Negative, 100 | | | | UA, POC | | mg/dL | | | + + + + + + | Specific | 1.015 | 1.001 - 1.030 | | | | [place], | | | | | | UA, POC | | | | | + + + + + + | Blood, UA, | Negative | Negative | | | | POC | | | | | + + + + + + | pH, UA, POC | 7.5 | 5.0, 6.0, 7.0, | | | | | | 8.0, 5.5, 6.5, | | | | | | 7.5 | | | + + + + + + | Protein, | Negative | Negative | | | | UA, POC | | | | | + + + + + + | Urobilinoge | 0.2 | 0.2, Negative, | | | | n, UA, POC | | Normal, < 0.2 | | | | | | mg/dL, 1 mg/dL, | | | | | | < 0.2 E.U./dl, | | | | | | 1.0 E.U./dL, | | | | | | 0.2 mg/dL | | | + + + + + + | Nitrite, | Negative | Negative | | | | UA, POC | | | | | + + + + + + | Leukocyte | Negative | Negative | | | | Esterase, | | | | | | UA, POC | | | | | + + + + + + | Reducing | | | | | | Substances, | | | | | | Urine | | | | | + + + + + + | Bilirubin | | Negative | | | | Confirmatio | | | | | | n by | | | | | | Ictotest, | | | | | | Urine | | | | | + + + + + + | Remark | | | | | + + + + + + + + | Specimen | + + | Urine | + + documented in this encounter Visit Diagnoses + + | Diagnosis | + + | Closed traumatic displaced fracture of shaft of left humerus, initial encounter - | | Primary | + + | Place of occurrence, industrial places and premises | + + | Lumbar transverse process fracture, closed, initial encounter (HCC) | + + | Closed fracture of one rib of left side, initial encounter | + + | Closed nondisplaced fracture of pelvis, unspecified part of pelvis, initial encounter | | (HCC) | + + | Closed head injury with brief loss of consciousness (HCC) Concussion with loss of | | consciousness of unspecified duration | + + documented in this encounter
--- OUTSIDE RECORDS SUMMARY | ~2020-02-26 | XMS | Encounter Summary ---
Demographics + + + | Address | [address] [place] [address] | | | [place] [address] | + + + | Home Phone | | + + + | Preferred Language | Unknown | + + + | Marital Status | | + + + | Caodaism Affiliation | Unknown | + + + [...] BREANNA SMITH | | | | | [address] | | + + + + + Care Team Providers + +------+ + | Care Farm Machinery Set Up Mechanic Name | Role | Phone | + +------+ + | Juli Squires DO | PCP | | + +------+ + Encounter Details +--------+ + + + + | Date | Type | Department | Care Team | Description | +--------+ + + + + | 04/13/ | Hospital | [facility] | Iris Mast | Closed left arm | | 2018 | Encounter | MED CTR CHRIS XRAY | MD Barb [address] | fracture, with | | | | [address] [place] | [address] [place] | routine healing, | | | | [place], [place] | [place] [address] | subsequent | | | | [address] | [phone] | encounter; Place of | | | | [phone] | | occurrence, | | | | [...] HUMERUS LEFT 2 + | Routin | 04/13/2018 | Closed left arm | Results for this | | VW | e | 1:57 PM | fracture, with | procedure are [...] Results XR Humerus Left 2 + Vw (04/13/2018 [...] + | Andre Avila Results In - 04/13/2018 4:55 PM PDT [...]
--- OUTSIDE RECORDS SUMMARY | ~2020-02-26 | XMS | Encounter Summary ---
Demographics + + + | Address | [address] [place] [address] | | | [place] [address] | + + + | Home Phone [...] BREANNA SMITH | | | | | [address] | | + + + + + Care Team Providers + +------+ + | Care Operations Intelligence Superintendent Name | Role | Phone | + [...] | | | Closed head | [place] [address] | | | | | | injury with | Phone: | | | | | | brief loss | [phone] | | | | | | of | Fax: | | | | | | consciousnes | [phone] | | | | | | s [...] | | | | | | | ([facility]) | | | | | | [...] | | | | | | [facility] | | | | | | | TREATMENT | | | +--------+--------+ + + + + Encounter Details +--------+ + + + + | Date | Type | Department | Care Team | Description | +--------+ + + + + | 12/06/ | Hospital | [facility] | Iris Mast | Traumatic brain | | 2018 | Encounter | MED CTR SPEECH | MD Barb [address] | injury, with loss of | | | | THERAPY [address] [place] | consciousness of 30 | | | | [place], | [place] [address] | minutes or less, | | | | [place] [address] | [phone] | initial encounter | | | | [phone] | | ([facility]) (Primary Dx) | | | | | [...] Speech Pathologist - 12/06/2017 8:11 AM PST [facility] SPEECH THERAPY [address] [place] [address] Speech Therapy Daily Treatment Note Date: 12/06/2017 Patient Information Patient Name: Mookie Mason Date of : 1980 Age: 37 y.o. Encounter Diagnoses Code Name Primary? S06.9X1A Traumatic brain injury, with loss of consciousness of 30 minutes or less, init ial encounter (HCC) Yes Date of Onset: 05/31/2017 Referring Provider: Iris Mast MD Rehab Precautions Flowsheet Row Office Visit from 08/10/2017 in [facility] THERAPY PT OP Rehab Precautions Precautions None Rehab Learning Style Flowsheet Row Office Visit from 08/10/2017 in [facility] THERAPY PT OP [facility] OP EVAL from 07/26/2017 in [facility] SPEECH THERAPY Learning Style Patient's [...] minutes or less, initial | | encounter ([facility]) - Primary | + + documented in this encounter"
--- OUTSIDE RECORDS SUMMARY | ~2020-02-26 | XMS | Encounter Summary ---
Demographics + + + | Address | [address] [place] [address] | | | [place] [address] | + + + | Home Phone [...] BREANNA SMITH | | | | | [address] | | + + + + + Care Team Providers + +------+ + | Care Feather Baler Name | Role | Phone | + [...] | | | | | premises | [facility], | [address] Phone: | | | | | Closed head | [place] [address] | [phone] | | | | | injury with | Phone: | Fax: | | | | | brief loss | [phone] | [phone] | | | | | of | Fax: | | | | | | consciousnes | [phone] | | | | | | s [...] Description | +--------+---------+ + + + | 12/04/ | Office | [facility] | Iris Mast | Closed fracture of | | 2018 | Visit | MED CTR THERAPY PT | MD Barb [address] | shaft of left | | | | OP [address] | [address] [place] | humerus with routine | | | | [place], [place] | [place] [address] | healing, | | | | [address] | [phone] | unspecified fracture | | | | [phone] | | morphology, | | | | | Catie Squires B, PT | subsequent | | | | | [address] | encounter; Dizziness | | | | | [place] | due to old head | | | | | [address] | injury; Left upper | | | [...] encounter Progress Notes Catie Squires, PT - 12/04/2017 4:00 PM PST [facility] CTR THERAPY PT OP [address] [place] [address] Physical Therapy Daily Treatment Note Date: 12/04/2017 Patient Information Patient Name: Mookie Mason Date [...] Flowsheet Row Office Visit from 08/10/2017 in [facility] THERAPY PT OP Rehab Precautions Precautions None Rehab Learning Style Flowsheet Row Office Visit from 08/10/2017 in [facility] CTR THERAPY PT OP [facility] OP EVAL from 07/26/[address] [facility] SPEECH THERAPY Learning Style Patient's [employer] Learning Style listening, observation listening, observation Start Time: 1600 Stop time: 1645 Duration: 45 minutes Timed Treatment Codes: 45 minutes # of PT Visits to Date: 19 Subjective: pt reports that he cont. To have neck pain and left UE pain. Pt reports that he may have done too much yesterday (took kids to the park, walked 45 min. x2, did the stairs there and walked on the hill side while holding onto his dogs leash); had significant pain l ast night but is doing better now. Pain Assessment: Pain Rating Pre Assessment: 4 Location: neck (low back 10) Objective: Pre tx; right neck rotation 56 deg 4/10 pain Left neck rotation 65 deg 4/10 pain Manual therapy: STM and TPR to intra scap, pec.minor, upper trap., levator scap., sub-scap., scalenes, sub occipital release Post tx: right neck rotation 70 deg 3/10 pain Left neck rotation 75 deg 3/10 pain TherEx: -prone "I" and "T": 2x15 each -S/L left shoulder ER 2x10 2# Assessment: pt demonstrated improved ROM and decreased pain after manual therapy and was ab le to tolerate therEx without increased pain. Pt would benefit from cont. Therapy to increas e strength, posture and ROM to improve ability to complete daily tasks and return to work wi thout limitations. Next Visit: Cont to progress neck ROM and posterior chain strength Electronically signed by: Catie Squires PT, 12/04/2017 16:46 Patient Name: Mookie Palmer [place]/: 1980/ documented [...]
--- OUTSIDE RECORDS SUMMARY | ~2020-02-26 | XMS | Encounter Summary ---
Demographics + + + | Address | [address] [place] [address] | | | [place] [address] | + + + | Home Phone | | + + + | Preferred Language | Unknown | + + + | Marital Status | | + + + | Oriental Orthodox Affiliation | Unknown | + + + | Race | Unknown | + + + | Ethnic Group | Unknown | + + + Author + + + | Author | [facility] | | | and [place] | + + + | Organization | [facility] | | [...] BREANNA SMITH | | | | | [address] | | + + + + + Care Team Providers + +------+ + | Care Bunch Breaker Machine Operator Name | Role | Phone [...] | | | | Closed | [place] [address] | ST | | | | | fracture of | Phone: | [place] | | | | | transverse | [phone] | [place], [place] | | | | | process of | Fax: | [phone] | | | | | lumbar | [phone] | Phone: | | | | | vertebra | | [phone] | | | | | with routine | | Fax: | | | | | healing, | | [phone] | | | | | subsequent | | | | | | | encounter | | | +--------+ + + + + + + + | Scheduling Instructions | + + | [facility] [place] | + + Reason for Visit + + + | Reason | Comments | + + + | Arm Injury | | + + + Encounter Details +--------+---------+ + + + | Date | Type | Department | Care Team | Description | +--------+---------+ + + + | 04/13/ | Office | [facility] [place] | Iris Mast | Closed left arm | | 2018 | Visit | [facility] | MD Barb [address] | fracture, with | | | | [facility] [address] | [address] [place] | routine healing, | | | | [address] [place] | [place] [address] | subsequent encounter | | | | [place], [place] | [phone] | (Primary Dx); Place | | | | [address] | | of occurrence, | | | | [phone] | | industrial places | | | [...] RIZWAN Date of injury: 05/31/17 Claim number: [id number] Chief complaint: Follow-up left humerus fracture, status [...] able to roll over and move from bmdk-qq-mvyh he is ready to participate in some physical th erapy for his low back which was discussed at his last visit a postponed because of his rece nt surgery on the left arm. Past medical history, medications, allergies reviewed Review of systems: As per HPI Objective: Vital signs as noted, nursing notes reviewed. Txdmznx-oppw-uvddtahgr, well-nourished, in no apparent distress, pleasant cooperative. Left upper tdabyabyq-qrnf-tphnjo surgical incision. Diffusely tender over the medial [...] ationary status. This note was dictated using [employer] voice recognition software. Occasional wrong- word or [...] [address] | [place] | [phone] | | [facility] | | [address] | | | - LABORATORY | | [...] [address] | [place] | [phone] | | [facility] | | [address] | | | - LABORATORY | | [...] [address] | [place] | [phone] | | [facility] | | [address] | | | - LABORATORY | | [...] + | [facility] [facility] | [address] | [place] | [phone] | | [facility] | | [address] | | | - LABORATORY | | [...] [address] | [place] | [phone] | | [facility] | | [address] | | | - LABORATORY | | [...]
--- OUTSIDE RECORDS SUMMARY | ~2020-02-26 | XMS | Encounter Summary ---
Demographics + + + | Address | [address] [place] [address] | | | [place] [address] | + + + | Home Phone [...] BREANNA SMITH | | | | | [address] | | + + + + + Care Team Providers + +------+ + | Care Antique Refinisher Name | Role | Phone | + +------+ + PCP | Unavailable | + +------+ + Encounter Details +--------+ + + + + | Date | Type | Department | Care Team | Description | +--------+ + + + + | 04/29/ | [facility] | Priscilla Rodriges, | | | 2012 | Encounter | [facility] | DELIVERY TABLE [facility] | | | | | CENTER [address] | [place] MUELLER | | | | | [place] | [address] | | | | | [address] | | | | | | [phone] | | | +--------+ + + + [...]
--- OUTSIDE RECORDS SUMMARY | ~2020-02-26 | XMS | Encounter Summary ---
Demographics + + + | Address | [address] [place] [place] [address] | | | [place] [address] | + + + | Home Phone | | + + + | Preferred Language | Unknown | + + + | Marital Status | | + + + | Tenriism Affiliation | Unknown | + + + | Race | Unknown | + + + | Ethnic Group | Unknown | + + + Author + + + | Author | [facility] | | | and [place] | + + + | Organization | [facility] | [...] BREANNA SMITH | | | | | [address] | | + + + + + Care Team Providers + +------+ + | Care Customer Success Advocate Name | Role | Phone | + [...] PHYSIATRY [address] | MD [address] | | | | | [address] | [place] | | | | | [place] | [address] | | | | | [address] | | | | | | [phone] | | | +--------+--------+ + + + [...]
--- OUTSIDE RECORDS SUMMARY | ~2020-02-26 | XMS | Encounter Summary ---
Demographics + + + | Address | [address] [place] [address] | | | [place] [address] | + + + | Home Phone | | + + + | Preferred Language | Unknown | + + + | Marital Status | | + + + | Mu-Ism Affiliation | Unknown | + + + | Race | Unknown | + + + | Ethnic Group | Unknown | + + + Author + + + | Author | [facility] | | | and [place] | + + + | Organization | [facility] | | | and [place] | + [...] BREANNA SMITH | | | | | [address] | | + + + + + Care Team Providers + +------+ + | Care Automation Design Engineer Name | Role | Phone | [...] | | | | | premises | [facility] [place], | [address] Phone: | | | | | Closed head | [place] [address] | [phone] | | | | | injury with | Phone: | Fax: | | | | | brief loss | [phone] | [phone] | | | | | of | Fax: | | | | | | consciousnes | [phone] | | | | | | s [...] + + | 02/06/ | Office | [facility] | Iris Mast | Closed fracture of | | 2018 | Visit | MED CTR THERAPY PT | MD Barb [address] | shaft of left | | | | OP [address] | [address] [place] | humerus with routine | | | | [place], [place] | [place] [address] | healing, | | | | [address] | [phone] | unspecified fracture | | | | [phone] | | morphology, | | | | | Catie Squires B, PT | subsequent | | | | | [address] | encounter; Dizziness | | | | | [place], [place] | due to old head | | | | | [address] | injury; Left upper | | | [...] Squires, PT - 02/06/2018 12:30 PM PDT [facility] CTR THERAPY PT OP [address] [place] [address] Physical Therapy Daily Treatment Note Date: 02/06/2018 [...] Rehab Precautions Office Visit from 08/10/2017 in [facility] MED CTR THERAPY PT OP Rehab Precautions Precautions None Rehab Learning Style Office Visit from 08/10/2017 in [facility] CTR THERAPY PT OP [facility]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 In [place] with the surgeon who told pt that [...]
--- OUTSIDE RECORDS SUMMARY | ~2020-02-26 | XMS | Encounter Summary ---
Demographics + + + | Address | [address] [place] [address] | | | [place] [address] | + + + | Home Phone [...] [place] | | | | | [address] | | + + + + + Care Team Providers + +------+ + | Care Chain Sales Consultant Name | Role | Phone | [...] | [facility] | [place], | [address] Phone: | | | | | TREATMENT [address] | [place] [address] | [phone] | | | | | | Phone: | Fax: | | | | | | [phone] | [phone] | | | | | | Fax: | | | | | | | [phone] | | +--------+--------+ + + + + [...] | | | | OP [address] | [address] [place] | humerus with routine | | | | [place], [place] | [place] [address] | healing, | | | | [address] | [phone] | unspecified fracture | | | | [phone] | | morphology, | | | | | Catie Squires, PT | subsequent | | | | | [address] | encounter; Dizziness | | | | | [place] | due to old head | | | | | [address] | injury; Left upper | | | [...] Mckenzie, PT - 10/09/2017 3:30 PM PST [facility] CTR THERAPY PT OP [address] [place] [address] Physical Therapy Daily Treatment Note Date: 10/09/2017 [...] Visit from 08/10/2017 in [facility] CTR THERAPY PT OP Rehab Precautions Precautions None Rehab Learning Style Flowsheet Row Office Visit from 08/10/2017 in [facility] CTR THERAPY PT OP [facility] S LP OP EVAL from 07/26/2017 in [facility] CTR SPEECH THERAPY Learning Style Patient's [...]
--- OUTSIDE RECORDS SUMMARY | ~2020-02-26 | XMS | Encounter Summary ---
Demographics + + + | Address | [address] [place] [address] | | | [place] [address] | + + + | Home Phone | | + + + | Preferred Language | Unknown | + + + | Marital Status | | + + + | Nondenominational Affiliation | Unknown | + + + | Race | Unknown | + + + | Ethnic Group | Unknown | + + + Author + + + | Author | [facility] | | | and [place] | + + + | Organization | [facility] | | [...] BREANNA SMITH | | | | | [address] | | + + + + + Care Team Providers + +------+ + | Care Manager Culinary Name | Role | Phone | + [...] | [facility] [place], | [address] Phone: | | | | | Closed head | [place] [address] | [phone] | | | | | injury with | Phone: | Fax: | | | | | brief loss | [phone] | [phone] | | | | | of | Fax: | | | | | | consciousnes | [phone] | | | | | | s [...] Description | +--------+---------+ + + + | 02/15/ | Office | [facility] | Iris Mast | Closed fracture of | | 2018 | Visit | MED CTR THERAPY PT | MD Barb [address] | shaft of left | | | | OP [address] | [address] [place] | humerus with routine | | | | [place], [place] | [place] [address] | healing, | | | | [address] | [phone] | unspecified fracture | | | | [phone] | | morphology, | | | | | Catie Squires B, PT | subsequent | | | | | [address] | encounter; Dizziness | | | | | [place], [place] | due to old head | | | | | [address] | injury; Left upper | | | [...] encounter Progress Notes Catie Squires, PT - 02/15/2018 2:45 PM PDT [facility] CTR THERAPY PT OP [address] [place] [address] Physical Therapy Daily Treatment Note Date: 02/15/2018 Patient Information Patient Name: Mookie Mason Date [...] Rehab Precautions Office Visit from 08/10/2017 in [facility] MED CTR THERAPY PT OP Rehab Precautions Precautions None Rehab Learning Style Office Visit from 08/10/2017 in [facility] CTR THERAPY PT OP [facility] TECHNICAL MARKETING CONSULTANT OP EVAL f rom 07/26/2017 in [facility] SPEECH THERAPY Learning Style Patient's Optimum Learning Style listening, observation listening, observation Start Time: 1445 Stop time: 1527 Duration: 42 minutes Timed Treatment Codes: 42 minutes # of PT Visits to Date: 25 Subjective: Pt reports that he cont. To have pain in his left shoulder/neck and low back and is schedul ed to have surgery on his left arm on 02/20 in [place]. (Authorization for 8 visit 02/05-03/08) Pain Assessment: Pain Rating Pre Assessment: 3 Pain Rating During Assessment: 1 Location: neck (left) Objective: Manual therapy: STM and TPR to intra scap, pec.minor, upper trap., levator scap., sub-scap., scalenes, sub occipital release MWM for left rotation C6, C3, C4 and extension at C3-4 TherEx: HEP Supine cervical spine retraction 2x5 with 2 sec hold Prone cervical spine extension 2x10 with 3 sec hold Seated bilateral shoulder ER with elevation to approx. 80 deg (no resistance due to left ar m pain) 2x10 Kinesio tape to unload left shoulder Assessment: pt reported decreased neck pain after manual therapy and was able to tolerate g entle therEx; unable to progress due to low back pain. Pt would benefit from cont. Therapy t o increase strength, posture and ROM to improve ability to complete daily tasks and return t o work without limitations. Next Visit: Cont. To progress posterior chain/neck strength Electronically signed by: Catie Squires PT, 02/15/2018 15:27 Patient Name: Mookie Palmer Marlon/: 1980/ documented [...]
--- OUTSIDE RECORDS SUMMARY | ~2020-02-26 | XMS | Encounter Summary ---
Demographics + + + | Address | [address] [place] [address] | | | [place] [address] | + + + | Home Phone | | + + + | Preferred Language | Unknown | + + + | Marital Status | | + + + | Methodist Affiliation | Unknown | + + + | Race | Unknown | + + + | Ethnic Group | Unknown | + + + Author + + + | Author | [facility] | | | and [place] | + + + | Organization | [facility] | | | [...] BREANNA SMITH | | | | | [address] | | + + + + + Care Team Providers + +------+ + | Care Box Machine Operator Name | Role | Phone [...] | | | Services | Therapy | Closed | Iris | PHYSICAL | | | Required | | fracture of | Barb, [place] | THERAPY - | | | | | shaft of | [address] | [place] | | | | | left humerus | [address] | [place] | | | | | with | [place], | [address] | | | | | routine | [place] [address] | ST | | | | | healing, | Phone: | [place] | | | | | unspecified | [phone] | [place], [place] | | | | | fracture | Fax: | [address] | | | | | morphology, | [phone] | Phone: | | | | | subsequent | | [phone] | | | | | encounter | | Fax: | | | | | Place of | | | | | | | occurrence, | | | | | | | industrial | | | | | | | places and | | | | | | | premises | | | | | | | Closed | | | | | | | fracture of | | | | | | | transverse | | | | | | | process of | | | | | | | lumbar | | | | | | | vertebra | | | | | | | with routine | | | | | | | healing, | | | | | | | subsequent | | | | | | | encounter | | | +--------+ + + + + + + + | Scheduling Instructions | + + | [facility] | + + Reason for Visit + + + | Reason | Comments | + + + | Head Injury | | + + + | Arm Injury | | + + + Encounter Details +--------+---------+ + + + | Date | Type | Department | Care Team | Description | +--------+---------+ + + + | 08/17/ | Office | [facility] [place] | Iris Mast | Closed fracture of | | 2018 | Visit | [facility] | MD Barb [address] | shaft of left | | | | [address] | [address] [place] | humerus with routine | | | | [address] [place] | [place] [address] | healing, | | | | [place], [place] | [phone] | unspecified fracture | | | | [address] | | morphology, | | | | [phone] | | subsequent encounter | | | [...] + + + | Blood Pressure | 139/99 | 08/17/2018 1:05 PM | | | | | PST | | + + + + + | Pulse | 94 | 08/17/2018 1:05 PM | | | | | PST | | + + + + + | Temperature | 36.7 C (98.1 F) | 08/17/2018 1:05 PM | | | | | PST [...] + + + + | Weight | 64 kg (141 lb) | 08/17/2018 1:05 PM | | | | | PST | | + + + + + | Height | 185.4 cm (6' 1") | 08/17/2018 1:05 PM | | | | | PST | | + + + + + | Body Mass Index | 18.6 | 08/17/2018 1:05 PM | | | | | PST | | + + + + + documented in this encounter Progress Notes Iris Mast MD - 08/17/2018 1:00 PM PSTEmployer: [employer] Guarantor: [place] Date of injury: 05/31/17 Claim number: [id number] Chief complaint: Follow-up multiple injuries Subjective: 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 At his last visit he was referred back to his operating orthopedist for the left humeral fracture after identifying a fractured screw. He was having fairly persistent and worsening pain in the u pper arm, this was identified and he was referred back to his operating surgeon. In the int erim he has had removal of all hardware, all except for the fractured screw, being told that it may create more damage by trying to remove it rather than leaving it behind. His suture s have been removed and he has been using the left arm to tolerance without any formal restr ictions from his orthopedist and no further follow-ups have been requested or recommended. He states he has been doing well in terms of postoperative discomfort. Does feel that his r kyle of motion and strength are recovering appropriately. States comparatively speaking in terms of his first surgery, he has less pain and discomfort and feels optimistic that this w ill alleviate the majority of his symptoms. He still however continues to have pain and dis comfort in the back and pelvis which have not changed. No new neurological symptoms to repo rt. He has completed a course of physical therapy. He did find it to be helpful, and has b een doing all of the exercises that were recommended at home. Does not feel that any additi onal formal physical therapy would be of benefit to him. He inquires about pain management options for the low back. He is no longer employed by his job of injury and is currently un employed. Past medical history, medications, allergies reviewed Review of systems: As per HPI Objective: Vital signs as noted, nursing notes reviewed. Uutqdbx-fxwu-bygwlfyfs, well-nourished, in no apparent distress, pleasant cooperative. Left upper fpm-jula-fiyjyy surgical incision. No redness or drainage. Full range of motio n of the elbow. Imaging/diagnostics: None indicated this visit Pending interventions: Continue conservative management. Assessment: 1. Left humeral shaft fracture-status post ORIF-and recent hardware removal 2. Right abhay-sacrum and left inferior pubic ramus fracture 3. L1-L3 left transverse process fractures 4. Left ninth rib fracture 5. Head injury with loss of consciousness Plan: Had a lengthy discussion with the injured worker regarding several issues, pain management, treatment plan and recommendations and returned to work issues. In terms of pain managemen t, we did discuss topical agents in a prescription for diclofenac gel was provided with inst ructions for use. He understands that this may not be a formulary/covered medication by his industrial injury or her and may need to get this from his primary care provider. Limitati ons of OTC pain relievers were again discussed an appropriate use was discussed. Another op tion would be referral to a pain management center to discuss options for pain control for t he chronic pain he has in the pelvis and low back. 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 He has had a series of s ignificant injuries as well as a period of deconditioning and we did discuss work conditioni ng/work hardening in an attempt to restore strength and functionality. He is agreeable to t his. Referral is being placed this visit. Upon completion of this he may or may not need o f physical capacity evaluation, we will address this upon completion of his therapy. Fito gustafson prior to claims closure once he has completed all approved medical treatments and is co nsidered medically stationary, I am recommending an independent medical examination for rati ng purposes to determine permanent impairment and he is also agreeable to this. He'll retur n here in 6-8 weeks upon completion of work conditioning/hardening, returning sooner for acu te worsening or other concerns. He voices understanding and agreement. E: Regular duty R: None 40 minutes spent with injured worker, more than 50% of which is been gonz-ui-oqci, discussi ng treatment plan, options, return to work, coordination of care, and other issues regarding claims management. Impairment undetermined at this point in time, based on current objective findings it is an anticipated consequence of this injury however patient has not yet reached MMI status. This note was dictated using [employer] voice recognition software. Occasional wrong- word or [...] referral | Outpatient | Routin | Closed fracture of | Ordered: 08/17/2018 | | to Physical Therapy | Referral | e | shaft of left | | | | | | humerus with routine | | | | | | healing, | | | | | | [...]
--- OUTSIDE RECORDS SUMMARY | ~2020-02-26 | XMS | Encounter Summary ---
Demographics + + + | Address | [address] [place] [address] | | | [place] [address] | + + + | Home Phone [...] BREANNA SMITH | | | | | [address] | | + + + + + Care Team Providers + +------+ + | Care Freezer Person Name | Role | Phone | + [...] Closed left | Iris | [address] | | | | | arm | MD Barb | [place], | | | | | fracture, | [address] | [place] | | | | | with routine | [address] | [address] | | | | | healing, | [place], | Phone: | | | | | subsequent | [place] [address] | [phone] | | | | | encounter | Phone: | Fax: | | | | | Place of | [phone] | [phone] | | | | | occurrence, | Fax: | | | | | | industrial | [phone] | | | | | | places [...] Closed left | Iris | [address] | | | | | arm | MD Barb | [place], | | | | | fracture, | [address] | [place] | | | | | with routine | [address] | [address] | | | | | healing, | [place], | Phone: | | | | | subsequent | [place] [address] | [phone] | | | | | encounter | Phone: | Fax: | | | | | Place of | [phone] | [phone] | | | | | occurrence, | Fax: | | | | | | industrial | [phone] | | | | | | places [...] + + | 08/30/ | Hospital | [facility] | Iris Mast | Closed left arm | | 2017 | Encounter | MED CTR MRI [address] | MD [address] | fracture, with | | | | [address] [place], | [address] [place] | routine healing, | | | | [place] [address] | [place] [address] | subsequent | | | | [phone] | [phone] | encounter; Place of | | | [...]
--- OUTSIDE RECORDS SUMMARY | ~2020-02-26 | XMS | Encounter Summary ---
Demographics + + + | Address | [address] [place] [address] | | | [place] [address] | + + + | Home Phone | | + + + | Preferred Language | Unknown | + + + | Marital Status | | + + + | Congregation Affiliation | Unknown | + + + | Race | Unknown | + + + | Ethnic Group | Unknown | + + + Author + + + | Author | [facility] | | | and [place] | + + + | Organization | [facility] | | | [...] BREANNA SMITH | | | | | [address] | | + + + + + Care Team Providers + +------+ + | Care Tankage Supervisor Name | Role | Phone | [...] | | premises | [place], | [address] Phone: | | | | | Closed head | [place] [address] | [phone] | | | | | injury with | Phone: | Fax: | | | | | brief loss | [phone] | [phone] | | | | | of | Fax: | | | | | | consciousnes | [phone] | | | | | | s [...] + + | 12/15/ | Office | [facility] | Iris Mast | Closed fracture of | | 2018 | Visit | MED CTR THERAPY PT | MD Barb [address] | shaft of left | | | | OP [address] | [address] [place] | humerus with routine | | | | [place], [place] | [place] [address] | healing, | | | | [address] | [phone] | unspecified fracture | | | | [phone] | | morphology, | | | | | Catie Squires, PT | subsequent | | | | | [address] | encounter; Dizziness | | | | | [place], [place] | due to old head | | | | | [address] | injury; Left upper | | | [...] had several injuries and was treated in [place]. S/p left humerus ORIF. Pt reports that [...] to at least 6/10 Treatment Plan/Interventions PT Dsekuadqxp70375 - Therapeutic Thufqbvm62021 - Neuromuscular Zxrzzxyuxwv39958 - Gait Brain vjje02466 - Therapeutic Ukfvzmmgxn89040 - Manual Safsoql71644 - Self Care/Home Gwwiriptqz879 92 - Canalith Ilpbulvfohycl41897 - Vasopneumatic Zzhntru36341 - Electrical Stimulation, Unat tended Electronically signed by: Catie Squires PT, 12/15/2017 17:05 Patient Name: Mookie Mason/: 1980/ atie Squires P T - 12/15/2017 4:00 PM PDT [facility] THERAPY PT OP [address] [place] [address] Physical Therapy Progress Assessment Re-certification Date: 12/15/2017 [...] Flowsheet Row Office Visit from 08/10/2017 in [facility] CTR THERAPY PT OP Rehab Precautions Precautions None Rehab Learning Style Flowsheet Row Office Visit from 08/10/2017 in [facility] CTR THERAPY PT OP [facility] OP EVAL from 07/26/2017 in [facility] SPEECH THERAPY Learning Style Patient's [employer] Learning [...] sev eral injuries and was treated in [place]. S/p left humerus ORIF. Pt reports that [...] 4- 3+ 4+ 3+ 4+ 4- 4+ Toggle Press Folder And Feeder Strength: 50 # elbow pain 120 65 [...] new jar: 5 - Unable Do heavy motor mechanic: 4 - Severe Difficulty Carry a shopping [...] performing more ambitious activities, like sports, dancing, motor mechanic such a s sweeping or putting dishes [...] had several injuries and was treated in [place]. S/p left humerus ORIF. Pt reports that [...] 12/15/2017 Certification To: 03/09/2018 Treatment Plan/Interventions PT Sdiornoztp33481 - Therapeutic Rwkpcuqu35458 - Neuromuscular Idzusvgishi13205 - Gait Brain lrcd64466 - Therapeutic Vgewoepzpe92554 - Manual Kvwtjuc86617 - Self Care/Home Qyqybihile325 92 - Canalith Aulyaqjokccmx02268 - Vasopneumatic Gtvlziw71731 - Electrical Stimulation, Unat tended Patient and/or [...]
--- OUTSIDE RECORDS SUMMARY | ~2020-02-26 | XMS | Encounter Summary ---
Demographics + + + | Address | [address] [place] [address] | | | [place] [address] | + + + | Home Phone [...] BREANNA SMITH | | | | | [address] | | + + + + + Care Team Providers + +------+ + | Care Patient Care Assistant Name | Role | Phone | [...] + + | 11/23/ | Documentati | [facility] | Mandy Matos, | Re-Assessment/ | | 2018 | on | MED CTR SPEECH | Speech Pathologist | Significant Change | | | | THERAPY [address] | | Assessment | | | | [address], | | | | | | [place] [address] | | | | | | [phone] | | | +--------+ + + + [...] Speech Pathologist - 11/23/2017 2:08 PM PST [facility] SPEECH THERAPY [address] [facility] [address] Speech Therapy Progress Assessment Date: 11/23/2017 Patient Information Patient Name: Mookie Mason Date of : 1980 Age: 37 y.o. History Encounter Diagnoses Code Name Primary? S06.9X1A Traumatic brain injury, with loss of consciousness of 30 minutes or less, init ial encounter ([facility] Date of Onset: 05/31/2017 Referring Provider: No ref. provider found Rehab Precautions Flowsheet Row Office Visit from 08/10/2017 in [facility] CTR THERAPY PT OP Rehab Precautions Precautions None Rehab Learning Style Flowsheet Row Office Visit from 08/10/2017 in [facility] CTR THERAPY PT OP [facility] OP EVAL from 07/26/2017 in [facility] CTR SPEECH THERAPY Learning Style Patient's Optimum Learning Style listening, observation listening, observation Subjective Mookie Mason has completed 5 for treatment of Cognitive deficits s/p TB I. Patient reports improvements with use of compensatory strategies/memory strategies. [facility] er continues to report difficulty with [...] From: 11/23/17 Certification To: 02/20/18 Treatment Plan/Interventions 90087 - Cognitive Wevkfna71627 - Cognitive Axbhyflm62292 - Speech Sound Language Comprehens hcy75728 - Speech/Hearing Treatment Patient and/or family has [...]
--- OUTSIDE RECORDS SUMMARY | ~2020-02-26 | XMS | Encounter Summary ---
Demographics + + + | Address | [address] [place] [address] | | | [place] [address] | + + + | Home Phone | | + + + | Preferred Language | Unknown | + + + | Marital Status | | + + + | Advent Affiliation | Unknown | + + + [...] BREANNA SMITH | | | | | [address] | | + + + + + Care Team Providers + +------+ + | Care Locker Room Clerk Name | Role | Phone | + [...] + + | 11/13/ | Telephone | [facility] | Iris Mast | Other | | 2018 | | OCCUPATIONAL HEALTH | MD Barb [address] | | | | | [address] | [address] [place] | | | | | [address] [place] | [place] [address] | | | | | [place], [place] | [phone] | | | | | [address] | | | | | | [phone] | | | +--------+ + + + [...]
--- OUTSIDE RECORDS SUMMARY | ~2020-02-26 | XMS | Encounter Summary ---
Demographics + + + | Address | [address] [place] [address] | | | [place] [address] | + + + | Home Phone | | + + + | Preferred Language | Unknown | + + + | Marital Status | | + + + | Shinto Affiliation | Unknown | + + + | Race | Unknown | + + + | Ethnic Group | Unknown | + + + Author + + + | Author | [facility] | | | and [place] | + + + | Organization | [facility] | | [...] BREANNA SMITH | | | | | [address] | | + + + + + Care Team Providers + +------+ + | Care Forensic Science Examiner Name | Role | Phone | + [...] | fracture, | [address] | | | | | with routine | [address] | [place], | | | | | healing, | [place], | [place] [address] | | | | | subsequent | [place] [address] | Phone: | | | | | encounter | Phone: | [phone] | | | | | Place of | [phone] | Fax: | | | | | occurrence, | Fax: | [phone] | | | | | industrial | [phone] | | | | | | places and | | | | | | | premises | | | +--------+ + + + + + Encounter Details +--------+---------+ + + + | Date | Type | Department | Care Team | Description | +--------+---------+ + + + | 01/04/ | Office | [facility] | Iris Mast | Decreased activities | | 2018 | Visit | MED CNT ONCOLOGY | MD Barb [address] | of daily living | | | | THERAPY [address] [place] | (ADL); Left upper | | | | [place], | [place] [address] | arm pain | | | | [place] [address] | [phone] | | | | | [phone] | | | | | | | Iris Adan, OT | | | | | | [address] | | | | | | [place], [place] | | | | | | [address] | | | | | | | [...] encounter Progress Notes Iris Adan OT - 01/04/2018 1:00 PM PDTFormatting of this note might be different fr om the original. [facility] MED CTR THERAPY OT OP [address] [place] [address] Occupational Therapy Daily Treatment Note Date: 01/04/2018 Patient Information Patient Name: Mookie Mason Date of : 1980 Age: 37 y.o. History Encounter Diagnoses Code Name Primary? R68.89 Decreased activities of daily living (ADL) M79.622 Left upper arm pain Date of Onset: 05/31/2017 Referring Provider: Iris Mast MD Rehab Precautions Office Visit from 08/10/2017 in [facility] CTR THERAPY PT OP Rehab Precautions Precautions None Rehab Learning Style Office Visit from 08/10/2017 in [facility] CTR THERAPY PT OP [facility] REO ASSET MANAGER OP EVAL f rom 07/26/2017 in [facility] CTR SPEECH THERAPY Learning Style Patient's Optimum Learning Style listening, observation listening, observation Today's Treatment Start Time: 1256 Stop time: 1345 Duration: 49 minutes Timed Treatment Codes: 49 minutes # of OT Visits: 7 Subjective: My arm is feeling better. It still hurts, but not as much. Pain Assessment: Pain Rating Pre Assessment: 2 Pain Rating During Assessment: 3 Objective Pt seen for application of TENS to left arm for pain control. Pt sates that he is having l ess pain with TENS and therapy on arm. He states that is father in law may have one at hoe that he could use Pt seen for Cybex press 1 plates 1x10 Pt seen for Cybex row 2 plate 1x10 for vertical handle and 1 plate 1x10 for horizontal troy dle due to increase in pain Pt seen for MFR and cupping to anterior and medial arm and anterior shoulder. pt seen for table top exercise, shoulder flexion and extension and horizontal adduction and abduction. Adduction and abduction caused increased pain in bicep area. Vibration to upper arm and shoulder over 2 layers of towel to prevent increased pain Assessment Pt states that lubin is decreasing in the left arm, but he continues to have severe pain I th e back. Patient will benefit from continued OT for pain control, progressive strengthening, tissue management, upgrade HEP, ROM. . Plan TENS, strengthening, tissue mobilization. Electronically signed by: Iris Adan OT, 01/04/2018 15:17 Patient Name: Mookie Mason/: 1980/ documented in this e ncounter Plan of Treatment Not on filedocumented as of this encounter Visit Diagnoses + + | Diagnosis | + + | Decreased activities of daily living (ADL) | + + | Left upper arm pain Pain in limb | + + documented in this encounter"
--- OUTSIDE RECORDS SUMMARY | ~2020-02-26 | XMS | Encounter Summary ---
Demographics + + + | Address | [address] [place] [address] | | | [place] [address] | + + + | Home Phone [...] BREANNA SMITH | | | | | [address] | | + + + + + Care Team Providers + +------+ + | Care Carpet Renovator Name | Role | Phone | + [...] Rehabilitatio | occurrence, | MD Barb | [place] | | | | n | industrial | [address] | [place], | | | | | places and | [address] | [place] [address] | | | | | premises | [place], | Phone: | | | | | Closed head | [place] [address] | [phone] | | | | | injury with | Phone: | Fax: | | | | | brief loss | [phone] | [phone] | | | | | of | Fax: | | | | | | consciousnes | [phone] | | | | | | s [...] + + | 09/05/ | Office | [facility] | ProIris | Dizziness due to old | | 2017 | Visit | MED CTR THERAPY PT | MD Barb [address] | head injury; Left | | | | OP [address] | [address] [place] | upper arm pain; | | | | [place], [place] | [place] [address] | Imbalance; Place of | | | | [address] | [phone] | occurrence, | | | | [phone] | | industrial places | | | | | Catie Squires B, PT | and premises; | | | | | [address] | Chronic left-sided | | | | | [place], [place] | low back pain | | | | | [address] | without sciatica; | | | | [...] had several injuries and was treated in [place]. S/p left humerus ORIF. Pt reports that [...] and 4 (eyes closed) Treatment Plan/Interventions PT Cxvqxzpjmc94579 - Therapeutic Zcaklimx29895 - Neuromuscular Tunipiwvsuo71767 - Gait Brain lzjm53045 - Therapeutic Kkgkxxewuy72894 - Manual Eukbxbc49909 - Self Care/Home Lxmfgzcsuz756 92 - Canalith Rewoqytetzwjt55744 - Vasopneumatic Wzvxuxl91652 - Electrical Stimulation, Unat tended Electronically signed by: Catie Squires PT, 09/05/2017 18:02 Patient Name: Mookie Mason/: 1980/ Catie Rich P T - 09/05/2017 4:15 PM PST [facility] CTR THERAPY PT OP [address] [place] [address] Physical Therapy Progress Assessment Re-certification Date: 09/05/2017 [...] S LP OP EVAL from 07/26/2017 in [facility] SPEECH THERAPY Learning Style Patient's Optimum [...] had several injuries and was treated in [place]. S/p left humerus ORIF. Pt reports that [...] / Discharge Testing: Left Right Left Right Dulac-Hallpike test neg neg Neg. Neg. Horizontal Canal [...] Finger ABD (T1): 3+ 4- 3+ 4+ Vice Chair Strength: 50 # elbow pain 120 65 [...] new jar: 5 - Unable Do heavy histology specialist: 5 - Unable Carry a shopping bag [...] performing more ambitious activities, like sports, dancing, histology specialist such a s sweeping or putting dishes [...] had several injuries and was treated in [place]. S/p left humerus ORIF. Pt reports that [...] continued skilled therapy services to achieve the [facility] updated functional goals. Received new referral from [...] 09/05/2017 Certification To: 11/28/2017 Treatment Plan/Interventions PT Kfaglnpdnr94939 - Therapeutic Tkagtyfv32617 - Neuromuscular Vmnoqkljghl89869 - Gait Brain aigc51188 - Therapeutic Fhavkrqgur40158 - Manual Oexbsri99758 - Self Care/Home Kjqimxchvs674 92 - Canalith Mcleymeipmbcs11637 - Vasopneumatic Nienluk39732 - Electrical Stimulation, Unat tended Patient and/or [...] left shoulder ROM Electronically signed by: Catie Squires PT, 09/05/2017 17:58 Patient Name: Mookie Mason/: [...]
--- OUTSIDE RECORDS SUMMARY | ~2020-02-26 | XMS | Encounter Summary ---
Demographics + + + | Address | [address] [place] [address] | | | [place] [address] | + + + | Home Phone [...] BREANNA SMITH | | | | | [address] | | + + + + + Care Team Providers + +------+ + | Care Breading Machine Tender Name | Role | Phone | + +------+ + | No, Physician | PCP | Unavailable | + +------+ + Encounter Details +--------+ + + + + | Date | Type | Department | Care Team | Description | +--------+ + + + + | 08/28/ | Documentati | [facility] | Lashawn Cornelius, | | | 2017 | on | MED CTR THERAPY PT | ONCOLOGY SPECIALIST [address] | | | | | OP [address] | [place] | | | | | [place] | [address] | | | | | [address] | | | | | | [phone] | | | +--------+ + + + [...] Cornelius PTA - 08/28/2017 10:01 [facility] [address] [place] [address] Cancellation/No Show Date: 08/28/2017 Patient Information Patient [...]
--- OUTSIDE RECORDS SUMMARY | ~2020-02-26 | XMS | Encounter Summary ---
Demographics + + + | Address | [address] [place] [address] | | | [place] [address] | + + + | Home Phone | | + + + | Preferred Language | Unknown | + + + | Marital Status | | + + + | Buddhist Affiliation | Unknown | + + + | Race | Unknown | + + + | Ethnic Group | Unknown | + + + Author + + + | Author | [facility] | | | and [place] | + + + | Organization | [facility] | | | [...] BREANNA SMITH | | | | | [address] | | + + + + + Care Team Providers + +------+ + | Care Detention Attendant Name | Role | Phone | + +------+ + | No, Physician | PCP | Unavailable | + +------+ + Reason for Visit +---------+ + | Reason | Comments | +---------+ + | Otalgia | rm 2/ right ear pain, cough, sneezing, congestion x 5 days | +---------+ + Encounter Details +--------+---------+ + + + | Date | Type | Department | Care Team | Description | +--------+---------+ + + + | 12/16/ | Office | [facility] | Jacinto Rousseau, | Upper respiratory | | 2020 | Visit | CARE [address] | [address] | tract infection, | | | | [place], [place] | [place], [place] | unspecified type | | | | [address] | [address] | (Primary Dx); Alexandre | | | | [phone] | | throat | +--------+---------+ + + + Social History [...] in this encounter Patient Instructions Patient Instructions Jacinto Rousseau MD - 12/17/2019 11:15 AM PDT Viral Upper Respiratory Illness (Adult) You have a viral upper respiratory illness (URI), which is another term for the common cold . This illness is contagious during the first few days. It is spread through the air by coug clarissa and sneezing. It may also be spread by direct contact (touching the sick person and the n touching your own eyes, nose, or mouth). Frequent handwashing will decrease risk of spread . Most viral illnesses go away within 7 to 10 days with rest and simple home remedies. Somet imes the illness may last for several weeks. Antibiotics will not kill a virus, and they are generally not prescribed for this condition. Home care If symptoms are severe, rest at home for the first 2 to 3 days. When you resume activity , don't let yourself get too tired. Don't smoke. If you need help stopping, talk with your healthcare provider. Avoid being exposed to cigarette smoke (yours or others ). You may use acetaminophen or ibuprofen to control pain and fever, unless another medicin e was prescribed.If you have chronic liver or kidney disease, have ever had a stomach ulce r or gastrointestinal bleeding, or are taking blood-thinning medicines, talk with your healt hcare provider before using these medicines. Aspirin should never be given to anyone under 1 8 years of age who is ill with a viral infection or fever. It may cause severe liver or brai n damage. Your appetite may be poor, so a light diet is fine. Stay well hydrated by drinking 6 to 8 glasses of fluids per day (water, soft drinks, juices, tea, or soup). Extra fluids will he lp loosen secretions in the nose and lungs. Ireq-dep-gvcdywi cold medicines will not shorten the length of time you re sick, but t hey may be helpful for the following symptoms: cough, sore throat, and nasal and sinus conge stion. If you take prescription medicines, ask your healthcare provider or pharmacist which wztx-rgj-wbxljem medicines are safe to use. (Note: Don't use decongestants if you have high blood pressure.) Follow-up care Follow up with your healthcare provider, or as advised. When to seek medical advice Call your healthcare provider right away if any of these occur: Cough with lots of colored sputum (mucus) Severe headache; face, neck, or ear pain Difficultyswallowingdue to throat pain Fever of 100.4F (38C) or higher, or as directed by your healthcare provider Call 911 Call 911 if any of these occur: Chest pain, shortness of breath, wheezing, or difficulty breathing Coughing up blood Very severe pain with swallowing, especially if it goes along with a muffled voice Date Last Reviewed: 03/02/201819999876-7508 [employer]. [address] [place] [address]. All [facility] reserved. This information is not intended as a substitute for professional medical care. Always follow your healthcare professional's instructions. documented in this encounter Progress Notes Jacinto Rousseau MD - 12/17/2019 11:15 AM PDTFormatting of this note might be different fr om the original. Subjective: Patient ID: Mookie Mason is a 39 y.o. male.who presents today for Otalgia (rm 2/ ri ght ear pain, cough, sneezing, congestion x 5 days) . HPI The patient is being seen in urgent care for 5 days of illness with cough, nasal congestion , right earache and mild sore throat. He has had minimal headache and has had body aches. He has had no fevers. He denies any shortness of breath. He does have history of asthma an d has not had any wheezing or perceived need for use of his inhaler. The patient works at [employer] and has not been traveling outside the area otherwise. He has had no contact with people known to be ill with suspected coronavirus infection. He has had no con tact with anyone with suspected influenza. He does have children at home. He has not had i nfluenza vaccine. Patient Active Problem List Diagnosis TBI (traumatic brain injury) Dizziness due to old head injury Left upper arm pain Imbalance Place of occurrence, industrial places and premises Chronic left-sided low back pain without sciatica Neck pain Closed fracture of shaft of left humerus with routine healing Decreased activities of daily living (ADL) Memory deficit Attention deficit Cognitive changes Fracture of left humerus Fracture of ramus of left pubis Lumbar transverse process fracture, sequela Past Surgical History: Procedure Laterality Date HUMERUS SURGERY Left 06/14/2017 [facility] [place] Current Outpatient Medications Medication Sig Dispense Refill acetaminophen (TYLENOL) 500 mg tablet Take 1,000 mg by mouth 2 times daily. No current facility-administered medications for this visit. He reports that he has been smoking cigarettes. He has a 6.25 pack-year smoking history. H davie uses smokeless tobacco. He reports that he does not drink alcohol or use drugs. Allergies Allergen Reactions Amoxicillin Anaphylaxis Aspirin Anaphylaxis Erythromycin Anaphylaxis Penicillins Anaphylaxis Intolerance No active intolerances/contraindications ROS Objective: BP 135/83 | Pulse 74 | Temp 37.3 C (99.2 F) (Temporal) | Resp 16 | Ht 1.854 m (6' 1 ") | Wt 69.7 kg (153 lb 10.6 oz) | SpO2 97% | BMI 20.27 kg/m Physical Exam Patient is alert and does not appear to be having any shortness of breath. He appears to b e minimally ill at this time. Lungs are with good air movement and are clear to auscultatio n with no rales rhonchi or wheezes. Heart is regular rate and rhythm with no murmur no tach ycardia. Neck is supple with no adenopathy. Oral is with moderate erythema the posterior p harynx with tonsils 1+ size without exudates and there is no posterior nasal drainage. Face is nontender over the sinuses. Ears are with a modest amount of cerumen on the right side with no tenderness of the external ear or redness or swelling of the canal. TMs are bilater ally with good light reflex and no fluid erythema or bulging is present. Skin is pink with no rashes pallor or cyanosis. Recent Results (from the past 24 hour(s)) Influenza A and B RNA, NAAT Result Value Ref Range Influenza A PCR Negative Negative, Test not performed Influenza B PCR Negative Negative, Test not performed Strep A DNA probe, NAAT Result Value Ref Range Group A Strep, DNA Negative Negative Assessment/Plan: Mookie was seen today for otalgia. Diagnoses and all orders for this visit: Upper respiratory tract infection, unspecified type - Influenza A and B RNA, NAAT Sore throat - Strep A DNA probe, NAAT; Future Patient has a viral upper respiratory tract infection. There is no indication for for anti biotics at this time. He is given instructions for symptomatic treatment and he is to be at home if he is having fevers. He can take Tylenol or ibuprofen as well as Mucinex as needed . Recheck if he is having shortness of breath, high fevers, or otherwise worsening. No follow-ups on file. P DTdocumented in this encounter Plan of Treatment Not [...] + + documented in this encounter Results Influenza A and B RNA, NAAT (12/17/2019 11:55 AM PDT) + + + + + + | Component | Value | Ref Range | Performed | Pathologist | | | | | At | Signature | + + + + + + | Influenza A | Negative | Negative, Test | [facility] | | | PCR | | not performed | [facility] | | | [facility] | | | | [facility] | | | | [facility] | | + + + + + + | Influenza B | Negative | Negative, Test | [facility] | | | PCR | | not performed | [facility] | | | | | | [facility] [...] + + + | [facility] | [address] | [place] | [phone] | | [facility] | | [address] | | | [facility] | | [...] | + + + + + | [facility] | [address] | [place] | [phone] | | [facility] | | [address] | | | [facility] | | | | + + + + + documented in this encounter Visit Diagnoses + + | Diagnosis | + + | Upper respiratory tract infection, unspecified type - Primary | + + | Sore throat Acute pharyngitis | + + documented in this encounter
--- OUTSIDE RECORDS SUMMARY | ~2020-02-26 | XMS | Encounter Summary ---
Demographics + + + | Address | [address] [place] [address] | | | [place] [address] | + + + | Home Phone | | + + + | Preferred Language | Unknown | + + + | Marital Status | | + + + | Adventism Affiliation | Unknown | + + + [...] BREANNA SMITH | | | | | [address] | | + + + + + Care Team Providers + +------+ + | Care Junior Systems Engineer Name | Role | Phone [...] + + | 04/26/ | Office | [facility] | Shay Garza | Allergic reaction to | | 2018 | Visit | CARE [address] | MD Leon [address] | insect sting, | | | | [place] | [address] [place] | accidental or | | | | [address] | [address] | unintentional, | | | | [phone] | | initial encounter | | | [...] use this medicine. Oral diphenhydramine is an xlkk-gjw-xlbqbma antihistamine available at pharmacies and [employer]. Unless a prescription antihistamine was given, diphenhydramine [...] Use a set of fine tweezers and medical records manager the tick as close to the skin as is possible. Pull upwards, using even, steady pressure. Don t jerk or twist the tick. The tick s bodily fluids may contain infection-causing organisms. So don t squeeze, crush, or punctur e the body of the tick. Don t use a smoldering match or cigarette, nail faroese, petroleum jelly, liquid soap, or kerosene. They [...] from the affected site Date Last Reviewed: 11/30/201619991026-7464 [employer]. [address] [place] [address]. All [facility] reserved. This information is not [...]
--- OUTSIDE RECORDS SUMMARY | ~2020-02-26 | XMS | Encounter Summary ---
Demographics + + + | Address | [address] [place] [address] | | | [place] [address] | + + + | Home Phone | | + + + | Preferred Language | Unknown | + + + | Marital Status | | + + + | Yazidi Affiliation | Unknown | + + + | Race | Unknown | + + + | Ethnic Group | Unknown | + + + Author + + + | Author | [facility] | | | and [place] | + + + | Organization | [facility] | | [...] BREANNA SMITH | | | | | [address] | | + + + + + Care Team Providers + +------+ + | Care Machine Adjuster Leader Name | Role | Phone | + +------+ + | No, Physician | PCP | Unavailable | + +------+ + Encounter Details +--------+ + + + + | Date | Type | Department | Care Team | Description | +--------+ + + + + | 08/30/ | Imaging | [facility] | Provider, | | | 2017 | Exam | [facility] | MD Ashlee [address] | | | | | IMAGING [address] | [address] | | | | | [place] | [place] [address] | | | | | [place] [address] | | | | | | [phone] | | | +--------+ + + + [...] + +--------+ + + + | XR ELBOW LEFT 3 + VW | Routin | 07/05/2017 | | Results for this | | | e | 11:10 AM | | procedure are in the | | | | PDT | | results section. | + +--------+ + + + documented in this encounter Results XR Elbow Left 3 + Vw (07/05/2017 11:10 AM PDT) + + | Specimen | + + | | + + + + + | Narrative | Performed At | + + + | External films | [facility] | | for comparison only - no result from [place]. | | + + + + +---------+ + + | Performing | Address | City/State/Zipcode | Phone Number | | Organization | | | | + +---------+ + + | [facility] | | | | + +---------+ + + documented in this encounter Visit Diagnoses Not on filedocumented in this encounter"
--- OUTSIDE RECORDS SUMMARY | ~2020-02-26 | XMS | Encounter Summary ---
Demographics + + + | Address | [address] [place] [address] | | | [place] [address] | + + + | Home Phone [...] BREANNA SMITH | | | | | [address] | | + + + + + Care Team Providers + +------+ + | Care Psychiatric Security Nurse Name | Role | Phone | [...] | [facility] | [place] | [address] Phone: | | | | | TREAT[address] | [place] [address] | [phone] | | | | | | Phone: | Fax: | | | | | | [phone] | [phone] | | | | | | Fax: | | | | | | | [phone] | | +--------+--------+ + + + + Encounter Details +--------+---------+ + + + | Date | Type | Department | Care Team | Description | +--------+---------+ + + + | 10/06/ | Office | [facility] | Iris Mast | Closed fracture of | | 2018 | Visit | MED CTR THERAPY PT | MD Barb [address] | shaft of left | | | | OP [address] | [address] [place] | humerus with routine | | | | [place] | [place] [address] | healing, | | | | [address] | [phone] | unspecified fracture | | | | [phone] | | morphology, | | | | | Catie Squires, PT | subsequent encounter | | | | | [address] | (Primary Dx); | | | | | [place] | Dizziness due to old | | | | | [address] | head injury; Left | | | [...] had several injuries and was treated in [place]. S/p left humerus ORIF. Pt reports that [...] to at least 6/10 Treatment Plan/Interventions PT [id number] - Therapeutic Gvdxlefb20901 - Neuromuscular Kwakjjqvmfo91035 - Gait Brain ncvs67941 - Therapeutic Ftkmrynwul49688 - Manual Manbysl69679 - Self Care/Home Nzjwssaduc796 92 - Canalith Oqotacqsstmbr95466 - Vasopneumatic Euflhoq68600 - Electrical Stimulation, Unat tended Electronically signed by: Catie Squires PT, 10/06/2017 17:52 Patient Name: Mookie Mason/: 1980/ atie Squires P T - 10/06/2017 1:00 PM PST [facility] CTR THERAPY PT OP [address] [place] [address] Physical Therapy Progress Assessment Re-certification Date: 10/06/2017 [...] from 08/10/2017 in [facility] CTR THERAPY PT OP Rehab Precautions Precautions None Rehab Learning Style Flowsheet Row Office Visit from 08/10/2017 in [facility] CTR THERAPY PT OP [facility] OP EVAL from 07/26/2017 in [facility] Learning Style Patient's [employer] [...] had several injuries and was treated in [place]. S/p left humerus ORIF. 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 S/p left humerus ORIF. Pt reports that [...] 10/06/2017 Certification To: 12/29/2017 Treatment Plan/Interventions PT Gjrxuyeonu10331 - Therapeutic Uylxfbgw88878 - Neuromuscular Fdezyrhdatk67716 - Gait Brain btef67569 - Therapeutic Ldfahimlmt52296 - Manual Cgpysxl26334 - Self Care/Home Jdphmoxlpx853 92 - Canalith Pgubvskrqhczo46891 - Vasopneumatic Zxklkof83764 - Electrical Stimulation, Unat tended Patient and/or [...]
--- OUTSIDE RECORDS SUMMARY | ~2020-02-26 | XMS | Encounter Summary ---
Demographics + + + | Address | [address] [place] [address] | | | [place] [address] | + + + | Home Phone [...] BREANNA SMITH | | | | | [address] | | + + + + + Care Team Providers + +------+ + | Care Immigration Judge Name | Role | Phone | + [...] | | | | with loss | [address] | Pathologist | | | | | of | [place], | | | | | | consciousnes | [place] [address] | | | | | | s, sequela | Phone: | | | | | | ([facility]) Mild | [phone] | | | | | | cognitive | Fax: | | | | | | impairment | [phone] | | | | | | [phone] [...] + + | 07/26/ | Hospital | [facility] | Sam Chopra, | Traumatic brain | | 2017 | Encounter | MED CTR SPEECH | MD [address] | injury with loss of | | | | THERAPY [address] | [place], [place] | consciousness, | | | | [address], | [address] | initial encounter | | | | [place] [address] | | ([facility]) (Primary Dx) | | | | [phone] | Mandy Matos, | | | | [...] Speech Pathologist - 07/26/2017 9:50 AM PDT [facility] SPEECH THERAPY [address] [place] [address] Speech Therapy Initial Assessment Date: 07/26/2017 Patient [...] 4 Years of education: 12 Occupational History [employer] On leave Social History Main Topics Smoking [...] injury with loss of consciousness, initial encounter ([facility]) Yes Date of Onset: 05/31/17 Referring Provider: Sam Chopra MD No history on file. Past Medical History: Diagnosis Date Asthma Depression Place of occurrence, industrial places and premises Past Surgical History: Procedure Laterality Date HUMERUS SURGERY Left 06/14/2017 [facility] [place] Family History Problem Relation Age of Onset [...] previous ST Rehab Precautions Flowsheet Row [facility] OP EVAL from 07/26/2017 in [facility] SPEECH THERAPY Rehab Precautions Precautions None [...] From: 07/26/2017 Certification To: 10/26/2017 Treatment Plan/Interventions [address]0747 - Cognitive Wztspfh09073 - Cognitive Yznywxxr74910 - Speech Sound Language Comprehens [id number] - Speech/Hearing Treatment Patient and/or family has [...]
--- OUTSIDE RECORDS SUMMARY | ~2020-02-26 | XMS | Encounter Summary ---
Demographics + + + | Address | [address] [place] [address] | | | [place] [address] | + + + | Home Phone | | + + + | Preferred Language | Unknown | + + + | Marital Status | | + + + | Episcopal Affiliation | Unknown | + + + [...] BREANNA SMITH | | | | | [address] | | + + + + + Care Team Providers + +------+ + | Care Auditing Manager Name | Role | Phone | [...] Rehabilitatio | occurrence, | MD Barb | [place] | | | | n | industrial | [address] | [place], | | | | | places and | [address] | [place] [address] | | | | | premises | [place], | Phone: | | | | | Closed head | [place] [address] | [phone] | | | | | injury with | Phone: | Fax: | | | | | brief loss | [phone] | [phone] | | | | | of | Fax: | | | | | | consciousnes | [phone] | | | | | | s [...] Description | +--------+---------+ + + + | 08/10/ | Office | [facility] | Sam Chopra, | Traumatic brain | | 2017 | Visit | MED CTR THERAPY PT | MD [address] | injury, with loss of | | | | OP [address] | [place]LLAR | consciousness of 30 | | | | [place], [place] | [address] | minutes or less, | | | | [address] | | subsequent encounter | | | | [phone] | Catie Squires, PT | (Primary Dx); | | | | | [address] | Dizziness due to old | | | | | [place], [place] | head injury; Left | | | | | [address] | upper arm pain; | | | [...] encounter Progress Notes Catie Squires, PT - 08/10/2017 1:15 PM PST Physical Therapy Plan of Care Date: 08/10/2017 Patient Name: Mookie Mason Date of : 1980 Encounter Diagnoses Code Name Primary? S06.9X1D Traumatic brain injury, with loss of consciousness of 30 minutes or less, subs equent encounter Yes 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 M79.622 Left upper arm pain R26.[address] occurrence, industrial places and premises M54.5, G89.29 Chronic left-sided low back pain without sciatica M54.2 Neck pain Date of Onset: 05/31/2017 Start of Care Date: 08/10/2017 Requested # of Visits: 24 visits 2x/week for No data was found Certification From: 08/10/2017 Certification To: 11/02/2017 Clinical Impression: Patient presents to physical therapy with persistent dizziness/imbala nce, left arm pain, low back pain and rib pain. pt reports that on 05/31/17 he fell off of a roof while at work approx. 20 foot fall. Pt had several injuries and was treated in [place] . S/p left humerus ORIF. Pt reports that he has been cleared by surgeon for left UE use but continues to have left arm weakness and pain. Pt is here specifically for dizzness but woul d benefit physical therapy to address orthopedic concerns. Objective exam reveals impairment s with oculomotor exam, strength, ROM, posture, pain and balance. These impairments are caus ing functional limitations with anything with left arm due to pain/weakness, looking up, get ting out of bed, turning head right, driving, prolonged sitting/standing, walking, which are restricting this patient's ability to participate in unable to return to work, ADL's/IADL's and caring for young family. Signs and symptoms are consistent with injuries related to fal l/TBI. Complexities contributing to frequency and duration of therapy: 20 foot fall causing multiple injuries. Goals: Dizziness Handicap Index Goal: Improve DHI score from 62/100 to <34/100 to reduce risk of f alls and increase functional mobility allowing for improved ability to complete ADL activiti es and return to work. Dizziness Handicap Index Status: currently 62/100 OP PT Goals OP PT Goals: Goal 1, Goal 2 Goal 1: Patient will be Independent in a home exercise program to address symptoms of dizzi ness/vertigo/imbalance to decrease fall risk and improve ability to perform ADL's. Goal 1 Status: initiated HEP Goal 2: Improve sensory usage with a M-CTSIB score with normal sways in conditions 1-4 Goal 2 Status: impaired, used hip/ankle strategies to compensate. impaired conditions 2 and 4 Treatment Plan/Interventions PT [id number] - Therapeutic Vxdcdoit84096 - Neuromuscular Mnbergigsse68744 - Gait Brain [id number] - Therapeutic Vfkswoflbi46755 - Manual Mnjgukd45372 - Self Care/Home Dmolcrspoa720 92 - Canalith Vcxwacpjgqeqq75948 - Vasopneumatic Hmgdvno50516 - Electrical Stimulation, Unat tended Electronically signed by: Catie Squires PT, 08/10/2017 17:47 Patient Name: Mookie Mason/: 1980/ Catie Rich P T - 08/10/2017 1:15 PM PST [facility] CTR THERAPY PT OP [address] [place] [address] Physical Therapy Initial Assessment Date: 08/10/2017 Patient Information Patient Name: Mookie Mason Date of : 1980 Age: 37 y.o. History Problem Dizziness Due to Old Head Injury Left Upper Arm Pain Imbalance Place of Occurrence, Industrial Places and Premises Chronic Left-Sided Low Back Pain Without Sciatica Neck Pain Mechanism of injury: Trauma History of symptoms: pt reports that on 05/31/17 he fell off of a roof while at work approx. 20 foot fall. Pt had several injuries and was treated in [place]. Pt now presents with diz ziness, left arm pain, low back pain and rib pain. Pt reports that he has been cleared by sera golden for left UE use but continues to have left arm weakness and pain. Pt also continues to be dizzy with reading/paperwork, getting out of bed. See below. 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 S06.9X1D Traumatic brain injury, with loss of consciousness of 30 minutes or less, subs equent encounter Yes 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 M79.622 Left upper arm pain R26.[address], industrial [address] and premises M54.5, G89.29 Chronic left-sided low back pain without sciatica M54.2 Neck pain Date of Onset: 05/31/2017 Referring Provider: Iris Mast MD No history on file. Past Medical History: Diagnosis Date Asthma Depression Place of occurrence, industrial places and premises Past Surgical History: Procedure Laterality Date HUMERUS SURGERY Left 06/14/2017 [facility] in [place] Family History Problem Relation Age of Onset Heart disease Maternal Grandfather No Known Problems Mother No Known Problems Father No Known Problems Sister No Known Problems Brother No Known Problems Maternal Grandmother No Known Problems Paternal Grandmother No Known Problems Paternal Grandfather Developmental History Allergies Allergen Reactions Amoxicillin Anaphylaxis Aspirin Anaphylaxis Erythromycin Anaphylaxis Penicillins Anaphylaxis Prior Treatment: None within the last sixty days Rehab Precautions Flowsheet Row Office Visit from 08/10/2017 in [facility] CTR THERAPY PT OP Rehab Precautions Precautions None Learning Style Patient's Optimum Learning Style: listening, observation Abuse Assessment Do you feel safe in your current relationship or home?: Yes Action taken by clinician: No concerns Fall Risk: Fall Risk 2 or more falls in the past year?: No Pain Assessment: Pain Scale Used: NUMERIC Pain Rating During Assessment: 3 Location: left upper arm, low back/pelvis, neck EVALUATION: SUBJECTIVE: History of Presenting Problem: Mookie Mason is a 37 y.o. male who presents to therapy with persistent dizziness, left arm pain, low back pain and rib pain. pt reports th at on 05/31/17 he fell off of a roof while at work approx. 20 foot fall. Pt had several injur ies and was treated in [place]. S/p left humerus ORIF. Pt reports that he has been cleared by surgeon for left UE use but continues to have left arm weakness and pain. Functional Limitations: anything with left arm due to pain/weakness, looking up, getting ou t of bed, turning head right, driving, prolonged sitting/standing, walking Precaution/special problems: recent fall causing multiple injuries Patient s Goals: return to work, decrease dizziness/pain OBJECTIVE: Observation/Posture/Alignment/Gait: Significant forward posture with fixed thoracic kyphosi s Initial Assessment Initial Assessment Progress Note / Discharge Progress Note / Discharge Testing: Left Right Left Right Malathi-Hallpike test neg neg Horizontal Canal test neg neg Cervical ROM Initial Assessment Initial Assessment Progress Note / Discharge Progress Not e / Discharge Left Right Left Right Flexion 60 deg Extension 45 Lateral flexion 45 28 (pain upper left) Rotation 58 (pain end range upper left) 42 (pain upper left) Sensation: Intact: intermittent N/T intact Neurovascular: intact intact Cerebellar Function /Coordination: Left Right Left Right Finger to nose good good Heel to tapia good good Strength Testing: Initial Assessment Initial Assessment Progress Note / Discharge Progress Note / Discharge Left Right Left Right Deltoid (C5): 3+/5 4-/5 Biceps (C6): 3+ 4- Wrist Ext (C6): 3+ 4- Supination (C6): 3+ 4- Triceps (C7): 3+ 4- EPL/EPB (C8): 3+ 4- Finger ABD (T1): 3+ 4- Senior Genetic Counselor Strength: 50 # elbow pain 120 Postural Muscles: impaired increased left arm pain with MMT Oculomotor Exam Initial Assessment Initial Assessment Progress Note / Discharge Progress No te / Discharge Left Right Left Right Smooth pursuits(central) impaired impaired Saccades (central) impaired impaired Convergence normal normal Fast VOR-head thrust (peripheral) normal normal VOR cancellation (central) impaired impaired Outcome Measure: Initial Assessment Progress Note / Discharge Dizziness Handicap Inventory 62/100 points (16-34 Points: mild handicap) (36-52 Points:moderate handicap) (54+ Points:severe handicap) Modified-Clinical Test of sensory interaction in balance (M-CTSIB) Condition 1(eyes open/fi rm surface):30 seconds Condition 2(eyes closed/firm surface): 20 seconds, mod sway Condition 3 (eyes open/foam surface): 30 seconds, min sway Condition 4(eyes closed/foam surface):20 seconds, mod. sway NDI 32/100% Standardized Tests: Neck Disability Index (NDI) Pain Intensity: 1 - The pain is very mild at the moment Personal Care (Washing, Dressing, etc.): 0 - I can look after myself normally without causi ng extra pain Liftin - I can lift heavy weights but it gives extra pain Readin - I can read as much as I want to with no pain in my neck Headaches: 1 - I have slight headaches which come infrequently Concentration: 3 - I have a lot of difficulty in concentrating when I want to Work: 4 - I can hardly do any work at all Drivin - I can drive my car as long as I want with slight pain in my neck Sleepin - My sleep is mildly disturbed (1-2 hrs sleepless) Recreation: 3 - I am able to engage in a few of my usual recreation activities because of p ain in my neck Neck Disability Index Score: 16 Neck Disability Index Percentage Score (Calculated): 32 Assessment Patient presents to physical therapy with persistent dizziness/imbalance, left arm pain, lo w back pain and rib pain. pt reports that on 05/31/17 he fell off of a roof while at work dina cory. 20 foot fall. Pt had several injuries and was treated in [place]. S/p left humerus OR IF. Pt reports that he has been cleared by surgeon for left UE use but continues to have lef t arm weakness and pain. Pt is here specifically for dizzness but would benefit physical the rapy to address orthopedic concerns. Objective exam reveals impairments with oculomotor exam , strength, ROM, posture, pain and balance. These impairments are causing functional limitat ions with anything with left arm due to pain/weakness, looking up, getting out of bed, turni ng head right, driving, prolonged sitting/standing, walking, which are restricting this zi ent's ability to participate in unable to return to work, ADL's/IADL's and caring for young family. Signs and symptoms are consistent with injuries related to fall/TBI. Complexities c ontributing to frequency and duration of therapy: 20 foot fall causing multiple injuries. Rehabilitation potential: Patient demonstrates good potential to achieve established goals to address the documented impairments by participating in skilled physical therapy services. Goals: Dizziness Handicap Index Goal: Improve DHI score from 62/100 to <34/100 to reduce risk of f alls and increase functional mobility allowing for improved ability to complete ADL activiti es and return to work. Dizziness Handicap Index Status: currently 62/100 OP PT Goals OP PT Goals: Goal 1, Goal 2 Goal 1: Patient will be Independent in a home exercise program to address symptoms of dizzi ness/vertigo/imbalance to decrease fall risk and improve ability to perform ADL's. Goal 1 Status: initiated HEP Goal 2: Improve sensory usage with a M-CTSIB score with normal sways in conditions 1-4 Goal 2 Status: impaired, used hip/ankle strategies to compensate. impaired conditions 2 and 4 Plan Date of Onset: 05/31/2017 Start of Care Date: 08/10/2017 Requested # of Visits: 24 visits 2x/week for No data was found Certification From: 08/10/2017 Certification To: 11/02/2017 Treatment Plan/Interventions PT [id number] - Therapeutic Mvluewgz70240 - Neuromuscular Gzsrgjfizgz94933 - Gait Brain hcfo70032 - Therapeutic Zrquopqsxn97473 - Manual Ajaksyh52620 - Self Care/Home Qiqvuhxbcr630 92 - Canalith Hjhpbbqhkkbmd42289 - Vasopneumatic Fauqhiu92515 - Electrical Stimulation, Unat tended Patient and/or family has indicated understanding of treatment needs and actively participa elijah in the creation of this plan for care. Today's Treatment Start Time: 1315 Stop time: 1415 Duration: 60 minutes Timed Treatment Codes: 30 minutes # of PT Visits: 1 Objective: Education of rehab timeline, focus and expectations. Education of positioning, pacing and m ovement strategies for self care. Instructed pt in HEP; Seated Eye exercises included saccades and smooth pursuits x5 for each position Next Visit: Cont to assess balance and strength Electronically signed by: Catie Squires PT, 08/10/2017 17:46 Patient Name: Mookie Mason/: 1980/ documented in [...] | encounter - Primary | + + | [...]
--- OUTSIDE RECORDS SUMMARY | ~2020-02-26 | XMS | Encounter Summary ---
Demographics + + + | Address | [address] [place] [address] | | | [place] [address] | + + + | Home Phone | | + + + | Preferred Language | Unknown | + + + | Marital Status | | + + + | Hindu Affiliation | Unknown | + + + | Race | Unknown | + + + | Ethnic Group | Unknown | + + + Author + + + | Author | [facility] | | | and [place] | + + + | Organization | [facility] | | | [...] BREANNA SMITH | | | | | [address] | | + + + + + Care Team Providers + +------+ + | Care Research Electrician Name | Role | Phone | + +------+ + PCP | Unavailable | + +------+ + Encounter Details +--------+ + + + + | Date | Type | Department | Care Team | Description | +--------+ + + + + | 10/12/ | [facility] | LUCY MENDOZA | Cedric Hameed MD | | | 2001 | Encounter | HEART MED CTR | [address] | | | | | EMERGENCY CENTER | [place], [place] | | | | | [address] | [phone] | | | | | [place], [place] | | | | | | [address] | | | | | | [phone] | | | +--------+ + + + [...]
--- OUTSIDE RECORDS SUMMARY | ~2020-02-26 | XMS | Encounter Summary ---
Demographics + + + | Address | [address] [place] [address] | | | [place] [address] | + + + | Home Phone | | + + + | Preferred Language | Unknown | + + + | Marital Status | | + + + | Confucianist Affiliation | Unknown | + + + | Race | Unknown | + + + | Ethnic Group | Unknown | + + + Author + + + | Author | [facility] | | | and [place] | + + + | Organization | [facility] | | [...] BREANNA SMITH | | | | | [address] | | + + + + + Care Team Providers + +------+ + | Care Interactive Media Specialist Name | Role | Phone | [...] | | | | ABIOLA SONJA | [place] [address] | | | | | [place] [address] | | | | | | [phone] | | | +--------+ + + + [...] + +--------+ + + + | XR SHOULDER LEFT 2 + | Routin | 07/05/2017 | | Results for this | | VW | e | 11:00 AM | | procedure are in the | | | | PDT | | results section. | + +--------+ + + + documented in this encounter Results XR Shoulder Left 2 + Vw (07/05/2017 11:00 AM PDT) + + | Specimen | + + | | + + + + + | Narrative | Performed At | + + + | External films | [facility] | | for comparison only - no result from [facility]. | | + + + + +---------+ + + | Performing | Address | City/State/Zipcode | Phone Number | | Organization | | | | + +---------+ + + | [facility] | | | | + +---------+ + + documented in this encounter Visit Diagnoses Not on filedocumented in this encounter"
--- OUTSIDE RECORDS SUMMARY | ~2020-02-26 | XMS | Encounter Summary ---
Demographics + + + | Address | [address] [place] [address] | | | [place] [address] | + + + | Home Phone | | + + + | Preferred Language | Unknown | + + + | Marital Status | | + + + | Lutheran Affiliation | Unknown | + + + | Race | Unknown | + + + | Ethnic Group | Unknown | + + + Author + + + | Author | [facility] | | | and [place] | + + + | Organization | [facility] | | | and [...] BREANNA SMITH | | | | | [address] | | + + + + + Care Team Providers + +------+ + | Care Control Specialist Name | Role | Phone | [...] | +--------+ + + + + | 01/05/ | Telephone | [facility] | Sam Chopra, | Results, Imaging | | 2018 | | PHYSIATRY [address] | MD [address] | | | | | [address] | [place], [place] | | | | | [place], [place] | [address] | | | | | [address] | | | | | | [phone] | | | +--------+ + + + [...]
--- OUTSIDE RECORDS SUMMARY | ~2020-02-26 | XMS | Encounter Summary ---
Demographics + + + | Address | [address] [place] [address] | | | [place] [address] | + + + | Home Phone [...] BREANNA SMITH | | | | | [address] | | + + + + + Care Team Providers + +------+ + | Care Rounder And Backer Name | Role | Phone | + +------+ + | Juli Squires DO | PCP | | + +------+ + Encounter Details +--------+ + + + + | Date | Type | Department | Care Team | Description | +--------+ + + + + | 07/13/ | Hospital | [facility] | Iris Mast | Closed fracture of | | 2018 | Encounter | MED CTR [facility] XRAY | MD Barb [address] | shaft of left | | | | [address] [place] | [address] [place] | humerus with routine | | | | [place], [place] | [place] [address] | healing, | | | | [address] | [phone] | unspecified fracture | | | | [phone] | | morphology, | | | | [...] HUMERUS LEFT 2 + | Routin | 07/13/2018 | Closed fracture of | Results for this | | VW | e | 1:45 PM | shaft of left | procedure are in the | | | | PDT | humerus with routine | results section. | | | | | healing, | [...] morphology, subsequent encounter | + + | Place of occurrence, industrial places and premises | + + documented in this encounter"
--- OUTSIDE RECORDS SUMMARY | ~2020-02-26 | XMS | Encounter Summary ---
Demographics + + + | Address | [address] [place] [address] | | | [place] [address] | + + + | Home Phone [...] [address] | | | | | [place] | | | | | [address] | | + + + + + Care Team Providers + +------+ + | Care Greens Planter Name | Role | Phone | + +------+ + PCP | Unavailable | + +------+ + Encounter Details +--------+ + + + + | Date | Type | Department | Care Team | Description | +--------+ + + + + | 02/23/ | [facility] | LUCY MENDOZA | Vu, | | | 2001 | Encounter | HEART MED CTR | MD [address] | | | | | EMERGENCY CENTER | [address] [place], | | | | | [address] | [place] [address] | | | | | [place], [place] | [phone] | | | | | [address] | | | | | | [phone] | | | +--------+ + + + [...]
--- OUTSIDE RECORDS SUMMARY | ~2020-02-26 | XMS | Encounter Summary ---
Demographics + + + | Address | [address] [place] [address] | | | [place] [address] | + + + | Home Phone | | + + + | Preferred Language | Unknown | + + + | Marital Status | | + + + | Restorationist Affiliation | Unknown | + + + | Race | Unknown | + + + | Ethnic Group | Unknown | + + + Author + + + | Author | [facility] | | | and [place] | + + + | Organization | [facility] | | | and [...] BREANNA SMITH | | | | | [address] | | + + + + + Care Team Providers + +------+ + | Care Guidance Counselor Name | Role | Phone | + [...] / | Place of | Iris | Hydro Operator [address] | | | Required | Speech | occurrence, | MD Barb | [place] | | | | Therapy | industrial | [address] | [place], [place] | | | | | places and | [address] | [address] | | | | | premises | [place], | Phone: | | | | | Closed head | [place] [address] | [phone] | | | | | injury with | Phone: | Fax: | | | | | brief loss | [phone] | [phone] | | | | | of | Fax: | | | | | | consciousnes | [phone] | | | | | | s ([facility]) | | | | | | | Procedures | | | | | | | auto transmission mechanic eval | | | +--------+ + + [...] | fracture, | [address] | [address] | | | | | with routine | [address] | [place], | | | | | healing, | [place], | [place] [address] | | | | | subsequent | [place] [address] | Phone: | | | | | encounter | Phone: | [phone] | | | | | Place of | [phone] | Fax: | | | | | occurrence, | Fax: | [phone] | | | | | industrial | [phone] | | | | | | places [...] tear of left | MD Barb | [place] | | | | n | rotator | [address] | [place], | | | | | cuff Place | [address] | [place] [address] | | | | | of | [place], | Phone: | | | | | occurrence, | [place] [address] | [phone] | | | | | industrial | Phone: | Fax: | | | | | places and | [phone] | [phone] | | | | | premises | Fax: | | | | | | | [phone] | | +--------+ + + + + [...] + + | 10/19/ | Office | [facility] | Pro Iris | Closed left arm | | 2018 | Visit | OCCUPATIONAL HEALTH | MD Barb [address] | fracture, with | | | | JJ [address] | [address] [place] | routine healing, | | | | [address] [place] | [place] [address] | subsequent encounter | | | | [place], [place] | [phone] | (Primary Dx); | | | | [address] | | Incomplete tear of | | | | [phone] | | left rotator cuff; | | [...] RIZWAN Date of injury: 05/31/17 Claim number: [id number] Chief complaint: Follow-up multiple injuries Subjective: Injured [...] Vital signs as noted, nursing notes reviewed. Rpcrhow-mbmx-paoebxtsq, well-nourished, in no apparent distress, pleasant cooperative. Left upper nrhelxxye-dwig-aoxrak surgical incision, muscle atrophy of the upper [...] MMI status. This note was dictated using [email or web address] voice recognition software. Occasional wrong- word or [...]
--- OUTSIDE RECORDS SUMMARY | ~2020-02-26 | XMS | Encounter Summary ---
Demographics + + + | Address | [address] [place] [address] | | | [place] [address] | + + + | Home Phone [...] BREANNA SMITH | | | | | [address] | | + + + + + Care Team Providers + +------+ + | Care Associate Director Of Nursing Name | Role | Phone | + [...] + + | 03/02/ | Refill | [facility] | Iris Mast | Medication Refill | | 2018 | | OCCUPATIONAL HEALTH | MD Barb [address] | | | | | [address] | [address] [place] | | | | | [address] [place] | [place] [address] | | | | | [place], [place] | [phone] | | | | | [address] | | | | | | [phone] | | | +--------+--------+ + + + [...]
--- OUTSIDE RECORDS SUMMARY | ~2020-02-26 | XMS | Encounter Summary ---
Demographics + + + | Address | [address] [place] [address] | | | [place] [address] | + + + | Home Phone [...] | Organization | [facility] | [...] BREAN[place] SMITH | | | | | [address] | | + + + + + Care Team Providers + +------+ + | Care Bindery Operator Name | Role | Phone | [...] | | | | | | CT Chest | Historical, | | | | | | Abdomen | 180 | | | | | | Pelvis w | Venu BUTT | | | | | | Contrast | [place] | | | | | | | [address] | | +--------+--------+ + + + + [...] | [address] [place] | [place] [address] | | | | | [place] [address] | | | | | | [phone] | | | +--------+ + + + [...] + +--------+ + + + | CT CHEST ABDOMEN | Routin | 05/31/2017 | | Results for this | | PELVIS W CONTRAST | e | 2:30 PM | | procedure are in the | | | | PDT | | results section. | + +--------+ + + + documented in this encounter Results CT Chest Abdomen Pelvis w Contrast (05/31/2017 2:30 PM PDT) + + | Specimen | + + | | + + + + + | Narrative | Performed At | + + + | External films | [facility] | | for comparison only - no result from [facility]. | | + + + + +---------+ + + | Performing | Address | City/State/Zipcode | Phone Number | | Organization | | | | + +---------+ + + | [facility] | | | | + +---------+ + + documented in this encounter Visit Diagnoses Not on filedocumented in this encounter"
--- OUTSIDE RECORDS SUMMARY | ~2020-02-26 | XMS | Encounter Summary ---
Demographics + + + | Address | [address] [place] [address] | | | [place] [address] | + + + | Home Phone | | + + + | Preferred Language | Unknown | + + + | Marital Status | | + + + | Jain Affiliation | Unknown | + + + | Race | Unknown | + + + | Ethnic Group | Unknown | + + + Author + + + | Author | [facility] | | | and [place] | + + + | Organization | [facility] | | [...] [place] | | | | | [address] | | + + + + + Care Team Providers + +------+ + | Care Hot Room Attendant Name | Role | Phone | [...] | [facility] | [place], | [address] Phone: | | | | | [address] | [place] [address] | [phone] | | | | | | Phone: | Fax: | | | | | | [phone] | [phone] | | | | | | Fax: | | | | | | | [phone] | | +--------+--------+ + + + + Encounter Details +--------+---------+ + + + | Date | Type | Department | Care Team | Description | +--------+---------+ + + + | 09/18/ | Office | [facility] | Iris Mast | Dizziness due to old | | 2017 | Visit | [facility] PT | MD Barb [address] | head injury; Left | | | | OP [address] | [address] [place] | upper arm pain; | | | | [place], [place] | [place] [address] | Imbalance; Place of | | | | [address] | [phone] | occurrence, | | | | [phone] | | industrial places | | | | | Catie Squires, PT | and premises; | | | | | [address] | Chronic left-sided | | | | | [place], [place] | low back pain | | | | | [address] | without sciatica; | | | | [...] encounter Progress Notes Catie Squires, PT - 09/18/2017 9:45 AM PST [facility] CTR THERAPY PT OP [address] [place] [address] Physical Therapy Daily Treatment Note Date: 09/18/2017 Patient Information Patient Name: Mookie Mason Date [...] Flowsheet Row Office Visit from 08/10/2017 in [facility] CTR THERAPY PT OP Rehab Precautions Precautions None Rehab Learning Style Flowsheet Row Office Visit from 08/10/2017 in [facility] CTR THERAPY PT OP [facility] OP EVAL from 07/26/2017 in [facility] CTR SPEECH THERAPY Learning Style Patient's [employer] Learning Style listening, observation listening, observation Start Time: 944 Stop time: 1029 Duration: 45 minutes Timed Treatment Codes: 45 minutes # of PT Visits to Date: 7 Subjective: Pt reports that he had one dizzy spell since last therapy session. Pt was bending down to g et his puppy and when he was standing up he felt really dizzy and it lasted approx. 5 min. Pt reports that he cont. To have left forearm/elbow pain and shoulder pain that is limiting his use of his left arm for basic daily tasks. Pain Assessment: Pain Rating Pre Assessment: 3 Location: left shoulder/neck/ low back Objective: Manual therapy: STM and TPR to intra scap, pec. TherEx: S/L iso. scap retraction and depression 2x10 S/L ER: 2x10 (no #) Reactive isometric IR/ER: yellow 4 laps each Standing and marching with head turns and counting down from 100 Walking with eyes fixed on discrete target with head turns/nod 15 feet x4 each and counting down from 100 no dizziness this session kinesio tape to unload left shoulder Assessment: Pt tolerated session with slight increased pain during active movement, pt continues to hav e pain in left shoulder, forearm, neck, low back and intermittent dizziness but is able to p articipate well in therapy. Pt is slowly progressing towards goals but left shoulder pain christie s increased since last session and continues to have significant forward head posture. Pt wo uld benefit from cont. Therapy to improve strength, balance and ROM to improve ability to co mplete daily tasks and return to work. Next Visit: Cont. To progress left shoulder ROM and balance/vestibular rehab. Electronically signed by: Catie Squires PT, 09/18/2017 12:04 Patient Name: Mookie Mason/: 1980/ documented in [...]
--- OUTSIDE RECORDS SUMMARY | ~2020-02-26 | XMS | Encounter Summary ---
Demographics + + + | Address | [address] [place] [address] | | | [place] [address] | + + + | Home Phone | | + + + | Preferred Language | Unknown | + + + | Marital Status | | + + + | Mosque Affiliation | Unknown | + + + [...] [place] SMITH | | | | | [address] | | + + + + + Care Team Providers + +------+ + | Care Worm Farm Laborer Name | Role | Phone | + [...] + + + + | 07/13/ | Telephone | [facility] | Iris Mast | Results, Imaging | | 2018 | | [facility] | MD [address] | | | | | [address] | [address] [place] | | | | | [address] [place] | [facility] [place] [address] | | | | | [facility] [place] | [phone] | | | | | [address] | | | | | | [phone] | | | +--------+ + + + [...]
--- OUTSIDE RECORDS SUMMARY | ~2020-02-26 | XMS | Encounter Summary ---
Demographics + + + | Address | [address] [place] [address] | | | [place] [address] | + + + | Home Phone | | + + + | Preferred Language | Unknown | + + + | Marital Status | | + + + | Buddhist Affiliation | Unknown | + + + | Race | Unknown | + + + | Ethnic Group | Unknown | + + + Author + + + | Author | [facility] | | | and [place] | + + + | Organization | [facility] | | [...] [place] | | | | | [address] | | + + + + + Care Team Providers + +------+ + | Care Asphalt Heater Operator Name | Role | Phone | [...] | [facility] | [place], | [address] Phone: | | | | | [address] | [place] [address] | [phone] | | | | | | Phone: | Fax: | | | | | | [phone] | [phone] | | | | | | Fax: | | | | | | | [phone] | | +--------+--------+ + + + + [...] | | | | OP [address] | [address] [place] | upper arm pain; | | | | [place], [place] | [place] [address] | Imbalance; Place of | | | | [address] | [phone] | occurrence, | | | | [phone] | | industrial places | | | | | Catie Squires, PT | and premises; | | | | | [address] | Chronic left-sided | | | | | [place], [place] | low back pain | | | | | [address] | without sciatica; | | | | [...] Squires, PT - 09/18/2017 9:45 AM PST [facility] CTR THERAPY PT OP [address] [place] [address] Physical Therapy Daily Treatment Note Date: 09/18/2017 [...] Flowsheet Row Office Visit from 08/10/2017 in [facility] CTR THERAPY PT OP Rehab Precautions Precautions None Rehab Learning Style Flowsheet Row Office Visit from 08/10/2017 in [facility] CTR THERAPY PT OP [facility] OP EVAL from 07/26/2017 in [facility] CTR SPEECH THERAPY Learning Style Patient's Optimum [...]
--- OUTSIDE RECORDS SUMMARY | ~2020-02-26 | XMS | Encounter Summary ---
Demographics + + + | Address | [address] [place] [address] | | | [place] [address] | + + + | Home Phone [...] BREANNA SMITH | | | | | [address] | | + + + + + Care Team Providers + +------+ + | Care Certified Personal Chef Name | Role | Phone | + [...] + + | 10/12/ | Office | [facility] | Sam Chopra, | Traumatic brain | | 2018 | Visit | PHYSIATRY [address] | [address] | injury with loss of | | | | [address] | [place] | consciousness, | | | | [place] | [address] | sequela (HCC) | | | | [address] | | (Primary Dx); Mild | | | | [phone] | | cognitive | | | | [...] m the original. Sam Chopra MD [address] [facility], [address] [place], [place] [address] FAX: PHYSICAL MEDICINE AND REHABILITATION H&P L&I Date: 05/31/17 L&I Number: [id number] CHIEF COMPLAINT: Chief Complaint Patient presents with [...] Extension 5 5 Finger Abduction 5 4+ Dispatch Coordinator Strength 5 5 Subjective sensory changes at C8 versus ulnar distribution. DATABASE: Cervical CT Dated 05/31/17 was reviewed personally by me in detail during today's visit. Th e imaging demonstrates: External films for comparison only - no result from [facility]. ASSESSMENT: 1. Traumatic brain injury with loss [...] feels more ready and safe. 5. Mookie Maosn should continue to work with Iris Peterson [...]
--- OUTSIDE RECORDS SUMMARY | ~2020-02-26 | XMS | Encounter Summary ---
Demographics + + + | Address | [address] [place] [address] | | | [place] [address] | + + + | Home Phone [...] BREAN[place] SMITH | | | | | [address] | | + + + + + Care Team Providers + +------+ + | Care Sludge Mill Operator Name | Role | Phone | [...] n | industrial | [address] | [place], | | | | | places and | [address] | [place] [address] | | | | | premises | [place], | Phone: | | | | | Closed head | [place] [address] | [phone] | | | | | injury with | Phone: | Fax: | | | | | brief loss | [phone] | [phone] | | | | | of | Fax: | | | | | | consciousnes | [phone] | | | | | | s ([facility]) | | | | | [...] | occurrence, | MD Barb | [address] | | | | n | industrial | [address] | [place], | | | | | places and | [address] | [place] [address] | | | | | premises | [place], | Phone: | | | | | Closed head | [place] [address] | [phone] | | | | | injury with | Phone: | Fax: | | | | | brief loss | [phone] | [phone] | | | | | of | Fax: | | | | | | consciousnes | [phone] | | | | | | s ([facility]) | | | +--------+ + + + [...] + + | 07/06/ | Office | [facility] | Iris Mast | Closed traumatic | | 2017 | Visit | [facility] | MD Barb [address] | displaced fracture | | | | [facility] [address] | [address] [place] | of shaft of left | | | | [address] [place] | [place] [address] | humerus, initial | | | | [place], [place] | [phone] | encounter (Primary | | | | [address] | | Dx); Place of | | | | [phone] | | occurrence, | | | | | | industrial places | | | | | | and premises; Lumbar | | | | | | transverse process | | | | | | fracture, closed, | | | | | | initial encounter | | | | | | ([facility]); Closed | | | | | | [...] | | | | | | encounter ([facility]); | | | | | | Closed head injury | | | | | | with brief loss of | | | | | | consciousness ([facility]) | +--------+---------+ + + + Social History [...] his injuries he was transported to the [facility] in [place]. He was h ospitalized, ultimately having surgery, ORIF of the left humeral fracture, state approximate 6 days in the hospital, then released. Recently he was seen and evaluated in the urgent ca re, and had surgical sutures over the left arm removed. He had arty been referred to orthop edics, Dr. Henderson, and was seen there yesterday by the physician assistant professor of biology. Had x-rays of h is left shoulder [...] Vital signs as noted, nursing notes reviewed. Ypwsdsr-itfw-zgfllsdwc, well-nourished, in no apparent distress, pleasant cooperative. [...] MMI status. This note was dictated using [employer] voice recognition software. Occasional wrong- word or [...] 1.001 - 1.030 | | | | [place], | | | | | | UA, [...]
--- OUTSIDE RECORDS SUMMARY | ~2020-02-26 | XMS | Encounter Summary ---
Demographics + + + | Address | [address] [place] [address] | | | [place] [address] | + + + | Home Phone | | + + + | Preferred Language | Unknown | + + + | Marital Status | | + + + | Sabianist Affiliation | Unknown | + + + | Race | Unknown | + + + | Ethnic Group | Unknown | + + + Author + + + | Author | [facility] | | | and [place] | + + + | Organization | [facility] | | | [...] [place] SMITH | | | | | [address] | | + + + + + Care Team Providers + +------+ + | Care Paver Installer Name | Role | Phone | [...] + + | 05/18/ | Office | [facility] | Iris Mast | Closed left arm | | 2018 | Visit | [facility] | MD Barb [address] | fracture, with | | | | [place] [address] | [address] [place] | routine healing, | | | | [address] | [place] [address] | subsequent encounter | | | | [place], [place] | [phone] | (Primary Dx); | | | | [address] | | Closed fracture of | | | | [phone] | | transverse process | | | [...] RIZWAN Date of injury: 05/31/17 Claim number: [id number] Chief complaint: Follow-up multiple injuries Subjective: Injured [...] Vital signs as noted, nursing notes reviewed. Eehkliz-fjcx-vwyamribl, well-nourished, in no apparent distress, pleasant cooperative. Left upper dfd-qtva-cxhsni surgical incision. Near full extension of the [...] MMI status. This note was dictated using [employer] voice recognition software. Occasional wrong- word or [...]
--- OUTSIDE RECORDS SUMMARY | ~2020-02-26 | XMS | Encounter Summary ---
Demographics + + + | Address | [address] [place] [address] | | | [place] [address] | + + + | Home Phone | | + + + | Preferred Language | Unknown | + + + | Marital Status | | + + + | Latter-Day Affiliation | Unknown | + + + [...] [place]AN[place] SMITH | | | | | [address] | | + + + + + Care Team Providers + +------+ + | Care Balloon Artist Name | Role | Phone | + +------+ + | Juli Squires DO | PCP | | + +------+ + Reason for Visit + + + | Reason | Comments | + + + | Pharyngitis | Room 4. x 3 days. | + + + | Laceration | left hand. Just wants it looked at. | + + + Encounter Details +--------+---------+ + + + | Date | Type | Department | Care Team | Description | +--------+---------+ + + + | 11/17/ | Office | [facility] | Luis Chavez DO | Strep pharyngitis | | 2019 | Visit | CARE [address] | [address] | (Primary Dx); | | | | [place] | [place] | Paronychia of left | | | | [address] | [address] | middle finger | | | | [phone] | | | +--------+---------+ + + + Social History + + + +--------+ + | Tobacco Use | Types | Packs/Day | Years | Date | | | | | Used | | + + + +--------+ + | Former Smoker | Cigarettes | 0.25 | 25 | Quit: 11/02/2018 | + + + +--------+ + + [...] + + + | Blood Pressure | 127/86 | 11/17/2018 9:03 AM | | | | | PST | | + + + + + | Pulse | 108 | 11/17/2018 9:03 AM | | | | | PST | | + + + + + | Temperature | 38.1 C (100.5 F) | 11/17/2018 9:03 AM | | | | | PST | | + + + + + | Respiratory Rate | 16 | 11/17/2018 9:03 AM | | | | | PST | | + + + + + | Oxygen Saturation | 96% | 11/17/2018 9:03 AM | | | | | PST | | + + + + + | Inhaled Oxygen | - | - | | | Concentration | | | | + + + + + | Weight | 65.6 kg (144 lb 10 | 11/17/2018 9:03 AM | | | | oz) | PST | | + + + + + | Height | 185.4 cm (6' 1") | 11/17/2018 9:03 AM | | | | | PST | | + + + + + | Body Mass Index | 19.08 | 11/17/2018 9:03 AM | | | | | PST | | + + + + + documented in this encounter Patient Instructions Patient Instructions Scott Luis Ramos, - 11/17/2018 9:37 AM PST Pharyngitis: Strep (Confirmed) You have had a positive test for strep throat. Strep throat is a contagious illness. It is spread by coughing, kissing or by touching others after touching your mouth or nose. Symptom s include throat pain that is worse with swallowing, aching all over, headache, and fever. I t is treated with antibiotic medicine. This should help you start to feel better in 1 to 2 d ays. Home care Rest at home. Drink plenty of fluids to you won't getdehydrated. No work or school for the first 2 days of taking the antibiotics. After this time, you w ill not be contagious. You can then return to school or work if you are feeling better. Takeantibiotic medicine for the full 10 days, even if you feel better. This is very im portant to ensure the infection is treated.It is also important to prevent medicine-resist ant germs from developing.If you were given an antibiotic shot, you don't need any more an tibiotics. You may use acetaminophenor ibuprofen to control pain or fever, unless another medicin e was prescribed for this. Talk with your healthcare provider before taking these medicines if you havechronic liver or kidney disease. Also talk with your healthcare provider if you havehad a stomach ulcer or GI bleeding. Throat lozenges or sprays help reduce pain. Gargling with warm saltwater will also reduc e throat pain. Dissolve 1/2 teaspoon of salt in 1 glass of warm water. This may be useful ju st before meals. Soft foods are OK. Don't eat salty or spicy foods. Follow-up care Follow up with your healthcare provider or our staff if you don't get better over the next week. When to seek medical advice Call your healthcare provider right away if any of these occur: Fever of 100.4F (38C) or higher, or as directed by your healthcare provider New or worsening ear pain, sinus pain, or headache Painful lumps in the back of neck Stiff neck Lymph nodesgetting larger or becoming soft in the middle You can't swallow liquids or you can'topen your mouth wide because ofthroat pain Signs of dehydration. These include very dark urine or no urine, sunken eyes, and dizzin ess. Trouble breathing or noisy breathing Muffled voice Rash Prevention Here are steps you can take to help prevent an infection: Keep good hand washing habits. Don t have close contact with people who have sore throats, colds, or other upper resp iratory infections. Don t smoke, and stay away from secondhand smoke. Date Last Reviewed: 08/02/201719999095-2267 [employer] [place] [address]. All righ ts reserved. This information is not intended as a substitute for professional medical care. Always follow your healthcare professional's instructions. Paronychia of theFinger or Toe Paronychia is an infection near a fingernail or toenail. It usually occurs when an opening in the cuticle or an ingrown toenail lets bacteria under the skin. The infection will need to be drained if pus is present. If the infection has been caught e gricel, you may need only antibiotic treatment. Healing will take about 1 to 2 weeks. Home care Follow these guidelines when caring for yourself at home: Clean and soak the toe or finger. Do this 2 times a day for the first 3 days. To do so: Soak your foot or hand in a tub of warm water for 5 minutes. Or hold your toe or finger under a faucet of warm running water for 5 minutes. Clean any crust away with soap and water using a cotton swab. Put antibiotic ointment on the infected area. Change the dressing daily or any time it gets dirty. If you were given antibiotics, take them as directed until they are all gone. If your infection is on a toe, wear comfortable shoes with a lot of toe room. You can al so wear open-toed sandals while your toe heals. You may use ywvb-vxn-axnxkln medicine (acetaminophen or ibuprofen to help with pain, unl ess another medicine was prescribed. If you have chronic liver or kidney disease, talk with your healthcare provider before using these medicines. Also talk with your provider if you'v e had a stomach ulcer or GI (gastrointestinal) bleeding. Prevention The following can prevent paronychia: Avoid cutting or playing with your cuticles at home. Don't bite your nails. Don't suck on your thumbs or fingers. Follow-up care Follow up with your healthcare provider, or as advised. When to seek medical advice Call your healthcare provider right away if any of these occur: Redness, pain, or swelling of the finger or toe gets worse Red streaks in the skin leading away from the wound Pus or fluid draining from the nail area Fever of 100.4F (38C) or higher, or as directed by your provider Date Last Reviewed: 05/02/201619998029-0760 [employer]. [address] [place] [address]. All righ ts reserved. This information is not intended as a substitute for professional medical care. Always follow your healthcare professional's instructions. documented in this encounter Progress Notes Luis Chavez DO - 11/17/2018 9:00 AM PSTFormatting of this note might be different from prosper richardson. Subjective: Mookie is an 38 y.o. male who presents to clinic for evaluation of Pharyngitis (Room 4. x 3 days. ) and Laceration (left hand. Just wants it looked at. ) Sorethroat, fever, no cough and lymph node swelling. Has h/o strep pharyngitis childhood b ut none since. He also c/o a small laceration on the middle finger of the left hand that he injured while working. It's now red and swollen with pustular d/c. Relevant PMH: Imms UTD. Social & Family Hx: No known strep exposure. Attends Allergies reviewed and updated as appropriate. Medications reviewed and updated as appropriate. Review of Systems: pertinent items are noted in the HPI. Objective: BP: 127/86 Pulse: 108 Temp: (!) 38.1 C (100.5 F) Resp: 16 SpO2: 96 % Height: 185.4 cm (6' 1") Weight: 65.6 kg (144 lb 10 oz) Constitutional: Alert, talkative, interactive and healthy-appearing 38 y.o. male in NAD Head: NC/AT, non-tender. Eyes: Normal lids, sclerae white, conjunctivae clear. Mucosa moist and pink. No drainage. Ears: Normal EAC. Bilateral TMs are flat, corea and translucent with normal landmarks. Nares: Mucosa moist and pink Mouth: MMM, pink, no lesions. Tonsils 2+ bilaterally exudate and erythema. Neck: Supple with normal ROM. No masses or lymphadenopathy. Heart: RRR, S1, S2 nl, no heart murmur auscultated. Lungs: No cough. Breathing comfortably. Lungs CTA bilaterally. Abdomen: + Bowel sounds. Abd soft, round, non-tender. MSK/Extremities: WWP Skin: No concerning rashes or lesions. With except ion of the right hand middle finger with paronycchia Neuro: Alert and oriented. Centor Score Calculation Criteria (points) Points Calculated Score Absence of cough 1 1 Swollen and tender anterior cervical nodes 1 1 Temp>100.4 1 1 Tonsillar exudates or swelling 1 1 Age 3-14 years 1 15-44 years 0 0 45 years and older -1 Cumulative Score 4 Score Risk of GABHS pharyngitis 0 1-2.5% (no testing) 1 5-10% (consider rapid) 2 11-17% (rapid) 3 28-35% (rapid) 4 51-53% (empiric abx) Labs/Diagnostics: Strep A NAAT: Positive Assessment/Plan: 1. Strep pharyngitis guaiFENesin-codeine (ROBITUSSIN AC) 100-10 mg/5 mL liquid Strep A DNA probe, NAAT 2. Paronychia of left middle finger clindamycin (CLEOCIN) 300 MG capsule F/u prn. Luis Chavez DO, FAAFP [facility] documented in this encoun ter Plan of Treatment Not on filedocumented as of this encounter Procedures + +--------+ + + + | Procedure Name | Priori | Date/Time | Associated Diagnosis | Comments | | | ty | | | | + +--------+ + + + | STREP A DNA PROBE, | STAT | 11/17/2018 | Strep pharyngitis | Results for this | | NAAT | | 9:51 AM | | procedure are in the | | | | PST | | results section. | + +--------+ + + + documented in this encounter Results Strep A DNA probe, NAAT (11/17/2018 9:51 AM PST) + + + + + + | Component | Value | Ref Range | Performed | Pathologist | | | | | At | Signature | + + + + + + | Group [facility] | Positive (A) | Negative | [facility] | | | [...] + + | [facility] | [address] | [place] | [phone] | | [facility] | | [address] | | | [facility] | | | | + + + + + documented in this encounter Visit Diagnoses + + | Diagnosis | + + | Strep pharyngitis - Primary Streptococcal sore throat | + + | Paronychia of left middle finger | + + documented in this encounter
--- OUTSIDE RECORDS SUMMARY | ~2020-02-26 | XMS | Encounter Summary ---
Demographics + + + | Address | [address] [place] [address] | | | [place] [address] | + + + | Home Phone | | + + + | Preferred Language | Unknown | + + + | Marital Status | | + + + | Druze Affiliation | Unknown | + + + | Race | Unknown | + + + | Ethnic Group | Unknown | + + + Author + + + | Author | [facility] | | | and [place] | + + + | Organization | [facility] | | [...] [place] | | | | | [address] | | + + + + + Care Team Providers + +------+ + | Care Range Master Name | Role | Phone | + +------+ + PCP | Unavailable | + +------+ + Encounter Details +--------+ + + + + | Date | Type | Department | Care Team | Description | +--------+ + + + + | 02/23/ | [facility] | LUCY MENDOZA | Vu, | | | 2001 | Encounter | [facility] | MD [address] | | | | | EMERG[facility]Y CENTER | [address] [place], | | | | | [address] | [place] [address] | | | | | [place], [place] | [phone] | | | | | [address] | | | | | | [phone] | | | +--------+ + + + [...]
--- OUTSIDE RECORDS SUMMARY | ~2020-02-26 | XMS | Encounter Summary ---
Demographics + + + | Address | [address] [place] [address] | | | [place] [address] | + + + | Home Phone | | + + + | Preferred Language | Unknown | + + + | Marital Status | | + + + | Yazidi Affiliation | Unknown | + + + | Race | Unknown | + + + | Ethnic Group | Unknown | + + + Author + + + | Author | [facility] | | | and [place] | + + + | Organization | [facility] | | [...] [place] | | | | | [address] | | + + + + + Care Team Providers + +------+ + | Care Machine Gun Mechanic Name | Role | Phone | [...] | | | | | premises | [facility] [place], | [address] Phone: | | | | | Closed head | [place] [address] | [phone] | | | | | injury with | Phone: | Fax: | | | | | brief loss | [phone] | [phone] | | | | | of | Fax: | | | | | | consciousnes | [phone] | | | | | | s [...] + + | 02/15/ | Office | [facility] | Iris Mast | Closed fracture of | | 2018 | Visit | MED CTR THERAPY PT | MD Brab [address] | shaft of left | | | | OP [address] | [address] [place] | humerus with routine | | | | [place], [place] | [place] [address] | healing, | | | | [address] | [phone] | unspecified fracture | | | | [phone] | | morphology, | | | | | Catie Squires B, PT | subsequent | | | | | [address] | encounter; Dizziness | | | | | [place], [place] | due to old head | | | | | [address] | injury; Left upper | | | [...] Squires, PT - 02/15/2018 2:45 PM PDT [facility] CTR THERAPY PT OP [address] [place] [address] Physical Therapy Daily Treatment Note Date: 02/15/2018 [...] Rehab Precautions Office Visit from 08/10/2017 in [facility] MED CTR THERAPY PT OP Rehab Precautions Precautions None Rehab Learning Style Office Visit from 08/10/2017 in [facility] CTR THERAPY PT OP [facility]SM 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 (Authorization for 8 visit 02/05-03/08) Pain Assessment: [...]
--- OUTSIDE RECORDS SUMMARY | ~2020-02-26 | XMS | Encounter Summary ---
Demographics + + + | Address | [address] [place] [address] | | | [place] [address] | + + + | Home Phone [...] [place] SMITH | | | | | [address] | | + + + + + Care Team Providers + +------+ + | Care Ice Plant Operator Name | Role | Phone | [...] [address] | | | | | ([facility]) | PA-C [address] | [place], | | | | | Procedures | [address] | [place] [address] | | | | | [address] Head wo | [place] [address] | Phone: | | | | | Contrast | [place], | [phone] | | | | | | [place] [address] | Fax: | | | | | | Phone: | [phone] | | | | | | [phone] | | | | | | | Fax: | | | | | | | [phone] | | +--------+--------+ + + + + [...] | | places and | address | [place], [place] | | | | | premises | | [address] Phone: | | | | | | | [phone] | | | | | | | Fax: | | | | | | | [phone] | +--------+ + + + + + Encounter Details +--------+---------+ + + + | Date | Type | Department | Care Team | Description | +--------+---------+ + + + | 07/24/ | Office | [facility] | Raudel Chong | Brain bleed (HCC) | | 2017 | Visit | NEUROSURGERY [address] | D, PA-C [address] | (Primary Dx); Closed | | | | [address] [place] [address] | [address] [place] [address] | fracture of left | | | | [place], [place] | [place], [place] | upper extremity with | | | | [address] | [address] | routine healing, | | | | [phone] | | subsequent encounter | +--------+---------+ + [...] from the original. Raudel Chong PA-C [address] [facility], [address] [place] [address] FAX: NEUROSURGERY HISTORY AND PHYSICAL EXAMINATION CHIEF [...] HUMERUS SURGERY Left 06/14/2017 [facility] [place] CURRENT MEDICATIONS: Current Outpatient Prescriptions Medication Sig [...] has no apparent deficits with short or intermediate frame tender memory. CRANIAL NERVES: II: Acuity is intact. [...] Intrinsics 5 5 Ulnar Intrinsics 5 5 Shearer Helper Strength 5 5 Hip Flexion 5 5 [...]
--- OUTSIDE RECORDS SUMMARY | ~2020-02-26 | XMS | Encounter Summary ---
Demographics + + + | Address | [address] [place] [address] | | | [place] [address] | + + + | Home Phone | | + + + | Preferred Language | Unknown | + + + | Marital Status | | + + + | Shinto Affiliation | Unknown | + + + | Race | Unknown | + + + | Ethnic Group | Unknown | + + + Author + + + | Author | [facility] | | | and [place] | + + + | Organization | [facility] | | | [...] [place] | | | | | [address] | | + + + + + Care Team Providers + +------+ + | Care Propeller Mechanic Name | Role | Phone | + +------+ + | No, Physician | PCP | Unavailable | + +------+ + Encounter Details +--------+ + + + + | Date | Type | Department | Care Team | Description | +--------+ + + + + | 10/12/ | Hospital | [facility] | Sam Chopra, | Cervicalgia; Atrophy | | 2018 | Encounter | MED CTR XRAY [address] | MD [address] | of muscle of left | | | | [address] | [place], [place] | upper arm; | | | | [place] [address] | [address] | Fasciculations; | | | | [phone] | | Chronic left | | | | | | shoulder pain | +--------+ + + + + Social [...] + +--------+ + + + | XR CERVICAL SPINE 4 | Routin | 10/12/2017 | Cervicalgia | Results for this | | OR 5 VWS | e | 11:30 AM | Atrophy of muscle of | procedure are in the | | | | PST | left upper arm | results section. | | | | | Fasciculations | | | | | | Chronic left | | | | | | shoulder pain | | + +--------+ + + + documented in this encounter Results XR Cervical Spine 4 [...] + + | Austin, Andre Results In 10/12/2017 12:40 PM PST EXAM:XR CERVICAL SPINE [...] left upper arm | + + | Fasciculations Abnormal involuntary movements | + + | Chronic left shoulder pain Pain in joint, shoulder region | + + documented in this encounter"
--- OUTSIDE RECORDS SUMMARY | ~2020-02-26 | XMS | Encounter Summary ---
Demographics + + + | Address | [address] [place] [address] | | | [place] [address] | + + + | Home Phone | | + + + | Preferred Language | Unknown | + + + | Marital Status | | + + + | Pentecostal Affiliation | Unknown | + + + | Race | Unknown | + + + | Ethnic Group | Unknown | + + + Author + + + | Author | [facility] | | | and [place] | + + + | Organization | [facility] | | | and [...] [place] | | | | | [address] | | + + + + + Care Team Providers + +------+ + | Care Soil Field Technician Name | Role | Phone | [...] + + | 01/14/ | Refill | [facility] | Iris Mast | Medication Refill | | 2018 | | [facility] | MD [address] | | | | | [address] | [address] [place] | | | | | [address] [place] | [place] [address] | | | | | [place], [place] | [phone] | | | | | [address] | | | | | | [phone] | | | +--------+--------+ + + + [...]
--- OUTSIDE RECORDS SUMMARY | ~2020-02-26 | XMS | Encounter Summary ---
Demographics + + + | Address | [address] [place] [address] | | | [place] [address] | + + + | Home Phone | | + + + | Preferred Language | Unknown | + + + | Marital Status | | + + + | Anglican Affiliation | Unknown | + + + | Race | Unknown | + + + | Ethnic Group | Unknown | + + + Author + + + | Author | [facility] | | | and [place] | + + + | Organization | [facility] | | | [...] [place] | | | | | [address] | | + + + + + Care Team Providers + +------+ + | Care Petroleum Products Sales Representative Name | Role | Phone | + [...] | [facility] [place], | [address] Phone: | | | | | Closed head | [place] [address] | [phone] | | | | | injury with | Phone: | Fax: | | | | | brief loss | [phone] | [phone] | | | | | of | Fax: | | | | | | consciousnes | [phone] | | | | | | s [...] Description | +--------+---------+ + + + | 02/08/ | Office | [facility] | Iris Mast | Closed fracture of | | 2018 | Visit | MED CTR THERAPY PT | MD Barb [address] | shaft of left | | | | OP [address] | [address] [place] | humerus with routine | | | | [place], [place] | [place] [address] | healing, | | | | [address] | [phone] | unspecified fracture | | | | [phone] | | morphology, | | | | | Catie Squires B, PT | subsequent | | | | | [address] | encounter; Dizziness | | | | | [place], [place] | due to old head | | | | | [address] | injury; Left upper | | | [...] encounter Progress Notes Catie Squires, PT - 02/08/2018 2:45 PM PDT [facility] CTR THERAPY PT OP [address] [place] [address] Physical Therapy Daily Treatment Note Date: 02/08/2018 Patient Information Patient Name: Mookie Mason Date [...] Rehab Precautions Office Visit from 08/10/2017 in [facility] CTR THERAPY PT OP Rehab Precautions Precautions None Rehab Learning Style Office Visit from 08/10/2017 in [facility] CTR THERAPY 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 To have pain in his left shoulder/neck and low back (Authorization for 8 visit 02/05-6/7) Pain Assessment: Pain Rating Pre Assessment: 3 Pain Rating During Assessment: 0 (neck 0/10, low back 4/10) Location: neck (left), left UE, low back Objective: Manual therapy: STM and TPR to intra scap, pec.minor, upper trap., levator scap., sub-scap., scalenes, sub occipital release MWM for left rotation C6, C3, C4 and extension at C3-4 insturcted pt and Tyesha on self mobilization using towel; will assist due t o left UE pain limited ability to hold towel TherEx: HEP Supine cervical spine retraction 2x5 with 2 sec hold Prone cervical spine extension 2x10 with 3 sec hold Seated bilateral shoulder ER with elevation to approx. 80 deg (no resistance due to left ar m pain) Kinesio tape to unload left shoulder Assessment: pt reported decreased neck pain after manual therapy and was able to tolerate g entle therEx. Pt would benefit from cont. Therapy to increase strength, posture and ROM to i mprove ability to complete daily tasks and return to work without limitations. Next Visit: Cont. To progress posterior chain/neck strength Electronically signed by: Catie Squires PT, 02/09/2018 8:41 Patient Name: Mookie Palmer Marlon/: 1980/ documented [...]
--- OUTSIDE RECORDS SUMMARY | ~2020-02-26 | XMS | Encounter Summary ---
Demographics + + + | Address | [address] [place] [address] | | | [place] [address] | + + + | Home Phone | | + + + | Preferred Language | Unknown | + + + | Marital Status | | + + + | Voodoo Affiliation | Unknown | + + + | Race | Unknown | + + + | Ethnic Group | Unknown | + + + Author + + + | Author | [facility] | | | and [place] | + + + | Organization | [facility] | | [...] BREANNA SMITH | | | | | [address] | | + + + + + Care Team Providers + +------+ + | Care Director Learning Services Name | Role | Phone | + [...] Description | +--------+---------+ + + + | 10/08/ | Office | [facility] | Iris Mast | Closed fracture of | | 2019 | Visit | [facility]ATIONAL [facility] | MD [address] | shaft of left | | | | [address] | [address] [place] | humerus with routine | | | | [address] [place] | [place] [address] | healing, | | | | [place], [place] | [phone] | unspecified fracture | | | | [address] | | morphology, | | | | [phone] | | subsequent encounter | | | | | | (Primary Dx); | | | | | | Closed fracture of | | | | | | transverse process | | | | | | of lumbar vertebra | | | | | | with routine | | | | | | healing, subsequent | | | | | | encounter; Traumatic | | | | | | brain injury with | | | | | | loss of | | | | | | consciousness, | | | | | | subsequent | | | | | | encounter; | | | | | | Incomplete tear of | | | | | | left rotator cuff; | | | | | | Closed nondisplaced | | | | | | fracture of pelvis, | | | | | | unspecified part of | | | | | | pelvis, initial | | | | | | encounter (HCC); | | | | | | [...] + + + | Blood Pressure | 135/93 | 10/08/2018 1:09 PM | | | | | PST | | + + + + + | Pulse | 106 | 10/08/2018 1:09 PM | | | | | PST | | + + + + + | Temperature | 36.9 C (98.5 F) | 10/08/2018 1:09 PM | | | | | PST [...] Weight | 64 kg (141 lb) | 10/08/2018 1:09 PM | | | | | PST | | + + + + + | Height | 185.4 cm (6' 1") | 10/08/2018 1:09 PM | | | | | PST | | + + + + + | Body Mass Index | 18.6 | 10/08/2018 1:09 PM | | | | | PST | | + + + + + documented in this encounter Progress Notes Iris Mast MD - 10/08/2018 1:15 PM PSTEmployer: [employer] Guarantor: RIZWAN Date of injury: 05/31/17 Claim number: [id number] Chief complaint: Followup multiple injuries, closing evaluation Subjective: Injured workers a 38-year-old male presents today for scheduled follow-up. His original in jury occurred when he slipped and fell off of a roof. He did have loss of consciousness. I nitial evaluation included a CT of the head which revealed a questionable hemorrhage within the quadrigeminal plate cistern, CT of the cervical spine revealed a questionable left apica l pneumothorax and questionable compression fracture of C4, pelvic x-rays revealed right sac ral and left inferior pubic rami fractures, CT of the chest abdomen and pelvis revealed a no ndisplaced left ninth rib fracture with lung contusion, small left apical pneumothorax, righ t hemisacrum and left inferior pubic rami fractures and L1-2 and 3 left transverse process f ractures, left humerus x-ray revealed a displaced diaphyseal fracture of the left humerus. On 06/06/17 he underwent ORIF for the left humeral fracture no treatments were instituted for the sacral and pubic rami fractures, neurosurgical consultation for the transverse process f ractures and questionable intracranial abnormality was obtained and no intervention was radha mmended. The left apical pneumothorax resolve spontaneously. He was referred to Dr. veliz, physiatry, for the head injury and persistent postconcussive symptoms. He was referred to physical therapy and speech therapy was initiated.he was referred to neurosurgery locally an d repeat CT imaging of the head was requested, and showed no acute abnormalities and no furt her follow-up was recommended. He continued under the care of Dr. veliz being treated for p ostconcussive symptoms, treated with medications, completed speech and physical therapy ashkan kumar seen continued improvement. Had resolution of headaches and dizziness but still some mild memory issues which have continued to improve over the course of time. For the igor l fracture follow-up he was referred to Dr. Henderson, continued to have persistent discomfort and symptoms, with pain in the shoulder, MRI of the shoulder was obtained which revealed a p artial thickness rotator cuff tear. This was treated with physical and occupational therapy . Because of persistent left arm complaints he was referred back to his operating surgeon, and additional surgical procedure was recommended. On 02/20/18 he underwent surgical procedu re to remove hardware with subsequent bone graft from the left hip. Postoperatively he cont inued to have persistent pain in the left arm. Repeat imaging studies were obtained which r evealed a fracture of the hardware in the left arm,, a fractured fourth screw and he was ref erred back to his operating surgeon. He then underwent a third procedure on the arm and all hardware was removed except for the fractured screw. He was essentially released from care from orthopedic standpoint without restrictions. Postoperatively he did well, has particip ated in physical therapy but still has discomfort over the incision and essentially the enti re left upper arm but feels that strength is recovering and range of motion has been maintai naty. He was treated conservatively for the rib fractures and has done well, currently asymp tomatic. He has participated in physical therapy for continued and persistent pelvic discom fort, has done well, completed a course of therapy and feels that the pelvic pain has improv ed significantly. However has continued to have persistent low back discomfort despite cons ervative care, felt, by physiatry consultation, that would continue to improve over the cour se of time without need for additional interventions. There is no radiation of pain into th e legs or feet and no associated numbness, tingling, or weakness of the extremities, no ailyn l or bladder incontinence or saddle-type anesthesia. Work hardening/conditioning was recomm ended but denied until a course of physical therapy could be completed. He has since comple elijah all approved physical therapy sessions. He does not wish to pursue work hardening or co nditioning, is in the process of getting a new job which is likely to start next week and th e time allow once for work hardening would not allow him to be hired for this. He has been advancing his activities on his own and feels that it is not necessary. Objective: Vital signs as noted, nursing notes reviewed. Cvprnxv-baxh-uuekspthw well-nourished in no apparent distress, pleasant and cooperative. neck-normal to inspection. No paraspinous muscle spasticity. No vertebral point tenderne ss, crepitus, or step-off. No tender points elicited with palpation. Full range of motion without pain or limitation. Chest-normal to inspection. No tenderness with palpation. No pain with AP or lateral ches t compression. Back-normal to inspection. No paraspinous muscle spasticity. No vertebral point tendernes s, crepitus, or step-off. No CVA tenderness to percussion. Mild tenderness of paravertebra l muscles of the upper lumbar back. Full range of motion without limitation. Left shoulder-normal to inspection. No gross asymmetry by deformity. No tender points katerine cited with palpation. Full range of motion without pain or limitation. Left upper hxgzmcuzf-offk-lcgfwa surgical incision over the anterior bicep which is diffuse ly tender with palpation. No fluctuance, induration, erythema or warmth. Full range of mot ion of the elbow without limitation or pain. No discrepancy muscle bulk or tone of the bilateral extremities upper and lower. Periphera l pulses 2+/4. Neuro--cranial nerves II through XII grossly intact. Motor strength 5/5 bilat upper extremities DTR's biceps,triceps, brachioradialis 2+/4 bilat Sensation grossly intact to light touch bilat upper extremities Motor strength 5/5 bilat lower extremities DTR's- patellar and ankle - 2+/4 bilat Neg SLR from a seated position bilat Normal toe/heel walk Normal squat Gait steady and symmetric Sensation grossly intact to light touch bilat lower extremities. Imaging/diagnostics: See medical record for reports of previous imaging studies. Pending interventions: none Assessment: 1. Left humeral shaft fracture-status post ORIF-and recent hardware removal 2. Right abhay-sacrum and left inferior pubic ramus fracture 3. L1-L3 left transverse process fractures 4. Left ninth rib fracture 5. Head injury with loss of consciousness Plan: Injured worker has finished with approved medical treatments, returned to regular activitie s and is doing well. Still has subjective complaints of pain in the back and left arm, like ly will improve over the course of time. He has no permanent restrictions and is currently attempting to find employment, likely excepting a new position within the next one week. Pe rmanent impairment is anticipated, and I am requesting an independent medical examination fo r impairment rating purposes. After addressing his questions, he is being released from car e and will followup on an as-needed basis. Injured worker is medically stationary. No further curative medical treatments are indicat ed. No need for work accommodations or vocational services. Permanent impairment is an anticipated consequence of this injury and PRIMO for rating purpos es is being requested. This note was dictated using [employer] voice recognition software. Occasional wrong- word or [...] | subsequent encounter | + + | Traumatic brain injury with loss of consciousness, subsequent encounter | + + | Incomplete tear of left rotator cuff | + + | Closed nondisplaced fracture of pelvis, unspecified part of pelvis, initial encounter | | ([facility]) | + + | Place of occurrence, industrial places and premises | + + documented in this encounter
--- OUTSIDE RECORDS SUMMARY | ~2020-02-26 | XMS | Encounter Summary ---
Demographics + + + | Address | [address] [place] [address] | | | [place] [address] | + + + | Home Phone | | + + + | Preferred Language | Unknown | + + + | Marital Status | | + + + | Anabaptism Affiliation | Unknown | + + + | Race | Unknown | + + + | Ethnic Group | Unknown | + + + Author + + + | Author | [facility] | | | and [place] | + + + | Organization | [facility] | | [...] BREANNA SMITH | | | | | [address] | | + + + + + Care Team Providers + +------+ + | Care Behavioral Health Director Name | Role | Phone | [...] | | | | subsequent | [place] [address] | [address] Phone: | | | | | encounter | Phone: | [phone] | | | | | Place of | [phone] | Fax: | | | | | occurrence, | Fax: | [phone] | | | | | industrial | [phone] | | | | | | places [...] + + | 01/19/ | Office | [facility] | ProIris | Closed left arm | | 2018 | Visit | [facility]ATIONAL [facility]ALTH | MD [address] | fracture, with | | | | [address] [place] | routine healing, | | | | [address] [place] | [place] [address] | subsequent encounter | | | | [place] | [phone] | (Primary Dx); Place | | | | [address] | | of occurrence, | | | | [phone] | | industrial places | | | [...] RIZWAN Date of injury: 05/31/17 Claim number: [id number] Chief complaint: Follow-up multiple injuries Subjective: Injured [...] Vital signs as noted, nursing notes reviewed. Pndbval-qfyj-shoznpxzn, well-nourished, in no apparent distress, pleasant cooperative. [...] MMI status. This note was dictated using [employer] voice recognition software. Occasional wrong- word or [...]
--- OUTSIDE RECORDS SUMMARY | ~2020-02-26 | XMS | Encounter Summary ---
Demographics + + + | Address | [address] [place] [address] | | | [place] [address] | + + + | Home Phone | | + + + | Preferred Language | Unknown | + + + | Marital Status | | + + + | Orthodox Affiliation | Unknown | + + + | Race | Unknown | + + + | Ethnic Group | Unknown | + + + Author + + + | Author | [facility] | | | and [place] | + + + | Organization | [facility] | | | and [...] BREANNA SMITH | | | | | [address] | | + + + + + Care Team Providers + +------+ + | Care Athletic Coordinator Name | Role | Phone | [...] [place]AR | | | | | [address] | [address] | | | | | [phone] | | | +--------+ + + + [...]
--- OUTSIDE RECORDS SUMMARY | ~2020-02-26 | XMS | Encounter Summary ---
Demographics + + + | Address | [address] [place] [address] | | | [place] [address] | + + + | Home Phone [...] BREANNA SMITH | | | | | [address] | | + + + + + Care Team Providers + +------+ + | Care Winding Machine Operator Name | Role | Phone | + +------+ + PCP | Unavailable | + +------+ + Encounter Details +--------+ + + + + | Date | Type | Department | Care Team | Description | +--------+ + + + + | 06/18/ | [facility] | Yasmani Ignacio | | | 2008 | Encounter | HOSPITAL EMERGENCY | MD [address] | | | | | C[address] | [facility] | | | | | [address] [place] | [place] [address] | | | | | [address] | [phone] | | | | | [phone] | | | +--------+ + + + [...]
--- OUTSIDE RECORDS SUMMARY | ~2020-02-26 | XMS | Encounter Summary ---
Demographics + + + | Address | [address] [place] [address] | | | [place] [address] | + + + | Home Phone [...] BREANNA SMITH | | | | | [address] | | + + + + + Care Team Providers + +------+ + | Care Bridge Tender Name | Role | Phone | [...] | | | | | premises | [facility] [place], | [address] Phone: | | | | | Closed head | [place] [address] | [phone] | | | | | injury with | Phone: | Fax: | | | | | brief loss | [phone] | [phone] | | | | | of | Fax: | | | | | | consciousnes | [phone] | | | | | | s [...] Description | +--------+---------+ + + + | 12/12/ | Office | [facility] | Iris Mast | Closed fracture of | | 2018 | Visit | MED CTR THERAPY PT | MD [address] | shaft of left | | | | OP [address] | [address] [place] | humerus with routine | | | | [place], [place] | [place] [address] | healing, | | | | [address] | [phone] | unspecified fracture | | | | [phone] | | morphology, | | | | | Catie Squires B, PT | subsequent | | | | | [address] | encounter; Dizziness | | | | | [place], [place] | due to old head | | | | | [address] | injury; Left upper | | | [...] encounter Progress Notes Catie Squires, PT - 12/12/2017 2:45 PM PDT [facility] CTR THERAPY PT OP [address] [place] [address] Physical Therapy Daily Treatment Note Date: 12/12/2017 Patient Information Patient Name: Mookie Mason Date [...] Row Office Visit from 08/10/2017 in [facility] CTR THERAPY PT OP Rehab Precautions Precautions None Rehab Learning Style Flowsheet Row Office Visit from 08/10/2017 in [facility] CTR THERAPY PT OP [facility] OP EVAL from 07/26/2017 in [facility] SPEECH THERAPY Learning Style Patient's [employer] Learning Style listening, observation listening, observation Start Time: 1445 Stop time: 1530 Duration: 45 minutes Timed Treatment Codes: 45 minutes # of PT Visits to Date: 21 Subjective: Pt reports some increased left neck/shoulder pain and relates that to being able to do more activity Pain Assessment: Pain Rating Pre Assessment: 4 Pain Rating During Assessment: 2 Location: left: neck/shoulder Objective: Manual therapy: STM and TPR to intra scap, pec.minor, upper trap., levator scap., sub-scap., scalenes, sub occipital release TherEx: Supine cervical spine retraction 2x5 with 2 sec hold Supine DNF 2x10 Prone cervical spine extension 2x10 Assessment: pt reported decreased pain and improved ROM after manual therapy and was able t o tolerate gentle therEx. Pt would benefit from cont. Therapy to increase strength, posture and ROM to improve ability to complete daily tasks and return to work without limitations. Next Visit: prog. Note/recert. Electronically signed by: Catie Squires PT, 12/12/2017 16:12 Patient Name: Mookie Palmer Marlon/: 1980/ documented [...]
--- OUTSIDE RECORDS SUMMARY | ~2020-02-26 | XMS | Encounter Summary ---
Demographics + + + | Address | [address] [place] [address] | | | [place] [address] | + + + | Home Phone | | + + + | Preferred Language | Unknown | + + + | Marital Status | | + + + | Shinto Affiliation | Unknown | + + + | Race | Unknown | + + + | Ethnic Group | Unknown | + + + Author + + + | Author | [facility] | | | and [place] | + + + | Organization | [facility] | | [...] BREANNA SMITH | | | | | [address] | | + + + + + Care Team Providers + +------+ + | Care Plastics Fabricator And Assembler Name | Role | Phone | + +------+ + PCP | Unavailable | + +------+ + Encounter Details +--------+ + + + + | Date | Type | Department | Care Team | Description | +--------+ + + + + | 08/10/ | [facility] | Wil Lakhani | | | 2010 | Encounter | HOSPITAL EMERGENCY | [address] | | | | | C[address] | [facility] | | | | | [address] [place] [place] | [place] [address] | | | | | [address] | [phone] | | | | | [phone] | | | +--------+ + + + [...]
--- OUTSIDE RECORDS SUMMARY | ~2020-02-26 | XMS | Encounter Summary ---
Demographics + + + | Address | [address] [place] [address] | | | [place] [address] | + + + | Home Phone [...] BREANNA SMITH | | | | | [address] | | + + + + + Care Team Providers + +------+ + | Care Personal Banking Assistant Name | Role | Phone | [...] | | | | | premises | [facility] [place], | [address] Phone: | | | | | Closed head | [place] [address] | [phone] | | | | | injury with | Phone: | Fax: | | | | | brief loss | [phone] | [phone] | | | | | of | Fax: | | | | | | consciousnes | [phone] | | | | | | s [...] Description | +--------+---------+ + + + | 12/01/ | Office | [facility] | Iris Mast | Closed fracture of | | 2018 | Visit | MED CTR THERAPY PT | MD [address] | shaft of left | | | | OP [address] | [address] [place] | humerus with routine | | | | [place], [place] | [place] [address] | healing, | | | | [address] | [phone] | unspecified fracture | | | | [phone] | | morphology, | | | | | Catie Squires B, PT | subsequent | | | | | [address] | encounter; Dizziness | | | | | [place], [place] | due to old head | | | | | [address] | injury; Left upper | | | [...] encounter Progress Notes Catie Squires, PT - 12/01/2017 8:00 AM PST [facility] CTR THERAPY PT OP [address] [place] [address] Physical Therapy Daily Treatment Note Date: 12/01/2017 Patient Information Patient Name: Mookie Mason Date [...] Flowsheet Row Office Visit from 08/10/2017 in [facility] CTR THERAPY PT OP Rehab Precautions Precautions None Rehab Learning Style Flowsheet Row Office Visit from 08/10/2017 in [facility] CTR THERAPY PT OP [facility] OP EVAL from 07/26/2017 in [facility] SPEECH THERAPY Learning Style Patient's [employer] Learning Style listening, observation listening, observation Start Time: 0800 Stop time: 0842 Duration: 42 minutes Timed Treatment Codes: 42 minutes # of PT Visits to Date: 18 Subjective: pt reports that he cont. To have neck pain and left UE pain. pt reports that he is now only having more localized left shoulder pain and overall is havi ng less pain. Pt does cont. To have difficulty with pulling up pants. Pt reports that he has been release back to light duty but isn't sure how he will find a aly b that will hire him until he is released back to full duty. Pain Assessment: Pain Rating Pre Assessment: 4 Location: neck, left UE Objective: Pre tx; right neck rotation 60 deg 5/10 pain Left neck rotation 63 deg 5/10 pain Manual therapy: STM and TPR to intra scap, pec.minor, upper trap., levator scap., sub-scap., scalenes, sub occipital release Post tx: right neck rotation 75 deg 3/10 pain Left neck rotation 80 deg 3/10 pain TherEx: -prone "I" and "T": 2x10 each -seated bilateral shoulder ER 2x10 Assessment: pt demonstrated improved ROM and decreased [...] strength Electronically signed by: Catie Squires PT, 12/01/2017 8:42 Patient Name: Mookie Palmer Marlon/: 1980/ documented [...]
--- OUTSIDE RECORDS SUMMARY | ~2020-02-26 | XMS | Encounter Summary ---
Demographics + + + | Address | [address] [place] [address] | | | [place] [address] | + + + | Home Phone | | + + + | Preferred Language | Unknown | + + + | Marital Status | | + + + | Gnosticist Affiliation | Unknown | + + + | Race | Unknown | + + + | Ethnic Group | Unknown | + + + Author + + + | Author | [facility] | | | and [place] | + + + | Organization | [facility] | | | [...] BREANNA SMITH | | | | | [address] | | + + + + + Care Team Providers + +------+ + | Care Help Desk Manager Name | Role | Phone | [...] Description | +--------+---------+ + + + | 10/30/ | Office | [facility] | Iris Mast | Strain of neck | | 2018 | Visit | [facility] | MD [address] | muscle, subsequent | | | | [address] | [address] [place] | encounter (Primary | | | | [address] [place] | [place] [address] | Dx); Closed fracture | | | | [place], [place] | [phone] | of shaft of left | | | | [address] | | humerus with routine | | | | [phone] | | healing, | | | | | | unspecified fracture | | | | | | morphology, | | | | | | subsequent | | | | | | encounter; Closed | | | | | | fracture of | | | | | | transverse process | | | | | | of lumbar vertebra | | | | | | with routine | | | | | | healing, subsequent | | | | | | encounter; Closed | | | | | | nondisplaced | | | | | | fracture of pelvis, | | | | | | unspecified part of | | | | | | pelvis, initial | | | | | | encounter ([facility]); | | | | | | Traumatic brain | | | | | | injury with loss of | | | | | [...] + + + | Blood Pressure | 181/115 | 10/30/2018 12:59 PM | | | | | PST | | + + + + + | Pulse | 111 | 10/30/2018 12:59 PM | | | | | PST | | + + + + + | Temperature | 36.8 C (98.3 F) | 10/30/2018 12:59 PM | | | | | PST [...] Weight | 63.5 kg (140 lb) | 10/30/2018 12:59 PM | | | | | PST | | + + + + + | Height | 185.4 cm (6' 1") | 10/30/2018 12:59 PM | | | | | PST | | + + + + + | Body Mass Index | 18.47 | 10/30/2018 12:59 PM | | | | | PST | | + + + + + documented in this encounter Progress Notes Iris Mast MD - 10/30/2018 1:00 PM PSTEmployer: [employer] Guarantor: SABRITTANY Date of injury: 05/31/17 Claim number: [id number] Chief complaint: Follow-up multiple injuries Subjective: Injured workers a 38-year-old male who presents today for follow-up. At his last visit we did perform a closing evaluation, an independent medical examination was being requested as well before closing and rating purposes. This has not yet been scheduled. He did complete his remaining physical therapy, and since his last visit had one session remaining, lifted a 5 pound weight with his left arm, and the following morning awoke and was unable to turn hi s head to the left because of increased discomfort and pain in the neck. He was seen and ev aluated in the emergency department, there was concern that this may be a cervical radiculop athy because of his persistent left arm discomfort after a left humeral fracture and an MRI of the cervical spine was obtained. He states he was told he had a pinched nerve, and wrist referred back for evaluation. He states the discomfort in the left side of the neck has si gnificantly improved. Is now able to move the neck freely with very little discomfort. He continues to have pain in the left arm which historically and presently radiates up into the shoulder and neck area and this has been relatively unchanged. No numbness or paresthesias of the arm or hand. He states prior to the incident at physical therapy he had no problems with the neck. He voices frustration over his persistent mental fogginess and problems with memory, pain i n the left arm with lifting even small amount of weight and chronic pain in the pelvis and l ow back. He and his are concerned about the continued and persistent chronic pain. He has been using topical medications, Tylenol and ibuprofen on an as-needed basis. Past medical history, medications, allergies reviewed Review of systems: As per [facility] Objective: Vital signs as noted, nursing notes reviewed. Ufmwgnp-dfcv-clwabjyyi, well-nourished, in no apparent distress, pleasant cooperative. Neck-normal to inspection. No paraspinous muscle spasticity. Full range of motion without limitation. Left lateral rotation produces mild discomfort in the left posterior neck. Ne gative Spurling's testing bilaterally. Neuro-Motor strength 5/5 bilat upper extremities DTR's biceps,triceps, brachioradialis 2+/4 bilat Sensation grossly intact to light touch bilat upper extremities Imaging/diagnostics: 10/16/18-MRI cervical spine-per radiology dictated report- IMPRESSION - 1. Small posterior disc bulge at C3-C4 which is eccentric and more pronounced along the right foraminal aspect without significant neuroforaminal narrowing or central spinal stenosis. 2. Small broad-based posterior disc bulge and mild facet spondylosis at C5-C6 cause now mild to moderate left-sided neural foraminal narrowing. -Mildly worsened since 12/26/2017 Dictated and Signed by: Kaleb Combs MD Electronically signed: 10/16/2018 3:08 PM 10/16/18-x-ray left humerus-per radiology dictator port- IMPRESSION - Interval removal of the plate screw hardware involving the mid left humerus with a residual screw fragment in the mid humerus. Dictated and Signed by: Gabino Mahoney MD Electronically signed: 10/16/2018 2:35 PM Pending interventions: Continue conservative management. Assessment: 1. Cervical strain-improving 2. Left humeral shaft fracture-status post ORIF-and recent hardware removal 3. Right abhay-sacrum and left inferior pubic ramus fracture 4. L1-L3 left transverse process fractures 5. Left ninth rib fracture 6. Head injury with loss of consciousness Plan: Reviewed report from both cervical spine MRIs with the injured worker and his in detai l this visit. There is evidence of small disc bulges at 2 levels without nerve impingement or foraminal narrowing on both MRIs. I do believe his current symptoms in terms of the neck are related to a muscle sprain. He continues to have chronic pain of the left arm low back and pelvis, however we did discuss that specialty consultation did not have anything to off er in terms of treatment for this other than the passage of time. He has been treated exten sively with conservative care. In terms of the head injury he has continued to improve. I have encouraged him to continue his at home therapies which had been previously recommended by speech therapy. We did request an independent medical examination for rating purposes, a nd also this would be helpful in terms of offering any other suggestions regarding additiona l treatments for his persistent symptoms. He has not yet been returned to work, however has no medical job restrictions, but because of his chronic complaints of pain is unsure if he can be returned to gain full employment, and again an independent medical examination with chris broderick helpful in terms of recommendations in his ability to be return to work. I did indicate t hat I would place a call to claims management to discuss this and hopefully get this expedit ed. In my opinion at this time he continues to be medically stationary and no further follo w-up is being scheduled. He will however return should he have any further problems, questi ons or concerns. He voices understanding and agreement. E: Regular duty R: None Permanent impairment pending PRIMO determination and evaluation. 25 minutes spent with injured worker, more than 50% of which was spent tbdh-ki-zdjs, discus sing treatment plan, coordination of care, and answering questions in regard to claims manag ement issues. This note was dictated using [employer] voice recognition software. Occasional wrong- word or sound-alike substitutions may have occurred due to the inherent limitations of voice recogni tion software. Please read the chart carefully and recognize, using context, where these zamora bstitutions have occurred. documented in th is encounter Plan of Treatment Not on filedocumented as of this encounter Visit Diagnoses + + | Diagnosis | + + | Strain of neck muscle, subsequent encounter - Primary | + + | Closed fracture of shaft of left humerus with routine healing, unspecified fracture | | morphology, subsequent encounter | + + | Closed fracture of transverse process of lumbar vertebra with routine healing, | | subsequent encounter | + + | Closed nondisplaced fracture of pelvis, unspecified part of pelvis, initial encounter | | (HCC) | + + | Traumatic brain injury with loss of consciousness, subsequent encounter | + + | Place of occurrence, industrial places and premises | + + documented in this encounter
--- OUTSIDE RECORDS SUMMARY | ~2020-02-26 | XMS | Encounter Summary ---
Demographics + + + | Address | [address] [place] [address] | | | [place] [address] | + + + | Home Phone [...] BREANNA SMITH | | | | | [address] | | + + + + + Care Team Providers + +------+ + | Care Rn Renal Name | Role | Phone | + +------+ + PCP | Unavailable | + +------+ + Encounter Details +--------+ + + + + | Date | Type | Department | Care Team | Description | +--------+ + + + + | [facility] | Horacio Ramey | | | 2014 | Encounter | H[facility] XRAY [address] | [place] [address] | | | | | [address] [place] | [place] | | | | | [place] | [address] | | | | | [address] | | | | | | [phone] | | | +--------+ + + + [...]
--- OUTSIDE RECORDS SUMMARY | ~2020-02-26 | XMS | Encounter Summary ---
Demographics + + + | Address | [address] [place] [address] | | | [place] [address] | + + + | Home Phone [...] [place] | | | | | [address] | | + + + + + Care Team Providers + +------+ + | Care 3D Designer Name | Role | Phone | [...] | | | Closed head | [place] [address] | | | | | | injury with | Phone: | | | | | | brief loss | [phone] | | | | | | of | Fax: | | | | | | consciousnes | [phone] | | | | | | s (HCC) | | | | | | | Procedures | | | | | | | [facility] BRINE TANK OPERATOR OP | | | | | | | TREATMENT | | | +--------+--------+ + + + + Encounter Details +--------+ + + + + | Date | Type | Department | Care Team | Description | +--------+ + + + + | 10/10/ | Hospital | [facility] | Iris Mast | Traumatic brain | | 2018 | Encounter | MED CTR SPEECH | MD [address] | injury, with loss of | | | | THERAPY [address] [place] | consciousness of 30 | | | | [place], | [place] [address] | minutes or less, | | | | [place] [address] | [phone] | subsequent encounter | | | | [phone] | | (Primary Dx) | | | [...] Progress Notes Mandy Matos, Speech Pathologist - 10/12/2017 2:[address] [facility] SPEECH THERAPY [address] [place] [address] Speech Therapy Daily Treatment Note Date: 10/10/2017 Patient Information Patient Name: Mookie Mason Date of : 1980 Age: 37 y.o. Encounter Diagnoses Code Name Primary? S06.9X1D Traumatic brain injury, with loss of consciousness of 30 minutes or less, subs equent encounter Yes Date of Onset: 05/31/2017 Referring Provider: Iris Mast MD Rehab Precautions Flowsheet Row Office Visit from 08/10/[address] [facility] THERAPY PT OP Rehab Precautions Precautions None Rehab Learning Style Flowsheet Row Office Visit from 08/10/[address] [facility] THERAPY PT OP [facility] OP EVAL from 07/26/[address] [facility] SPEECH THERAPY Learning Style Patient's Optimum Learning Style listening, observation listening, observation Today's Treatment Start Time: 1100 Stop time: 1145 Duration: 45 minutes Timed Treatment Codes: 45 minutes # of Speech Visits to Date: 3 Pain Assessment: Pain Scale Used: NUMERIC Pain Rating Pre Assessment: 3 Location: l forearm/shoulder, low back Subjective: Again pt reports significant improvement with overall cognition and reduction o f dizziness/concussion symptoms. Reminded pt on the importance of seeing eye doctor due to c /o blurriness and nystagmus. Home programming recommendations discussed.Offered to change ro oms due to previous c/o trouble concentrating with fluorescent lights, no difficulty today. Objective/Assessment: Moderate deficits in the area of attention impacting ability to part icipate successfully in auditory comprehension, safety (reports of several instances getttin g distracted with noodles burning in lubin when left unattended due to reduced attention to ta sks), problem solving for safety with cooking discussed (timers, avoiding use of stove if no t remaining in kitchen or if alone, using oven vs. Stove, shutting off stove if leaving kitc hen) reduced processing time, needs extra time to complete tasks. Halting/pausing noted in c onversation, needs extra time to answer and find words effectively. Targeted visuo-spatial skills, verbal expression and switching attention with Spot it, need s extra time, difficulty switching items after match is completed and looking for new stimul us item. Improved as task familiarity increased. Lumosity used to target switching attention, great accuracy with extra time to process. Plan: ST to target attention, speed of thought and improved rate with conversational word f inding. Electronically signed by: Mandy Matos, Speech Pathologist, 10/12/2017 14:54 Patient Name: Mookie Palmer Luse/: 1980/ docum ented in this encounter Plan of Treatment Not on filedocumented as of this encounter Visit Diagnoses + + | Diagnosis | + + | Traumatic brain injury, with loss of consciousness of 30 minutes or less, subsequent | | encounter - Primary | + + documented in this encounter"
--- OUTSIDE RECORDS SUMMARY | ~2020-02-26 | XMS | Encounter Summary ---
Demographics + + + | Address | [address] [place] [address] | | | [place] [address] | + + + | Home Phone | | + + + | Preferred Language | Unknown | + + + | Marital Status | | + + + | Cheondoism Affiliation | Unknown | + + + [...] BREANNA SMITH | | | | | [address] | | + + + + + Care Team Providers + +------+ + | Care Broadcast Maintenance Engineer Name | Role | Phone | [...] | | | | premises | [facility] [place], | [address] Phone: | | | | | Closed head | [place] [address] | [phone] | | | | | injury with | Phone: | Fax: | | | | | brief loss | [phone] | [phone] | | | | | of | Fax: | | | | | | consciousnes | [phone] | | | | | | s [...] + + | 12/01/ | Office | [facility] | Iris Mast | Closed fracture of | | 2018 | Visit | MED CTR THERAPY PT | MD [address] | shaft of left | | | | OP [address] | [address] [place] | humerus with routine | | | | [place], [place] | [place] [address] | healing, | | | | [address] | [phone] | unspecified fracture | | | | [phone] | | morphology, | | | | | Catie Squires B, PT | subsequent | | | | | [address] | encounter; Dizziness | | | | | [place], [place] | due to old head | | | | | [address] | injury; Left upper | | | [...] Squires, PT - 12/01/2017 8:00 AM PST [facility] CTR THERAPY PT OP [address] [place] [address] Physical Therapy Daily Treatment Note Date: 12/01/2017 [...] Row Office Visit from 08/10/2017 in [facility] CTR THERAPY PT OP Rehab Precautions Precautions None Rehab Learning Style Flowsheet Row Office Visit from 08/10/2017 in [facility] CTR THERAPY PT OP [facility] [...]
--- OUTSIDE RECORDS SUMMARY | ~2020-02-26 | XMS | Encounter Summary ---
Demographics + + + | Address | [address] [place] [address] | | | [place] [address] | + + + | Home Phone | | + + + | Preferred Language | Unknown | + + + | Marital Status | | + + + | Mormonism Affiliation | Unknown | + + + | Race | Unknown | + + + | Ethnic Group | Unknown | + + + Author + + + | Author | [facility] | | | and [place] | + + + | Organization | [facility] | | [...] BREANNA SMITH | | | | | [address] | | + + + + + Care Team Providers + +------+ + | Care Section Laborer Name | Role | Phone | [...] | unspecified type | | | | [address] | [address] | (Primary Dx); Alexandre | | | | [phone] | | throat | +--------+---------+ + + [...] loosen secretions in the nose and lungs. Glhm-pjq-pvnpiwq cold medicines will not shorten the length of time you re sick, but t hey may be helpful for the following symptoms: cough, sore throat, and nasal and sinus conge stion. If you take prescription medicines, ask your healthcare provider or pharmacist which ybsq-ell-yvcnjoh medicines are safe to use. (Note: Don't [...] with a muffled voice Date Last Reviewed: 03/02/201819996527-1190 [employer]. [address] [place] [address]. All [facility] reserved. This information is not intended [...] of his inhaler. The patient works at [email or web address] and [employer] and has not been traveling outside the [...] HUMERUS SURGERY Left 06/14/2017 [facility] [place] Current Outpatient Medications Medication Sig Dispense Refill [...] [address] | [place] | [phone] | | [facility] | | [address] | | | [facility] | | [...] + + + | [place] | [address] | [place] | [phone] | | [facility] | | [address] | | | [facility] | | | | + + + + + documented in this encounter Visit Diagnoses + + | Diagnosis | + + | Upper respiratory tract infection, unspecified type - Primary | + + | Sore throat Acute pharyngitis | + + documented in this encounter
--- OUTSIDE RECORDS SUMMARY | ~2020-02-26 | XMS | Encounter Summary ---
Demographics + + + | Address | [address] [place] [address] | | | [place] [address] | + + + | Home Phone [...] [address] | | | | | [place] | | | | | [address] | | + + + + + Care Team Providers + +------+ + | Care Custom Framing Specialist Name | Role | Phone | + +------+ + PCP | Unavailable | + +------+ + Encounter Details +--------+ + + + + | Date | Type | Department | Care Team | Description | +--------+ + + + + | 08/02/ | [facility] | Wil Lakhani | | | 2010 | Encounter | HOSPITAL EMERGENCY | MD [address] | | | | | CENTER [address] | [facility] | | | | | [address] [place] | [place] [address] | | | | | [address] | [phone] | | | | | [phone] | | | +--------+ + + + [...]
--- OUTSIDE RECORDS SUMMARY | ~2020-02-26 | XMS | Encounter Summary ---
Demographics + + + | Address | [address] [place] [address] | | | [place] [address] | + + + | Home Phone [...] BREANNA SMITH | | | | | [address] | | + + + + + Care Team Providers + +------+ + | Care Wader Boot Top Assembler Name | Role | Phone | [...] [address] | [address] | | | | | [place], [place] | [place] | | | | | [address] | [address] | | | | | [phone] | | | +--------+ + + + [...]
--- OUTSIDE RECORDS SUMMARY | ~2020-02-26 | XMS | Encounter Summary ---
Demographics + + + | Address | [address] [place] [address] | | | [place] [address] | + + + | Home Phone [...] BREANNA SMITH | | | | | [address] | | + + + + + Care Team Providers + +------+ + | Care Improvement Lead Name | Role | Phone | + [...] [address] | | | | | [place], [place] | [place] | | | | | [address] | [address] | | | | | [phone] | | | +--------+ + + + [...]
--- OUTSIDE RECORDS SUMMARY | ~2020-02-26 | XMS | Encounter Summary ---
Demographics + + + | Address | [address] [place] [address] | | | [place] [address] | + + + | Home Phone [...] BREANNA SMITH | | | | | [address] | | + + + + + Care Team Providers + +------+ + | Care Refined Syrup Operator Name | Role | Phone | [...] | | | | | premises | [facility] [place], | [address] Phone: | | | | | Closed head | [place] [address] | [phone] | | | | | injury with | Phone: | Fax: | | | | | brief loss | [phone] | [phone] | | | | | of | Fax: | | | | | | consciousnes | [phone] | | | | | | s [...] Description | +--------+---------+ + + + | 12/08/ | Office | [facility] | Iris Mast | Closed fracture of | | 2018 | Visit | MED CTR THERAPY PT | MD [address] | shaft of left | | | | OP [address] | [address] [place] | humerus with routine | | | | [place], [place] | [place] [address] | healing, | | | | [address] | [phone] | unspecified fracture | | | | [phone] | | morphology, | | | | | Catie Squires B, PT | subsequent | | | | | [address] | encounter; Dizziness | | | | | [place], [place] | due to old head | | | | | [address] | injury; Left upper | | | [...] encounter Progress Notes Catie Squires, PT - 12/08/2017 4:00 PM PST [facility] CTR THERAPY PT OP [address] [place] [address] Physical Therapy Daily Treatment Note Date: 12/08/2017 Patient Information Patient Name: Mookie Mason Date [...] Flowsheet Row Office Visit from 08/10/2017 in [facility] CTR THERAPY PT OP Rehab Precautions Precautions None Rehab Learning Style Flowsheet Row Office Visit from 08/10/2017 in [facility] CTR THERAPY PT OP [facility] OP EVAL from 07/26/2017 in [facility] SPEECH THERAPY Learning Style Patient's Optimum Learning Style listening, observation listening, observation Start Time: 1600 Stop time: 1643 Duration: 43 minutes Timed Treatment Codes: 43 minutes # of PT Visits to Date: 20 Subjective: pt reports that he did well in speech therapy but was very tired and exhausted for the rest of the day (mentally foggy) but woke up the next day feeling better. Pt also reports some i ncreased left shoulder pain and relates it to his OT appt. Pt reports that he is waiting on auth. For an MRI of his cervical spine Pain Assessment: Pain Rating Pre Assessment: 3 Location: neck (left shoulder 4/10) Objective: Pre tx; right neck rotation 55 deg 4/10 pain (upper left c-spine) Left neck rotation 70 deg 4/10 pain Manual therapy: STM and TPR to intra scap, pec.minor, upper trap., levator scap., sub-scap., scalenes, sub occipital release Post tx: right neck rotation 65 deg 4/10 pain Left neck rotation 80 deg 4/10 pain TherEx: HEP Supine cervical spine retraction 2x5 with 2 sec hold Supine DNF 2x10 Prone cervical spine extension 2x10 Assessment: pt demonstrated improved ROM after manual therapy and was able to tolerate ther Ex. Pt would benefit from cont. Therapy to increase strength, posture and ROM to improve estrellita lity to complete daily tasks and return to work without limitations. Next Visit: prog. Note/recert. Electronically signed by: Catie Squires PT, 12/08/2017 16:43 Patient Name: Mookie Palmer Lu/: 1980/ documented [...]
--- OUTSIDE RECORDS SUMMARY | ~2020-02-26 | XMS | Encounter Summary ---
Demographics + + + | Address | [address] [place] [address] | | | [place] [address] | + + + | Home Phone [...] BREANNA SMITH | | | | | [address] | | + + + + + Care Team Providers + +------+ + | Care Computer Mechanic Name | Role | Phone | [...] + + | 10/08/ | Office | [facility] | Iris Mast | Closed fracture of | | 2019 | Visit | OCCUPATIONAL HEALTH | MD [address] | shaft of left | | | | [address] | [address] [place] | humerus with routine | | | | [address] [place] | [place] [address] | healing, | | | | [place], [place] | [phone] | unspecified fracture | | | | [address] | | morphology, | | | | [phone] | | subsequent encounter | | | [...] RIZWAN Date of injury: 05/31/17 Claim number: [id number] Chief complaint: Followup multiple injuries, closing evaluation [...] Vital signs as noted, nursing notes reviewed. Nkvzpvq-ogwp-xrlqyxkqf well-nourished in no apparent distress, pleasant and [...] motion without pain or limitation. Left upper nidqjgsws-bmgi-fspmnf surgical incision over the anterior bicep which [...] being requested. This note was dictated using [employer] voice recognition software. Occasional wrong- word or [...] part of pelvis, initial encounter | | ([facility]) | + + | Place of occurrence, industrial places and premises | + + documented in this encounter
--- OUTSIDE RECORDS SUMMARY | ~2020-02-26 | XMS | Encounter Summary ---
Demographics + + + | Address | [address] [place] [address] | | | [place] [address] | + + + | Home Phone [...] Organization | [facility] [...] BREANNA SMITH | | | | | [address] | | + + + + + Care Team Providers + +------+ + | Care Screen Printing Paster Name | Role | Phone | + +------+ + | Juli Squiers DO | PCP | | + +------+ [...] + + | 07/13/ | Office | [facility] | Iris Mast | Closed fracture of | | 2018 | Visit | [facility] | MD Barb [address] | shaft of left | | | | [place] [address] [place] | humerus with routine | | | | [address] [place] | [place] [address] | healing, | | | | [place], [place] | [phone] | unspecified fracture | | | | [address] | | morphology, | | | | [phone] | | subsequent encounter | | | [...] documented in this encounter Progress Notes Iris aMst MD - 07/13/2018 1:00 PM PDTEmployer: Tea mar Guarantor: RIZWAN Date of injury: 05/31/17 Claim number: [id number] Chief complaint: Follow-up multiple injuries Subjective: Injured [...] Vital signs as noted, nursing notes reviewed. Vxjqeqx-kvrx-cxpjfdzpv, well-nourished, in no apparent distress, pleasant cooperative. Imaging/diagnostics: Left humerus z-nbg-yftsax personally reviewed by me with the injured [...] MMI status. This note was dictated using [employer] voice recognition software. Occasional wrong- word or [...]
--- OUTSIDE RECORDS SUMMARY | ~2020-02-26 | XMS | Encounter Summary ---
Demographics + + + | Address | [address] [place] [address] | | | [place] [address] | + + + | Home Phone | | + + + | Preferred Language | Unknown | + + + | Marital Status | | + + + | Hinduism Affiliation | Unknown | + + + [...] BREANNA SMITH | | | | | [address] | | + + + + + Care Team Providers + +------+ + | Care Medical Review Coordinator Name | Role | Phone | [...] | Speech | Diagnoses | Pro, | [place], | | | | Pathology / | Place of | Iris | Chloe S, | | | | Rehabilitatio | occurrence, | Barb, MD | Speech | | | | n | industrial | [address] | Pathologist | | | | | places and | [address] | [address] | | | | | premises | [place], | [address] | | | | | Closed head | [place] [address] | [place], [place] | | | | | injury with | Phone: | [phone] Phone: | | | | | brief loss | [phone] | [phone] | | | | | of | Fax: | Fax: | | | | | consciousnes | [phone] | [phone] | | | | | s (HCC) [...] | | | | | | [facility] MACHINE CLOTHING MAN OP | | | | | | | TREATMENT | | | +--------+--------+ + + + + Encounter Details +--------+ + + + + | Date | Type | Department | Care Team | Description | +--------+ + + + + | 02/15/ | Hospital | [facility] | Iris Mast | Memory deficit; | | 2018 | Encounter | MED CTR SPEECH | MD Barb [address] | Attention deficit; | | | | THERAPY [address] [place] | Cognitive changes | | | | [place], | [place] [address] | | | | | [place] [address] | [phone] | | | | | [phone] | | | | | | | Chloe Fulton S, | | | | | | Speech Pathologist | | | | | | [address] | | | | | | [place] | | | | | | [address] | | | | | | | | +--------+ + + + [...] documented as of this encounter Progress Notes Chloe Fulton, Speech Pathologist - 02/16/2018 12:53 PM PDT [facility] SPEECH THERAPY [address] [facility] [facility] [address] Speech Therapy Daily Treatment Note Date: 02/15/2018 Patient Information Patient Name: Mookie Mason Date of : 1980 Age: 37 y.o. Encounter Diagnoses Code Name Primary? R41.3 Memory deficit R41.840 Attention deficit R41.89 Cognitive changes Date of Onset: 05/31/2017 Referring Provider: Iris Mast MD Rehab Precautions Office Visit from 08/10/2017 in [facility] CTR THERAPY PT OP Rehab Precautions Precautions None Rehab Learning Style Office Visit from 08/10/2017 in [facility] CTR THERAPY PT OP [facility] MACHINE CLOTHING MAN OP EVAL f rom 07/26/2017 in [facility] SPEECH THERAPY Learning Style Patient's Optimum Learning Style listening, observation listening, observation Today's Treatment Start Time: 1600 Stop time: 1645 Duration: 45 minutes Timed Treatment Codes: 0 minutes # of Speech Visits to Date: 8 Pain Assessment: Pain Scale Used: NUMERIC Pain Rating During Assessment: 0 Location: L shoulder Pain/Comfort Presence Of Pain: complains of pain/discomfort Subjective:Pt arrived independently and participated well in session. Objective/Assessment: Pt and MACHINE CLOTHING MAN discussed use of appropriate tools and systems for [facility] memory such as calendars, notebooks, apps, etc for HEP. Pt participated in RBANS with an overall score of 96, 39%ile. See scores below: Repeatable Battery for the Assessment of Neuropsychological Status (RBANS) The RBANS is comprised of 12 individual subtests and provides a measure of functioning acro ss a variety of cognitive domains. Subtest raw scores are converted to index scores for six general areas:immediate memory, visuospatial/constructional ability, language, attention , delayed memory, and overall function. 02/16/18 Immediate Memory Visuospatial / Constructional Language Attention Delayed Memory TOTAL SCALE Index Score 65 121 116 91 97 96 Percentile 39% Repeatable Battery for the Assessment of Neuropsychological Status (RBANS) (10/03/17) The RBANS is comprised of 12 individual [...] AVG Borderline Moderate impairment AVG 23rd %ile Repeatable Battery for the Assessment of Neuropsychological Status (RBANS) (07/26/17) The RBANS is comprised of 12 individual [...] 78 74 53 56 61 Percentile 0.5 MACHINE CLOTHING MAN encouraged continued use of online resources, card games, board games, music for cognit yina stimulation at home as well as use of appropriate tools andsystems for improved attent ion, memory and executive functioning. Electronically signed by: Chloe Fulton Speech Pathologist, 02/16/2018 12:54 Patient Name: Mookie Mason/: 1980/ docum ented [...]
--- OUTSIDE RECORDS SUMMARY | ~2020-02-26 | XMS | Encounter Summary ---
Demographics + + + | Address | [address] [place] [address] | | | [place] [address] | + + + | Home Phone [...] BREANNA SMITH | | | | | [address] | | + + + + + Care Team Providers + +------+ + | Care Clinical Information Systems Director Name | Role | Phone | + +------+ + | No, Physician | PCP | Unavailable | + +------+ + Encounter Details +--------+ + + + + | Date | Type | Department | Care Team | Description | +--------+ + + + + | 10/12/ | Hospital | [facility] | Sam Chopra, | Cervicalgia; Atrophy | | 2018 | Encounter | MED CTR XRAY [address] | MD [address] | of muscle of left | | | | [place] | [place], [place] | upper arm; | | | | [place] [address] | [address] | Fasciculations; | | | | [phone] | | Chronic left | | | [...]
--- OUTSIDE RECORDS SUMMARY | ~2020-02-26 | XMS | Encounter Summary ---
Demographics + + + | Address | [address] [place] [address] | | | [place] [address] | + + + | Home Phone [...] + + | Author | [facility] | | | and [place] | + + + | Organization | [facility] | | | [...] BREANNA SMITH | | | | | [address] | | + + + + + Care Team Providers + +------+ + | Care Director Of Government Sales Name | Role | Phone | + [...] + + | 09/11/ | Office | [facility] | Sam Chopra, | Traumatic brain | | 2017 | Visit | PHYSIATRY [address] | [address] | injury with loss of | | | | [address] | [place] | consciousness, | | | | [facility] [place] [facility] [address] | sequela (HCC) | | | | [address] | | (Primary Dx); | | | | [phone] | | Insomnia due to | | [...] encounter Patient Instructions Patient Instructions Tejal Villegas, Optical Lathe Operator - 09/11/2017 10:10 AM PSTTake t razodone and Celexa as prescribed. Return to clinic in one month. documented in this encounter Progress Notes Sam Chopra MD - 09/11/2017 10:10 AM PSTFormatting of this note might be different fro m the original. Physical Medicine & Rehabilitation Concussion Consult Referring Provider: Iris Peterson Date of Service: 09/11/17 L&I date: 05/31/17 L&I number: [id number] Patient ID: 37 y.o. 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
--- OUTSIDE RECORDS SUMMARY | ~2020-02-26 | XMS | Encounter Summary ---
Demographics + + + | Address | [address] [place] [address] | | | [place] [address] | + + + | Home Phone [...] BREANNA SMITH | | | | | [address] | | + + + + + Care Team Providers + +------+ + | Care Cattle Broker Name | Role | Phone | + +------+ + PCP | Unavailable | + +------+ + Encounter Details +--------+ + + + + | Date | Type | Department | Care Team | Description | +--------+ + + + + | 04/29/ | [facility] | Priscilla Rodriges, | | | 2012 | Encounter | HOSPITAL EMERGENCY | [address] | | | | | CENTER [address] | [place] | | | | | [place] | [address] | | | | | [address] | | | | | | [phone] | | | +--------+ + + + [...]
--- OUTSIDE RECORDS SUMMARY | ~2020-02-26 | XMS | Clinical Summary ---
Demographics + + + | Address | [address] [place] [address] | | | [place] [address] | + + + | Home Phone [...] BREANNA SMITH | | | | | [address] | | + + + + + Care Team Providers + +------+ + | Care Slip Tender Name | Role | Phone | [...] + + + | [facility] | [address] | [place] | [phone] | | [facility] | | [address] | | | [facility] | | [...] + + | [facility] | [address] [facility] [place] | [place] | [phone] | | [facility] | | [address] | | | [facility] | | [...] | | + +--------+ +--------+ +---------+--------+ | readeo | SAIF | [id number] | 07/27/ | [phone] | | PPO | | | MAJORI | | 2017-P | 5 | | | | | S MCO | | resent | | | | + +--------+ +--------+ +---------+--------+ | [employer] | [employer] | [id number] | | [phone] | | Med[employer] | | MEDICAID HMO [...] al/Fam | | 1979 | [phone] | [place], [place] | | | tone | | | 6 (Home) | [address] | + +--------+ +--------+ + + | Mookie Mason | Worker | Self | 04[birth year]18/ | | [address] [place] | | | s Comp | | 1979 | [phone] | [place] [address] | | | | | | 6 (Home) | | + +--------+ +--------+ + + Advance Directives + + + + + | Type | Date Recorded | Patient | Explanation | | | | Advertising Writer | | + + + + + | Power of | | | | | Fashion Director Party Plan Sales | | | | + + + + + | Advance | | | | | Directive | | | | + + + + +
--- OUTSIDE RECORDS SUMMARY | ~2020-02-26 | XMS | Encounter Summary ---
Demographics + + + | Address | [address] [place] [address] | | | [place] [address] | + + + | Home Phone | | + + + | Preferred Language | Unknown | + + + | Marital Status | | + + + | Quaker Affiliation | Unknown | + + + | Race | Unknown | + + + | Ethnic Group | Unknown | + + + Author + + + | Author | [facility] | | | and [place] | + + + | Organization | [facility] | | | [...] BREANNA SMITH | | | | | [address] | | + + + + + Care Team Providers + +------+ + | Care Sales Office Assistant Name | Role | Phone | [...] + + | 11/17/ | Office | [facility] | Luis Chavez DO | Strep pharyngitis | | 2019 | Visit | CARE [address] | [address] | (Primary Dx); | | | | [place] | [place] | Paronychia of left | | | | [address] | [address] | middle finger | | | | [phone] | | | +--------+---------+ + + + [...] away from secondhand smoke. Date Last Reviewed: 08/02/201719993140-2040 [employer]. [address] [place] [address]. All righ ts reserved. This information is [...] while your toe heals. You may use eaoj-knk-ipcizjl medicine (acetaminophen or ibuprofen to help with [...] directed by your provider Date Last Reviewed: 05/02/201619996508-4821 [employer]. [address] [place] [address]. All righ ts reserved. This information is [...] Matthieu gutierrez [place] | [place] | [phone] | | [facility] | | [address] | | | [facility] | | | | + + + + + documented in this encounter Visit Diagnoses + + | Diagnosis | + + | Strep pharyngitis - Primary Streptococcal sore throat | + + | Paronychia of left middle finger | + + documented in this encounter
--- OUTSIDE RECORDS SUMMARY | ~2020-02-26 | XMS | Encounter Summary ---
Demographics + + + | Address | [address] [place] [address] | | | [place] [address] | + + + | Home Phone | | + + + | Preferred Language | Unknown | + + + | Marital Status | | + + + | Pentecostal Affiliation | Unknown | + + + | Race | Unknown | + + + | Ethnic Group | Unknown | + + + Author + + + | Author | [facility] | | | and [place] | + + + | Organization | [facility] | | [...] [place] | | | | | [address] | | + + + + + Care Team Providers + +------+ + | Care Side Panel Padder Name | Role | Phone | + [...] n | rotator | [address] | [place], | | | | | cuff Place | [address] | [place] [address] | | | | | of | [place], | Phone: | | | | | occurrence, | [place] [address] | [phone] | | | | | industrial | Phone: | Fax: | | | | | places and | [phone] | [phone] | | | | | premises | Fax: | | | | | | | [phone] | | +--------+ + + + + + Encounter Details +--------+---------+ + + + | Date | Type | Department | Care Team | Description | +--------+---------+ + + + | 10/24/ | Office | [facility] | Iris Mast | Closed fracture of | | 2018 | Visit | MED CTR THERAPY PT | MD Barb [address] | shaft of left | | | | OP [address] | [address] [place] | humerus with routine | | | | [place], [place] | [place] [address] | healing, | | | | [address] | [phone] | unspecified fracture | | | | [phone] | | morphology, | | | | | Catie Squires, PT | subsequent | | | | | [address] | encounter; Dizziness | | | | | [place] | due to old head | | | | | [address] | injury; Left upper | | | [...] Mckenzie, PT - 10/24/2017 9:00 AM PST [facility] MED CTR THERAPY PT OP [address] [place] [address] Physical Therapy Daily Treatment Note Date: 10/24/2017 [...] Flowsheet Row Office Visit from 08/10/2017 in [facility] CTR THERAPY PT OP Rehab Precautions Precautions None Rehab Learning Style Flowsheet Row Office Visit from 08/10/2017 in [facility] CTR THERAPY PT OP [facility] S [facility] OP EVAL from 07/26/2017 in [facility] SPEECH THERAPY Learning Style Patient's [...] progress neck ROM and posterior chain stren [facility] Electronically signed by: Catie Squires PT, [...]
--- OUTSIDE RECORDS SUMMARY | ~2020-02-26 | XMS | Encounter Summary ---
Demographics + + + | Address | [address] [place] [address] | | | [place] [address] | + + + | Home Phone [...] BREANNA SMITH | | | | | [address] | | + + + + + Care Team Providers + +------+ + | Care Obstetrics Technician Name | Role | Phone | [...] | fracture, | [address] | [address] | | | | | with routine | [address] | [place], | | | | | healing, | [place], | [place] [address] | | | | | subsequent | [place] [address] | Phone: | | | | | encounter | Phone: | [phone] | | | | | Place of | [phone] | Fax: | | | | | occurrence, | Fax: | [phone] | | | | | industrial | [phone] | | | | | | places and | | | | | | | premises | | | +--------+ + + + + + Encounter Details +--------+---------+ + + + | Date | Type | Department | Care Team | Description | +--------+---------+ + + + | 01/01/ | Office | [facility] | Iris Mast | Decreased activities | | 2018 | Visit | MED CNT ONCOLOGY | MD Barb [address] | of daily living | | | | THERAPY [address] | [address] [place] | (ADL); Left upper | | | | [place], | [place] [address] | arm pain | | | | [place] [address] | [phone] | | | | | [phone] | | | | | | | Iris Adan, OT | | | | | | [address] | | | | | | [place], [place] | | | | | | [address] | | | | | | | [...] might be different fr om the original. [facility] MED CTR THERAPY OT OP [address] [place] [address] Occupational Therapy Daily Treatment Note Date: 01/01/2018 Patient Information Patient Name: Mookie Mason Date of : 1980 Age: 37 y.o. History Encounter Diagnoses Code Name Primary? R68.89 Decreased activities of daily living (ADL) M79.622 Left upper arm pain Date of Onset: 05/31/2017 Referring Provider: Iris Mast MD Rehab Precautions Office Visit from 08/10/2017 in [facility] CTR THERAPY PT OP Rehab Precautions Precautions None Rehab Learning Style Office Visit from 08/10/2017 in [facility] CTR THERAPY PT OP [facility] CARTON AND CAN SUPPLY SUPERVISOR OP EVAL f rom 07/26/2017 in [facility] CTR SPEECH THERAPY Learning Style Patient's [...]
--- OUTSIDE RECORDS SUMMARY | ~2020-02-26 | XMS | Encounter Summary ---
Demographics + + + | Address | [address] [place] [address] | | | [place] [address] | + + + | Home Phone | | + + + | Preferred Language | Unknown | + + + | Marital Status | | + + + | Mandaen Affiliation | Unknown | + + + | Race | Unknown | + + + | Ethnic Group | Unknown | + + + Author + + + | Author | [facility] | | | and [place] | + + + | Organization | [facility] | | | [...] BREANNA SIMTH | | | | | [address] | | + + + + + Care Team Providers + +------+ + | Care Extractor Machine Operator Name | Role | Phone [...] Description | +--------+---------+ + + + | 07/20/ | Office | [facility] | Pro Iris | Closed head injury | | 2017 | Visit | [facility] | MD Barb [address] | with brief loss of | | | | [address] | [address] [place] | consciousness (HCC) | | | | [address] [place] | [place] [address] | (Primary Dx); Closed | | | | [place], [place] | [phone] | left arm fracture, | | | | [address] | | with routine | | | | [phone] | | healing, subsequent | | | [...] + + + | Blood Pressure | 134/79 | 07/20/2017 1:27 PM | | | | | PDT | | + + + + + | Pulse | 70 | 07/20/2017 1:27 PM | | | | | PDT | | + + + + + | Temperature | 36.8 C (98.3 F) | 07/20/2017 1:27 PM | | | | | PDT [...] Weight | 61.2 kg (135 lb) | 07/20/2017 1:27 PM | | | | | PDT | | + + + + + | Height | 185.4 cm (6' 1") | 07/20/2017 1:27 PM | | | | | PDT | | + + + + + | Body Mass Index | 17.81 | 07/20/2017 1:27 PM | | | | | PDT | | + + + + + documented in this encounter Progress Notes Iris Mast MD - 07/20/2017 1:30 PM PDTEmployer: Tea insulation Guarantor: RIZWAN Date of injury: 05/31/17 Claim number: [id number] Chief complaint: Follow-up multiple injuries Subjective: Injured workers a 37-year-old male presents today for scheduled follow-up. Since his last visit he has been seen and evaluated by orthopedics. X-rays of the left shoulder and elbow were obtained and he reports he was told they were negative for acute injury. He has been d oing range of motion exercises for the left arm and feels that the range of motion has signi ficantly improved since his last visit. He does feel that the discomfort in the left should er is slowly getting better also. He was also referred to physical therapy for the this tub ular dysfunction after his head injury, this has been scheduled but not yet started. He was also referred to Dr. veliz, physiatry for his head injury. Was recently started on Celexa and trazodone. He has had no problems with side effects of the medications, has only been t aking the medications for 2-3 days. He has seen no significant benefit from the trazodone i n terms of helping him with sleep. He was referred to speech therapy at that visit, and it was recommended that he discontinue use of the muscle relaxants which she has done. He has not had any problems with headaches but does feel a sense of pressure in the head. Does fee l that the dizzy spells, while brief and short-lived, have increased in frequency. Seemed t o significantly be relieved with shutting his eyes and bending his head down. He has had no nausea or vomiting. Still does have some difficulties with concentration, word finding act ivities are particularly difficult. Has been withdrawing from social activities at home bec ause of this. Moods have been stable. He was also referred to neurosurgery. Has been noti fied of an upcoming appointment, is scheduled to be seen next Monday. Still with no signifi cant neck discomfort. Still complains of pain in the low back and pelvis, fluctuates betwee n the right side and left side. Thinks the right side has been more sore as a consequence o f favoring the left side but overall tolerable. Past medical history, medications, allergies reviewed Review of systems: As per HPI Objective: Vital signs as noted, nursing notes reviewed. Yevdsax-twgo-gmbzhpfpr, well-nourished, in no apparent distress, pleasant cooperative. Left upper yjobrutcf-ieiy-sycmsy surgical incision. Full flexion, near full extension. No reduction in pronation or supination. Gait-walks with cane assistance. Neuro-cranial nerves II through XII grossly intact. Psych-mood, affect, speech and thought processes appropriate. Imaging/diagnostics: CT head-requested this date Pending interventions: Continue conservative management. Assessment: 1. Left humeral shaft fracture-status post ORIF 2. Left ninth rib fracture 3. L1-L3 left transverse process fractures 4. Right hemisacrum and left inferior pubic ramus fracture 5. Head injury with loss of consciousness Plan: Dr. veliz's office note is reviewed this visit. Continue Celexa and trazodone per Dr. meghna coy recommendations. Start physical therapy when scheduled. Speech therapy evaluation once a pproved. We will attempt to obtain approval and authorization for the CT of the head which was requested by neurosurgery Department prior to their evaluation of the injured worker. Hermelindo davie has been scheduled 07/24/17 for this evaluation. We will attempt to get this study perfor [facility] prior to that if possible. He'll return here in 4 weeks, sooner for acute worsening or other concerns. He voices understanding and agreement. E: Off work R: Off work Impairment undetermined at this point in time, based on current objective findings it is no t an anticipated consequence of this injury however patient has not yet reached MMI status. This note was dictated using [employer] voice recognition software. Occasional wrong- word or [...]
--- OUTSIDE RECORDS SUMMARY | ~2020-02-26 | XMS | Encounter Summary ---
Demographics + + + | Address | [address] [place] [address] | | | [place] [address] | + + + | Home Phone | | + + + | Preferred Language | Unknown | + + + | Marital Status | | + + + | Rastafari Affiliation | Unknown | + + + | Race | Unknown | + + + | Ethnic Group | Unknown | + + + Author + + + | Author | [facility] | | | and [place] | + + + | Organization | [facility] | | | [...] BREANNA SMITH | | | | | [address] | | + + + + + Care Team Providers + +------+ + | Care Snuff Packing Machine Operator Name | Role | Phone [...] + + | 12/18/ | Office | [facility] | Iris Mast | Closed left arm | | 2018 | Visit | OCCUPATIONAL HEALTH | MD Barb [address] | fracture, with | | | | [place] [address] [place] | routine healing, | | | | [address] [place] | [place] [address] | subsequent encounter | | | | [place], [place] | [phone] | (Primary Dx); | | | | [address] | | Closed head injury | | | | [phone] | | with brief loss of | [...] RIZWAN Date of injury: 05/31/17 Claim number: [id number] Chief complaint: Follow-up head and left arm [...] Vital signs as noted, nursing notes reviewed. Uetnamy-iont-aiomczhax, well-nourished, in no apparent distress, pleasant cooperative. [...] back to his operating orthopedic surgeon in [place] to discuss the persistent left arm symptoms [...] MMI status. This note was dictated using Zondle voice recognition software. Occasional wrong- word or [...]
--- OUTSIDE RECORDS SUMMARY | ~2020-02-26 | XMS | Encounter Summary ---
Demographics + + + | Address | [address] [place] [address] | | | [place] [address] | + + + | Home Phone [...] BREANNA SMITH | | | | | [address] | | + + + + + Care Team Providers + +------+ + | Care Tailings Worker Name | Role | Phone | [...] [place], [place] | | | | | [place], | [address] | | | | | [place] [address] | | | | | | [phone] | | | +--------+ + + + [...] might be different fr om the original. [facility] OP [address] [place] [address] Occupational Therapy Discharge Note This discharge is [...]
--- OUTSIDE RECORDS SUMMARY | ~2020-02-26 | XMS | Encounter Summary ---
Demographics + + + | Address | [address] [place] [address] | | | [place] [address] | + + + | Home Phone [...] BREANNA SMITH | | | | | [address] | | + + + + + Care Team Providers + +------+ + | Care Tunnel Elastic Operator Zigzag Name | Role | Phone | + +------+ + PCP | Unavailable | + +------+ + Encounter Details +--------+ + + + + | Date | Type | Department | Care Team | Description | +--------+ + + + + | 08/16/ | [facility] | Wil Lakhani | | | 2012 | Encounter | HOSPITAL EMERGENCY | MD [address] | | | | | CENTER [address] | [facility] | | | | | [address] [place] | [place] [address] | | | | | [address] | [phone] | | | | | [phone] | | | +--------+ + + + [...]
--- OUTSIDE RECORDS SUMMARY | ~2020-02-26 | XMS | Encounter Summary ---
Demographics + + + | Address | [address] [place] [address] | | | [place] [address] | + + + | Home Phone [...] BREANNA SMITH | | | | | [address] | | + + + + + Care Team Providers + +------+ + | Care Relief Pilot Name | Role | Phone | + +------+ + PCP | Unavailable | + +------+ + Encounter Details +--------+ + + + + | Date | Type | Department | Care Team | Description | +--------+ + + + + | 04/28/ | [facility] [place] [facility] | Gia Gonsalez, | | | 2016 | Encounter | HOSPITAL NURSERY | STUDY MANAGER [address] [place] | | | | | [address] [place] | [place] [address] | | | | | [place], [place] | [phone] | | | | | [address] | | | | | | [phone] | | | +--------+ + + + [...]
--- OUTSIDE RECORDS SUMMARY | ~2020-02-26 | XMS | Encounter Summary ---
Demographics + + + | Address | [address] [place] [address] | | | [place] [address] | + + + | Home Phone | | + + + | Preferred Language | Unknown | + + + | Marital Status | | + + + | Religion Affiliation | Unknown | + + + | Race | Unknown | + + + | Ethnic Group | Unknown | + + + Author + + + | Author | [facility] | | | and [place] | + + + | Organization | [facility] | [...] [place] | | | | | [address] | | + + + + + Care Team Providers + +------+ + | Care Content Assistant Name | Role | Phone | [...] n | rotator | [address] | [place], | | | | | [address] | [address] | [place] [address] | | | | | of | [place], | Phone: | | | | | [place], | [place] [address] | [phone] | | | | | industrial | Phone: | Fax: | | | | | places and | [phone] | [phone] | | | | | premises | Fax: | | | | | | | [phone] | | +--------+ + + + + + Encounter Details +--------+---------+ + + + | Date | Type | Department | Care Team | Description | +--------+---------+ + + + | 10/26/ | Office | [facility] | Iris Mast | Closed fracture of | | 2018 | Visit | MED CTR THERAPY PT | MD [address] | shaft of left | | | | OP [address] | [address] [place] | humerus with routine | | | | [place], [place] | [place] [address] | healing, | | | | [address] | [phone] | unspecified fracture | | | | [phone] | | morphology, | | | | | Catie Squires, PT | subsequent | | | | | [address] | encounter; Dizziness | | | | | [place] | due to old head | | | | | [address] | injury; Left upper | | | [...] this encounter Progress Catie Mckenzie, PT - 10/26/2017 9:00 AM PST [facility] MED CTR THERAPY PT OP [address] [place] [address] Physical Therapy Daily Treatment Note Date: 10/26/2017 Patient Information Patient Name: Mookie Mason Date [...] Flowsheet Row Office Visit from 08/10/2017 in [facility] [facility] CTR THERAPY PT OP Rehab Precautions Precautions None Rehab Learning Style Flowsheet Row Office Visit from 08/10/2017 in [facility] CTR THERAPY PT OP [facility] OP EVAL from 07/26/2017 in [facility] SPEECH THERAPY Learning Style Patient's [employer] Learning Style listening, observation listening, observation Start Time: 0900 Stop time: 944 Duration: 45 minutes Timed Treatment Codes: 45 minutes # of PT Visits to Date: 15 Subjective: pt reports that he felt really good after last session but then had some increa se in pain the next day. Pt now presents with decreased neck pain overall (resting at 2/10) Pain Assessment: Pain Scale Used: NUMERIC Pain Rating Pre Assessment: 3 Location: neck (with movement) Objective: Pre tx; right neck rotation 67 deg 3/10 pain Left neck rotation 70 deg 3/10 pain Manual therapy: STM and TPR to intra scap, pec., upper trap., levator scap., scalenes SANGs to C3, C4 (central/extension and lateral/rotation) Post tx: right neck rotation 89 deg 0/10 pain Left neck rotation 80 deg 1/10 pain TherEx: neck rotation Left/Right 2x10 Scap. Retraction: 2x10 Levator scap. Stretch 3x30 sec Assessment: pt was able to maintain some ROM gains from last session as well as decreased p ain with movement but does cont. To have pain and restrictions. Pt tolerated session well an d demonstrated improved neck ROM and less pain by end of session. Pt would benefit from cont . Therapy with focus on cervical spine to increase strength, posture and ROM to improve abil ity to complete daily tasks and return to work without limitations. Next Visit: received auth for 8 visits. Cont to progress neck ROM and posterior chain [facility] Electronically signed by: Catie Squires PT, 10/26/2017 10:55 Patient Name: Mookie Palmer Marlon/: 1980/ documented [...]
--- OUTSIDE RECORDS SUMMARY | ~2020-02-26 | XMS | Encounter Summary ---
Demographics + + + | Address | [address] [place] [address] | | | [place] [address] | + + + | Home Phone | | + + + | Preferred Language | Unknown | + + + | Marital Status | | + + + | Orthodoxy Affiliation | Unknown | + + + [...] BREANNA SMITH | | | | | [address] | | + + + + + Care Team Providers + +------+ + | Care Expressive Art Therapist Name | Role | Phone | + +------+ + PCP | Unavailable | + +------+ + Encounter Details +--------+ + + + + | Date | Type | Department | Care Team | Description | +--------+ + + + + | 09/03/ | [facility] | Turnbow, Chelsie, | | | 2015 | Encounter | [facility] | SALES DEVELOPER [address] | | | | | [facility] [address] | [place] [address] | | | | | [address] [place], | [phone] | | | | | [place] [address] | | | | | | [phone] | | | +--------+ + + + [...]
--- OUTSIDE RECORDS SUMMARY | ~2020-02-26 | XMS | Encounter Summary ---
Demographics + + + | Address | [address] [place] [address] | | | [place] [address] | + + + | Home Phone [...] BREANNA SMITH | | | | | [address] | | + + + + + Care Team Providers + +------+ + | Care Account Development Executive Name | Role | Phone | [...] | | | Closed head | [place] [address] | | | | | | injury with | Phone: | | | | | | brief loss | [phone] | | | | | | of | Fax: | | | | | | consciousnes | [phone] | | | | | | s [...] | | | | | | | ([facility]) | | | | | [...] | | | | | | [facility] OP | | | | | | | TREATMENT | | | +--------+--------+ + + + + Encounter Details +--------+ + + + + | Date | Type | Department | Care Team | Description | +--------+ + + + + | 12/13/ | Hospital | [facility] | Iris Mast | Traumatic brain | | 2018 | Encounter | MED CTR SPEECH | MD Barb [address] | injury, with loss of | | | | THERAPY [address] [place] | consciousness of 30 | | | | [place], | [place] [address] | minutes or less, | | | | [place] [address] | [phone] | initial encounter | | | | [phone] | | ([facility]) | | | | | Mandy Matos, [...] Speech Pathologist - 12/13/2017 11:03 AM PDT [facility] SPEECH THERAPY [address] [place] [address] Speech Therapy Daily Treatment Note Date: 12/13/2017 Patient Information Patient Name: Mookie Mason Date of : 1980 Age: 37 y.o. Encounter Diagnoses Code Name Primary? S06.9X1A Traumatic brain injury, with loss of consciousness of 30 minutes or less, init ial encounter (HCC) Date of Onset: 05/31/2017 Referring Provider: Iris Mast MD Rehab Precautions Flowsheet Row Office Visit from 08/10/2017 in [facility] THERAPY PT OP Rehab Precautions Precautions None Rehab Learning Style Flowsheet Row Office Visit from 08/10/2017 in [facility] PT OP [facility] OP EVAL from 07/26/2017 in [facility] SPEECH THERAPY Learning Style Patient's [employer] Learning [...]
--- OUTSIDE RECORDS SUMMARY | ~2020-02-26 | XMS | Encounter Summary ---
Demographics + + + | Address | [address] [place] [address] | | | [place] [address] | + + + | Home Phone | | + + + | Preferred Language | Unknown | + + + | Marital Status | | + + + | Synagogue Affiliation | Unknown | + + + | Race | Unknown | + + + | Ethnic Group | Unknown | + + + Author + + + | Author | [facility] | | | and [place] | + + + | Organization | [facility] | | [...] BREANNA SMITH | | | | | [address] | | + + + + + Care Team Providers + +------+ + | Care Equity Holder Name | Role | Phone | + [...] | Traumatic | Sam Chapman MD | Divina Solano, | | | Required | | brain injury | [address] | Speech | | | | | with loss | [address] | Pathologist | | | | | of | [place], | | | | | | consciousnes | [place] [address] | | | | | | s, sequela | Phone: | | | | | | ([facility]) Mild | [phone] | | | | | | cognitive | Fax: | | | | | | impairment | [phone] | | | | | | [id number] [...] | | | | | | | ([facility]) | | | | | | | Procedures | | | | | | | speech eval | | | +--------+ + + + + + Reason for Visit + + + | Reason | Comments | + + + | Concussion | | + + + Evaluate & [...] | occurrence, | MD Barb | [address] | | | | n | industrial | [address] | [place], | | | | | places and | [address] | [place] [address] | | | | | premises | [place], | Phone: | | | | | Closed head | [place] [address] | [phone] | | | | | injury with | Phone: | Fax: | | | | | brief loss | [phone] | [phone] | | | | | of | Fax: | | | | | | consciousnes | [phone] | | | | | | s ([facility]) | | | +--------+ + + + + + Encounter Details +--------+---------+ + + + | Date | Type | Department | Care Team | Description | +--------+---------+ + + + | 07/17/ | Office | [facility] | Sam Chopra, | Traumatic brain | | 2017 | Visit | PHYSIATRY [address] | MD [address] | injury with loss of | | | | [address] | [place] | consciousness, | | | | [place] | [address] | sequela (HCC) | | | | [address] | | (Primary Dx); Mild | | | | [phone] | | cognitive | | | | | | impairment; | | | | | | Post-concussion | | | | | | vertigo; | | | | | | Irritability; | | | | | | Insomnia due to | | | | | | medical condition | +--------+---------+ + + + Social [...] + + + | Blood Pressure | 134/81 | 07/17/2017 3:42 PM | | | | | PDT | | + + + + + | Pulse | 86 | 07/17/2017 3:42 PM | | | | | PDT [...] Weight | 61.2 kg (135 lb) | 07/17/2017 3:42 PM | | | | | PDT | | + + + + + | Height | 185.4 cm (6' 1") | 07/17/2017 3:42 PM | | | | | PDT | | + + + + + | Body Mass Index | 17.81 | 07/17/2017 3:42 PM | | | | | PDT | | + + + + + documented in this encounter Patient Instructions Patient Instructions Grace Tran, Nurse Sitter - 07/17/2017 3:50 PM PDT[facility] by Iris Mast. The number for the physical therapy department is: Please attend speech therapy for evaluation and treatment of cognitive impairment. Start taking medication Trazadone half (25 mg) a 50 mg tablet nightly. Start taking Celexa 10 mg tablet daily. documented in this encounter Progress Notes Sam Chopra MD - 07/17/2017 3:50 PM PDTFormatting of this note might be different fro m the original. Sam Chopra MD [address] [facility] [address] [place], [place] [address] FAX: PHYSICAL MEDICINE AND REHABILITATION L&I Date: 05/31/17 L&I Number: [id number] Referring Provider: Iris Mast MD Date of Service: 07/17/17 Patient ID: [id number] y.o. Male with traumatic brain injury occuring on 05/31/17 with loss of cons ciousness; resulting from a fall; first Life-Time brain injury. HPI Mookie Mason was injured on 05/31/17 as the result of a 20 ft. fall of a building. Mookie Mason states that he was working on installing a metal roof, when it began to rain, when h e slipped and fell. He states he does not remember the fall itself. He states the last thing he remembers is crab walking across the roof. He states the first clear memory he remembers was either the night of the accident or the next day walking up in pain at [facility]. Mookie Mason reports that he experiences pain in his back, pelvis and left arm which occurred as a result of his fall. He reports that he takes Robaxin and acetaminophen to treat his pain. There was not external evidence of injury to the head. The location of impact was: Mookie Mason denies retrograde amnesia. Mookie Mason reports anterograde amnesia. Mookie Mason reports loss of consciousness; which lasted greater 30 minutes. He states he had periods of "breif wake ups" through out his his transport after the fall. Seizures were not observed at the time of the concussion. Mookie Mason reports having physical symptoms including: Sensitivity to light/sound, diz ziness, headaches, some numbness and tingling in left arm. Mookie Mason denies: nausea, vomiting, balance problems and fatigue. Mookie Mason reports cognitive symptoms including: feeling mentally foggy, feeling slowe d down, difficulty concentrating and difficulty remembering. Mookie Mason reports emotional symptoms including: irritability, sadness, more emotional and nervousness. Mookie Mason reports sleep symptoms including: Sleeping less. Mookie Mason states he believes he is sleeping less due to the pain in his left arm from an injury he sustained during the fall. He reports he has difficulty getting comfortable. Mookie Mason denies: Sleeping more than usual, difficulty falling asleep, and drowsiness . Symptoms are exacerbated by physical activity. Symptoms are exacerbated by cognitive activity. On a scale of 0 to 6 where 0 is normal and 6 is feeling and acting very different than thei r "normal self" they rate themselves as a 3. Mookie Mason reports that they have not had a concussion in the past. This is Mookie Mason first concussion. Mookie Mason reports that they do not have a history of prior headaches. Prior to concus kain they have had headaches 3 times per years. Mookie Mason do not report a family histo ry of migraine headaches. Mookie Mason does not report a history of: learning disability and attention-deficit hyp eractivity disorder. Mookie Mason does report a history of: Depression. Past Medical History Past Medical History: Diagnosis Date Asthma Depression Past Surgical History He denies any prior surgeries (prior to this injury), but after recent injury he had surger y to treat left humeral fracture. 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 100 tablet 0 [DISCONTINUED] docusate sodium (COLACE) 100 mg capsule Take 100 mg by mouth 2 times lis ly. methocarbamol (ROBAXIN) 750 mg tablet Take 1 tablet by mouth 3 times daily. 90 tablet 0 [DISCONTINUED] naproxen sodium (ALEVE) 220 MG tablet Take 220 mg by mouth 2 times daily (with breakfast & dinner). [DISCONTINUED] oxyCODONE (ROXICODONE) 5 mg tablet Take 5 mg by mouth every 4 hours as n eeded for Pain. [DISCONTINUED] senna (EQ VEGETABLE LAXATIVE) 8.6 mg tablet Take 1 tablet by mouth Twice daily as needed for Constipation. No facility-administered encounter medications on file as of 07/17/2017. Review of Systems: Review of Systems Constitutional: Negative for chills, diaphoresis, fever, malaise/fatigue and weight loss. HENT: Positive for tinnitus. Negative for congestion, ear pain, hearing loss, nosebleeds, s inus pain and sore throat. Eyes: Negative for blurred vision, double vision, photophobia, pain, discharge and redness. [...] hematuria and urgency. Musculoskeletal: Positive for back pain. Negative for falls, joint pain, myalgias and neck pain. Pelvic pain, and left arm pain. Skin: Negative for itching and rash. Neurological: Positive for dizziness, tingling and headaches. Negative for tremors, sensory change, speech change, focal weakness, seizures, loss of consciousness and weakness. Cognitive impairment. Endo/Heme/Allergies: Negative for environmental allergies and polydipsia. Does not bruise/b leed easily. Psychiatric/Behavioral: Positive for depression. Negative for hallucinations, memory loss, substance abuse and suicidal ideas. The patient is not nervous/anxious and does not have ins omnia. Irritable. Vitals: 07/17/17 1542 BP: 134/81 Pulse: 86 PainSc: 3 PainLoc: Generalized Objective Physical Exam: General Appearance: Alert and Oriented to person, place, time and situation, no distress. HEENT: PERRL, conjunctiva clear, no scleral icterus, EOM's intact Lungs: No audible wheezing or crackles. Abdomen: non-distended Back: Symmetric Extremities: No clubbing, cyanosis or edema in upper extremities. Neurological: Cranial Nerves: Grossly Intact. Speech: Normal with naming of objects normal and word repetition. Memory: Able to recall 3 words at 5 minutes. Able to recall current political information and pertinent geographical information. Concentration: Mild impairment to concentration with subtraction of serial 3's from 100. Initially made and error, repeating numbers in the 90's, but was able to catch error but sta rted the process all over from 100. Interpretation of parables is: Metaphoric. Judgment: Intact in response to what they would do if they if they found a stamped letter on the ground; responding they would return it to a mailbox to be sent or to the postal serv ice. Sensory: Intact to light touch and pin prick in upper extremities. Coordination: Intact with finger to nose testing in both upper extremities. Gait: antalgic, reports pain in right groin. Balance: Romberg test negative, but with moderate sway. MOTOR EXAM: (5 IS NORMAL) * Indicates pain limited MUSCLE/ MOVEMENT: RIGHT LEFT Biceps 5 4+* Triceps 5 4+* Wrist Flexion 5 5 Wrist Extension 5 5 Finger Abduction 5 5 Master Police Detective Strength 5 5 Knee Flexion 5 4* Knee Extension 5 4* Extensor Hallicus Longus 5 5 Ankle Dorsiflexion 5 5 Plantarflexion 5 5 REFLEX: RIGHT LEFT BICEPS 2+ 2+ BRACHIORADIALIS 2+ 2+ TRICEPS 2+ 2+ PATELLAR 2+ 2+ ACHILLES 2+ 2+ Database: 05/31/17-CT head-per radiology dictated report- "Impression: Query small amount of hemorrhage within the quadrigeminal plate cistern." Unf ortunately imaging is not available for personal review. Assessment 1. Traumatic brain injury with loss of consciousness, subsequent encounter 2. Concussion with loss of consciousness, subsequent encounter 3. Mild cognitive impairment 4. Post-concussion vertigo 5. Irritability 6. Insomnia due to medical condition Plan 1. Today we reviewed the proposed pathophysiology of traumatic brain injury. We discussed impairment of cerebral blood flow after brain injury. We discussed that energy demands of t he brain increase following brain injury. We dicussed that this results in a mismatch betwe en energy supply and demand. We discussed that brain injury symptoms may get worse, if we i ncrease the energy mismatch with cognitive and physical activity. We discussed that the symptoms of brain injury, such as headache are the brains way of danny ing us know "too much, too soon" and that we need to take a break. We reviewed that doing t oo much too soon, may actually prolong the recovery process. Today we discussed the importance of avoiding any other activities that would increase the risk of another head injury. Today we discussed the increase risk of having another brain injury has increased, now that he has had a first brain injury. Today we discussed the that the risk of having any other injury (e.g. Sprained ankle, twist ed knee) is 50% higher for at least one year and maybe longer, after concussion & possibly b rain injury, even after all his symptoms have resolved. We discussed that recovery following brain injury is variable. We discussed the small risk of permanent symptoms following brain injury. We discussed that the risk of permanent symp toms increases with each brain injury. 2. Mookie Mason has been instructed to avoid substances such as alcohol, marijuana, opia yadira, and benzodiazapine. These substances have been shown to inhibit and prevent the brains recovery following brain injury. 3. Today we discussed medications, if possible, he should not take Robaxin , as it can slow down the healing time of the brain. We discussed medications that can help Mookie Mason s leep better, and can even help the brain heal faster, such as Trazodone. I explained to Will lety Mason that low dose anti-depressants can help with his current symptoms such as irritab ility, and other emotional changes, such as Celexa. Mookie Mason will start taking a 10 mg tablet of Celexa daily for treatment of irritability/cognitive impairment, and half (25 mg) of a 50 mg tablet of Trazodone as needed for insomnia. 4. Mookie Mason will attend physical therapy for vestibular rehabiliation. This was presc ribed by Iris Mast. We discussed that I believe this is a good idea, and believe this will help his recovery time. 5. Mookie Mason will attend speech therapy to evaluate and treat mild cognitive impairmen t. Only initial evaluation for baseline cognitive function may be needed. His mild cogniti ve impairment may not qualify for continued ST. 6. Today we discussed listening to our brain and the symptoms we are feeling. I suggested l imiting social interaction to one on one, and limiting over stimulating activities such redu cing screen time, or other activities that require brain work. 6. Mookie Mason will be scheduled to return to the clinic in in one month to review thei r post concussions symptoms, review speech therapy, physical therapy, and medications. If he has persisting irritability in the future we may increase Celexa dose and make Trazod one routine. If he continues to complain of cognitive and concentration cloud in the future may consider neuropsychology consult. If he has prolonged recovery or failure to improve, may consider brain MRI in the future to evaluate for diffuse axonal injury. This type of imaging may provide prognostic informatio n as well as information to guide treatment. I, Sam Chopra MD personally performed the services described in this documentation, as scribed by in my presence, DESHAWN Horvath and are both accurate and complete. Sam Chopra MD - 07/17/2017 Cc: Iirs Mast MD documented in this en counter Plan of Treatment + + +--------+ + + | Name | Type | Priori | Associated Diagnoses | Order Schedule | | | | ty | | | + + +--------+ + + | * [facility] | Outpatient | Routin | Traumatic brain | Ordered: 07/17/2017 | | - AMB Referral | Referral | e | injury with loss of | | | | | | consciousness, | | | | | | sequela (HCC) Mild | | | | | | cognitive impairment | | + + +--------+ + + documented as of this encounter Visit Diagnoses + + | Diagnosis | + + | Traumatic brain injury with loss of consciousness, sequela (HCC) - Primary | + + | Mild cognitive impairment Mild cognitive impairment, so stated | + + | Post-concussion vertigo Postconcussion syndrome | + + | Irritability | + + | 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
--- OUTSIDE RECORDS SUMMARY | ~2020-02-26 | XMS | Encounter Summary ---
Demographics + + + | Address | [address] [place] [address] | | | [place] [address] | + + + | Home Phone [...] [place] | | | | | [address] | | + + + + + Care Team Providers + +------+ + | Care Operations Manager Name | Role | Phone | [...] | [facility] | [place], | [address] Phone: | | | | | TREATMENT [address] | [place] [address] | [phone] | | | | | | Phone: | Fax: | | | | | | [phone] | [phone] | | | | | | Fax: | | | | | | | [phone] | | +--------+--------+ + + + + [...] | | | | OP [address] | [address] [place] | upper arm pain; | | | | [place], [place] | [place] [address] | Imbalance; Place of | | | | [address] | [phone] | occurrence, | | | | [phone] | | industrial places | | | | | Catie Squires, PT | and premises; | | | | | [address] | Chronic left-sided | | | | | [place], [place] | low back pain | | | | | [address] | without sciatica; | | | | [...] Squires, PT - 09/21/2017 2:30 PM PST [facility] OP [address] [place] [address] Physical Therapy Daily Treatment Note Date: 09/21/2017 [...] Flowsheet Row Office Visit from 08/10/2017 in [facility] OP Rehab Precautions Precautions None Rehab Learning Style Flowsheet Row Office Visit from 08/10/2017 in [facility] OP [facility] OP EVAL from 07/26/2017 in [facility] Learning Style Patient's [...]
--- OUTSIDE RECORDS SUMMARY | ~2020-02-26 | XMS | Encounter Summary ---
Demographics + + + | Address | [address] [place] [address] | | | [place] [address] | + + + | Home Phone | | + + + | Preferred Language | Unknown | + + + | Marital Status | | + + + | Presybeterian Affiliation | Unknown | + + + | Race | Unknown | + + + | Ethnic Group | Unknown | + + + Author + + + | Author | [facility] | | | and [place] | + + + | Organization | [facility] | | [...] BREANNA SMITH | | | | | [address] | | + + + + + Care Team Providers + +------+ + | Care Nuclear Pharmacist Name | Role | Phone | + [...] | Closed head | Iris | [address] | | | | | injury with | MD Barb | [place], | | | | | brief loss | [address] | [place] [address] | | | | | of | [address] | Phone: | | | | | consciousnes | [place], | [phone] | | | | | s (HCC) | [place] [address] | Fax: | | | | | Place of | Phone: | [phone] | | | | | occurrence, | [phone] | | | | | | industrial | Fax: | | | | | | places and | [phone] | | | | | | premises [...] | [address] [place] | [place] [address] | (Primary Dx); Place | | | | [place], [place] | [phone] | of occurrence, | | | | [address] | | industrial places | | | | [phone] | | and premises | +--------+ + [...] AM PDTCT head without contrast requested per ia urosurgery prior to appointment scheduling. Ordered at [...]
--- OUTSIDE RECORDS SUMMARY | ~2020-02-26 | XMS | Encounter Summary ---
Demographics + + + | Address | [address] [place] [address] | | | [place] [address] | + + + | Home Phone [...] BREANNA SMITH | | | | | [address] | | + + + + + Care Team Providers + +------+ + | Care Collision Center Manager Name | Role | Phone [...] + + | 07/20/ | Office | [facility] | [facility] [place]ris | Closed head injury | | 2017 | Visit | [facility] | MD Barb [address] | with brief loss of | | | | [address] | [address] [place] | consciousness (HCC) | | | | [address] [place] | [place] [address] | (Primary Dx); Closed | | | | [place], [place] | [phone] | left arm fracture, | | | | [address] | | with routine | | | | [phone] | | healing, subsequent | | | [...] RIZWAN Date of injury: 05/31/17 Claim number: [id number] Chief complaint: Follow-up multiple injuries Subjective: Injured [...] Vital signs as noted, nursing notes reviewed. Jdkwjyg-vkvy-mzzihdwcv, well-nourished, in no apparent distress, pleasant cooperative. Left upper fbqzrpgri-hsjz-esqill surgical incision. Full flexion, near full extension. [...] will attempt to get this study perfor [facility] prior to that if possible. He'll return [...] MMI status. This note was dictated using [employer] voice recognition software. Occasional wrong- word or [...]
--- OUTSIDE RECORDS SUMMARY | ~2020-02-26 | XMS | Encounter Summary ---
Demographics + + + | Address | [address] [place] [address] | | | [place] [address] | + + + | Home Phone [...] BREANNA SMITH | | | | | [address] | | + + + + + Care Team Providers + +------+ + | Care Fire Extinguisher Mechanic Name | Role | Phone | + +------+ + | Juli Squires DO | PCP | | + +------+ + Reason for Visit +--------+ + | Reason | Comments | +--------+ + | Other | FORM FEE | +--------+ + Encounter Details +--------+---------+ + + + | Date | Type | Department | Care Team | Description | +--------+---------+ + + + | 05/28/ | Office | [facility] | Iris Mast | Injury of head, | | 2017 | Visit | [facility] | MD Barb [address] | initial encounter | | | | [address] | [address] [place] | (Primary Dx); Work | | | | [address] [place] | [place] [address] | related injury | | | | [place], [place] | [phone] | | | | | [address] | | | | | | [phone] | | | +--------+---------+ + + + [...] + documented as of this encounter Progress Ivette Stout - 05/28/2018 8:00 AM PDTFORM FEE. PROVIDER-SCANNED DOCUMENT CAN BE FO UND IN SCANNING docume nted in this encounter Plan of Treatment Not on filedocumented as of this encounter Visit Diagnoses + + | Diagnosis | + + | Injury of head, initial encounter - Primary | + + | Work related injury Injury, other and unspecified, unspecified site | + + documented in this encounter"
--- OUTSIDE RECORDS SUMMARY | ~2020-02-26 | XMS | Encounter Summary ---
Demographics + + + | Address | [address] [place] [address] | | | [place] [address] | + + + | Home Phone | | + + + | Preferred Language | Unknown | + + + | Marital Status | | + + + | Adventist Affiliation | Unknown | + + + [...] BREANNA SMITH | | | | | [address] | | + + + + + Care Team Providers + +------+ + | Care Camper Assembler Name | Role | Phone | [...] | | | | [place] | [place] [address] | | | | | [place] [address] | | | | | | [phone] | | | +--------+ + + + [...] HUMERUS LEFT 2 + | Routin | 07/05/2017 | | Results for this | | VW | e | 11:05 AM | | procedure are in the | | | | PDT | | results section. | + +--------+ + + + documented in this encounter Results XR Humerus Left 2 + Vw (07/05/2017 11:05 AM PDT) + + | Specimen | + + | | + + + + + | Narrative | Performed At | + + + | External films | [facility] | | for comparison only - no result from [employer]. | | + + + + +---------+ + + | Performing | Address | City/State/Zipcode | Phone Number | | Organization | | | | + +---------+ + + | [facility] | | | | + +---------+ + + documented in this encounter Visit Diagnoses Not on filedocumented in this encounter"
--- OUTSIDE RECORDS SUMMARY | ~2020-02-26 | XMS | Encounter Summary ---
Demographics + + + | Address | [address] [place] [address] | | | [place] [address] | + + + | Home Phone [...] [place] | | | | | [address] | | + + + + + Care Team Providers + +------+ + | Care Pipeline Engineer Name | Role | Phone | [...] Rehabilitatio | occurrence, | MD Barb | [address] | | | | n | industrial | [address] | [place], | | | | | places and | [address] | [place] [address] | | | | | premises | [place], | Phone: | | | | | Closed head | [place] [address] | [phone] | | | | | injury with | Phone: | Fax: | | | | | brief loss | [phone] | [phone] | | | | | of | Fax: | | | | | | consciousnes | [phone] | | | | | | s [...] + + | 08/18/ | Office | [facility] | Iris Mast | Dizziness due to old | | 2017 | Visit | MED CTR THERAPY PT | MD Barb [address] | head injury; Left | | | | OP [address] | [address] [place] | upper arm pain; | | | | [place], [place] | [place] [address] | Imbalance; Place of | | | | [address] | [phone] | occurrence, | | | | [phone] | | industrial places | | | | | Catie Squires B, PT | and premises; | | | | | [address] | Chronic left-sided | | | | | [place], [place] | low back pain | | | | | [address] | without sciatica; | | | | [...] Squires, PT - 08/18/2017 10:00 AM PST [facility] THERAPY PT OP [address] [place] [address] Physical Therapy Daily Treatment Note Date: 08/18/2017 [...] Visit from 08/10/[address] [facility] CTR THERAPY PT OP Rehab Precautions Precautions None Rehab Learning Style Flowsheet Row Office Visit from 08/10/2017 in [facility] THERAPY PT OP [facility] [...]
--- OUTSIDE RECORDS SUMMARY | ~2020-02-26 | XMS | Encounter Summary ---
Demographics + + + | Address | [address] [place] [address] | | | [place] [address] | + + + | Home Phone [...] + | Author | [facility] | | | and [place] | + + + | Organization | [facility] | | [...] BREANNA SMITH | | | | | [address] | | + + + + + Care Team Providers + +------+ + | Care Travel Insurance Agent Name | Role | Phone | + [...] | | | | Lumbar | [place] [address] | ST | | | | | transverse | Phone: | [facility] | | | | | process | [phone] | [place], [place] | | | | | fracture, | Fax: | [address] | | | | | closed, | [phone] | Phone: | | | | | initial | | [phone] | | | | | encounter | | Fax: | | | | | ([facility]) | | [phone] | +--------+ + + + + + + + | Scheduling Instructions | + + | [facility] | + + Encounter Details +--------+ + + + + | Date | Type | Department | Care Team | Description | +--------+ + + + + | 06/19/ | Orders Only | [facility] | ProIris | Lumbar transverse | | 2017 | | OCCUPATIONAL HEALTH | MD Barb [address] | process fracture, | | | | [place] [address] | [address] [place] | closed, initial | | | | [address] [place] | [place] [address] | encounter (HCC) | | | | [place], [place] | [phone] | (Primary Dx); Place | | | | [address] | | of occurrence, | | | | [phone] | | industrial places | | | [...] encounter | | | | | | ([facility]) | | + + +--------+ + + documented as of this encounter Visit Diagnoses + + | Diagnosis | + + | Lumbar transverse process fracture, closed, initial encounter ([facility]) - Primary | + + | Place of occurrence, industrial places and premises | + + documented in this encounter"
--- OUTSIDE RECORDS SUMMARY | ~2020-02-26 | XMS | Encounter Summary ---
Demographics + + + | Address | [address] [place] [address] | | | [place] [address] | + + + | Home Phone | | + + + | Preferred Language | Unknown | + + + | Marital Status | | + + + | Hinduism Affiliation | Unknown | + + + | Race | Unknown | + + + | Ethnic Group | Unknown | + + + Author + + + | Author | [facility] | | | and [place] | + + + | Organization | [facility] | | [...] BREANNA SMITH | | | | | [address] | | + + + + + Care Team Providers + +------+ + | Care Budget And Policy Analyst Name | Role | Phone | [...] + + | 06/19/ | Telephone | [facility] | Iris Mast | Other | | 2018 | | OCCUPATIONAL HEALTH | MD Barb [address] | | | | | [address] | [address] [place] | | | | | [address] [place] | [place] [address] | | | | | [place], [place] | [phone] | | | | | [address] | | | | | | [phone] | | | +--------+ + + + [...]
--- OUTSIDE RECORDS SUMMARY | ~2020-02-26 | XMS | Encounter Summary ---
Demographics + + + | Address | [address] [place] [address] | | | [place] [address] | + + + | Home Phone [...] BREANNA SMITH | | | | | [address] | | + + + + + Care Team Providers + +------+ + | Care Human Resources Professional Name | Role | Phone | [...] | | | | with loss | [address] | Pathologist | | | | | of | [place], | | | | | | consciousnes | [place] [address] | | | | | | s, sequela | Phone: | | | | | | ([facility]) Mild | [phone] | | | | | | cognitive | Fax: | | | | | | impairment | [phone] | | | | | | [phone] [...] | | | | | | ([facility]) | | | | | [...] | occurrence, | MD Barb | [address] | | | | n | industrial | [address] | [place], | | | | | places and | [address] | [place] [address] | | | | | premises | [place], | Phone: | | | | | Closed head | [place] [address] | [phone] | | | | | injury with | Phone: | Fax: | | | | | brief loss | [phone] | [phone] | | | | | of | Fax: | | | | | | consciousnes | [phone] | | | | | | s ([facility]) | | | +--------+ + + + + + Encounter Details +--------+---------+ + + + | Date | Type | Department | Care Team | Description | +--------+---------+ + + + | 07/17/ | Office | [facility] | Sam Chopra, | Traumatic brain | | 2017 | Visit | PHYSIATRY [address] | MD [address] | injury with loss of | | | | [address] | [place] | consciousness, | | | | [place] | [address] | sequela (HCC) | | | | [address] | | (Primary Dx); Mild | | | | [phone] | | cognitive | | | | [...] encounter Patient Instructions Patient Instructions Grace Tran, Hand Upper And Bottom Lacer - 07/17/2017 3:[facility] PM [facility] by Iris Mast. [...] Sam Chopra MD [address] [facility], [address] [place], [place] [address] FAX: PHYSICAL MEDICINE AND REHABILITATION L&I Date: 05/31/17 L&I Number: [id number] Referring Provider: Iris Mast MD Date of [...] next day walking up in pain at [facility]. 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 Sam Chopra MD - 07/17/2017 Cc: Iris Mast MD documented in this en counter [...]
--- OUTSIDE RECORDS SUMMARY | ~2020-02-26 | XMS | Encounter Summary ---
Demographics + + + | Address | [address] [place] [address] | | | [place] [address] | + + + | Home Phone [...] BREANNA SMITH | | | | | [address] | | + + + + + Care Team Providers + +------+ + | Care Construction Project Coordinator Name | Role | Phone | [...] + + | 10/16/ | Emergency | [facility] | Carlin Willson MD | Cervical | | 2019 | | MED CTR EMERGENCY | [address] | radiculopathy | | | | CENTER [address] | [place], [place] | (Primary Dx) | | | | [place], [place] | [address] | | | | | [address] | | | | | | [phone] | | | +--------+ + + + [...] | Austin, Rad Results In - 10/16/2018 3:11 PM [...] disc bulge and mild facet spondylosis at C5-W8bbpqe now mild | | to moderate left-sided neural foraminal narrowing. No evidence ofright-sided neural | | foraminal narrowing or central spinal stenosis. Findings haveworsened since 2152G1-5: No | | central canal or neural foramina canal stenosis.C7-T1: No central canal or neural | | foramina canal stenosis.IMPRESSION -1. Small posterior disc bulge at C3-C4 which is | | eccentric and more pronouncedalong the right foraminal aspect without significant | | neuroforaminal narrowing orcentral spinal stenosis.2. Small broad-based posterior disc | | bulge and mild facet spondylosis at C5-X5jajic now mild to moderate left-sided neural | [...]
--- OUTSIDE RECORDS SUMMARY | ~2020-02-26 | XMS | Encounter Summary ---
Demographics + + + | Address | [address] [place] [address] | | | [place] [address] | + + + | Home Phone | | + + + | Preferred Language | Unknown | + + + | Marital Status | | + + + | Holiness Affiliation | Unknown | + + + | Race | Unknown | + + + | Ethnic Group | Unknown | + + + Author + + + | Author | [facility] | | | and [place] | + + + | Organization | [facility] | | [...] BREANNA SMITH | | | | | [address] | | + + + + + Care Team Providers + +------+ + | Care Solar Systems Designer Name | Role | Phone | [...] | | places and | address | [place], [place] | | | | | premises | | [address] Phone: | | | | | | | [phone] | | | | | | | Fax: | | | | | | | [phone] | +--------+ + + + + + Reason for Visit + + + | Reason | Comments | + + + | Follow-up | Exam 4/ WC 05/31/17 | + + + Encounter Details +--------+---------+ + + + | Date | Type | Department | Care Team | Description | +--------+---------+ + + + | 06/29/ | Office | [facility] | Kailey Otoole, | Place of occurrence, | | 2017 | Visit | CARE [address] | MD Need updated | industrial places | | | | [place], [place] | address | and premises | | | | [address] | | (Primary Dx); Closed | | | | [phone] | | nondisplaced | | | | | | fracture of pelvis, | | | | | | unspecified part of | | | | | | pelvis, initial | | | | | | encounter ([facility]); | | | | | | Closed fracture of | | | | | | lumbar spine without | | | | | | lesion of spinal | | | | | | cord, initial | | | | | | encounter ([facility]); | | | | | | Closed fracture of | | | | | | cervical vertebra, | | | | | | unspecified cervical | | | | | | vertebral level, | | | | | | initial encounter | | | | | | ([facility]); Closed left | | | | | | arm fracture, with | | | | | | routine healing, | | | | | | subsequent | | | | | | encounter; Bleeding | | | | | | in brain ([facility]); Fall | | | | | | [...] Chief Complaint: Follow-up (Exam 4/ WC 05/31/17) [facility] [employer] insulation Date of injury 05/31/17 History of Present Illness: Mookie is a 37 y.o. male who comes in with his Tyesha complaining of needing to get hooked up with occupational medicine here in [place]. He fell off a roof about 20 feet 05/31 while he was mojgan. This occurred at work. He was working in [employer]. Other peo ple were working with him. It started to rain and they were on a metal roof. He has a lot of experience and so he went to move the ladder but his shoes were still not tachycardia olga ugh and he slid off. He was transported to [facility] and then airlifted to [facility]. They took him to [facility]. He suffered 2 spots of bleeding on [...] inserted and he has a follow-up with [facility] orthopedics on July 05. He tried [...] of occurrence, industrial places and premises * [facility] Neurosurgery - AMB Refe rral 2. Closed nondisplaced fracture of pelvis, unspecified part of pelvis, initial encounter ([facility]) 3. Closed fracture of lumbar spine without lesion of spinal cord, initial encounter ([facility]) 4. Closed fracture of cervical vertebra, unspecified cervical vertebral level, initial enco unter ([facility]) 5. Closed left arm fracture, with routine healing, subsequent encounter 6. Bleeding in brain ([facility]) 7. Fall from roof, initial encounter I [...] and neurosurgery. This note was dictated using [employer] voice recognition software. Occasional wrong- word or [...]
--- OUTSIDE RECORDS SUMMARY | ~2020-02-26 | XMS | Encounter Summary ---
Demographics + + + | Address | [address] [place] [address] | | | [place] [address] | + + + | Home Phone [...] BREANNA SMITH | | | | | [address] | | + + + + + Care Team Providers + +------+ + | Care Adult Literacy Teacher Name | Role | Phone | + +------+ + | Juli Squires DO | PCP | | + +------+ + Reason for Visit + + + | Reason | Comments | + + + | Follow-up | Room 2. Follow-up stitch removal x 2 weeks left inside arm. | | | DOI 05/31/17 | + + + Encounter Details +--------+---------+ + + + | Date | Type | Department | Care Team | Description | +--------+---------+ + + + | 08/07/ | Office | [facility] | Jacinto Rousseau, | Encounter for | | 2018 | Visit | CARE [address] | [address] | removal of sutures | | | | [place] | [place] | (Primary Dx); Closed | | | | [address] | [address] | left arm fracture, | | | | [phone] | | with routine | | | [...] + + + | Blood Pressure | 133/94 | 08/07/2018 1:38 PM | | | | | PST | | + + + + + | Pulse | 74 | 08/07/2018 1:38 PM | | | | | PST | | + + + + + | Temperature | 37.2 C (98.9 F) | 08/07/2018 1:38 PM | | | | | PST | | + + + + + | Respiratory Rate | 12 | 08/07/2018 1:38 PM | | | | | PST | | + + + + + | Oxygen Saturation | 98% | 08/07/2018 1:38 PM | | | | | PST | | + + + + + | Inhaled Oxygen | - | - | | | Concentration | | | | + + + + + | Weight | 64 kg (141 lb 1.5 | 08/07/2018 1:38 PM | | | | oz) | PST | | + + + + + | Height | 185.4 cm (6' 1") | 08/07/2018 1:38 PM | | | | | PST | | + + + + + | Body Mass Index | 18.62 | 08/07/2018 1:38 PM | | | | | PST | | + + + + + documented in this encounter Patient Instructions Patient Instructions Jacinto Rousseau MD - 08/07/2018 12:45 PM PST Stitches or Staple Removal You were seen today for removal of your stitches or gregory. Your wound is healing as expec elijah.The woundhas healed well enough thatthe stitches or gregory can beremoved. The w ound will continue to healfor the next few months. At this time there is no sign of infection. Home care If you have pain, take pain medicine as advisedby your healthcare provider. Keep your wound clean and protected by covering it with a bandage for the next week or s o. Wash your hands with soap and warm water beforeandafter caring for your wound. This helps prevent infection. Clean the wound gently with soap and warm water dailyor as directed by your healthcare provider.Don'tuse iodine, alcohol, or other cleansers on the wound.Gently pat it dr amy. Put on a new bandage, if needed.Don't reuse bandages. If the area gets wet, gently pat it dry with a clean cloth. Replace the wet bandage with a dry one. Check the wound daily for signs of infection. (These are listed under "When to seek medi kian advice" below.) You may shower and bathe as usual. Swimming is now permitted. Keep the wound out of prolonged direct sunlight. The new skin is very sensitive and can easily sunburn causing worse scarring. Ask your provider about using pexg-dfe-wiseeqd scar removing creams if your wound is hig hly visible. Follow-up care Follow up with yourhealthcare provideras advised. When to seek medical advice Call your healthcare provider if any of the following occur: Wound reopens or bleeds Signs of an infection, such as: Increasing redness or swelling around the wound Increased warmth from the wound Worsening pain Red streaking lines away from the wound Fluid draining from the wound Fever of 100.4F (38C) or higher, or as directed by your healthcare provider Date Last Reviewed: 12/31/201719997039-4539 The [employer]. [address] [place] [address]. All righ ts reserved. This information is not intended as a substitute for professional medical care. Always follow your healthcare professional's instructions. documented in this encounter Progress Notes Jacinto Rousseau MD - 08/07/2018 12:45 PM PSTFormatting of this note might be different fr om the original. Subjective: Patient ID: Mookie Mason is a 38 y.o. male.who presents today for Follow-up (Room 2 . Follow-up stitch removal x 2 weeks left inside arm. DOI 05/31/17) . HPI The patient is being seen for suture removal following surgery on his left arm to remove christie rdware post humerus fracture with internal fixation. This was done in [place] he is here t [place] 2 weeks afterwards to have the sutures removed. He's not currently working. Patient Active Problem List Diagnosis TBI (traumatic brain injury) Dizziness due to old head injury Left upper arm pain Imbalance Place of occurrence, industrial places and premises Chronic left-sided low back pain without sciatica Neck pain Closed fracture of shaft of left humerus with routine healing Decreased activities of daily living (ADL) Memory deficit Attention deficit Cognitive changes Past Surgical History: Procedure Laterality Date HUMERUS SURGERY Left 06/14/2017 [facility] in [place] Current Outpatient Prescriptions Medication Sig Dispense Refill naproxen (NAPROSYN) 250 mg tablet Take 220 mg by mouth 6 times daily. RA ACETAMINOPHEN EX ST 500 MG tablet take 2 tablet by mouth every 6 hours if needed for pain 100 tablet 0 No current facility-administered medications for this visit. He reports that he has been smoking Cigarettes. He has a 6.25 pack-year smoking history. He quit smokeless tobacco use about 10 years ago. He reports that he drinks alcohol. He repo rts that he does not use drugs. Allergies Allergen Reactions Amoxicillin Anaphylaxis Aspirin Anaphylaxis Erythromycin Anaphylaxis Penicillins Anaphylaxis Intolerance No active intolerances/contraindications ROS Objective: BP (!) 133/94 | Pulse 74 | Temp 37.2 C (98.9 F) (Temporal) | Resp 12 | Ht 1.854 m ( 6' 1") | Wt 64 kg (141 lb 1.5 oz) | SpO2 98% | BMI 18.62 kg/m Physical Exam The left arm has a 16 inch centimeter surgical wound on the anterolateral aspect. There ar e [address] and there is minimal erythema and no swelling or drainage. T he wound appears well-healed. With much difficulty as the knot and the ends were very the s kin sutures were removed. There is a modest amount of bleeding at age sites and afterwards the wound was cleaned and antibiotic ointment placed and then a dressing placed over the lef t. The patient is instructed to watch for signs of infection and I would like him to use an tibiotic ointment and keep the dressing on the wound for the next 2 days. Assessment/Plan: Mookie was seen today for follow-up. Diagnoses and all orders for this visit: Encounter for removal of sutures Closed left arm fracture, with routine healing, subsequent encounter The patient is scheduled for follow-up with Dr. Mast on August 19. Forms for L&I are c ompleted. No Follow-up on file. Tdocumented in this encounter Plan of Treatment Not on filedocumented as of this encounter Visit Diagnoses + + | Diagnosis | + + | Encounter for removal of sutures - Primary | + + | Closed left arm fracture, with routine healing, subsequent encounter | + + documented in this encounter
--- OUTSIDE RECORDS SUMMARY | ~2020-02-26 | XMS | Encounter Summary ---
Demographics + + + | Address | [address] [place] [address] | | | [place] [address] | + + + | Home Phone | | + + + | Preferred Language | Unknown | + + + | Marital Status | | + + + | Mandaeism Affiliation | Unknown | + + + [...] BREANNA SMITH | | | | | [address] | | + + + + + Care Team Providers + +------+ + | Care Whipper Beater Name | Role | Phone | + [...] | | | | | premises | [facility] [place], | [address] Phone: | | | | | Closed head | [place] [address] | [phone] | | | | | injury with | Phone: | Fax: | | | | | brief loss | [phone] | [phone] | | | | | of | Fax: | | | | | | consciousnes | [phone] | | | | | | s [...] + + | 11/27/ | Office | [facility] | Iris Mast | Closed fracture of | | 2018 | Visit | MED CTR THERAPY PT | MD Barb [address] | shaft of left | | | | OP [address] | [address] [place] | humerus with routine | | | | [place], [place] | [place] [address] | healing, | | | | [address] | [phone] | unspecified fracture | | | | [phone] | | morphology, | | | | | Catie Squires B, PT | subsequent | | | | | [address] | encounter; Dizziness | | | | | [place], [place] | due to old head | | | | | [address] | injury; Left upper | | | [...] Squires, PT - 11/27/2017 4:00 PM PST [facility] CTR THERAPY PT OP [address] [place] [address] Physical Therapy Daily Treatment Note Date: 11/27/2017 [...] Flowsheet Row Office Visit from 08/10/2017 in [facility] CTR THERAPY PT OP Rehab Precautions Precautions None Rehab Learning Style Flowsheet Row Office Visit from 08/10/2017 in [facility] CTR THERAPY PT OP [facility] OP EVAL from 07/26/2017 in [facility] SPEECH THERAPY Learning Style Patient's [employer] [...]
--- OUTSIDE RECORDS SUMMARY | ~2020-02-26 | XMS | Encounter Summary ---
Demographics + + + | Address | [address] [place] [address] | | | [place] [address] | + + + | Home Phone | | + + + | Preferred Language | Unknown | + + + | Marital Status | | + + + | Mormonism Affiliation | Unknown | + + + | Race | Unknown | + + + | Ethnic Group | Unknown | + + + Author + + + | Author | [facility] | | | and [place] | + + + | Organization | [facility] | | | [...] BREANNA SMITH | | | | | [address] | | + + + + + Care Team Providers + +------+ + | Care Senior J2Ee Developer Name | Role | Phone | + [...] | [address] [place], [place] | [place] [address] | | | | | [address] | [phone] | | | | | [phone] | | | +--------+ + + + [...]
--- OUTSIDE RECORDS SUMMARY | ~2020-02-26 | XMS | Encounter Summary ---
Demographics + + + | Address | [address] [place] [address] | | | [place] [address] | + + + | Home Phone [...] BREANNA SMITH | | | | | [address] | | + + + + + Care Team Providers + +------+ + | Care Laborer Starch Factory Name | Role | Phone | + [...] + + | 02/27/ | Telephone | [facility] | Catie Squires, | Missed Visit | | 2018 | | MED CTR THERAPY PT | PT [address] | | | | | OP [address] | [place] | | | | | [place] | [address] | | | | | [address] | | | | | | [phone] | | | +--------+ + + + [...]
--- OUTSIDE RECORDS SUMMARY | ~2020-02-26 | XMS | Encounter Summary ---
Demographics + + + | Address | [address] [place] [address] | | | [place] [address] | + + + | Home Phone [...] BREANNA SMITH | | | | | [address] | | + + + + + Care Team Providers + +------+ + | Care Assistant Chief Of Police Name | Role | Phone | + [...] | | | | | premises | [facility] [place], | [address] Phone: | | | | | Closed head | [place] [address] | [phone] | | | | | injury with | Phone: | Fax: | | | | | brief loss | [phone] | [phone] | | | | | of | Fax: | | | | | | consciousnes | [phone] | | | | | | s [...] + + | 12/04/ | Office | [facility] | Iris Mast | Closed fracture of | | 2018 | Visit | MED CTR THERAPY PT | MD Barb [address] | shaft of left | | | | OP [address] | [address] [place] | humerus with routine | | | | [place], [place] | [place] [address] | healing, | | | | [address] | [phone] | unspecified fracture | | | | [phone] | | morphology, | | | | | Catie Squires B, PT | subsequent | | | | | [address] | encounter; Dizziness | | | | | [place] | due to old head | | | | | [address] | injury; Left upper | | | [...] Squires, PT - 12/04/2017 4:00 PM PST [facility] CTR THERAPY PT OP [address] [place] [address] Physical Therapy Daily Treatment Note Date: 12/04/2017 [...] from 08/10/2017 in [facility] CTR THERAPY PT OP Rehab Precautions Precautions None Rehab Learning Style Flowsheet Row Office Visit from 08/10/2017 in [facility] CTR THERAPY PT OP [facility] S LP OP EVAL from 07/26/[address] [facility] SPEECH THERAPY Learning Style Patient's Optimum [...]
--- OUTSIDE RECORDS SUMMARY | ~2020-02-26 | XMS | Encounter Summary ---
Demographics + + + | Address | [address] [place] [address] | | | [place] [address] | + + + | Home Phone [...] [place] | | | | | [address] | | + + + + + Care Team Providers + +------+ + | Care Environmental Manager Name | Role | Phone | [...] | | | [facility] | [place], | [address] Phone: | | | | | TREATMENT [address] | [place] [address] | [phone] | | | | | | Phone: | Fax: | | | | | | [phone] | [phone] | | | | | | Fax: | | | | | | | [phone] | | +--------+--------+ + + + + Encounter Details +--------+---------+ + + + | Date | Type | Department | Care Team | Description | +--------+---------+ + + + | 09/29/ | Office | [facility] | Iris Mast | Dizziness due to old | | 2017 | Visit | MED CTR THERAPY PT | MD Barb [address] | head injury; Left | | | | OP [address] | [address] [place] | upper arm pain; | | | | [place], [place] | [place] [address] | Imbalance; Place of | | | | [address] | [phone] | occurrence, | | | | [phone] | | industrial places | | | | | Lashawn Cornelius, | and premises; | | | | | PERINATAL EDUCATOR [address] | Chronic left-sided | | | | | [place] | low back pain | | | | | [address] | without sciatica; | | | | [...] of this encounter Progress Notes Lashawn Cornelius, TEAGAN - 09/29/2017 1:00 PM PST [facility] CTR THERAPY PT OP [address] [place] [address] Physical Therapy Daily Treatment Note Date: 09/29/2017 Patient Information Patient Name: Mookie Mason Date [...] Row Office Visit from 08/10/2017 in [facility] CTR THERAPY PT OP Rehab Precautions Precautions None Rehab Learning Style Flowsheet Row Office Visit from 08/10/2017 in [facility] CTR THERAPY PT OP [facility] S [facility] OP EVAL from 07/26/2017 in [facility] CTR SPEECH THERAPY Learning Style Patient's Optimum Learning Style listening, observation listening, observation Start Time: 1300 Stop time: 1345 Duration: 45 minutes Timed Treatment Codes: 45 minutes # of PT Visits to Date: 10 Subjective: Pt reports that he has not been dizzy for the past few weeks, And is not feeling foggy. Pt reports that he is having increased pain since last session in his left shoulder and poi nts to anterior/pec. He is doing some self massage to the pec and using a heating pad on his back and shoulder at night. Receiving some light massage from his family. Pain Assessment: pain rating 3-4/10. Pain highest in arm, next low back, than pelvis and lastly rib. Location: left shoulder/forarm, low back Objective: Manual therapy: STM and TPR to intra scap, pec., suboccipitals, left bicep/tricep TherEx: isometric scap. Retraction and depression, GH abd and flexion 2x10 each Gentle pec., bicep and Upper trap stretches 3x30 sec pec stretch over a noodle. 2 min boidex. Hot pack neck 5 min. Assessment: Sec stretch over the noodle did not flare any symptoms, could feel the stretch and reports that he has a noodle at home. Biodex caused hip/ thigh pain stopped after 2 min. Pt tolerated session with no increase in [...] ROM and balance/vestibular rehab. Electronically signed by: Lashawn Cornelius PTA, 09/29/2017 14:08 Patient Name: Mookie Mason/: 1980/ documented in [...]
--- OUTSIDE RECORDS SUMMARY | ~2020-02-26 | XMS | Encounter Summary ---
Demographics + + + | Address | [address] [place] [address] | | | [place] [address] | + + + | Home Phone [...] BREANNA SMITH | | | | | [address] | | + + + + + Care Team Providers + +------+ + | Care Breaker Machine Operator Name | Role | [...] + + | 08/07/ | Office | [facility] [place] [facility] | Jacinto Rousseau, | Encounter for | | 2018 | Visit | CARE [address] | [address] | removal of sutures | | | | [place] | [place] | (Primary Dx); Closed | | | | [address] | [address] | left arm fracture, | | | | [phone] | | with routine | | | [...] worse scarring. Ask your provider about using egok-eaz-muscmvn scar removing creams if your wound is [...] by your healthcare provider Date Last Reviewed: 12/31/201719995905-9644 [employer]. [address] [place] [address]. All righ ts reserved. This information is [...] with internal fixation. This was done in [place] he is here t bruno 2 weeks [...] HUMERUS SURGERY Left 06/14/2017 [facility] in [place] Current Outpatient Prescriptions Medication Sig Dispense Refill [...]
--- OUTSIDE RECORDS SUMMARY | ~2020-02-26 | XMS | Encounter Summary ---
Demographics + + + | Address | [address] [place] [address] | | | [place] [address] | + + + | Home Phone [...] BREANNA SMITH | | | | | [address] | | + + + + + Care Team Providers + +------+ + | Care Hemmer Chainstitch Name | Role | Phone | + [...] | | | | | premises | [facility] [place], | [address] Phone: | | | | | Closed head | [place] [address] | [phone] | | | | | injury with | Phone: | Fax: | | | | | brief loss | [phone] | [phone] | | | | | of | Fax: | | | | | | consciousnes | [phone] | | | | | | s [...] + + | 02/08/ | Office | [facility] | Iris Mast | Closed fracture of | | 2018 | Visit | MED CTR THERAPY PT | MD Barb [address] | shaft of left | | | | OP [address] | [address] [place] | humerus with routine | | | | [place], [place] | [place] [address] | healing, | | | | [address] | [phone] | unspecified fracture | | | | [phone] | | morphology, | | | | | Catie Squires B, PT | subsequent | | | | | [address] | encounter; Dizziness | | | | | [place] | due to old head | | | | | [address] | injury; Left upper | | | [...] Squires, PT - 02/08/2018 2:45 PM PDT [facility] CTR THERAPY PT OP [address] [place] [address] Physical Therapy Daily Treatment Note Date: 02/08/2018 [...] Rehab Precautions Office Visit from 08/10/2017 in [facility] CTR THERAPY PT OP Rehab Precautions Precautions None Rehab Learning Style Office Visit from 08/10/2017 in [facility] CTR THERAPY PT OP [facility] DOCUMENTATION CONSULTANT OP EVAL f rom 07/26/2017 in [facility] SPEECH THERAPY Learning Style Patient's Optimum [...]
--- OUTSIDE RECORDS SUMMARY | ~2020-02-26 | XMS | Encounter Summary ---
Demographics + + + | Address | [address] [place] [address] | | | [place] [address] | + + + | Home Phone [...] BREANNA SMITH | | | | | [address] | | + + + + + Care Team Providers + +------+ + | Care Nodulizer Name | Role | Phone | + +------+ + | Juli Squires DO | PCP | | + +------+ + Reason for Visit + + + | Reason | Comments | + + + | Work Related Injury | | + + + Encounter Details +--------+ + + + + | Date | Type | Department | Care Team | Description | +--------+ + + + + | 11/08/ | Telephone | [facility] | Iris Mast | Work Related Injury | | 2019 | | OCCUPATIONAL HEALTH | MD Barb [address] | | | | | [address] | [address] [place] | | | | | [address] [place] | [place] [address] | | | | | [place], [place] | [phone] | | | | | [address] | | | | | | [phone] | | | +--------+ + + + [...]
--- OUTSIDE RECORDS SUMMARY | ~2020-02-26 | XMS | Encounter Summary ---
Demographics + + + | Address | [address] [place] [address] | | | [place] [address] | + + + | Home Phone [...] BREANNA SMITH | | | | | [address] | | + + + + + Care Team Providers + +------+ + | Care Marriage And Family Therapist Name | Role | Phone | [...] | | | | | premises | [facility] [place], | [address] Phone: | | | | | Closed head | [place] [address] | [phone] | | | | | injury with | Phone: | Fax: | | | | | brief loss | [phone] | [phone] | | | | | of | Fax: | | | | | | consciousnes | [phone] | | | | | | s [...] + + | 12/08/ | Office | [facility] | Iris Mast | Closed fracture of | | 2018 | Visit | MED CTR THERAPY PT | MD Barb [address] | shaft of left | | | | OP [address] | [address] [place] | humerus with routine | | | | [place], [place] | [place] [address] | healing, | | | | [address] | [phone] | unspecified fracture | | | | [phone] | | morphology, | | | | | Catie Squires B, PT | subsequent | | | | | [address] | encounter; Dizziness | | | | | [place] | due to old head | | | | | [address] | injury; Left upper | | | [...] Squires, PT - 12/08/2017 4:00 PM PST [facility] CTR THERAPY PT OP [address] [place] [address] Physical Therapy Daily Treatment Note Date: 12/08/2017 [...]
--- OUTSIDE RECORDS SUMMARY | ~2020-02-26 | XMS | Encounter Summary ---
Demographics + + + | Address | [address] [place] [address] | | | [place] [address] | + + + | Home Phone | | + + + | Preferred Language | Unknown | + + + | Marital Status | | + + + | Druze Affiliation | Unknown | + + + | Race | Unknown | + + + | Ethnic Group | Unknown | + + + Author + + + | Author | [facility] | | | and [place] | + + + | Organization | [facility] | | | [...] BREANNA SMITH | | | | | [address] | | + + + + + Care Team Providers + +------+ + | Care Ophthalmologist Name | Role | Phone | + [...] | | | | ABIOLA SONJA | [place] [address] | | | | | [place] [address] | | | | | | [phone] | | | +--------+ + + + [...] + +--------+ + + + | CT HEAD WO CONTRAST | Routin | 05/31/2017 | | Results for this | | | e | 2:20 PM | | procedure are in the | | | | PDT | | results section. | + +--------+ + + + documented in this encounter Results CT Head wo Contrast (05/31/2017 2:20 PM PDT) + + | Specimen | + + | | + + + + + | Narrative | Performed At | + + + | External films | [facility] | | for comparison only - no result from [place]. | | + + + + +---------+ + + | Performing | Address | City/State/Zipcode | Phone Number | | Organization | | | | + +---------+ + + | [facility] | | | | + +---------+ + + documented in this encounter Visit Diagnoses Not on filedocumented in this encounter"
--- OUTSIDE RECORDS SUMMARY | ~2020-02-26 | XMS | Encounter Summary ---
Demographics + + + | Address | [address] [place] [address] | | | [place] [address] | + + + | Home Phone | | + + + | Preferred Language | Unknown | + + + | Marital Status | | + + + | Confucianism Affiliation | Unknown | + + + | Race | Unknown | + + + | Ethnic Group | Unknown | + + + Author + + + | Author | [facility] | | | and [place] | + + + | Organization | [facility] | | | [...] BREANNA SMITH | | | | | [address] | | + + + + + Care Team Providers + +------+ + | Care Workforce Development Program Director Name | Role | Phone [...] | fracture, | [address] | | | | | with routine | [address] | [place], | | | | | healing, | [place], | [place] [address] | | | | | subsequent | [place] [address] | Phone: | | | | | encounter | Phone: | [phone] | | | | | Place of | [phone] | Fax: | | | | | occurrence, | Fax: | [phone] | | | | | industrial | [phone] | | | | | | places and | | | | | | | premises | | | +--------+ + + + + + Encounter Details +--------+---------+ + + + | Date | Type | Department | Care Team | Description | +--------+---------+ + + + | 01/04/ | Office | [facility] | Iris Mast | Decreased activities | | 2018 | Visit | MED CNT ONCOLOGY | MD Barb [address] | of daily living | | | | THERAPY [address] | [address] [place] | (ADL); Left upper | | | | [place], | [place] [address] | arm pain | | | | [place] [address] | [phone] | | | | | [phone] | | | | | | | Iirs Adan, OT | | | | | | [address] | | | | | | [place], [place] | | | | | | [address] | | | | | | | [...] might be different fr om the original. [facility] MED CTR THERAPY OT OP [address] [place] [address] Occupational Therapy Daily Treatment Note Date: 01/04/2018 Patient Information Patient Name: Mookie Mason Date of : 1980 Age: 37 y.o. History Encounter Diagnoses Code Name Primary? R68.89 Decreased activities of daily living (ADL) M79.622 Left upper arm pain Date of Onset: 05/31/2017 Referring Provider: Iris Mast MD Rehab Precautions Office Visit from 08/10/2017 in [facility] CTR THERAPY PT OP Rehab Precautions Precautions None Rehab Learning Style Office Visit from 08/10/2017 in [facility] CTR THERAPY PT OP [facility] VOLUNTEER SERVICES DIRECTOR OP EVAL f rom 07/26/2017 in [facility] CTR SPEECH THERAPY Learning Style Patient's [...]
--- OUTSIDE RECORDS SUMMARY | ~2020-02-26 | XMS | Encounter Summary ---
Demographics + + + | Address | [address] [place] [address] | | | [place] [address] | + + + | Home Phone | | + + + | Preferred Language | Unknown | + + + | Marital Status | | + + + | Advent Affiliation | Unknown | + + + | Race | Unknown | + + + | Ethnic Group | Unknown | + + + Author + + + | Author | [facility] | | | and [place] | + + + | Organization | [facility] | | | [...] BREANNA SMITH | | | | | [address] | | + + + + + Care Team Providers + +------+ + | Care School Speech Therapist Name | Role | Phone | [...] PHYSIATRY [address] | MD [address] | | | | | [address] | [place], [place] | | | | | [place] | [address] | | | | | [address] | | | | | | [phone] | | | +--------+ + + + [...]
--- OUTSIDE RECORDS SUMMARY | ~2020-02-26 | XMS | Encounter Summary ---
Demographics + + + | Address | [address] [place] [address] | | | [place] [address] | + + + | Home Phone | | + + + | Preferred Language | Unknown | + + + | Marital Status | | + + + | Alevism Affiliation | Unknown | + + + | Race | Unknown | + + + | Ethnic Group | Unknown | + + + Author + + + | Author | [facility] | | | and [place] | + + + | Organization | [facility] | | | [...] [place] | | | | | [address] | | + + + + + Care Team Providers + +------+ + | Care Bus Girl Name | Role | Phone | + [...] Rehabilitatio | occurrence, | MD Barb | [place] | | | | n | industrial | [address] | [place], | | | | | places and | [address] | [place] [address] | | | | | premises | [place], | Phone: | | | | | Closed head | [place] [address] | [phone] | | | | | injury with | Phone: | Fax: | | | | | brief loss | [phone] | [phone] | | | | | of | Fax: | | | | | | consciousnes | [phone] | | | | | | s [...] + + | 08/22/ | Office | [facility] | Iris Mast | Dizziness due to old | | 2017 | Visit | MED CTR THERAPY PT | MD Barb [address] | head injury; Left | | | | OP [address] | [address] [place] | upper arm pain; | | | | [place], [place] | [place] [address] | Imbalance; Place of | | | | [address] | [phone] | occurrence, | | | | [phone] | | industrial places | | | | | Catie Squires B, PT | and premises; | | | | | [address] | Chronic left-sided | | | | | [place] | low back pain | | | | | [address] | without sciatica; | | | | [...] Squires, PT - 08/22/2017 9:45 AM PST [facility] THERAPY PT OP [address] [place] [address] Physical Therapy Daily Treatment Note Date: 08/22/2017 [...] Visit from 08/10/2017 in [facility] THERAPY PT OP [facility] S LP OP EVAL from 07/26/2017 in [facility] SPEECH THERAPY Learning Style Patient's [...]
--- OUTSIDE RECORDS SUMMARY | ~2020-02-26 | XMS | Encounter Summary ---
Demographics + + + | Address | [address] [place] [address] | | | [place] [address] | + + + | Home Phone | | + + + | Preferred Language | Unknown | + + + | Marital Status | | + + + | Lutheran Affiliation | Unknown | + + + | Race | Unknown | + + + | Ethnic Group | Unknown | + + + Author + + + | Author | [facility] | | | and [place] | + + + | Organization | [facility] | | | [...] BREANNA SMITH | | | | | [address] | | + + + + + Care Team Providers + +------+ + | Care Senior Field Engineer Name | Role | Phone | [...] | | | | routine | [place] [address] | ST | | | | | healing, | Phone: | [place] | | | | | unspecified | [phone] | [place], [place] | | | | | fracture | Fax: | [address] | | | | | morphology, | [phone] | Phone: | | | | | subsequent | | [phone] | | | | | encounter | [...] + + | 08/17/ | Office | [facility] [place] | Iris Mast | Closed fracture of | | 2018 | Visit | OCCUPATIONAL HEALTH | MD Barb [address] | shaft of left | | | | [address] | [address] [place] | humerus with routine | | | | [address] [place] | [place] [address] | healing, | | | | [place], [place] | [phone] | unspecified fracture | | | | [address] | | morphology, | | | | [phone] | | subsequent encounter | | | [...] [place] Date of injury: 05/31/17 Claim number: [id number] Chief complaint: Follow-up multiple injuries Subjective: Injured [...] Vital signs as noted, nursing notes reviewed. Nocdmdf-qalt-vretdvlil, well-nourished, in no apparent distress, pleasant cooperative. Left upper txr-eqmt-emscdh surgical incision. No redness or drainage. Full [...] more than 50% of which is been vqao-cr-sbfc, discussi ng treatment plan, options, return to work, coordination of care, and other issues regarding claims management. Impairment undetermined at this point in time, based on current objective findings it is an anticipated consequence of this injury however patient has not yet reached MMI status. This note was dictated using [employer] voice recognition software. Occasional wrong- word or [...]
--- OUTSIDE RECORDS SUMMARY | ~2020-02-26 | XMS | Encounter Summary ---
Demographics + + + | Address | [address] [place] [address] | | | [place] [address] | + + + | Home Phone [...] [place] | | | | | [address] | | + + + + + Care Team Providers + +------+ + | Care Drapery Seamstress Name | Role | Phone | + [...] | | | Closed head | [place] [address] | | | | | | injury with | Phone: | | | | | | brief loss | [phone] | | | | | | of | Fax: | | | | | | consciousnes | [phone] | | | | | | s (HCC) | | | | | | | Procedures | | | | | | | [facility] MEDIA PLANNER OP | | | | | | | TREATMENT | | | +--------+--------+ + + + + Encounter Details +--------+ + + + + | Date | Type | Department | Care Team | Description | +--------+ + + + + | 10/10/ | Hospital | [facility] | Iris Mast | Traumatic brain | | 2018 | Encounter | MED CTR SPEECH | MD Barb [address] | injury, with loss of | | | | THERAPY [address] | [address] [place] | consciousness of 30 | | | | [place], | [place] [address] | minutes or less, | | | | [place] [address] | [phone] | subsequent encounter | | | | [phone] | | (Primary Dx) | | | [...] Speech Pathologist - 10/12/2017 2:44 PM PST [facility] SPEECH THERAPY [address] [place] [address] Speech Therapy Daily Treatment Note Date: 10/10/2017 [...]
--- OUTSIDE RECORDS SUMMARY | ~2020-02-26 | XMS | Encounter Summary ---
Demographics + + + | Address | [address] [place] [address] | | | [place] [address] | + + + | Home Phone [...] BREANNA SMITH | | | | | [address] | | + + + + + Care Team Providers + +------+ + | Care Cloud Operations Engineer Name | Role | Phone | [...] | Closed head | Iris | [address] | | | | | injury with | MD Barb | [place], | | | | | brief loss | [address] | [place] [address] | | | | | of | [address] | Phone: | | | | | consciousnes | [place], | [phone] | | | | | s (HCC) | [place] [address] | Fax: | | | | | Place of | Phone: | [phone] | | | | | occurrence, | [phone] | | | | | | industrial | Fax: | | | | | | places and | [phone] | | | | | | premises [...] | Closed head | Iris | [address] | | | | | injury with | MD Barb | [place], | | | | | brief loss | [address] | [place] [address] | | | | | of | [address] | Phone: | | | | | consciousnes | [place], | [phone] | | | | | s (HCC) | [place] [address] | Fax: | | | | | Place of | Phone: | [phone] | | | | | occurrence, | [phone] | | | | | | industrial | Fax: | | | | | | places and | [phone] | | | | | | premises [...] | +--------+ + + + + | 07/31/ | Hospital | [facility] | Iris Mast | Closed head injury | | 2017 | Encounter | MED CTR CT [address] | MD Barb [address] | with brief loss of | | | | [place], | [address] [place] | consciousness (HCC); | | | | [place] [address] | [place] [address] | Place of | | | | [phone] | [phone] | occurrence, | | | | | [...] CT HEAD WO CONTRAST | Routin | 07/31/2017 | Closed head injury | Results for this | | | e | 12:34 PM | with brief loss of | procedure are in the | | | | PDT | consciousness (HCC) | results section. | | | | | Place of [...]
--- OUTSIDE RECORDS SUMMARY | ~2020-02-26 | XMS | Encounter Summary ---
Demographics + + + | Address | [address] [place] [address] | | | [place] [address] | + + + | Home Phone [...] BREANNA SMITH | | | | | [address] | | + + + + + Care Team Providers + +------+ + | Care Packaging Line Attendant Name | Role | Phone | [...] + + | 07/13/ | Telephone | [facility] | Iris Mast | Results, Imaging | | 2018 | | [facility]CCUPATIONAL HEALTH | MD Barb [address] | | | | | [address] | [address] [place] | | | | | [address] [place] | [facility] [place] [address] | | | | | [facility] [place] | [phone] | | | | | [address] | | | | | | [phone] | | | +--------+ + + + [...]
--- OUTSIDE RECORDS SUMMARY | ~2020-02-26 | XMS | Encounter Summary ---
Demographics + + + | Address | [address] [place] [address] | | | [place] [address] | + + + | Home Phone [...] BREANNA SMITH | | | | | [address] | | + + + + + Care Team Providers + +------+ + | Care Dive Superintendent Name | Role | Phone | + +------+ + | Juli Squires DO | PCP | | + +------+ + Encounter Details +--------+ + + + + | Date | Type | Department | Care Team | Description | +--------+ + + + + | 04/13/ | Hospital | [facility] | Iris Mast | Closed left arm | | 2018 | Encounter | MED CTR CHRIS XRAY | MD Barb [address] | fracture, with | | | | [address] [place] | [address] [place] | routine healing, | | | | [place], [place] | [place] [address] | subsequent | | | | [address] | [phone] | encounter; Place of | | | | [phone] | | occurrence, | | | | [...]
--- OUTSIDE RECORDS SUMMARY | ~2020-02-26 | XMS | Encounter Summary ---
Demographics + + + | Address | [address] [place] [address] | | | [place] [address] | + + + | Home Phone [...] BREANNA SMITH | | | | | [address] | | + + + + + Care Team Providers + +------+ + | Care Moshgiach Name | Role | Phone | + +------+ + | No, Physician | PCP | Unavailable | + +------+ + Encounter Details +--------+ + + + + | Date | Type | Department | Care Team | Description | +--------+ + + + + | 09/28/ | Hospital | [facility] | Iris Mast | Lumbar transverse | | 2017 | Encounter | MED CTR CHRIS XRAY | MD Barb [address] | process fracture, | | | | [address] [place] | [address] [place] | closed, initial | | | | [place], [place] | [place] [address] | encounter ([facility]); | | | | [address] | [phone] | Place of occurrence, | | | | [phone] | | industrial places | | | [...] LUMBAR SPINE 2 [place] | Routin | 09/28/2017 | Lumbar transverse | Results for this | | 3 VW | e | 2:09 PM | process fracture, | procedure are in the | | | | PST | closed, initial | results section. | | | | | encounter (HCC) | | | | | | Place of occurrence, | | | | | | industrial places | | | | | | and premises | | + +--------+ + + + documented in this encounter Results XR Lumbar Spine 2 [...]
--- OUTSIDE RECORDS SUMMARY | ~2020-02-26 | XMS | Encounter Summary ---
Demographics + + + | Address | [address] [place] [address] | | | [place] [address] | + + + | Home Phone [...] + + | Author | [facility] | | | and [place] | + + + | Organization | [facility] | | [...] BREANNA SMITH | | | | | [address] | | + + + + + Care Team Providers + +------+ + | Care Pier Worker Name | Role | Phone | [...] | | | | ABIOLA SONJA | [place] [address] | | | | | [place] [address] | | | | | | [phone] | | | +--------+ + + + [...] for comparison only - no result from [place]. | | + + + + +---------+ + + | Performing | Address | City/State/Zipcode | Phone Number | | Organization | | | | + +---------+ + + | [facility] | | | | + +---------+ + + documented in this encounter Visit Diagnoses Not on filedocumented in this encounter"
--- OUTSIDE RECORDS SUMMARY | ~2020-02-26 | XMS | Encounter Summary ---
Demographics + + + | Address | [address] [place] [address] | | | [place] [address] | + + + | Home Phone | | + + + | Preferred Language | Unknown | + + + | Marital Status | | + + + | Orthodox Affiliation | Unknown | + + + | Race | Unknown | + + + | Ethnic Group | Unknown | + + + Author + + + | Author | [facility] | | | and [place] | + + + | Organization | [facility] | | [...] [place] | | | | | [address] | | + + + + + Care Team Providers + +------+ + | Care Vp Organizational Development Name | Role | Phone | + [...] | | | Closed head | [place] [address] | | | | | | injury with | Phone: | | | | | | brief loss | [phone] | | | | | | of | Fax: | | | | | | consciousnes | [phone] | | | | | | s (HCC) | | | | | | | Procedures | | | | | | | [facility] TOP DISTRIBUTION EXECUTIVE OP | | | | | | | TREATMENT | | | +--------+--------+ + + + + Encounter Details +--------+ + + + + | Date | Type | Department | Care Team | Description | +--------+ + + + + | 10/03/ | Hospital | [facility] | Iris Mast | Traumatic brain | | 2018 | Encounter | MED CTR SPEECH | MD Barb [address] | injury, with loss of | | | | THERAPY [address] | [address] [place] | consciousness of 30 | | | | [place], | [place] [address] | minutes or less, | | | | [place] [address] | [phone] | subsequent encounter | | | | [phone] | | (Primary Dx) | | | [...] Speech Pathologist - 10/03/2017 11:46 AM PST [facility] SPEECH THERAPY [address] [place] [address] Speech Therapy Daily Treatment Note Date: 10/03/2017 [...] from 08/10/2017 in [facility] THERAPY PT OP Rehab Precautions Precautions None Rehab Learning Style Flowsheet Row Office Visit from 08/10/2017 in [facility] THERAPY PT OP [facility] S LP OP EVAL from 07/26/2017 in [facility] SPEECH THERAPY Learning Style Patient's Optimum Learning [...]
--- OUTSIDE RECORDS SUMMARY | ~2020-02-26 | XMS | Encounter Summary ---
Demographics + + + | Address | [address] [place] [address] | | | [place] [address] | + + + | Home Phone [...] BREANNA SMITH | | | | | [address] | | + + + + + Care Team Providers + +------+ + | Care Pond Supervisor Name | Role | Phone | [...] | | | | OP [address] | [place], [place] | | | | | [place], [place] | [address] | | | | | [address] | | | | | | [phone] | | | +--------+ + + + [...] Squires PT - 02/27/2018 3:56 PM [facility] [address] [place] [address] Physical Therapy Discharge Note This discharge is [...]
--- OUTSIDE RECORDS SUMMARY | ~2020-02-26 | XMS | Encounter Summary ---
Demographics + + + | Address | [address] [place] [address] | | | [place] [address] | + + + | Home Phone [...] [place] | | | | | [address] | | + + + + + Care Team Providers + +------+ + | Care Pipe Blanks Cut Off Saw Operator Name | Role | Phone | [...] | [facility] | [place], | [address] Phone: | | | | | TREATMENT [address] | [place] [address] | [phone] | | | | | | Phone: | Fax: | | | | | | [phone] | [phone] | | | | | | Fax: | | | | | | | [phone] | | +--------+--------+ + + + + [...] | | | | OP [address] | [address] [place] | upper arm pain; | | | | [place], [place] | [place] [address] | Imbalance; Place of | | | | [address] | [phone] | occurrence, | | | | [phone] | | industrial places | | | | | Lashawn Cornelius, | and premises; | | | | | LIBRARIAN HEAD [address] | Chronic left-sided | | | | | [place], [place] | low back pain | | | | | [address] | without sciatica; | | | | [...] Cornelius, TEAGAN - 09/29/2017 1:00 PM PST [facility] CTR THERAPY PT OP [address] [place] [address] Physical Therapy Daily Treatment Note Date: 09/29/2017 [...] OP EVAL from 07/26/2017 in [facility] CTR SPEECH THERAPY Learning Style Patient's Optimum [...]
--- OUTSIDE RECORDS SUMMARY | ~2020-02-26 | XMS | Encounter Summary ---
Demographics + + + | Address | [address] [place] [address] | | | [place] [address] | + + + | Home Phone [...] BREANNA SMITH | | | | | [address] | | + + + + + Care Team Providers + +------+ + | Care Septic Tank Service Technician Name | Role | Phone | [...] | | | | | | | [address] | | +--------+--------+ + + + + [...] | [address] [place] | [place] [address] | | | | | [place] [address] | | | | | | [phone] | | | +--------+ + + + [...] for comparison only - no result from [facility]. | | + + + + +---------+ + + | Performing | Address | City/State/Zipcode | Phone Number | | Organization | | | | + +---------+ + + | [facility] | | | | + +---------+ + + documented in this encounter Visit Diagnoses Not on filedocumented in this encounter"
--- OUTSIDE RECORDS SUMMARY | ~2020-02-26 | XMS | Encounter Summary ---
Demographics + + + | Address | [address] [place] [address] | | | [place] [address] | + + + | Home Phone | | + + + | Preferred Language | Unknown | + + + | Marital Status | | + + + | Judaism Affiliation | Unknown | + + + [...] BREANNA SMITH | | | | | [address] | | + + + + + Care Team Providers + +------+ + | Care Mechanical Test Engineer Name | Role | Phone | [...] | fracture, | [address] | [address] | | | | | with routine | [address] | [place], | | | | | healing, | [place], | [place] [address] | | | | | subsequent | [place] [address] | Phone: | | | | | encounter | Phone: | [phone] | | | | | Place of | [phone] | Fax: | | | | | occurrence, | Fax: | [phone] | | | | | industrial | [phone] | | | | | | places and | | | | | | | premises | | | +--------+ + + + + + Encounter Details +--------+---------+ + + + | Date | Type | Department | Care Team | Description | +--------+---------+ + + + | 12/28/ | Office | [facility] | Iris Mast | Decreased activities | | 2018 | Visit | MED CNT ONCOLOGY | MD Barb [address] | of daily living | | | | THERAPY [address] | [address] [place] | (ADL); Left upper | | | | [place], | [place] [address] | arm pain | | | | [place] [address] | [phone] | | | | | [phone] | | | | | | | Iris Adan, OT | | | | | | [address] | | | | | | [place], [place] | | | | | | [address] | | | | | | | [...] encounter Progress Notes Iris Adan OT - 12/28/2017 11:00 AM PDTFormatting of this note might be different fr om the original. [facility] MED CTR THERAPY OT OP [address] [place] [address] Occupational Therapy Daily Treatment Note Date: 12/28/2017 Patient Information Patient Name: Mookie Mason Date of : 1980 Age: 37 y.o. History Encounter Diagnoses Code Name Primary? Z78.9 Decreased activities of daily living (ADL) M79.622 Left upper arm pain Date of Onset: 05/31/2017 Referring Provider: Iris Mast MD Rehab Precautions Office Visit from 08/10/2017 in [facility] CTR THERAPY PT OP Rehab Precautions Precautions None Rehab Learning Style Office Visit from 08/10/2017 in [facility] CTR THERAPY PT OP [facility] CASTINGS TRIMMER OP EVAL f rom 07/26/2017 in [facility] CTR SPEECH THERAPY Learning Style Patient's Optimum Learning Style listening, observation listening, observation Today's Treatment Start Time: 1104 Stop time: 1205 Duration: 61 minutes Timed Treatment Codes: 61 minutes # of OT Visits: 5 Subjective: The laser helped for about 3 days last time Pain Assessment: Pain Rating Pre Assessment: 5 Location: arm Objective Pt seen for application of TENS to left anterior shoulder and distal medial humerus and nagi sum of axilla posterior shoulder. Pt seen for LLLT to medial humerus x3 and dorsum of axilla x1 in preparation for MFR Pt ve ry sensitive this day to MFR. He states that he tried to mow his lawn 3 days ago and felt f ine when he did it, but had severe increase in back pain post tx. Pt seen for application of K tape in I configuration to anterior and posterior shoulder and horizontal from anterior shoulder to back Decreased shoulder pain post taping and Pt tx the medial humerus was more sore, even with the TENS, possibly due to MFR to area. Assessment Pain continues to limited his ability to perform activities. Discussion with pt that it wa s not a good decision that he mow the lawn, even though it did not hurt at the time. Patient will benefit from continued OT for pain control, progressive strengthening, tissue management, upgrade HEP, ROM. . Plan monitor response to TENS, decrease pain, instruct in dowel exercises Electronically signed by: Iris Adan OT, 12/28/2017 17:29 Patient Name: Mookie Mason/: 1980/ documented in this e ncounter Plan of Treatment Not on filedocumented as of this encounter Visit Diagnoses + + | Diagnosis | + + | Decreased activities of daily living (ADL) | + + | Left upper arm pain Pain in limb | + + documented in this encounter"
--- OUTSIDE RECORDS SUMMARY | ~2020-02-26 | XMS | Encounter Summary ---
Demographics + + + | Address | [address] [place] [address] | | | [place] [address] | + + + | Home Phone [...] + + | Author | [facility] | | | and [place] | + + + | Organization | [facility] | | [...] [place] | | | | | [address] | | + + + + + Care Team Providers + +------+ + | Care Space Physicist Name | Role | Phone | + [...] Rehabilitatio | occurrence, | MD Barb | [place] | | | | n | industrial | [address] | [place], | | | | | places and | [address] | [place] [address] | | | | | premises | [place], | Phone: | | | | | Closed head | [place] [address] | [phone] | | | | | injury with | Phone: | Fax: | | | | | brief loss | [phone] | [phone] | | | | | of | Fax: | | | | | | consciousnes | [phone] | | | | | | s [...] + + | 09/07/ | Office | [facility] | Iris Mast | Dizziness due to old | | 2017 | Visit | MED CTR THERAPY PT | MD Barb [address] | head injury; Left | | | | OP [address] | [address] [place] | upper arm pain; | | | | [place], [place] | [place] [address] | Imbalance; Place of | | | | [address] | [phone] | occurrence, | | | | [phone] | | industrial places | | | | | Lashawn Cornelius, | and premises; | | | | | LESSON INSTRUCTOR [address] | Chronic left-sided | | | | | [place] | low back pain | | | | | [address] | without sciatica; | | | | [...] of this encounter Progress Notes Lashawn Cornelius, LESSON INSTRUCTOR - 09/07/2017 11:00 AM PST [facility] THERAPY PT OP [address] [place] [address] Physical Therapy Daily Treatment Note Date: 09/07/2017 [...] S LP OP EVAL from 07/26/2017 in [facility] SPEECH THERAPY [...]
--- OUTSIDE RECORDS SUMMARY | ~2020-02-26 | XMS | Encounter Summary ---
Demographics + + + | Address | [address] [place] [address] | | | [place] [address] | + + + | Home Phone | | + + + | Preferred Language | Unknown | + + + | Marital Status | | + + + | Jew Affiliation | Unknown | + + + | Race | Unknown | + + + | Ethnic Group | Unknown | + + + Author + + + | Author | [facility] | | | and [place] | + + + | Organization | [facility] | | [...] BREANNA SMITH | | | | | [address] | | + + + + + Care Team Providers + +------+ + | Care Charge Lpn Name | Role | Phone | + [...] PHYSIATRY [address] | MD [address] | | | | | [address] | [place], [place] | | | | | [place], [place] | [address] | | | | | [address] | | | | | | [phone] | | | +--------+ + + + [...]
--- OUTSIDE RECORDS SUMMARY | ~2020-02-26 | XMS | Encounter Summary ---
Demographics + + + | Address | [address] [place] [address] | | | [place] [address] | + + + | Home Phone [...] BREANNA SMITH | | | | | [address] | | + + + + + Care Team Providers + +------+ + | Care Hold Worker Name | Role | Phone | [...] + + | 10/30/ | Office | [facility] | Iris Mast | Strain of neck | | 2018 | Visit | OCCUPATIONAL HEALTH | MD Barb [address] | muscle, subsequent | | | | [address] | [address] [place] | encounter (Primary | | | | [address] [place] | [place] [address] | Dx); Closed fracture | | | | [place], [place] | [phone] | of shaft of left | | | | [address] | | humerus with routine | | | | [phone] | | healing, | | | | [...] | | | | | encounter ([facility]); | | | | | [...] SABRITTANY Date of injury: 05/31/17 Claim number: [id number] Chief complaint: Follow-up multiple injuries Subjective: Injured [...] allergies reviewed Review of systems: As per [facility] Objective: Vital signs as noted, nursing notes reviewed. Yovddfh-lchq-bwowjfola, well-nourished, in no apparent distress, pleasant cooperative. [...] more than 50% of which was spent yxib-eo-xspb, discus sing treatment plan, coordination of care, and answering questions in regard to claims manag ement issues. This note was dictated using Brandt[employer] voice recognition software. Occasional wrong- word or [...]
--- OUTSIDE RECORDS SUMMARY | ~2020-02-26 | XMS | Encounter Summary ---
Demographics + + + | Address | [address] [place] [address] | | | [place] [address] | + + + | Home Phone | | + + + | Preferred Language | Unknown | + + + | Marital Status | | + + + | Zoroastrian Affiliation | Unknown | + + + [...] BREANNA SMITH | | | | | [address] | | + + + + + Care Team Providers + +------+ + | Care Gold Nib Grinder Name | Role | Phone | + +------+ + | Juli Squires DO | PCP | | + +------+ + Encounter Details +--------+ + + + + | Date | Type | Department | Care Team | Description | +--------+ + + + + | 07/13/ | Hospital | [facility] | Iris Mast | Closed fracture of | | 2018 | Encounter | MED CTR CHRIS XRAY | MD Barb [address] | shaft of left | | | | [address] [place] | [address] [place] | humerus with routine | | | | [place], [place] | [place] [address] | healing, | | | | [address] | [phone] | unspecified fracture | | | | [phone] | | morphology, | | | | [...]
--- OUTSIDE RECORDS SUMMARY | ~2020-02-26 | XMS | Encounter Summary ---
Demographics + + + | Address | [address] [place] [address] | | | [place] [address] | + + + | Home Phone [...] BREANNA SMITH | | | | | [address] | | + + + + + Care Team Providers + +------+ + | Care Construction Administrative Assistant Name | Role | Phone | [...] | fracture, | [address] | [address] | | | | | with routine | [address] | [place], | | | | | healing, | [place], | [place] [address] | | | | | subsequent | [place] [address] | Phone: | | | | | encounter | Phone: | [phone] | | | | | Place of | [phone] | Fax: | | | | | occurrence, | Fax: | [phone] | | | | | industrial | [phone] | | | | | | places and | | | | | | | premises | | | +--------+ + + + + + Encounter Details +--------+---------+ + + + | Date | Type | Department | Care Team | Description | +--------+---------+ + + + | 12/07/ | Office | [facility] | Iris Mast | Decreased activities | | 2018 | Visit | MED CNT ONCOLOGY | MD Barb [address] | of daily living | | | | THERAPY [address] | [address] [place] | (ADL); Left upper | | | | [place], | [place] [address] | arm pain | | | | [place] [address] | [phone] | | | | | [phone] | | | | | | | Iris Adan, OT | | | | | | [address] | | | | | | [place], [place] | | | | | | [address] | | | | | | | [...] encounter Progress Notes Iris Adan OT - 12/07/2017 1:00 PM PSTFormatting of this note might be different fr om the original. [facility] MED CTR THERAPY OT OP [address] [place] [address] Occupational Therapy Daily Treatment Note Date: 12/07/2017 Patient Information Patient Name: Mookie Mason Date of : 1980 Age: 37 y.o. History Encounter Diagnoses Code Name Primary? Z78.9 Decreased activities of daily living (ADL) M79.622 Left upper arm pain Date of Onset: 05/31/2017 Referring Provider: Iris Mast MD Rehab Precautions Flowsheet Row Office Visit from 08/10/2017 in [facility] CTR THERAPY PT OP Rehab Precautions Precautions None Rehab Learning Style Flowsheet Row Office Visit from 08/10/2017 in [facility] CTR THERAPY PT OP [facility] S LP OP EVAL from 07/26/2017 in [facility] SPEECH THERAPY Learning Style Patient's Optimum Learning Style listening, observation listening, observation Today's Treatment Start Time: 1300 Stop time: Duration: minutes Timed Treatment Codes: minutes # of OT Visits: 2 Subjective: Pain is decreased from previous as pain is localized Awaiting MRI to neck to determine if neck is causing shoulder pain.. Pt is now able to tie his shoes. Pain only when pulling them tight. Pt has been approved for light duty work, but does currently have a job Pain Assessment: Pain Rating Pre Assessment: 4 Location: localized at shoulder joint with 2 pain distally. Occational spikes of pain Objective Pt states that pain is more localized than it was when therapist saw him las month. It is now worst on the anterior shoulder just medial to humeral head. Pt tends to push through daphne n rather than stop, and limit motion to prevent pain. Pt also has tenderness to palpation o martha back in area of supraspinatus. Pt seen for shoulder exercise trying to keep pt within Pain rather than continue to press. Pt seen for application of K tape in I configuration to anterior and posterior shoulder and horizontal from anterior shoulder to back. This provides support, but he continues to have pain Pt provided with electrostatic paint operator resistance yellow theraband to use rather than the theratubing, wh ich has more resistance for HEP to determine is it will reduce his pain. Pt encouraged to not push past the pain when performing exercises. Pt states that he has elbow tenderness in the "tendon under the arm", elbow to shoulder Assessment Pt has improve in shoulder use and stretch, but continues to push in to area of pain, possi ricardo causing irritation to the muscles, etc. Plan decrease pain, monitor response to K tape, increase strength Electronically signed by: Iris Adan OT, 12/07/2017 12:59 Patient Name: Mookie Mason/: 1980/ documented in this e ncounter Plan of Treatment Not on filedocumented as of this encounter Visit Diagnoses + + | Diagnosis | + + | Decreased activities of daily living (ADL) | + + | Left upper arm pain Pain in limb | + + documented in this encounter
--- OUTSIDE RECORDS SUMMARY | ~2020-02-26 | XMS | Encounter Summary ---
Demographics + + + | Address | [address] [place] [address] | | | [place] [address] | + + + | Home Phone [...] BREANNA SMITH | | | | | [address] | | + + + + + Care Team Providers + +------+ + | Care Administrative Services Assistant Name | Role | Phone | [...] | | premises | [place], | [address] | | | | | Incomplete | [place] [address] | Phone: | | | | | tear of left | Phone: | [phone] | | | | | rotator | [phone] | Fax: | | | | | cuff | Fax: | [phone] | | | | | | [phone] | | +--------+ + + + + [...] + + | 09/28/ | Office | [facility] | Iris Mast | Incomplete tear of | | 2017 | Visit | OCCUPATIONAL HEALTH | MD Barb [address] | left rotator cuff | | | | [address] | [address] [place] | (Primary Dx); Lumbar | | | | [address] [place] | [place] [address] | transverse process | | | | [place], [place] | [phone] | fracture, closed, | | | | [address] | | initial encounter | | | | [phone] | | ([facility]); Place of | | | | | [...] RIZWAN Date of injury: 05/31/17 Claim number: [id number] Chief complaint: Follow-up multiple injuries Subjective: Injured [...] significant as in the left shoulder. At tx s last visit with Dr. Henderson, he [...] may have exacerbated the symptoms. States that tx s last visit he felt that his [...] Vital signs as noted, nursing notes reviewed. Rbppivt-uhym-cplqdgrvc, well-nourished, in no apparent distress, pleasant cooperative. [...] MMI status. This note was dictated using ChromaDex voice recognition software. Occasional wrong- word or [...]
--- OUTSIDE RECORDS SUMMARY | ~2020-02-26 | XMS | Encounter Summary ---
Demographics + + + | Address | [address] [place] [address] | | | [place] [address] | + + + | Home Phone [...] BREANNA SMITH | | | | | [address] | | + + + + + Care Team Providers + +------+ + | Care Files Supervisor Name | Role | Phone | [...] Rehabilitatio | occurrence, | MD Barb | [address] | | | | n | industrial | [address] | [place], | | | | | places and | [address] | [place] [address] | | | | | premises | [place], | Phone: | | | | | Closed head | [place] [address] | [phone] | | | | | injury with | Phone: | Fax: | | | | | brief loss | [phone] | [phone] | | | | | of | Fax: | | | | | | consciousnes | [phone] | | | | | | s [...] + + | 08/10/ | Office | [facility] | Sam Chopra, | Traumatic brain | | 2017 | Visit | MED CTR THERAPY PT | MD [address] | injury, with loss of | | | | OP [address] | [place] | consciousness of 30 | | | | [place], [place] | [address] | minutes or less, | | | | [address] | | subsequent encounter | | | | [phone] | Catie Squires, PT | (Primary Dx); | | | | | [address] | Dizziness due to old | | | | | [place], [place] | head injury; Left | | | | | [address] | upper arm pain; | | | [...] had several injuries and was treated in [place] . S/p left humerus ORIF. Pt reports [...] conditions 2 and 4 Treatment Plan/Interventions PT [id number] - Therapeutic Hlhwsuso47464 - Neuromuscular Nvrdlzoajez89440 - Gait Brain vakx30656 - Therapeutic Qioukktusq96540 - Manual Vgxeyys87012 - Self Care/Home Dttbxyhnyk945 92 - Canalith Zvkbuettqbdtd01530 - Vasopneumatic Phayxpx89070 - Electrical Stimulation, Unat tended Electronically signed by: Catie Squires PT, 08/10/2017 17:47 Patient Name: Mookie Mason/: 1980/ Catie Rich P T - 08/10/2017 1:15 PM PST [facility] CTR THERAPY PT OP [address] [place] [address] Physical Therapy Initial Assessment Date: 08/10/2017 Patient [...] had several injuries and was treated in [place]. 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 S/p left humerus ORIF. Pt reports that [...] 3+ 4- Finger ABD (T1): 3+ 4- Interpretive Naturalist Strength: 50 # elbow pain 120 Postural [...] had several injuries and was treated in [place]. S/p left humerus OR IF. Pt reports [...] 08/10/2017 Certification To: 11/02/2017 Treatment Plan/Interventions PT Wjrhnrsmns26359 - Therapeutic Qxtuxvla26856 - Neuromuscular Qdtcrugxpdj38543 - Gait Brain ifie03990 - Therapeutic Nsvqmlrovf91792 - Manual Aosiqnb21610 - Self Care/Home Tmveugovro333 92 - Canalith Pfldidcjirqfj45807 - Vasopneumatic Qsraymg26039 - Electrical Stimulation, Unat tended Patient and/or [...]
--- OUTSIDE RECORDS SUMMARY | ~2020-02-26 | XMS | Encounter Summary ---
Demographics + + + | Address | [address] [place] [address] | | | [place] [address] | + + + | Home Phone [...] BREANNA SMITH | | | | | [address] | | + + + + + Care Team Providers + +------+ + | Care Kitman Name | Role | Phone | + [...] | Closed head | Iris | [address] | | | | | injury with | MD Barb | [place], | | | | | brief loss | [address] | [place] [address] | | | | | of | [address] | Phone: | | | | | consciousnes | [place], | [phone] | | | | | s (HCC) | [place] [address] | Fax: | | | | | Place of | Phone: | [phone] | | | | | occurrence, | [phone] | | | | | | industrial | Fax: | | | | | | places and | [phone] | | | | | | premises [...] | Closed head | Iris | [address] | | | | | injury with | MD Barb | [place], | | | | | brief loss | [address] | [place] [address] | | | | | of | [address] | Phone: | | | | | consciousnes | [place], | [phone] | | | | | s (HCC) | [place] [address] | Fax: | | | | | Place of | Phone: | [phone] | | | | | occurrence, | [phone] | | | | | | industrial | Fax: | | | | | | places and | [phone] | | | | | | premises [...] + + | 07/31/ | Hospital | [facility] | Iris Mast | Closed head injury | | 2017 | Encounter | MED CTR CT [address] | MD Barb [address] | with brief loss of | | | | [place], | [address] [place] | consciousness (HCC); | | | | [place] [address] | [place] [address] | Place of | | | | [phone] | [phone] | occurrence, | | | | | [...]
--- OUTSIDE RECORDS SUMMARY | ~2020-02-26 | XMS | Encounter Summary ---
Demographics + + + | Address | [address] [place] [address] | | | [place] [address] | + + + | Home Phone [...] BREANNA SMITH | | | | | [address] | | + + + + + Care Team Providers + +------+ + | Care Child Protection Specialist Name | Role | Phone | [...] / | Closed head | Iris | Shop Foreman [address] | | | Required | Speech | injury with | MD Barb | [place] | | | | Therapy | brief loss | [address] | [place] | | | | | of | [address] | [address] | | | | | consciousnes | [place], | Phone: | | | | | s ([facility]) | [place] [address] | [phone] | | | | | Place of | Phone: | Fax: | | | | | occurrence, | [phone] | [phone] | | | | | industrial | Fax: | | | | | | places and | [phone] | | | | | | premises [...] Rehabilitatio | arm | MD Barb | [place] | | | | n | fracture, | [address] | [place], | | | | | with routine | [address] | [place] [address] | | | | | healing, | [place], | Phone: | | | | | subsequent | [place] [address] | [phone] | | | | | encounter | Phone: | Fax: | | | | | Place of | [phone] | [phone] | | | | | occurrence, | Fax: | | | | | | industrial | [phone] | | | | | | places [...] brief loss of | | | | [place] [address] | [address] [place] | consciousness (HCC) | | | | [address] [place] | [place] [address] | (Primary Dx); Closed | | | | [place], [place] | [phone] | left arm fracture, | | | | [address] | | with routine | | | | [phone] | | healing, subsequent | | | [...]
--- OUTSIDE RECORDS SUMMARY | ~2020-02-26 | XMS | Encounter Summary ---
Demographics + + + | Address | [address] [place] [address] | | | [place] [address] | + + + | Home Phone [...] BREANNA SMITH | | | | | [address] | | + + + + + Care Team Providers + +------+ + | Care Hoop Riveter Name | Role | Phone | + [...] | | | | | premises | [facility] [place], | [address] Phone: | | | | | Closed head | [place] [address] | [phone] | | | | | injury with | Phone: | Fax: | | | | | brief loss | [phone] | [phone] | | | | | of | Fax: | | | | | | consciousnes | [phone] | | | | | | s [...] + + | 12/12/ | Office | [facility] | Iris Mast | Closed fracture of | | 2018 | Visit | MED CTR THERAPY PT | MD Barb [address] | shaft of left | | | | OP [address] | [address] [place] | humerus with routine | | | | [place], [place] | [place] [address] | healing, | | | | [address] | [phone] | unspecified fracture | | | | [phone] | | morphology, | | | | | Catie Squires B, PT | subsequent | | | | | [address] | encounter; Dizziness | | | | | [place] | due to old head | | | | | [address] | injury; Left upper | | | [...] Squires, PT - 12/12/2017 2:45 PM PDT [facility] CTR THERAPY PT OP [address] [place] [address] Physical Therapy Daily Treatment Note Date: 12/12/2017 [...] Flowsheet Row Office Visit from 08/10/2017 in [facility] CTR THERAPY PT OP Rehab Precautions Precautions None Rehab Learning Style Flowsheet Row Office Visit from 08/10/2017 in [facility] CTR THERAPY PT OP [facility] OP EVAL from 07/26/2017 in [facility] SPEECH THERAPY Learning Style Patient's [...] Catie Squires PT, 12/12/2017 16:12 Patient Name: Mooike Palmer Marlon/: 1980/ documented in this enco [...]
--- OUTSIDE RECORDS SUMMARY | ~2020-02-26 | XMS | Encounter Summary ---
Demographics + + + | Address | [address] [place] [address] | | | [place] [address] | + + + | Home Phone [...] BREANNA SMITH | | | | | [address] | | + + + + + Care Team Providers + +------+ + | Care Shank Stapler Name | Role | Phone | + [...] Rehabilitatio | arm | MD Barb | [place] | | | | n | fracture, | [address] | [place], | | | | | with routine | [address] | [place] [address] | | | | | healing, | [place], | Phone: | | | | | subsequent | [place] [address] | [phone] | | | | | encounter | Phone: | Fax: | | | | | Place of | [phone] | [phone] | | | | | occurrence, | Fax: | | | | | | industrial | [phone] | | | | | | places and | | | | | | | premises | | | | | | | [phone] | | | | | | | (ICD-10-CM) | | | | | | | - V54.10 | | | | | | | (ICD-9-CM) - | | | | | | | Closed left | | | | | | | arm | | | | | | | fracture, | | | | | | | with routine | | | | | | | healing, | | | | | | | subsequent | | | | | | | encounter | | | | | | | Procedures | | | | | | | pt eval Emeterio | | | +--------+ + + + + + Diagnostic/Screening (Routine) +--------+--------+ + + + + | Status | Reason | Specialty | Diagnoses / | Referred By | Referred To | | | | | Procedures | Contact | Contact | +--------+--------+ + + + + | Closed | | Radiology | Diagnoses | Pro, | [facility] | | | | | Closed left | Iris | [address] | | | | | arm | MD Barb | [place], | | | | | fracture, | [address] | [place] | | | | | with routine | [address] | [address] | | | | | healing, | [place], | Phone: | | | | | subsequent | [place] [address] | [phone] | | | | | encounter | Phone: | Fax: | | | | | Place of | [phone] | [phone] | | | | | occurrence, | Fax: | | | | | | industrial | [phone] | | | | | | places [...] + + | 08/17/ | Office | [facility] | Iris Mast | Closed left arm | | 2017 | Visit | [facility] | MD Barb [address] | fracture, with | | | | [place] [address] | [address] [place] | routine healing, | | | | [address] [place] | [place] [address] | subsequent encounter | | | | [place], [place] | [phone] | (Primary Dx); Place | | | | [address] | | of occurrence, | | | | [phone] | | industrial places | | | [...] + + + | Blood Pressure | 126/99 | 08/17/2017 1:51 PM | | | | | PST | | + + + + + | Pulse | 97 | 08/17/2017 1:51 PM | | | | | PST | | + + + + + | Temperature | 37.1 C (98.7 F) | 08/17/2017 1:51 PM | | | | | PST [...] Weight | 63 kg (139 lb) | 08/17/2017 1:51 PM | | | | | PST | | + + + + + | Height | 185.4 cm (6' 1") | 08/17/2017 1:51 PM | | | | | PST | | + + + + + | Body Mass Index | 18.34 | 08/17/2017 1:51 PM | | | | | PST | | + + + + + documented in this encounter Progress Notes Iris Mast MD - 08/17/2017 2:00 PM PSTEmployer: [employer] Guarantor: RIZWAN Date of injury: 05/31/17 Claim number: [id number] Chief complaint: Follow-up multiple injuries Subjective: Injured workers a 37-year-old male presents today for scheduled follow-up. At his last vis it he was referred to speech therapy for issues with word finding and memory. He has been s een and evaluated and further services have been recommended. He does feel that his memory and fogginess in thinking are slowly improving. He has been referred to physical therapy fo r dizziness which she also states has been improving. He states the dizzy spells are occurr ing less frequently and noticed severe. It is no longer walking with cane assistance. Stat es he can walk approximately 10 minutes before having increased pelvic discomfort. Still christie s discomfort in the low back but this is slowly improving. Majority of his discomfort is in the left arm. He states he is also having pain in the left shoulder with popping, made wor se with overhead activities, driving in particular is difficult. Has had pain in the left u pper arm since surgical repair for the fracture, now is no longer having constant pain, easi ly having intermittent pain, but feels that the intermittent discomfort is actually worse. Also has discomfort in the left elbow. States he was told by Dr. Henderson, orthopedics that zbigniew broderick did have a fracture of the elbow but it did not warrant any extensive treatment. He has s een improvement in range of motion of the left arm, is able to fully extend but still has di fficulties with flexion. He is unable to open doors, or push or pull anything of significan t weight, even lifting the talus difficult. He states he was last seen by Dr. Santiago sams approximately one week ago, and is essentially been released from care. He also had a CT scan of the brain to evaluate the questionable intracranial bleed associated with this inju ry, along with the neurosurgical consultation. CT of the head was reviewed, and no further neurosurgical treatments or evaluations were recommended. He has been seen by Dr. veliz, ph ysiatry, for the head injury and concussion, placed on trazodone but found the medication to be ineffective so this has been discontinued. He has been using the Celexa on a daily basi s and finds it to be very helpful. He states he does need a refill of the medication, ran o ut yesterday and was like to continue. He does have an appointment with Dr. veliz for follo w-up next month. Past medical history, medications, allergies reviewed Review of systems: As per HPI Objective: Vital signs as noted, nursing notes reviewed. Qcrqwvr-cbil-pdbluaihb, well-nourished, in no apparent distress, pleasant cooperative. Left shoulder-normal to inspection. No gross asymmetry or bony deformity. Tenderness suba cromial, and anteriorly over the long head of the biceps. Does have full range of motion, a lthough abduction minimally reduced. Pain without weakness with testing of the rotator cuff musculature. No impingement signs. Negative Mohave's. Left elbow-no swelling or effusion. Full extension, limited flexion. Gait-gait is mildly antalgic, walks with a slight limp. Neuro-cranial nerves II through XII grossly intact. Psych-mood, affect, speech and thought processes appropriate. Imaging/diagnostics: MRI left shoulder-requested Pending interventions: Continue conservative management. Assessment: 1. Left humeral fracture-status post ORIF 2. Closed head injury-post concussive Plan: Continues to complain of shoulder discomfort. Plain l-xwwn-ysqxxqvw per injured worker rep ort. Request MRI imaging to rule out internal derangement. Request physical therapy for th e humeral fracture, for improved strength and range of motion. Continue physical therapy fo r the head injury as well as speech therapy for memory issues. Refill of Celexa as provided today at his request. Follow up with Dr. veliz as scheduled. Return here in 4-6 weeks, so john for acute worsening or other concerns. He voices understanding and agreement. E: Off work R: Off work Impairment undetermined at this point in time, based on current objective findings it is an anticipated consequence of this injury however patient has not yet reached MMI status. This note was dictated using Consult A Doctor voice recognition software. Occasional wrong- word or [...] Routin | Closed left arm | Ordered: 08/17/2017 | | to Physical Therapy | Referral [...] | + +--------+ + + + | IMAGING REPORT - | | 07/05/2017 | | Results for this | | EXTERNAL SCAN | | 12:00 AM | | procedure are in the | | | | PDT | | results section. | + +--------+ + + + | IMAGING REPORT - | | 07/05/2017 | | Results for this | | EXTERNAL SCAN | | 12:00 AM | | procedure are in the | | | | PDT | | results section. | + +--------+ + + + | IMAGING REPORT - | | 07/05/2017 | | Results for this | | EXTERNAL SCAN | | 12:00 AM | | procedure are in the [...] + + | Performing | Address | City/State[facility] | Phone Number | | Organization | | | | + +---------+ + + | [facility] | | | | + +---------+ + + IMAGING REPORT - EXTERNAL SCAN (07/05/2017 12:00 AM PDT) + + + | Narrative | Performed At | + + + | Ordered by an | | | unspecified provider. | | + + + IMAGING REPORT - EXTERNAL SCAN (07/05/2017 12:00 AM PDT) + + + | Narrative | Performed At | + + + | Ordered by an | | | unspecified provider. | | + + + IMAGING REPORT - EXTERNAL SCAN (07/05/2017 12:00 AM PDT) + + + | Narrative | Performed At | + + + | Ordered by an | | | unspecified provider. | | + + + documented in this encounter [...]
--- OUTSIDE RECORDS SUMMARY | ~2020-02-26 | XMS | Encounter Summary ---
Demographics + + + | Address | [address] [place] [address] | | | [place] [address] | + + + | Home Phone | | + + + | Preferred Language | Unknown | + + + | Marital Status | | + + + | Gnosticism Affiliation | Unknown | + + + [...] BREANNA SMITH | | | | | [address] | | + + + + + Care Team Providers + +------+ + | Care Prepleater Name | Role | Phone | + +------+ + PCP | Unavailable | + +------+ + Encounter Details +--------+ + + + + | Date | Type | Department | Care Team | Description | +--------+ + + + + | 09/03/ | [facility] | [place], Chelsie, | | | 2015 | Encounter | [facility] | MAGNETIZER [address] | | | | | [facility] [address] | [place] [address] | | | | | [address] [place], | [phone] | | | | | [place] [address] | | | | | | [phone] | | | +--------+ + + + [...]
--- OUTSIDE RECORDS SUMMARY | ~2020-02-26 | XMS | Encounter Summary ---
Demographics + + + | Address | [address] [place] [address] | | | [place] [address] | + + + | Home Phone [...] BREANNA SMITH | | | | | [address] | | + + + + + Care Team Providers + +------+ + | Care Bar Machine Operator Name | Role | Phone [...] | fracture, | [address] | [address] | | | | | with routine | [address] | [place], | | | | | healing, | [place], | [place] [address] | | | | | subsequent | [place] [address] | Phone: | | | | | encounter | Phone: | [phone] | | | | | Place of | [phone] | Fax: | | | | | occurrence, | Fax: | [phone] | | | | | industrial | [phone] | | | | | | places and | | | | | | | premises | | | +--------+ + + + + + Encounter Details +--------+---------+ + + + | Date | Type | Department | Care Team | Description | +--------+---------+ + + + | 12/13/ | Office | [facility] | Iris Mast | Decreased activities | | 2018 | Visit | MED CNT ONCOLOGY | MD Barb [address] | of daily living | | | | THERAPY [address] | [address] [place] | (ADL); Left upper | | | | [place], | [place] [address] | arm pain | | | | [place] [address] | [phone] | | | | | [phone] | | | | | | | Iris Adan, OT | | | | | | [address] | | | | | | [place], [place] | | | | | | [address] | | | | | | | [...] encounter Progress Notes Iris Adan OT - 12/13/2017 1:00 PM PDTFormatting of this note might be different fr om the original. [facility] MED CTR THERAPY OT OP [address] [place] [address] Occupational Therapy Daily Treatment Note Date: 12/13/2017 Patient Information Patient Name: Mookie Mason Date of : 1980 Age: 37 y.o. History Encounter Diagnoses Code Name Primary? Z78.9 Decreased activities of daily living (ADL) M79.622 Left upper arm pain Date of Onset: 05/31/2017 Referring Provider: Iris Mast MD Rehab Precautions Flowsheet Row Office Visit from 08/10/2017 in [facility] CTR THERAPY PT OP Rehab Precautions Precautions None Rehab Learning Style Flowsheet Row Office Visit from 08/10/2017 in [facility] CTR THERAPY PT OP [facility] OP EVAL from 07/26/2017 in [facility] SPEECH THERAPY Learning Style Patient's [employer] Learning Style listening, observation listening, observation Today's Treatment Start Time: 1253 Stop time: 1345 Duration: 52 minutes Timed Treatment Codes: 52 minutes # of OT Visits: 3 Subjective: The tape helped until the next day,but then I needed to take it off because it was hurting some places. It helped the front of the shoulder. It created pain on the outs oriana of the arm late the next day. The electro mechanical engineer yellow band is easier and doesn't hurt as much, but it still hurts a little. Pain Assessment: Pain Rating Pre Assessment: 3 Location: arms, low back 4 Objective Pt seen for LLLT to medial elbow x2 and dorsal axilla in preparation for MFR Pt seen for MFR to upper trapezius and area of subscapularis. Pt seen for application of TENS to upper trapezius with secondary electrode at axilla and e lectrodes to distal and proximal media humerus. Pt stated that the pain reduced by 1/3 at r est, especially in the medial humerus. Will change the placement of the axilla when used ne xt time to decrease shoulder pain better. Pt seen for application of K tape in I configuration to anterior and posterior shoulder and horizontal from anterior shoulder to back instructed in application. Pt instructed to perform gentle shoulder elevation and scapular adduction 4x/day, 5 repetit ions only. Assessment Pt is decreasing pain in the Patient will benefit from continued OT for pain control, progressive strengthening tissue m anagement, upgrade HEP Plan Monitor response to TENS, gentle strengthening to shoulder. Electronically signed by: Iris Adan OT, 12/13/2017 14:15 Patient Name: Mookie Mason/: 1980/ documented in this e ncounter Plan of Treatment Not on filedocumented as of this encounter Visit Diagnoses + + | Diagnosis | + + | Decreased activities of daily living (ADL) | + + | Left upper arm pain Pain in limb | + + documented in this encounter"
--- OUTSIDE RECORDS SUMMARY | ~2020-02-26 | XMS | Encounter Summary ---
Demographics + + + | Address | [address] [place] [address] | | | [place] [address] | + + + | Home Phone [...] BREANNA SMITH | | | | | [address] | | + + + + + Care Team Providers + +------+ + | Care Middle [employer] French Teacher Name | Role | Phone | [...] | Sam Chapman MD | [address] | | | | | Atrophy of | [address] | [place], | | | | | muscle of | [address] | [place] | | | | | left upper | [place], | [address] | | | | | arm Left | [place] [address] | Phone: | | | | | arm weakness | Phone: | [phone] | | | | | Procedures | [phone] | Fax: | | | | | MRI | Fax: | [phone] | | | | | Cervical | [phone] | | | | | | Spine [...] | Sam Chapman MD | [address] | | | | | Atrophy of | [address] | [place], | | | | | muscle of | [address] | [place] | | | | | left upper | [place], | [address] | | | | | arm Left | [place] [address] | Phone: | | | | | arm weakness | Phone: | [phone] | | | | | Procedures | [phone] | Fax: | | | | | MRI | Fax: | [phone] | | | | | Cervical | [phone] | | | | | | Spine wo | | | | | | | Contrast | | | | | | | HIM 12/22 | | | +--------+--------+ + + + + Encounter Details +--------+ + + + + | Date | Type | Department | Care Team | Description | +--------+ + + + + | 12/26/ | Hospital | [facility] | Sam Chopra, | Cervicalgia; Atrophy | | 2018 | Encounter | MED CTR MRI [address] | MD [address] | of muscle of left | | | | [place] [place], | [place], [place] | upper arm; Left arm | | | | [place] [address] | [address] | weakness | | | | [phone] | | | +--------+ + + + [...]
--- OUTSIDE RECORDS SUMMARY | ~2020-02-26 | XMS | Encounter Summary ---
Demographics + + + | Address | [address] [place] [address] | | | [place] [address] | + + + | Home Phone [...] BREANNA SMITH | | | | | [address] | | + + + + + Care Team Providers + +------+ + | Care Apprentice Machinist Outside Name | Role | Phone | + [...] | fracture, | [address] [place] | | | | | with routine | [address] | [place], | | | | | healing, | [place], | [place] [address] | | | | | subsequent | [place] [address] | Phone: | | | | | encounter | Phone: | [phone] | | | | | Place of | [phone] | Fax: | | | | | occurrence, | Fax: | [phone] | | | | | industrial | [phone] | | | | | | places and | | | | | | | premises | | | +--------+ + + + + + Encounter Details +--------+---------+ + + + | Date | Type | Department | Care Team | Description | +--------+---------+ + + + | 12/07/ | Office | [facility] | Iris Mast | Decreased activities | | 2018 | Visit | MED CNT ONCOLOGY | MD Barb [address] | of daily living | | | | THERAPY [address] [place] | (ADL); Left upper | | | | [place], | [place] [address] | arm pain | | | | [place] [address] | [phone] | | | | | [phone] | | | | | | | Iris Adan, OT | | | | | | [address] | | | | | | [place], [place] | | | | | | [address] | | | | | | | [...] might be different fr om the original. [facility] MED CTR THERAPY OT OP [address] [place] [address] Occupational Therapy Daily Treatment Note Date: 12/07/2017 [...] [facility] S LP OP EVAL from 07/26/2017 in [facility] SPEECH THERAPY Learning Style Patient's Optimum [...] continues to have pain Pt provided with consumer lending manager resistance yellow theraband to use rather than [...]
--- OUTSIDE RECORDS SUMMARY | ~2020-02-26 | XMS | Encounter Summary ---
Demographics + + + | Address | [address] [place] [address] | | | [place] [address] | + + + | Home Phone | | + + + | Preferred Language | Unknown | + + + | Marital Status | | + + + | Taoism Affiliation | Unknown | + + + | Race | Unknown | + + + | Ethnic Group | Unknown | + + + Author + + + | Author | [facility] | | | and [place] | + + + | Organization | [facility] | | | [...] BREANNA SMITH | | | | | [address] | | + + + + + Care Team Providers + +------+ + | Care Legal Contracts Specialist Name | Role | Phone | [...] + + | 11/08/ | Telephone | [facility] | Iris Mast | Work Related Injury | | 2019 | | OCCUPATIONAL HEALTH | MD Barb [address] | | | | | [address] | [address] [place] | | | | | [address] [place] | [place] [address] | | | | | [place], [place] | [phone] | | | | | [address] | | | | | | [phone] | | | +--------+ + + + [...]
--- OUTSIDE RECORDS SUMMARY | ~2020-02-26 | XMS | Encounter Summary ---
Demographics + + + | Address | [address] [place] [address] | | | [place] [address] | + + + | Home Phone [...] Organization | [facility] | | | and [...] [place] | | | | | [address] | | + + + + + Care Team Providers + +------+ + | Care Boiler Repair Supervisor Name | Role | Phone | [...] / | Place of | Iris | Liquor Gallery Operator [address] | | | Required | Speech | occurrence, | MD Barb | [address] | | | | Therapy | industrial | [address] | [place] | | | | | places and | [address] | [address] | | | | | premises | [place], | Phone: | | | | | Closed head | [place] [address] | [phone] | | | | | injury with | Phone: | Fax: | | | | | brief loss | [phone] | [phone] | | | | | of | Fax: | | | | | | consciousnes | [phone] | | | | | | s ([facility]) | | | | | | | Procedures | | | | | | | outside barrel lathe operator eval | | | +--------+ + + + + + Encounter Details +--------+ + + + + | Date | Type | Department | Care Team | Description | +--------+ + + + + | 10/25/ | Hospital | [facility] | Pro Iris | Traumatic brain | | 2018 | Encounter | MED CTR SPEECH | MD Barb [address] | injury, with loss of | | | | THERAPY [address] [place] | consciousness of 30 | | | | [place], | [place] [address] | minutes or less, | | | | [place] [address] | [phone] | subsequent encounter | | | | [phone] | | (Primary Dx) | | | [...] Progress Notes Mandy Matos, Speech Pathologist - 10/25/2017 9:[address] [facility] SPEECH THERAPY [address] [place] [address] Speech Therapy Daily Treatment Note Date: 10/25/2017 [...] LP OP EVAL from 07/26/[address] [facility] SPEECH THERAPY Learning Style Patient's Optimum [...]
--- OUTSIDE RECORDS SUMMARY | ~2020-02-26 | XMS | Encounter Summary ---
Demographics + + + | Address | [address] [place] [address] | | | [place] [address] | + + + | Home Phone [...] BREANNA SMITH | | | | | [address] | | + + + + + Care Team Providers + +------+ + | Care Russian Rubber Name | Role | Phone | + [...] | | | | | | [place] [address] | | | | | | [phone] | | | +--------+ + + + [...] Speech Pathologist - [facility] [address] [place] [address] Cancellation/No Show Date: 10/31/2017 Patient Information Patient [...]
--- OUTSIDE RECORDS SUMMARY | ~2020-02-26 | XMS | Encounter Summary ---
Demographics + + + | Address | [address] [place] [address] | | | [place] [address] | + + + | Home Phone | | + + + | Preferred Language | Unknown | + + + | Marital Status | | + + + | Yazidism Affiliation | Unknown | + + + | Race | Unknown | + + + | Ethnic Group | Unknown | + + + Author + + + | Author | [facility] | | | and [place] | + + + | Organization | [facility] | | [...] BREANNA SMITH | | | | | [address] | | + + + + + Care Team Providers + +------+ + | Care Chair Finisher Name | Role | Phone | + [...] | fracture, | [address] | [address] [place] | | | | | with routine | [address] | [place], | | | | | healing, | [place], | [place] [address] | | | | | subsequent | [place] [address] | Phone: | | | | | encounter | Phone: | [phone] | | | | | Place of | [phone] | Fax: | | | | | occurrence, | Fax: | [phone] | | | | | industrial | [phone] | | | | | | places and | | | | | | | premises | | | +--------+ + + + + + Encounter Details +--------+---------+ + + + | Date | Type | Department | Care Team | Description | +--------+---------+ + + + | 12/28/ | Office | [facility] | Iris Mast | Decreased activities | | 2018 | Visit | MED CNT ONCOLOGY | MD Barb [address] | of daily living | | | | THERAPY [address] [place] | (ADL); Left upper | | | | [place], | [place] [address] | arm pain | | | | [place] [address] | [phone] | | | | | [phone] | | | | | | | Iris Adan, OT | | | | | | [address] | | | | | | [place], [place] | | | | | | [address] | | | | | | | [...] might be different fr om the original. [facility] MED CTR THERAPY OT OP [address] [place] [address] Occupational Therapy Daily Treatment Note Date: 12/28/2017 Patient Information Patient Name: Mookie Mason Date of : 1980 Age: 37 y.o. History Encounter Diagnoses Code Name Primary? Z78.9 Decreased activities of daily living (ADL) M79.622 Left upper arm pain Date of Onset: 05/31/2017 Referring Provider: Iris Mast MD Rehab Precautions Office Visit from 08/10/2017 in [facility] CTR THERAPY PT OP Rehab Precautions Precautions None Rehab Learning Style Office Visit from 08/10/2017 in [facility] CTR THERAPY PT OP WSM RECYCLABLE MATERIALS DISTRIBUTOR OP EVAL f rom 07/26/2017 in [facility] CTR SPEECH THERAPY Learning Style Patient's [...] anterior shoulder and distal medial humerus and ngai sum of axilla posterior shoulder. Pt seen [...]
--- OUTSIDE RECORDS SUMMARY | ~2020-02-26 | XMS | Encounter Summary ---
Demographics + + + | Address | [address] [place] [address] | | | [place] [address] | + + + | Home Phone [...] BREANNA SMITH | | | | | [address] | | + + + + + Care Team Providers + +------+ + | Care Road Engineer Freight Name | Role | Phone | + [...] | | | Closed head | [place] [address] | | | | | | injury with | Phone: | | | | | | brief loss | [phone] | | | | | | of | Fax: | | | | | | consciousnes | [phone] | | | | | | s [...] | | | | | | WSM BLANKING MACHINE OPERATOR OP | | | | | | | TREATMENT | | | +--------+--------+ + + + + Encounter Details +--------+ + + + + | Date | Type | Department | Care Team | Description | +--------+ + + + + | 12/20/ | Hospital | [facility] | Iris Mast | Traumatic brain | | 2018 | Encounter | MED CTR SPEECH | MD Barb [address] | injury, with loss of | | | | THERAPY [address] [place] | consciousness of 30 | | | | [place], | [place] [address] | minutes or less, | | | | [place] [address] | [phone] | initial encounter | | | | [phone] | | ([facility]) | | | | | [...] Speech Pathologist - 12/20/2017 8:08 AM PDT [facility] SPEECH THERAPY [address] [place] [address] Speech Therapy Progress Assessment Date: 12/20/2017 Patient Information Patient Name: Mookie Mason Date of : 1980 Age: 37 y.o. History Encounter Diagnoses Code Name Primary? S06.9X1A Traumatic brain injury, with loss of consciousness of 30 minutes or less, init ial encounter ([facility]) Date of Onset: 05/31/2017 Referring Provider: Iris Mast MD Rehab Precautions Flowsheet Row Office Visit from 08/10/2017 in [facility] CTR THERAPY PT OP Rehab Precautions Precautions None Rehab Learning Style Flowsheet Row Office Visit from 08/10/2017 in [facility] THERAPY PT OP WSM S LP OP [...] From: 12/21/17 Certification To: 03/23/18 Treatment Plan/Interventions 51512 - Cognitive Eivtudm61084 - Cognitive Diwvrxro30208 - Speech Sound Language Comprehens [id number] - Speech/Hearing Treatment Patient and/or family has [...]
--- OUTSIDE RECORDS SUMMARY | ~2020-02-26 | XMS | Encounter Summary ---
Demographics + + + | Address | [address] [place] [address] | | | [place] [address] | + + + | Home Phone [...] BREANNA SMITH | | | | | [address] | | + + + + + Care Team Providers + +------+ + | Care Railroad Police Name | Role | Phone | + +------+ + | No, Physician | PCP | Unavailable | + +------+ + Encounter Details +--------+ + + + + | Date | Type | Department | Care Team | Description | +--------+ + + + + | 09/28/ | Hospital | [facility] | Iris Mast | Lumbar transverse | | 2017 | Encounter | MED CTR CHRIS XRAY | MD Barb [address] | process fracture, | | | | [address] [place] | [address] [place] | closed, initial | | | | [place], [place] | [place] [address] | encounter ([facility]); | | | | [address] | [phone] | Place of occurrence, | | | | [phone] | | industrial places | | | [...]
--- OUTSIDE RECORDS SUMMARY | ~2020-02-26 | XMS | Encounter Summary ---
Demographics + + + | Address | [address] [place] [address] | | | [place] [address] | + + + | Home Phone [...] BREANNA SMITH | | | | | [address] | | + + + + + Care Team Providers + +------+ + | Care Drafter Geological Name | Role | Phone | + [...] | fracture, | [address] | [address] [place] | | | | | with routine | [address] | [place], | | | | | healing, | [place], | [place] [address] | | | | | subsequent | [place] [address] | Phone: | | | | | encounter | Phone: | [phone] | | | | | Place of | [phone] | Fax: | | | | | occurrence, | Fax: | [phone] | | | | | industrial | [phone] | | | | | | places and | | | | | | | premises | | | +--------+ + + + + + Encounter Details +--------+---------+ + + + | Date | Type | Department | Care Team | Description | +--------+---------+ + + + | 11/06/ | Office | [facility] | Iris Mast | Left upper arm pain | | 2018 | Visit | MED CNT ONCOLOGY | MD Barb [address] | (Primary Dx); | | | | THERAPY [address] [place] | Decreased activities | | | | [place], | [place] [address] | of daily living | | | | [place] [address] | [phone] | (ADL) | | | | [phone] | | | | | | | Iris Adan, OT | | | | | | [address] | | | | | | [place], [place] | | | | | | [address] | | | | | | | [...] encounter Progress Notes Iris Adan OT - 11/06/2017 2:30 PM PSTFormatting of this note might be different fr om the original. Occupational Therapy Plan of Care Date: 11/06/2017 Patient Name: Mookie Mason Date of : 1980 Encounter Diagnoses Code Name Primary? M79.622 Left upper arm pain Yes Z78.9 Decreased activities of daily living (ADL) Date of Onset: 05/31/2017 Start of Care Date: 11/06/2017 Requested # of Visits: 20 visits 2x/week for 8-12 weeks Certification From: 11/06/2017 Certification To: 02/04/2018 Clinical Impression: Patient presents to occupational therapy s/p fall with humeral fractur e, radial head fracture not treated initially as it was not initially diagnosed, head injury with fx of lumbar spine and pelvis. Objective exam reveals impairments with pain in the rig ht arm. These impairments and diagnosis are causing functional limitations with patient's ab ility to pull up his pants, drive with left arm, lit a 1/2 gallon milk. Signs and symptoms a re consistent with multiple fractures of left arm sp fall. Complexities contributing to rehan quency and duration of therapy: head injury, pelvic fracture, lumbar spine fracture, Partial thickness articular sided tear of the supraspinatus tendon Goals: QuickDASH Goal: Reduce QuickDash disability score from 69 to 50 or less indicating improved ADL function and mobility. Patient Specific Functional Scale Goal 1: Pt will be able to pull up pants with pain at 2 Patient Specific Functional Scale Goal 1 Status: 4 Patient Specific Functional Scale Goal 1 Status Comment: Pain increases to 7 Patient Specific Functional Scale Goal 2: Pt will be able to use left arm when driving with pain at 2 Patient Specific Functional Scale Goal 2 Status: 4 Patient Specific Functional Scale Goal 2 Status Comment: Pain at 7 Patient Specific Functional Scale Goal 3: Pt will be able to lift a 1/2 gallon of milk with pain at 8 Patient Specific Functional Scale Goal 3 Status: 1 Patient Specific Functional Scale Goal 3 Status Comment: Pain increases to 8 OP OT Goals OP OT Goals: Goal 1 Goal 1: Independent home exercise program to facilitate independent symptom management. Treatment Plan/Interventions OT Lxecsokctu34920 - Therapeutic Pqzdyiyp58039 - Therapeutic Vmcounknul43168 - Self Care/Ho me Cnxoilhdfp23228 - Manual Lxacwnt13804 - ToevssvctiNtqavuumq58861 - Paraffin Bath LLLT Patient and/or family has indicated understanding of treatment needs and actively participa elijah in the creation of this plan for care. Electronically signed by: Iris Adan OT, 11/06/2017 18:36 Patient Name: Mookie Palmer Marlon/: 1980/ [place], Iris Chapman OT - 11/06/2017 2:[address] [facility] CTR THERAPY OT OP [address] [place] [address] Occupational Therapy Initial Assessment Date: 11/06/2017 Patient Information Patient Name: Mookie Mason Date of : 1980 Age: 37 y.o. History Problem Decreased Activities of Daily Living (Adl) Mechanism of injury: Trauma History of symptoms: fall off of roof with humerus fracture with ORIF for plate and 6 pins. He had a head injury and lumbar spinal and pelvis fracture. 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 M79.622 Left upper arm pain Yes Z78.9 Decreased activities of daily living (ADL) Date of Onset: 05/31/2017 Referring Provider: Iris Mast MD No history on file. Past Medical History: Diagnosis Date Asthma Depression Place of occurrence, industrial places and premises Past Surgical History: Procedure Laterality Date HUMERUS SURGERY Left 06/14/2017 [facility] [place] Family History Problem Relation Age of Onset Heart disease Maternal Grandfather No Known Problems Mother No Known Problems Father No Known Problems Sister No Known Problems Brother No Known Problems Maternal Grandmother No Known Problems Paternal Grandmother No Known Problems Paternal Grandfather Developmental History Allergies Allergen Reactions Amoxicillin Anaphylaxis Aspirin Anaphylaxis Erythromycin Anaphylaxis Penicillins Anaphylaxis Prior Treatment: Outpatient rehab clinic - within the last sixty days Rehab Precautions Flowsheet Row Office Visit from 08/10/[address] [facility] CTR THERAPY PT OP Rehab Precautions Precautions None Abuse Assessment Do you feel safe in your current relationship or home?: Yes Is anyone in your life misusing your money or property?: No Have you been hit, slapped physically hurt or threatened by your partner?: No Possible clinical concerns noted by clinician?: No Pain Assessment: Pain Rating Pre Assessment: 4 Location: Medial distal humerus "it feels like a tendon or something" EVALUATION: SUBJECTIVE: History of Presenting Problem: Mookie Mason is a 37 y.o. 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 Precaution/special problems: pain from spinal, pelvis and humeral fracture Patient s Goals: regain independence and decrease pain, be able to do normal daily activi ties without severe pain. OBJECTIVE: ROM: LUE AROM is normal with pain at 4 with shoulder flexion and 6 with supination. STRENGTH: UE: Initial Eval 11/06/17 Initial Eval 11/06/17 PN/DC PN/DC Measured in lbs Right Left Right Left Gross Automotive Lot Attendant 127,132, 141 average 133 99, 98, 99 mild pain average 99 Mcdonald Pinch 23.5 21.5 with mild shoulder pain Palpation: Pain over humeral head and posterior shoulder with palpation. Pt has pain over the medial humerus, from the distal medial humerus into the axilla SENSATION: No c/o altered sensation. Pt states that he still has "fogginess" with vision. Standardized Tests: QuickDASH (QD) Open a tight or new jar: 5 - Unable Do heavy s3b multi sensor operator: 5 - Unable Carry a shopping bag or briefcase: 3 - Moderate Difficulty Wash your back: 4 - Severe Difficulty Use a Knife to cut food: 4 - Severe Difficulty Recreational Activities which impact the UE: 4 - Severe Difficulty Interfered with Social Activities: 3 - Moderately Limit Work or Regular Daily Activities: 5 - Unable Arm, shoulder or hand pain: 4 - Severe Tingling in arm, shoulder or hand: 1 - None Difficulty Sleeping due to pain in UE: 3 - Moderate Difficulty QuickDASH Mean Score (Calculated): 3.73 QuickDASH Disability/Symptom Score (Calculated): 68.18 QuickDASH Goal: Reduce QuickDash disability score from 69 to 50 or less indicating improved ADL function and mobility. Purdue peg testing, 30 seconds, pegs only Right 12 pegs Left 12 pegs with pain in shoulder due to positioning ASSESSMENT: Patient presents to occupational therapy s/p fall with humeral fracture, radial head fract ure not treated initially as it was not initially diagnosed, head injury with fx of lumbar s pine and pelvis. Objective exam reveals impairments with pain in the right arm. These impair ments and diagnosis are causing functional limitations with patient's ability to pull up his pants, drive with left arm, lit a 1/2 gallon milk. Signs and symptoms are consistent with m ultiple fractures of left arm sp fall. Complexities contributing to frequency and duration of therapy: head injury, pelvic fracture, lumbar spine fracture, Partial thickness articular sided tear of the supraspinatus tendon Rehabilitation potential: Patient demonstrates good potential to achieve established goals to address the documented impairments by participating in skilled occupational therapy serv ices. Goals: QuickDASH Goal: Reduce QuickDash disability score from 69 to 50 or less indicating improved ADL function and mobility. Patient Specific Functional Scale Goal 1: Pt will be able to pull up pants with pain at 2 Patient Specific Functional Scale Goal 1 Status: 4 Patient Specific Functional Scale Goal 1 Status Comment: Pain increases to 7 Patient Specific Functional Scale Goal 2: Pt will be able to use left arm when driving with pain at 2 Patient Specific Functional Scale Goal 2 Status: 4 Patient Specific Functional Scale Goal 2 Status Comment: Pain at 7 Patient Specific Functional Scale Goal 3: Pt will be able to lift a 1/2 gallon of milk with pain at 8 Patient Specific Functional Scale Goal 3 Status: 1 Patient Specific Functional Scale Goal 3 Status Comment: Pain increases to 8 OP OT Goals OP OT Goals: Goal 1 Goal 1: Independent home exercise program to facilitate independent symptom management. Plan Date of Onset: 05/31/2017 Start of Care Date: 11/06/2017 Requested # of Visits: 20 visits 2x/week for 8-12 weeks Certification From: 11/06/2017 Certification To: 02/04/2018 Treatment Plan/Interventions OT [id number] - Therapeutic Dabyzgpa91300 - Therapeutic Eukgsfparm09905 - Self Care/Ho me Ahtzpjwysj42335 - Manual Qwhzonp13704 - KkygmexcmsXtpxhzsfs18901 - Paraffin Bath LLLT Patient and/or family has indicated understanding of treatment needs and actively participa elijah in the creation of this plan for care. Today's Treatment Start Time: 1430 Stop time: 1540 Duration: 70 minutes Timed Treatment Codes: 40 minutes # of OT Visits: 1 Objective: Education of rehab timeline, focus and expectations. Pt seen for initial eval. Pt benefited form concrete single step instructions. This may b e due to history of head injury. Pt states that the symptoms of his head injury are continu ing to improve. He has been seen by PT for his shoulder pain and weakness and is performing yellow theraban d exercises Pt has pain with palpation and movement of the medial humerus, radiating from the medial di stal humeru to the axilla. Pt has tenderness to palpation over the surgical scar Pt has tenderness to palpation over lateral epicondyle head. This may be due to radial hea d fracture or due to altered Use of the arm causing tendinitis over lateral epicondyle Pt received K tape to medial elbow in split configuration over elbow. Pt stated that the p ain with supination seemed to decrease with the tape applied. Next Visit: monitor response to tape, modalities for pain, eval for lateral elbow pain, MF R/IASTM for tissue mobilization, Pt awaiting additional authorization from insurance for [employer]. Electronically signed by: Iris Adan OT, 11/06/2017 18:35 Patient Name: Mookie Mason/: 1980/ documented in this e ncounter Plan of Treatment + + +--------+ + [...] Pain in limb | + + | Decreased activities of daily living (ADL) | + + documented in this encounter
--- OUTSIDE RECORDS SUMMARY | ~2020-02-26 | XMS | Encounter Summary ---
Demographics + + + | Address | [address] [place] [address] | | | [place] [address] | + + + | Home Phone | | + + + | Preferred Language | Unknown | + + + | Marital Status | | + + + | Amish Affiliation | Unknown | + + + [...] BREANNA SMITH | | | | | [address] | | + + + + + Care Team Providers + +------+ + | Care Volleyball Player Name | Role | Phone | + [...] + + | 05/28/ | Office | [facility] | Iris Mast | Injury of head, | | 2017 | Visit | OCCUPATIONAL HEALTH | MD Barb [address] | initial encounter | | | | [address] [place] | (Primary Dx); Work | | | | [address] [place] | [place] [address] | related injury | | | | [place], [place] | [phone] | | | | | [address] | | | | | | [phone] | | | +--------+---------+ + + + [...]
--- OUTSIDE RECORDS SUMMARY | ~2020-02-26 | XMS | Encounter Summary ---
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 | Phone | + +------+ + PCP | Unavailable | + +------+ + Encounter Details +--------+ + + + + | Date | Type | Department | Care Team | Description | +--------+ + + + + | 05/31/ | [facility], | | | 2017 | Encounter | [facility]Y | [facility], | | | | | CENTER [address] | [address] | | | | | [address] [place] | [place], [place] | | | | | [address] | [phone] | | | | | [phone] | [phone] | | | | | | | [...] + +--------+ + + + | CBC W/AUTO | STAT | 05/31/2017 | | Results for this | | DIFFERENTIAL | | 3:01 PM | | procedure are in the | | | | PDT | | results section. | + +--------+ + + + | PTT | STAT | 05/31/2017 | | Results for this | | | | 3:01 PM | | procedure are in the | | | | PDT | | results section. | + +--------+ + + + | PROTIME INR | STAT | 05/31/2017 | | Results for this | | | | 3:01 PM | | procedure are in the | | | | PDT | | results section. | + +--------+ + + + | LACTIC ACID | STAT | 05/31/2017 | | Results for this | | | | 3:01 PM | | procedure are in the | | | | PDT | | results section. | + +--------+ + + + | COMPREHENSIVE | STAT | 05/31/2017 | | Results for this | | METABOLIC PANEL | | 3:01 PM | | procedure are in the | | | | PDT | | results section. | + +--------+ + + + | DRUGS OF ABUSE, | Routin | 05/31/2017 | | Results for this | | SCREEN, URINE | e | 3:00 PM | | procedure are in the | | | | PDT | | results section. | + +--------+ + + + | ALCOHOL | Routin | 05/31/2017 | | Results for this | | | e | 2:59 PM | | procedure are in the | | | | PDT | | results section. | + +--------+ + + + | URINALYSIS WITH | STAT | 05/31/2017 | | Results for this | | MICROSCOPIC WITH | | 2:57 PM | | procedure are in the | | CULTURE IF INDICATED | | PDT | | results section. | + +--------+ + + + | XR HUMERUS LEFT 2 + | Routin | 05/31/2017 | | Results for this | | VW | e | 2:09 PM | | procedure are in the | | | | PDT | | results section. | + +--------+ + + + | XR PELVIS 1 OR 2 VW | Routin | 05/31/2017 | | Results for this | | | e | 2:09 PM | | procedure are in the | | | | PDT | | results section. | + +--------+ + + + | CT ABDOMEN PELVIS W | Routin | 05/31/2017 | | Results for this | | CONTRAST | e | 2:09 PM | | procedure are in the | | | | PDT | | results section. | + +--------+ + + + | CT CERVICAL SPINE WO | Routin | 05/31/2017 | | Results for this | | CONTRAST | e | 2:09 PM | | procedure are in the | | | | PDT | | results section. | + +--------+ + + + | CT HEAD WO CONTRAST | Routin | 05/31/2017 | | Results for this | | | e | 2:09 PM | | procedure are in the | | | | PDT | | results section. | + +--------+ + + + | XR CHEST PA OR AP | Routin | 05/31/2017 | | Results for this | | | e | 2:09 PM | | procedure are in the | | | | PDT | | results section. | + +--------+ + + + documented in this encounter Results PTT (05/31/2017 3:01 PM PDT) + +-------+ + + + | Component | Value | Ref Range | Performed | Pathologist | | | | | At | Signature | + +-------+ + + + | PTT | 27 | 25 - 35 SEC | EXTERNAL | | | | | | LAB | | + +-------+ + + + + + | Specimen | + + | | + + + +---------+ + + | Performing | Address | City/State/Zipcode | Phone Number | | Organization | | | | + +---------+ + + | EXTERNAL LAB | | | | + +---------+ + + CBC w/ Auto Differential (05/31/2017 3:01 PM PDT) + +-------+ + + + | Component | Value | Ref Range | Performed | Pathologist | | | | | At | Signature | + +-------+ + + + | WBC | 10.4 | 4.6 - 10.5 | EXTERNAL | | | | | 1000/mm3 | LAB | | + +-------+ + + + | RBC | 4.13 | 4.36 - 5.83 | EXTERNAL | | | | | mil/mm3 | LAB | | + +-------+ + + + | HGB, | 14.2 | 13.1 - 17.4 | EXTERNAL | | | External | | g/dL | LAB | | + +-------+ + + + | HCT, | 39.7 | 39.0 - 51.9 % | EXTERNAL | | | External | | | LAB | | + +-------+ + + + | MCV | 96 | 82 - 96 fl | EXTERNAL | | | | | | LAB | | + +-------+ + + + | MCH | 34.4 | 27.7 - 32.3 pg | EXTERNAL | | | | | | LAB | | + +-------+ + + + | MCHC | 35.8 | 32.0 - 36.9 | EXTERNAL | | | | | g/dL | LAB | | + +-------+ + + + | RDW-CV | 11.4 | <=17.0 % | EXTERNAL | | | | | | LAB | | + +-------+ + + + | RDW-SD | 40.2 | 34.0 - 57.0 fL | EXTERNAL | | | | | | LAB | | + +-------+ + + + | Platelet | 219 | 150 - 450 | EXTERNAL | | | Count | | 1000/mm3 | LAB | | | Plasma | | | | | + +-------+ + + + | MPV | 9.8 | 9.4 - 12.4 FL | EXTERNAL | | | | | | LAB | | + +-------+ + + + | % Segmented | 66.6 | 42.0 - 76.0 % | EXTERNAL | | | | | | LAB | | | Neutrophils | | | | | + +-------+ + + + | % | 22.5 | 20.0 - 40.0 % | EXTERNAL | | | Lymphocytes | | | LAB | | + +-------+ + + + | % Monocytes | 6.4 | 3.0 - 13.0 % | EXTERNAL | | | | | | LAB | | + +-------+ + + + | % | 0.5 | 0.0 - 7.0 % | EXTERNAL | | | Eosinophils | | | LAB | | + +-------+ + + + | % Basophils | 0.7 | 0.0 - 2.0 % | EXTERNAL | | | | | | LAB | | + +-------+ + + + | % Immature | 3.3 | 0.0 - 0.5 % | EXTERNAL | | | Granulocyte | | | LAB | | | s | | | | | + +-------+ + + + | % nRBC | 0 | 0.0 - 0.2 /100 | EXTERNAL | | | | | WBC | LAB | | + +-------+ + + + | Absolute | 6.91 | 2.80 - 7.70 | EXTERNAL | | | Neutrophils | | 1000/mm3 | LAB | | + +-------+ + + + | Absolute | 2.33 | 1.20 - 3.30 | EXTERNAL | | | Lymphocytes | | 1000/mm3 | LAB | | + +-------+ + + + | Absolute | 0.66 | 0.00 - 0.80 | EXTERNAL | | | Monocytes | | 1000/mm3 | LAB | | + +-------+ + + + | Absolute | 0.05 | 0.00 - 0.70 | EXTERNAL | | | Eosinophils | | 1000/mm3 | LAB | | + +-------+ + + + | Absolute | 0.07 | 0.00 - 0.20 | EXTERNAL | | | Basophils | | 1000/mm3 | LAB | | + +-------+ + + + | Absolute | 0.34 | 0.00 - 0.15 | EXTERNAL | | | Immature | | 1000/mm3 | LAB | | | Granulocyte | | | | | | s | | | | | + +-------+ + + + | Absolute | 0.01 | 0.00 - 0.01 | EXTERNAL | | | nRBC | | 1000/mm3 | LAB | | + +-------+ + + + | SLIDE | NO | | EXTERNAL | | | REVIEWED | | | LAB | | + +-------+ + + + + + | Specimen | + + | | + + + +---------+ + + | Performing | Address | City/State/Zipcode | Phone Number | | Organization | | | | + +---------+ + + | EXTERNAL LAB | | | | + +---------+ + + Protime INR (05/31/2017 3:01 PM PDT) + +-------+ + + + | Component | Value | Ref Range | Performed | Pathologist | | | | | At | Signature | + +-------+ + + + | Prothrombin | 13.4 | 12.3 - 14.1 SEC | EXTERNAL | | | Time | | | LAB | | + +-------+ + + + | INR | 1.01 | | EXTERNAL | | | | | | LAB | | + +-------+ + + + + + | Specimen | + + | | + + + +---------+ + + | Performing | Address | City/State/Zipcode | Phone Number | | Organization | | | | + +---------+ + + | EXTERNAL LAB | | | | + +---------+ + + Comprehensive Metabolic Panel (05/31/2017 3:01 PM PDT) + +-------+ + + + | Component | Value | Ref Range | Performed | Pathologist | | | | | At | Signature | + +-------+ + + + | Sodium | 140 | 132 - 143 | EXTERNAL | | | | | mmol/L | LAB | | + +-------+ + + + | Potassium | 3.5 | 3.3 - 4.9 | EXTERNAL | | | | | mmol/L | LAB | | + +-------+ + + + | Cl | 106 | 95 - 108 mmol/L | EXTERNAL | | | | | | LAB | | + +-------+ + + + | CO2 | 21 | 23 - 34 mmol/L | EXTERNAL | | | | | | LAB | | + +-------+ + + + | Anion Gap | 13 | 7 - 16 | EXTERNAL | | | | | | LAB | | + +-------+ + + + | Calcium | 8.2 | 8.3 - 10.0 | EXTERNAL | | | | | mg/dL | LAB | | + +-------+ + + + | Glucose | 135 | 70 - 110 mg/dL | EXTERNAL | | | | | | LAB | | + +-------+ + + + | BUN, Bld | 28 | 5 - 26 mg/dL | EXTERNAL | | | | | | LAB | | + +-------+ + + + | Creatinine | 1.15 | 0.70 - 1.40 | EXTERNAL | | | | | mg/dL | LAB | | + +-------+ + + + | BUN/Creatin | 24.3 | 7.0 - 24.0 | EXTERNAL | | | ine Ratio | | RATIO | LAB | | + +-------+ + + + | GFR | 60 | >=60 | EXTERNAL | | | ESTIMATE | | mL/min/1.73m2 | LAB | | | (REF) | | | | | + +-------+ + + + | Bilirubin, | 0.2 | <=1.2 mg/dL | EXTERNAL | | | Total | | | LAB | | + +-------+ + + + | Protein, | 7 | 6.6 - 8.5 g/dL | EXTERNAL | | | Total | | | LAB | | + +-------+ + + + | Albumin | 4 | 3.0 - 4.5 g/dL | EXTERNAL | | | | | | LAB | | + +-------+ + + + | Alkaline | 91 | 46 - 116 U/L | EXTERNAL | | | Phosphatase | | | LAB | | + +-------+ + + + | ALT, | 76 | 16 - 63 U/L | EXTERNAL | | | External | | | LAB | | + +-------+ + + + | AST, | 89 | <=38 U/L | EXTERNAL | | | External | | | LAB | | + +-------+ + + + + + | Specimen | + + | | + + + +---------+ + + | Performing | Address | City/State/Zipcode | Phone Number | | Organization | | | | + +---------+ + + | EXTERNAL LAB | | | | + +---------+ + + Lactic Acid (05/31/2017 3:01 PM PDT) + +-------+ + + + | Component | Value | Ref Range | Performed | Pathologist | | | | | At | Signature | + +-------+ + + + | Lactate, | 1.8 | 0.4 - 2.1 | EXTERNAL | | | Serum | | mmol/L | LAB | | + +-------+ + + + + + | Specimen | + + | | + + + +---------+ + + | Performing | Address | City/State/Zipcode | Phone Number | | Organization | | | | + +---------+ + + | EXTERNAL LAB | | | | + +---------+ + + Drugs of Abuse, Screen, Urine (05/31/2017 3:00 PM PDT) + +-------+ + + + | Component | Value | Ref Range | Performed | Pathologist | | | | | At | Signature | + +-------+ + + + | THC RESULT | POS | NEG ng/mL | EXTERNAL | | | | | | LAB | | + +-------+ + + + | Phencyclidi | NEG | NEG ng/mL | EXTERNAL | | | ne | | | LAB | | + +-------+ + + + | Cocaine | NEG | NEG ng/mL | EXTERNAL | | | | | | LAB | | + +-------+ + + + | Methampheta | NEG | NEG ng/mL | EXTERNAL | | | mine | | | LAB | | + +-------+ + + + | Opiates | POS | NEG ng/mL | EXTERNAL | | | | | | LAB | | + +-------+ + + + | Amphetamine | NEG | NEG ng/mL | EXTERNAL | | | s | | | LAB | | + +-------+ + + + | Benzodiazep | NEG | NEG ng/mL | EXTERNAL | | | angeline | | | LAB | | | Screen, | | | | | | Urine | | | | | + +-------+ + + + | TCA Scrn | NEG | NEG ng/mL | EXTERNAL | | | | | | LAB | | + +-------+ + + + | Methadone | NEG | NEG ng/mL | EXTERNAL | | | Screen, | | | LAB | | | Urine | | | | | + +-------+ + + + | Barbiturate | NEG | NEG ng/mL | EXTERNAL | | | s | | | LAB | | + +-------+ + + + | Oxycodone | NEG | NEG ng/mL | EXTERNAL | | | | | | LAB | | + +-------+ + + + | Propoxyphen | NEG | NEG ng/mL | EXTERNAL | | | e | | | LAB | | + +-------+ + + + | Buprenorphi | NEG | NEG ng/mL | EXTERNAL | | | ne | | | LAB | | + +-------+ + + + + + | Specimen | + + | | + + + +---------+ + + | Performing | Address | City/State/Zipcode | Phone Number | | Organization | | | | + +---------+ + + | EXTERNAL LAB | | | | + +---------+ + + Ethanol (05/31/2017 2:59 PM PDT) + +-------+ + + + | Component | Value | Ref Range | Performed | Pathologist | | | | | At | Signature | + +-------+ + + + | Alcohol, | 10 | <=10 mg/dL | EXTERNAL | | | Ethyl (B) | | | LAB | | + +-------+ + + + + + | Specimen | + + | | + + + +---------+ + + | Performing | Address | City/State/Zipcode | Phone Number | | Organization | | | | + +---------+ + + | EXTERNAL LAB | | | | + +---------+ + + Urinalysis with Microscopic with Culture if Indicated (05/31/2017 2:57 PM PDT) + + + + + + | Component | Value | Ref Range | Performed | Pathologist | | | | | At | Signature | + + + + + + | Source | Clean Catch / VOID | | EXTERNAL | | | | | | LAB | | + + + + + + | Clarity | CLEAR | CLEAR | EXTERNAL | | | | | | LAB | | + + + + + + | Color, | YELLOW | | EXTERNAL | | | Urine | | | LAB | | + + + + + + | Specific | 1.01 | 1.005 - 1.030 | EXTERNAL | | | [place], | | | LAB | | | Urine | | | | | + + + + + + | pH, Urine | 6.5 | 5.0 - 7.0 pH | EXTERNAL | | | | | | LAB | | + + + + + + | Leukocyte | 25 | NEGATIVE /uL | EXTERNAL | | | Esterase, | | | LAB | | | Urine | | | | | + + + + + + | Nitrite, | NEGATIVE | NEGATIVE | EXTERNAL | | | Urine | | | LAB | | + + + + + + | Protein, | 100 | NEGATIVE mg/dL | EXTERNAL | | | Urine | | | LAB | | + + + + + + | Glucose, | NORMAL | NORMAL mg/dL | EXTERNAL | | | Urine | | | LAB | | + + + + + + | Ketones, | NEGATIVE | NEGATIVE mg/dL | EXTERNAL | | | Urine | | | LAB | | + + + + + + | Urobilinoge | NORMAL | NORMAL mg/dL | EXTERNAL | | | n, Urine | | | LAB | | + + + + + + | Bilirubin, | NEGATIVE | NEGATIVE mg/dL | EXTERNAL | | | Urine | | | LAB | | + + + + + + | Blood, | 250 | NEGATIVE /uL | EXTERNAL | | | Urine | | | LAB | | + + + + + + | White Blood | 3-5 | </= 5 /HPF | EXTERNAL | | | Cells, | | | LAB | | | Urine | | | | | + + + + + + | RBC COUNT | 3-5 | </= 5 PER HPF | EXTERNAL | | | | | | LAB | | + + + + + + | Bacteria, | NONE SEEN | NONE SEEN /HPF | EXTERNAL | | | UA | | | LAB | | + + + + + + | Culture | NO | | EXTERNAL | | | Indicated | | | LAB | | + + + + + + | Squamous | NONE SEEN | /LPF | EXTERNAL | | | Epithelial | | | LAB | | | Cells, | | | | | | Urine | | | | | + + + + + + | Mucus, | RARE | NONE SEEN /HPF | EXTERNAL | | | Urine | | | LAB | | + + + + + + | Granular | FEW | NONE SEEN /LPF | EXTERNAL | | | Casts, | | | LAB | | | Urine | | | | | + + + + + + | Mixed Cell | FEW | NONE SEEN /LPF | EXTERNAL | | | Casts, UA | | | LAB | | + + + + + + + + | Specimen | + + | | + + + +---------+ + + | Performing | Address | City/State/Zipcode | Phone Number | | Organization | | | | + +---------+ + + | EXTERNAL LAB | | | | + +---------+ + + XR Humerus Left 2 + Vw (05/31/2017 2:09 PM PDT) + + | Specimen | + + | | + + + + + | Narrative | Performed At | + + + | EXAMINATION: HUMERUS 2 VIEW /LEFT HISTORY: fall, pain, plain | | | imaging requested by A Rell COMPARISON STUDY: None FINDINGS: | | | Films in multiple projections show diaphyseal fracture of the | | | humerus with 1 shaft width displacement laterally of the distal | | | fracture fragment. There is also noted to be 2 cm overriding | | | apposition. Degree of angulation measures 20. IMPRESSION: | | | Displaced diaphyseal fracture of the left humerus. JOB #: [id number] | | | Digitally Released by: Christiano Macedo Read By: CHRISTIANO Douglas | | | MD [place] Date: 05/31/2017 16:24 | | + + + + + | Procedure Note | + + | Andre Avila Results In - 10/12/2017 1:35 PM PST EXAMINATION: | | HUMERUS 2 VIEW /LEFT | | | | HISTORY: | | fall, pain, plain imaging requested by Ari Zacarias | | | | COMPARISON STUDY: | | None | | | | FINDINGS: | | Films in multiple projections show diaphyseal fracture of the humerus with 1 | | shaft width displacement laterally of the distal fracture fragment. There is | | also noted to be 2 cm overriding apposition. Degree of angulation measures 20. | | | | IMPRESSION: | | Displaced diaphyseal fracture of the left humerus. | | | | | | JOB #: [id number] | | Digitally Released by: Christiano Macedo | | | | | | Read By: CHRISTIANO MACEDO MD | | Date: 05/31/2017 16:24 | | | + + XR Pelvis 1 or 2 Vw (05/31/2017 2:09 PM PDT) + + | Specimen | + + | | + + + + + | Narrative | Performed At | + + + | EXAMINATION: PELVIS 1-2 VIEW HISTORY: trauma COMPARISON | | | STUDY: None FINDINGS: Films in multiple projections show | | | disruption of right sacral ala. Left inferior pubic ramus fracture | | | is also noted. No widening of the pubic symphysis or SI joints. | | | Femoral acetabular joints are intact. The patient is on a trauma | | | board. IMPRESSION: Right sacral and left inferior pubic rami | | | fractures. JOB #: [id number] Digitally Released by: Christiano Macedo | | | Read By: CHRISTIANO MACEDO MD Date: 05/31/2017 15:27 | | + + + + + | Procedure Note | + + | Andre Avila Results In - 10/12/2017 1:35 PM PST EXAMINATION: | | PELVIS 1-2 VIEW | | | | HISTORY: | | trauma | | | | COMPARISON STUDY: | | None | | | | FINDINGS: | | Films in multiple projections show disruption of right sacral ala. Left | | inferior pubic ramus fracture is also noted. No widening of the pubic | | symphysis or SI joints. Femoral acetabular joints are intact. The patient is | | on a trauma board. | | | | IMPRESSION: | | Right sacral and left inferior pubic rami fractures. | | | | | | JOB #: [id number] | | Digitally Released by: Christiano Macedo | | | | | | Read By: CHRISTIANO MACEDO MD | | Date: 05/31/2017 15:27 | | | + + CT Cervical Spine wo Contrast (05/31/2017 2:09 PM PDT) + + | Specimen | + + | | + + + + + | Narrative | Performed At | + + + | EXAMINATION: CT CERVICAL SP WO HISTORY: trauma COMPARISON | | | STUDY: No comparison. TECHNIQUE: 3.75 mm axial slices were | | | acquired through the cervical spine without contrast. DOSE REPORT: | | | CTDIvol: 27.4 mGy. DLP: 586 mGy-cm. Automated exposure control was | | | utilized. FINDINGS: The visualized brain parenchyma is normal. | | | The visualized paranasal sinuses and mastoid air cells are clear. | | | Cervical vertebral bodies are normally aligned. No prevertebral soft | | | tissue swelling. No acute fracture or subluxation. Anterior superior | | | endplate irregularity of the C4 vertebral body suggest remote | | | injury. There is adjacent ligamentous calcification. Small | | | posterior disc osteophyte complex at C5-6. 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 The aerodigestive tract is patent. The lung | | | apices have emphysematous change. There is suggestion of a small | | | left apical pneumothorax. Thyroid gland is homogeneous. No | | | pathologically enlarged cervical adenopathy. IMPRESSION: Query | | | small left apical pneumothorax. Degenerative changes of the cervical | | | spine without evidence of an acute process. Query prior anterior | | | superior endplate compression of C4. T2-3 congenital fusion. The | | | results of the study were discussed with EVAN GUDINO MD at 15:21 | | | JOB #: [id number] Digitally Released by: Christiano Macedo | | | Read By: CHRISTIANO MACEDO MD Date: 05/31/2017 15:25 | | + + + + + | Procedure Note | + + | [place], Rad Results In - 10/12/2017 1:35 PM PST EXAMINATION: | | CT CERVICAL SP WO | | | | HISTORY: | | trauma | | | | COMPARISON STUDY: | | No comparison. | | | | TECHNIQUE: | | 3.75 mm axial slices were acquired through the cervical spine without contrast. | | | | DOSE REPORT: | | CTDIvol: 27.4 mGy. DLP: 586 mGy-cm. Automated exposure control was utilized. | | | | FINDINGS: | | The visualized brain parenchyma is normal. | | The visualized paranasal sinuses and mastoid air cells are clear. | | Cervical vertebral bodies are normally aligned. | | No prevertebral soft tissue swelling. | | No acute fracture or subluxation. | | Anterior superior endplate irregularity of the C4 vertebral body suggest | | remote injury. There is adjacent ligamentous calcification. | | Small posterior disc osteophyte complex at C5-6. 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 | | The aerodigestive tract is patent. | | The lung apices have emphysematous change. There is suggestion of a small | | left apical pneumothorax. | | Thyroid gland is homogeneous. | | No pathologically enlarged cervical adenopathy. | | | | IMPRESSION: | | Query small left apical pneumothorax. | | Degenerative changes of the cervical spine without evidence of an acute | | process. | | Query prior anterior superior endplate compression of C4. | | T2-3 congenital fusion. | | The results of the study were discussed with EVAN GUDINO MD at 15:21 | | | | | | JOB #: [id number] | | Digitally Released by: Christiano Macedo | | | | | | Read By: CHRISTIANO MACEDO MD | | Date: 05/31/2017 15:25 | | | + + CT Head wo Contrast (05/31/2017 2:09 PM PDT) + + | Specimen | + + | | + + + + + | Narrative | Performed At | + + + | EXAMINATION: CT HEAD W/O CONTRAST HISTORY: trauma | | | COMPARISON STUDY: No comparison. TECHNIQUE: 5 mm axial slices | | | were acquired through the brain without contrast. DOSE REPORT: | | | CTDIvol: 60.2 mGy. DLP: 1083 mGy-cm. Automated exposure control was | | | utilized. FINDINGS: Study is limited due to suboptimal | | | positioning. There is suggestion of a small amount of blood within | | | the quadrigeminal plate cistern. The corea-white matter interface is | | | intact. The ventricles are symmetric. Sulci are age appropriate. | | | Basilar cisterns are patent. White matter has a normal appearance. | | | No obvious vascular abnormality. Paranasal sinuses and mastoid air | | | cells are clear. No fracture. IMPRESSION: Query small amount of | | | hemorrhage within the quadrigeminal plate cistern. The results of | | | the study were discussed with EVAN GUDINO MD at 15:15 JOB | | | #: [id number] Digitally Released by: Christiano Macedo Read By: | | | CHRISTIANO MACEDO MD Date: 05/31/2017 15:18 | | + + + + + | Procedure Note | + + | [place], Rad Results In - 10/12/2017 1:35 PM PST EXAMINATION: | | CT HEAD W/O CONTRAST | | | | HISTORY: | | trauma | | | | COMPARISON STUDY: | | No comparison. | | | | TECHNIQUE: | | 5 mm axial slices were acquired through the brain without contrast. | | | | DOSE REPORT: | | CTDIvol: 60.2 mGy. DLP: 1083 mGy-cm. Automated exposure control was utilized. | | | | FINDINGS: | | Study is limited due to suboptimal positioning. | | There is suggestion of a small amount of blood within the quadrigeminal plate | | cistern. | | The corea-white matter interface is intact. | | The ventricles are symmetric. | | Sulci are age appropriate. | | Basilar cisterns are patent. | | White matter has a normal appearance. | | No obvious vascular abnormality. | | Paranasal sinuses and mastoid air cells are clear. | | No fracture. | | | | IMPRESSION: | | Query small amount of hemorrhage within the quadrigeminal plate cistern. The | | results of the study were discussed with EVAN GUDINO MD at 15:15 | | | | | | JOB #: [id number] | | Digitally Released by: Christiano Macedo | | | | | | Read By: CHRISTIANO MACEDO MD | | Date: 05/31/2017 15:18 | | | + + XR Chest PA or AP (05/31/2017 2:09 PM PDT) + + | Specimen | + + | | + + + + + | Narrative | Performed At | + + + | EXAMINATION: CHEST 1 VIEW HISTORY: trauma COMPARISON | | | STUDY: August 16, 2013 FINDINGS: The lungs are well | | | ventilated. No pleural effusion. No pneumothorax. | | | Cardiomediastinal silhouette is normal. No acute osseous process. | | | The patient is on a trauma board. IMPRESSION: No acute | | | cardiopulmonary process. JOB #: [id number] Digitally Released by: | | | Christiano Macedo Read By: CHRISTIANO MACEDO MD Date: | | | 05/31/2017 15:16 | | + + + + + | Procedure Note | + + | [place], Rad Results In - 10/12/2017 1:35 PM PST EXAMINATION: | | CHEST 1 VIEW | | | | HISTORY: | | trauma | | | | COMPARISON STUDY: | | August 16, 2013 | | | | FINDINGS: | | The lungs are well ventilated. No pleural effusion. No pneumothorax. | | Cardiomediastinal silhouette is normal. No acute osseous process. The | | patient is on a trauma board. | | | | IMPRESSION: | | No acute cardiopulmonary process. | | | | | | JOB #: [id number] | | Digitally Released by: Christiano Macedo | | | | | | Read By: CHRISTIANO MACEDO MD | | Date: 05/31/2017 15:16 | | | + + CT Abdomen Pelvis w Contrast (05/31/2017 2:09 PM PDT) + + | Specimen | + + | | + + + + + | Narrative | Performed At | + + + | ADDENDUM: Decreased bone mineral density. Correlation with | | | medical history is recommended. Dexa scan evaluation is | | | recommended. JOB #: [id number] Digitally Released by: [facility] | | | Christiano EXAMINATION: CT CHEST/ABD/PELVIS W/CONT HISTORY: | | | trauma COMPARISON STUDY: No comparison. TECHNIQUE: 5 mm | | | axial slices were acquired through the chest, abdomen and pelvis with | | | contrast. There was no post contrast reaction. DOSE REPORT: | | | Automated exposure control was utilized. FINDINGS: The thyroid | | | gland is homogeneous. Great vessel caliber is normal. No | | | atherosclerosis or coronary artery disease. No mediastinal or hilar | | | lymphadenopathy. The lungs have bibasilar dependent atelectasis. | | | More focal airspace opacity is noted at the left base. Paraseptal | | | emphysematous changes present at the apices. There is suggestion | | | of a small left apical pneumothorax. Heart size is upper limits of | | | normal. No pericardial or pleural effusion. Nondisplaced left 9th | | | rib fracture. The liver is normal. Gallbladder is normal. No | | | biliary ductal dilatation. The pancreas is unremarkable. The spleen | | | is unremarkable. Adrenal glands are normal in appearance. The | | | right kidney is normal. The left kidney is normal. Bladder wall is | | | normal. Prostate is unremarkable. No free fluid or free air. | | | Evaluation of the colon demonstrates no focal abnormality. Small | | | bowel gas pattern is normal. Stomach is distended with food and | | | fluid. Aorta is normal in course and caliber. No atherosclerosis. | | | Evaluation of the mesentery and retroperitoneum demonstrates no | | | pathologically enlarged adenopathy. In addition to the left 9th | | | rib fracture, there are transverse process fractures of the left | | | L1-L3 vertebral bodies. There is a left inferior pubic ramus | | | fracture. Mildly comminuted fracture of the right abhay sacrum. SI | | | joints are intact. No diastasis of the pubic symphysis. Left mid | | | humeral fracture with greater than 1 shaft with displacement. No | | | associated obvious vascular injury is identified. Bone mineral | | | density is diffusely decreased for the patient's age IMPRESSION: | | | 1. Nondisplaced not left 9th rib fracture with adjacent lung | | | contusion. 2. Very small left apical pneumothorax. 3. Fractures of | | | the right abhay sacrum and left inferior pubic ramus. 4. L1-2 L3 left | | | transverse process fractures. 5. The results of the study were | | | discussed with EVAN GUDINO MD at 15:11 JOB #: [id number] | | | Digitally Released by: Christiano Macedo Read By: CHRISTIANO Douglas | | | MD [place] Date: 05/31/2017 15:28 | | + + + + + | Procedure Note | + + | [place], Rad Results In 10/12/2017 1:35 PM PST | | | | ADDENDUM: | | Decreased bone mineral density. Correlation with medical history is | | recommended. Dexa scan evaluation is recommended. | | | | | | JOB #: [id number] | | Digitally Released by: Christiano Macedo | | | | EXAMINATION: | | CT CHEST/ABD/PELVIS W/CONT | | | | HISTORY: | | trauma | | | | COMPARISON STUDY: | | No comparison. | | | | TECHNIQUE: | | 5 mm axial slices were acquired through the chest, abdomen and pelvis with | | contrast. There was no post contrast reaction. | | | | DOSE REPORT: | | Automated exposure control was utilized. | | | | FINDINGS: | | The thyroid gland is homogeneous. | | Great vessel caliber is normal. | | No atherosclerosis or coronary artery disease. | | No mediastinal or hilar lymphadenopathy. | | The lungs have bibasilar dependent atelectasis. More focal airspace opacity | | is noted at the left base. Paraseptal emphysematous changes present at the | | apices. There is suggestion of a small left apical pneumothorax. | | Heart size is upper limits of normal. | | No pericardial or pleural effusion. | | Nondisplaced left 9th rib fracture. | | | | The liver is normal. | | Gallbladder is normal. | | No biliary ductal dilatation. | | The pancreas is unremarkable. | | The spleen is unremarkable. | | | | Adrenal glands are normal in appearance. | | The right kidney is normal. | | The left kidney is normal. | | Bladder wall is normal. | | Prostate is unremarkable. | | | | No free fluid or free air. | | Evaluation of the colon demonstrates no focal abnormality. | | Small bowel gas pattern is normal. | | Stomach is distended with food and fluid. | | | | Aorta is normal in course and caliber. | | No atherosclerosis. | | Evaluation of the mesentery and retroperitoneum demonstrates no pathologically | | enlarged adenopathy. | | | | In addition to the left 9th rib fracture, there are transverse process | | fractures of the left L1-L3 vertebral bodies. There is a left inferior pubic | | ramus fracture. Mildly comminuted fracture of the right abhay sacrum. SI | | joints are intact. No diastasis of the pubic symphysis. Left mid humeral | | fracture with greater than 1 shaft with displacement. No associated obvious | | vascular injury is identified. | | | | Bone mineral density is diffusely decreased for the patient's age | | | | IMPRESSION: | | 1. Nondisplaced not left 9th rib fracture with adjacent lung contusion. | | 2. Very small left apical pneumothorax. | | 3. Fractures of the right abhay sacrum and left inferior pubic ramus. | | 4. L1-2 L3 left transverse process fractures. | | 5. The results of the study were discussed with EVAN GUDINO MD at 15:11 | | | | | | JOB #: [id number] | | Digitally Released by: Christiano Macedo | | | | | | Read By: CHRISTIANO MACEDO MD | | Date: 05/31/2017 15:28 | | | + + documented in this encounter Visit Diagnoses Not on filedocumented in this encounter"
--- OUTSIDE RECORDS SUMMARY | ~2020-02-26 | XMS | Encounter Summary ---
Demographics + + + | Address | [address] [place] [address] | | | [place] [address] | + + + | Home Phone | | + + + | Preferred Language | Unknown | + + + | Marital Status | | + + + | Yarsani Affiliation | Unknown | + + + | Race | Unknown | + + + | Ethnic Group | Unknown | + + + Author + + + | Author | [facility] | | | and [place] | + + + | Organization | [facility] | | | [...] BREANNA SMITH | | | | | [address] | | + + + + + Care Team Providers + +------+ + | Care Hogshead Mat Assembler Name | Role | Phone | [...] | | | | | | | [address] | | +--------+--------+ + + + + [...] | [address] [place] | [place] [address] | | | | | [place] [address] | | | | | | [phone] | | | +--------+ + + + [...] for comparison only - no result from [place]. | | + + + + +---------+ + + | Performing | Address | City/State/Zipcode | Phone Number | | Organization | | | | + +---------+ + + | [facility] | | | | + +---------+ + + documented in this encounter Visit Diagnoses Not on filedocumented in this encounter"
--- OUTSIDE RECORDS SUMMARY | ~2020-02-26 | XMS | Encounter Summary ---
Demographics + + + | Address | [address] [place] [address] | | | [place] [address] | + + + | Home Phone [...] BREANNA SMITH | | | | | [address] | | + + + + + Care Team Providers + +------+ + | Care Road Oiling Truck Driver Name | Role | Phone | + [...] | | | | ABIOLA SONJA | [place] [address] | | | | | [place] [address] | | | | | | [phone] | | | +--------+ + + + [...] for comparison only - no result from [place]. | | + + + + +---------+ + + | Performing | Address | City/State/Zipcode | Phone Number | | Organization | | | | + +---------+ + + | [facility] | | | | + +---------+ + + documented in this encounter Visit Diagnoses Not on filedocumented in this encounter"
--- OUTSIDE RECORDS SUMMARY | ~2020-02-26 | XMS | Encounter Summary ---
Demographics + + + | Address | [address] [place] [address] | | | [place] [address] | + + + | Home Phone [...] + | Author | [facility] | | | and [place] | + + + | Organization | [facility] | | | and [...] BREANNA SMITH | | | | | [address] | | + + + + + Care Team Providers + +------+ + | Care Mascara Molder Name | Role | Phone | + [...] | Sam Chapman MD | [address] | | | | | Atrophy of | [address] | [place], | | | | | muscle of | [address] | [place] | | | | | left upper | [place], | [address] | | | | | arm Left | [place] [address] | Phone: | | | | | arm weakness | Phone: | [phone] | | | | | Procedures | [phone] | Fax: | | | | | MRI | Fax: | [phone] | | | | | Cervical | [phone] | | | | | | Spine [...] + + | 12/06/ | Office | [facility] [place] | Sam Chopra, | Traumatic brain | | 2018 | Visit | PHYSIATRY [address] | MD [address] | injury with loss of | | | | [address] | [place], [place] | consciousness, | | | | [place] | [address] | sequela (HCC) | | | | [address] | | (Primary Dx); | | | | [phone] | | Cervicalgia; Atrophy | | | [...] in this encounter Patient Instructions Patient Instructions eBlen Rodriges RN - 12/06/2017 11:20 AM PSTPlease [...] m the original. Sam Chopra MD [address] [facility], [address] [place] [address] FAX: PHYSICAL MEDICINE AND REHABILITATION H&P L&I Date: 05/31/17 L&I Number: [id number] CHIEF COMPLAINT: Chief Complaint Patient presents with [...] Extension 5 5 Finger Abduction 5 5 Assistant Superintendent Strength 5 5 DATABASE: Cervical x-ray completed [...] face with Mookie Mason, over half of [facility] ch was spent formulating and discussing their medical treatment plan. I, Sam Chorpa MD personally performed the services described in [...]
--- OUTSIDE RECORDS SUMMARY | ~2020-02-26 | XMS | Encounter Summary ---
Demographics + + + | Address | [address] [place] [address] | | | [place] [address] | + + + | Home Phone [...] | Author | [facility] | | | and [place] | + + + | Organization | [facility] | | | and [...] BREANNA SMITH | | | | | [address] | | + + + + + Care Team Providers + +------+ + | Care Acid Cutter Name | Role | Phone | [...] | | | | ABIOLA SONJA | [place] [address] | | | | | [place] [address] | | | | | | [phone] | | | +--------+ + + + [...]
--- OUTSIDE RECORDS SUMMARY | ~2020-02-26 | XMS | Encounter Summary ---
Demographics + + + | Address | [address] [place] [address] | | | [place] [address] | + + + | Home Phone [...] BREANNA SMITH | | | | | [address] | | + + + + + Care Team Providers + +------+ + | Care Records Analyst Name | Role | Phone | + +------+ + PCP | Unavailable | + +------+ + Encounter Details +--------+ + + + + | Date | Type | Department | Care Team | Description | +--------+ + + + + | 08/16/ | [facility] | Wil Lakhani | | | 2012 | Encounter | HOSPITAL EMERGENCY | MD [address] | | | | | CENTER [address] | [facility] | | | | | [address] [place] | [place] [address] | | | | | [address] | [phone] | | | | | [phone] | | | +--------+ + + + [...]
--- OUTSIDE RECORDS SUMMARY | ~2020-02-26 | XMS | Encounter Summary ---
Demographics + + + | Address | [address] [place] [address] | | | [place] [address] | + + + | Home Phone [...] [place] | | | | | [address] | | + + + + + Care Team Providers + +------+ + | Care Tank Builder Name | Role | Phone | [...] n | rotator | [address] | [place], | | | | | cuff Place | [address] | [place] [address] | | | | | of | [place], | Phone: | | | | | occurrence, | [place] [address] | [phone] | | | | | industrial | Phone: | Fax: | | | | | places and | [phone] | [phone] | | | | | premises | Fax: | | | | | | | [phone] | | +--------+ + + + + + Encounter Details +--------+---------+ + + + | Date | Type | Department | Care Team | Description | +--------+---------+ + + + | 10/26/ | Office | [facility] | Iris Mast | Closed fracture of | | 2018 | Visit | MED CTR THERAPY PT | MD Barb [address] | shaft of left | | | | OP [address] | [address] [place] | humerus with routine | | | | [place], [place] | [place] [address] | healing, | | | | [address] | [phone] | unspecified fracture | | | | [phone] | | morphology, | | | | | Catie Squires, PT | subsequent | | | | | [address] | encounter; Dizziness | | | | | [place], [place] | due to old head | | | | | [address] | injury; Left upper | | | [...] Mckenzie, PT - 10/26/2017 9:00 AM PST [facility] MED CTR THERAPY PT OP [address] [place] [address] Physical Therapy Daily Treatment Note Date: 10/26/2017 [...] Flowsheet Row Office Visit from 08/10/2017 in [facility] CTR THERAPY PT OP Rehab Precautions Precautions None Rehab Learning Style Flowsheet Row Office Visit from 08/10/2017 in [facility] CTR THERAPY PT OP [facility] OP EVAL from 07/26/2017 in [facility] SPEECH THERAPY Learning Style Patient's Optimum [...] progress neck ROM and posterior chain stren [facility] Electronically signed by: Catie Squires PT, [...]
--- OUTSIDE RECORDS SUMMARY | ~2020-02-26 | XMS | Encounter Summary ---
Demographics + + + | Address | [address] [place] [address] | | | [place] [address] | + + + | Home Phone [...] BREANNA SMITH | | | | | [address] | | + + + + + Care Team Providers + +------+ + | Care Vp Of Product Name | Role | Phone | + [...] tear of left | MD Barb | [place] | | | | n | rotator | [address] | [place], | | | | | cuff Place | [address] | [place] [address] | | | | | of | [place], | Phone: | | | | | occurrence, | [place] [address] | [phone] | | | | | industrial | Phone: | Fax: | | | | | places and | [phone] | [phone] | | | | | premises | Fax: | | | | | | | [phone] | | +--------+ + + + + + Encounter Details +--------+---------+ + + + | Date | Type | Department | Care Team | Description | +--------+---------+ + + + | 11/07/ | Office | [facility] | Pro Iris | Closed fracture of | | 2018 | Visit | MED CTR THERAPY PT | MD Barb [address] | shaft of left | | | | OP [address] | [address] [place] | humerus with routine | | | | [place], [place] | [place] [address] | healing, | | | | [address] | [phone] | unspecified fracture | | | | [phone] | | morphology, | | | | | Catie Squires, PT | subsequent | | | | | [address] | encounter; Dizziness | | | | | [place], [place] | due to old head | | | | | [address] | injury; Left upper | | | [...] Mckenzie PT - 11/07/2017 9:00 AM PST [facility] CTR THERAPY PT OP [address] [place] [address] Physical Therapy Daily Treatment Note Date: 11/07/2017 [...] Flowsheet Row Office Visit from 08/10/2017 in [facility] CTR THERAPY PT OP Rehab Precautions Precautions None Rehab Learning Style Flowsheet Row Office Visit from 08/10/2017 in [facility] CTR THERAPY PT OP [facility] OP EVAL from 07/26/2017 in [facility] SPEECH THERAPY Learning Style Patient's Optimum Learning [...]
--- OUTSIDE RECORDS SUMMARY | ~2020-02-26 | XMS | Encounter Summary ---
Demographics + + + | Address | [address] [place] [address] | | | [place] [address] | + + + | Home Phone [...] BREANNA SMITH | | | | | [address] | | + + + + + Care Team Providers + +------+ + | Care Zipper Sewing Machine Operator Name | Role | Phone [...] | fracture, | [address] | | | | | with routine | [address] | [place], | | | | | healing, | [place], | [place] [address] | | | | | subsequent | [place] [address] | Phone: | | | | | encounter | Phone: | [phone] | | | | | Place of | [phone] | Fax: | | | | | occurrence, | Fax: | [phone] | | | | | industrial | [phone] | | | | | | places and | | | | | | | premises | | | +--------+ + + + + + Encounter Details +--------+---------+ + + + | Date | Type | Department | Care Team | Description | +--------+---------+ + + + | 12/13/ | Office | [facility] | Iris Mast | Decreased activities | | 2018 | Visit | MED CNT ONCOLOGY | MD Barb [address] | of daily living | | | | THERAPY [address] | [address] [place] | (ADL); Left upper | | | | [place], | [place] [address] | arm pain | | | | [place] [address] | [phone] | | | | | [phone] | | | | | | | Iris Adan, OT | | | | | | [address] | | | | | | [place], [place] | | | | | | [address] | | | | | | | [...] might be different fr om the original. [facility] MED CTR THERAPY OT OP [address] [place] [address] Occupational Therapy Daily Treatment Note Date: 12/13/2017 Patient Information Patient Name: Mookie Mason Date of : 1980 Age: 37 y.o. History Encounter Diagnoses Code Name Primary? Z78.9 Decreased activities of daily living (ADL) M79.622 Left upper arm pain Date of Onset: 05/31/2017 Referring Provider: Iris Mast MD Rehab Precautions Flowsheet Row Office Visit from 08/10/2017 in [facility] CTR THERAPY PT OP Rehab Precautions Precautions None Rehab Learning Style Flowsheet Row Office Visit from 08/10/2017 in [facility] CTR THERAPY PT OP [facility] [...] the arm late the next day. The visualization developer yellow band is easier and doesn't hurt [...]
--- OUTSIDE RECORDS SUMMARY | ~2020-02-26 | XMS | Encounter Summary ---
Demographics + + + | Address | [address] [place] [address] | | | [place] [address] | + + + | Home Phone [...] BREANNA SMITH | | | | | [address] | | + + + + + Care Team Providers + +------+ + | Care Contract Technician Name | Role | Phone | [...] Rehabilitatio | arm | MD Barb | [place] | | | | n | fracture, | [address] | [place], | | | | | with routine | [address] | [place] [address] | | | | | healing, | [place], | Phone: | | | | | subsequent | [place] [address] | [phone] | | | | | encounter | Phone: | Fax: | | | | | Place of | [phone] | [phone] | | | | | occurrence, | Fax: | | | | | | industrial | [phone] | | | | | | places [...] Closed left | Iris | [address] | | | | | arm | MD Barb | [place], | | | | | fracture, | [address] | [place] | | | | | with routine | [address] | [address] | | | | | healing, | [place], | Phone: | | | | | subsequent | [place] [address] | [phone] | | | | | encounter | Phone: | Fax: | | | | | Place of | [phone] | [phone] | | | | | occurrence, | Fax: | | | | | | industrial | [phone] | | | | | | places [...] + + | 08/17/ | Office | [facility] | Iris Mast | Closed left arm | | 2017 | Visit | OCCUPATIONAL HEALTH | MD Barb [address] | fracture, with | | | | [place] [address] | [address] [place] | routine healing, | | | | [address] [place] | [place] [address] | subsequent encounter | | | | [place], [place] | [phone] | (Primary Dx); Place | | | | [address] | | of occurrence, | | | | [phone] | | industrial places | | | [...] RIZWAN Date of injury: 05/31/17 Claim number: [id number] Chief complaint: Follow-up multiple injuries Subjective: Injured [...] Vital signs as noted, nursing notes reviewed. Uytpaqd-qpux-afuyzibfv, well-nourished, in no apparent distress, pleasant cooperative. Left shoulder-normal to inspection. No gross asymmetry or bony deformity. Tenderness suba cromial, and anteriorly over the long head of the biceps. Does have full range of motion, a lthough abduction minimally reduced. Pain without weakness with testing of the rotator cuff musculature. No impingement signs. Negative Lea's. Left elbow-no swelling or effusion. Full extension, limited flexion. Gait-gait is mildly antalgic, walks with a slight limp. Neuro-cranial nerves II through XII grossly intact. Psych-mood, affect, speech and thought processes appropriate. Imaging/diagnostics: MRI left shoulder-requested Pending interventions: Continue conservative management. Assessment: 1. Left humeral fracture-status post ORIF 2. Closed head injury-post concussive Plan: Continues to complain of shoulder discomfort. Plain m-ojwu-wonyahuz per injured worker rep ort. Request MRI [...] MMI status. This note was dictated using uGift voice recognition software. Occasional wrong- word or [...] + + | Performing | Address | City/State[facility] | Phone Number | [...]
--- OUTSIDE RECORDS SUMMARY | ~2020-02-26 | XMS | Encounter Summary ---
Demographics + + + | Address | [address] [place] [address] | | | [place] [address] | + + + | Home Phone [...] [place] | | | | | [address] | | + + + + + Care Team Providers + +------+ + | Care Senior Category Manager Name | Role | Phone | + +------+ + PCP | Unavailable | + +------+ + Encounter Details +--------+ + + + + | Date | Type | Department | Care Team | Description | +--------+ + + + + | 05/31/ | [facility] Sd Herrmann, | | | 2017 | Encounter | HOSPITAL EMERGENCY | Jed Segov[place], | | | | | CENTER [address] | [address] | | | | | [address] [place] | [place], [place] | | | | | [address] | [address] | | | | | [phone] | [phone] | | | | | | | [...] - 1.030 | EXTERNAL | | | [place], | | | LAB | | | [...] fracture of the left humerus. JOB #: [id number] | | | Digitally Released by: Christiano [...] | | | | | JOB #: [id number] | | Digitally Released by: Christiano Macedo [...] rami | | | fractures. JOB #: [id number] Digitally Released by: Christiano Macedo | | [...] | | | | | JOB #: [id number] | | Digitally Released by: Christiano Macedo [...] at 15:21 | | | JOB #: [id number] Digitally Released by: Christiano Macedo | | [...] | | | | | JOB #: [id number] | | Digitally Released by: Christiano Macedo [...] at 15:15 JOB | | | #: [id number] Digitally Released by: Christiano Macedo Read By: [...] | | | | | JOB #: [id number] | | Digitally Released by: Christiano Macedo [...] | | | cardiopulmonary process. JOB #: [id number] Digitally Released by: | | | Christiano [...] | | | | | JOB #: [id number] | | Digitally Released by: Christiano Macedo [...] is | | | recommended. JOB #: [id number] Digitally Released by: Remington | | | [...] EVAN GUDINO MD at 15:11 JOB #: [id number] | | | Digitally Released by: Christiano [...] | | | | | JOB #: [id number] | | Digitally Released by: Christiano Macedo [...] | | | | | JOB #: [id number] | | Digitally Released by: Christiano Macedo | | | | | | Read By: CHRISTIANO MACEDO MD | | Date: 05/31/2017 15:28 | | | + + documented in this encounter Visit Diagnoses Not on filedocumented in this encounter"
--- OUTSIDE RECORDS SUMMARY | ~2020-02-26 | XMS | Encounter Summary ---
Demographics + + + | Address | [address] [place] [address] | | | [place] [address] | + + + | Home Phone [...] BREANNA SMITH | | | | | [address] | | + + + + + Care Team Providers + +------+ + | Care Cathode Maker Name | Role | Phone | + [...] + + | 02/16/ | Office | [facility] | Pro Iris | Closed fracture of | | 2017 | Visit | OCCUPATIONAL HEALTH | MD Barb [address] | transverse process | | | | [address] | [address] [place] | of lumbar vertebra | | | | [address] [place] | [place] [address] | with routine | | | | [place], [place] | [phone] | healing, subsequent | | | | [address] | | encounter (Primary | | | | [phone] | | Dx); Place of | | [...] encounter Progress Notes Iris Mast MD - 02/16/2018 1:00 PM PDTEmployer: Tea insulation Guarantor: RIZWAN Date of injury: 05/31/17 Claim number: [id number] Chief complaint: Follow-up multiple injuries Subjective: Injured [...] Vital signs as noted, nursing notes reviewed. Ismifbc-yzwj-kdvartkyp, well-nourished, in no apparent distress, pleasant cooperative. [...] MMI status. This note was dictated using ebindle voice recognition software. Occasional wrong- word or [...]
--- OUTSIDE RECORDS SUMMARY | ~2020-02-26 | XMS | Encounter Summary ---
Demographics + + + | Address | [address] [place] [address] | | | [place] [address] | + + + | Home Phone [...] [place] | | | | | [address] | | + + + + + Care Team Providers + +------+ + | Care Client Success Manager Name | Role | Phone | [...] | [facility] | [place], | [address] Phone: | | | | | TREAT[address] | [place] [address] | [phone] | | | | | | Phone: | Fax: | | | | | | [phone] | [phone] | | | | | | Fax: | | | | | | | [phone] | | +--------+--------+ + + + + [...] | | | | OP [address] | [address] [place] | Dizziness due to old | | | | [place], [place] | [place] [address] | head injury; | | | | [address] | [phone] | Imbalance; Place of | | | | [phone] | | occurrence, | | | | | Tonia Hernández R, | industrial places | | | | | [facility] [address] | and premises; | | | | | [place], [place] | Chronic left-sided | | | | | [address] | low back pain | | | | | [phone] | without sciatica; | | | | [...] of this encounter Progress Notes Tonia Hernández, [employer] - 10/04/2017 8:45 AM PSTFormatting of this note might be different f rom the original. [facility] CTR THERAPY PT OP [address] [place] [address] Physical Therapy Daily Treatment Note Date: 10/04/2017 [...] Row Office Visit from 08/10/2017 in [facility] CTR THERAPY PT OP Rehab Precautions Precautions None Rehab Learning Style Flowsheet Row Office Visit from 08/10/2017 in [facility] CTR THERAPY PT OP [facility] OP EVAL from 07/26/2017 in [facility] SPEECH THERAPY Learning Style Patient's Optimum [...]
--- OUTSIDE RECORDS SUMMARY | ~2020-02-26 | XMS | Encounter Summary ---
Demographics + + + | Address | [address] [place] [address] | | | [place] [address] | + + + | Home Phone | | + + + | Preferred Language | Unknown | + + + | Marital Status | | + + + | Sikhism Affiliation | Unknown | + + + [...] BREANNA SMITH | | | | | [address] | | + + + + + Care Team Providers + +------+ + | Care Heel Seat Laster Name | Role | Phone | + [...] | | | Closed head | [place] [address] | [place], [place] | | | | | injury with | Phone: | [address] Phone: | | | | | brief loss | [phone] | [phone] | | | | | of | Fax: | Fax: | | | | | consciousnes | [phone] | [phone] | | | | | s (HCC) [...] | | | | | | [facility] IT APPLICATION SUPPORT ANALYST OP | | | | | | | TREATMENT | | | +--------+--------+ + + + + Encounter Details +--------+ + + + + | Date | Type | Department | Care Team | Description | +--------+ + + + + | 02/15/ | Hospital | [facility] | Iris Mast | Memory deficit; | | 2018 | Encounter | MED CTR SPEECH | MD Barb [address] | Attention deficit; | | | | THERAPY [address] [place] | Cognitive changes | | | | [place], | [place] [address] | | | | | [place] [address] | [phone] | | | | | [phone] | | | | | | | Chloe Fulton S, | | | | | | Speech Pathologist | | | | | | [address] | | | | | | [place] | | | | | | [address] | | | | | | | [...] Speech Pathologist - 02/16/2018 12:53 PM PDT [facility] SPEECH THERAPY [address] [facility] [address] Speech Therapy Daily Treatment Note Date: 02/15/2018 Patient Information Patient Name: Mookie Mason Date of : 1980 Age: 37 y.o. Encounter Diagnoses Code Name Primary? R41.3 Memory deficit R41.840 Attention deficit R41.89 Cognitive changes Date of Onset: 05/31/2017 Referring Provider: Iris Mast MD Rehab Precautions Office Visit from 08/10/2017 in [facility] CTR THERAPY PT OP Rehab Precautions Precautions None Rehab Learning Style Office Visit from 08/10/2017 in [facility] CTR THERAPY PT OP [facility] IT APPLICATION SUPPORT ANALYST OP EVAL f rom 07/26/2017 in [facility] SPEECH THERAPY Learning Style Patient's Optimum [...] participated well in session. Objective/Assessment: Pt and IT APPLICATION SUPPORT ANALYST discussed use of appropriate tools and systems for [facility] such as calendars, notebooks, apps, [...] 78 74 [phone] 56 61 Percentile 0.5 IT APPLICATION SUPPORT ANALYST encouraged continued use of online resources, card [...]
--- OUTSIDE RECORDS SUMMARY | ~2020-02-26 | XMS | Encounter Summary ---
Demographics + + + | Address | [address] [place] [address] | | | [place] [address] | + + + | Home Phone | | + + + | Preferred Language | Unknown | + + + | Marital Status | | + + + | Caodaism Affiliation | Unknown | + + + | Race | Unknown | + + + | Ethnic Group | Unknown | + + + Author + + + | Author | [facility] | | | and [place] | + + + | Organization | [facility] | | | and [...] BREANNA SMITH | | | | | [address] | | + + + + + Care Team Providers + +------+ + | Care Seeing Eye Dog Trainer Name | Role | Phone | + [...] | | | | [address] | [place] [address] | | | | | [place] [address] | | | | | | [phone] | | | +--------+ + + + [...] for comparison only - no result from [facility]. | | + + + + +---------+ + + | Performing | Address | City/State/Zipcode | Phone Number | | Organization | | | | + +---------+ + + | [facility] | | | | + +---------+ + + documented in this encounter Visit Diagnoses Not on filedocumented in this encounter"
--- OUTSIDE RECORDS SUMMARY | ~2020-02-26 | XMS | Encounter Summary ---
Demographics + + + | Address | [address] [place] [address] | | | [place] [address] | + + + | Home Phone [...] [place] | | | | | [address] | | + + + + + Care Team Providers + +------+ + | Care Wood Pole Treater Name | Role | Phone | + [...] / | Place of | Iris | Event Executive [address] | | | Required | Speech | occurrence, | MD Barb | [place] | | | | Therapy | industrial | [address] | [place] | | | | | places and | [address] | [address] | | | | | premises | [place], | Phone: | | | | | Closed head | [place] [address] | [phone] | | | | | injury with | Phone: | Fax: | | | | | brief loss | [phone] | [phone] | | | | | of | Fax: | | | | | | consciousnes | [phone] | | | | | | s ([facility]) | | | | | | | Procedures | | | | | | | plastic machine operator eval | | | +--------+ + + + + + Encounter Details +--------+ + + + + | Date | Type | Department | Care Team | Description | +--------+ + + + + | 11/02/ | Hospital | [facility] | Iris Mast | Traumatic brain | | 2018 | Encounter | MED CTR SPEECH | MD Barb [address] | injury with loss of | | | | THERAPY [address] [place] | consciousness, | | | | [place], | [place] [address] | subsequent encounter | | | | [place] [address] | [phone] | | | | | [phone] | | | | | | | [...] Speech Pathologist - 11/02/2017 10:28 AM PST [facility] SPEECH THERAPY [address] [place] [address] Speech Therapy Daily Treatment Note Date: 11/02/2017 Patient Information Patient Name: Mookie Mason Date of : 1980 Age: 37 y.o. Encounter Diagnoses Code Name Primary? S06.9X9D Traumatic brain injury with loss of consciousness, subsequent encounter Date of Onset: 05/31/2017 Referring Provider: Iris Mast MD Rehab Precautions Flowsheet Row Office Visit from 08/10/2017 in [facility] THERAPY PT OP Rehab Precautions Precautions None Rehab Learning Style Flowsheet Row Office Visit from 08/10/2017 in [facility] THERAPY PT OP [facility] S LP OP EVAL from 07/26/2017 in [facility] SPEECH THERAPY Learning Style Patient's Optimum [...]
--- OUTSIDE RECORDS SUMMARY | ~2020-02-26 | XMS | Encounter Summary ---
Demographics + + + | Address | [address] [place] [address] | | | [place] [address] | + + + | Home Phone [...] BREANNA SMITH | | | | | [address] | | + + + + + Care Team Providers + +------+ + | Care Pool Player Name | Role | Phone | + +------+ + PCP | Unavailable | + +------+ + Encounter Details +--------+ + + + + | Date | Type | Department | Care Team | Description | +--------+ + + + + | 06/18/ | [facility] | Yasmani Ignacio | | | 2008 | Encounter | HOSPITAL EMERGENCY | MD Zees[address] | | | | | CENTER [address] | [facility] | | | | | [address] [place] | [place] [address] | | | | | [address] | [phone] | | | | | [phone] | | | +--------+ + + + [...]
--- OUTSIDE RECORDS SUMMARY | ~2020-02-26 | XMS | Encounter Summary ---
Demographics + + + | Address | [address] [place] [address] | | | [place] [address] | + + + | Home Phone [...] BREANNA SMITH | | | | | [address] | | + + + + + Care Team Providers + +------+ + | Care Director Diversity Name | Role | Phone | + [...] | | | | [address] SONJA | [place] [address] | | | | | [place] [address] | | | | | | [phone] | | | +--------+ + + + [...] for comparison only - no result from [place]. | | + + + + +---------+ + + | Performing | Address | City/State/Zipcode | Phone Number | | Organization | | | | + +---------+ + + | [facility] | | | | + +---------+ + + documented in this encounter Visit Diagnoses Not on filedocumented in this encounter"
--- OUTSIDE RECORDS SUMMARY | ~2020-02-26 | XMS | Encounter Summary ---
Demographics + + + | Address | [address] [place] [address] | | | [place] [address] | + + + | Home Phone [...] BREANNA SMITH | | | | | [address] | | + + + + + Care Team Providers + +------+ + | Care Print Support Specialist Name | Role | Phone | [...] | fracture, | [address] | | | | | with routine | [address] | [place], | | | | | healing, | [place], | [place] [address] | | | | | subsequent | [place] [address] | Phone: | | | | | encounter | Phone: | [phone] | | | | | Place of | [phone] | Fax: | | | | | occurrence, | Fax: | [phone] | | | | | industrial | [phone] | | | | | | places and | | | | | | | premises | | | +--------+ + + + + + Encounter Details +--------+---------+ + + + | Date | Type | Department | Care Team | Description | +--------+---------+ + + + | 12/21/ | Office | [facility] | Iris Mast | Decreased activities | | 2018 | Visit | MED CNT ONCOLOGY | MD Barb [address] | of daily living | | | | THERAPY [address] [place] | (ADL); Left upper | | | | [place], | [place] [address] | arm pain | | | | [place] [address] | [phone] | | | | | [phone] | | | | | | | Iris Adan, OT | | | | | | [address] | | | | | | [place], [place] | | | | | | [address] | | | | | | | [...] might be different fr om the original. [facility] MED CTR THERAPY OT OP [address] [place] [address] Occupational Therapy Daily Treatment Note Date: 12/21/2017 Patient Information Patient Name: Mookie Mason Date of : 1980 Age: 37 y.o. History Encounter Diagnoses Code Name Primary? Z78.9 Decreased activities of daily living (ADL) M79.622 Left upper arm pain Date of Onset: 05/31/2017 Referring Provider: Iris Mast MD Rehab Precautions Flowsheet Row Office Visit from 08/10/2017 in [facility] CTR THERAPY PT OP Rehab Precautions Precautions None Rehab Learning Style Flowsheet Row Office Visit from 08/10/2017 in [facility] CTR THERAPY PT OP [facility] S LP OP EVAL from 07/26/2017 in [facility] SPEECH THERAPY [...]
--- OUTSIDE RECORDS SUMMARY | ~2020-02-26 | XMS | Encounter Summary ---
Demographics + + + | Address | [address] [place] [address] | | | [place] [address] | + + + | Home Phone [...] BREANNA SMITH | | | | | [address] | | + + + + + Care Team Providers + +------+ + | Care Relief Manager Name | Role | Phone | [...] | [address], [place] | [place] [address] | | | | | [address] | [phone] | | | | | [phone] | | | +--------+ + + + [...]
--- OUTSIDE RECORDS SUMMARY | ~2020-02-26 | XMS | Encounter Summary ---
Demographics + + + | Address | [address] [place] [address] | | | [place] [address] | + + + | Home Phone [...] BREANNA SMITH | | | | | [address] | | + + + + + Care Team Providers + +------+ + | Care Private Duty Nurse Name | Role | Phone | [...] | fracture, | [address] | | | | | with routine | [address] | [place], | | | | | healing, | [place], | [place] [address] | | | | | subsequent | [place] [address] | Phone: | | | | | encounter | Phone: | [phone] | | | | | Place of | [phone] | Fax: | | | | | occurrence, | Fax: | [phone] | | | | | industrial | [phone] | | | | | | places and | | | | | | | premises | | | +--------+ + + + + + Encounter Details +--------+---------+ + + + | Date | Type | Department | Care Team | Description | +--------+---------+ + + + | 11/06/ | Office | [facility] | Iris Mast | Left upper arm pain | | 2018 | Visit | MED CNT ONCOLOGY | MD Barb [address] | (Primary Dx); | | | | THERAPY [address] [place] | Decreased activities | | | | [place], | [place] [address] | of daily living | | | | [place] [address] | [phone] | (ADL) | | | | [phone] | | | | | | | Iris Adan, OT | | | | | | [address] | | | | | | [place], [place] | | | | | | [address] | | | | | | | [...] facilitate independent symptom management. Treatment Plan/Interventions OT [id number] - Therapeutic [id number] - Therapeutic [id number] - Self Care/Ho me Ywnzqyvyph66738 - Manual Avqvtrf97468 - NdqrdyfcrkWkazzjscz50986 - Paraffin Bath LLLT Patient and/or family has indicated understanding of treatment needs and actively participa elijah in the creation of this plan for care. 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 Social History Main Topics Smoking [...] HUMERUS SURGERY Left 06/14/2017 [facility] [place] Family History Problem Relation Age of Onset [...] Flowsheet Row [facility] [...] in lbs Right Left Right Left 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 Electronically signed by: Iris Adan OT, 11/06/2017 [...]
[~2020-02-26 09:19] MED LIST: IBUPROFEN IB200 MG PO
[2020-02-26] MEDS ORDERED: NAPROSYN500 MG PO (10:42)
== END 2020-02-26 11:00 | disposition home or self-care (01) ==
LOC: ED 09:19
DX: S63.611A Unspecified sprain of left index finger, initial encounter (principal); F17.200 Nicotine dependence, unspecified, uncomplicated; Z88.0 Allergy status to penicillin; Z88.6 Allergy status to analgesic agent; Z88.1 Allergy status to other antibiotic agents; X58.XXXA Exposure to other specified factors, initial encounter
CPT/HCPCS: 73140; 99283-25

== ENCOUNTER 2020-10-22 15:03 | Emergency (ER) | payer OTHER ==
[~2020-10-22] VITALS: Ht 185.4 cm; Wt 63.5 kg
[~2020-10-22 15:03] MED LIST changes: +NAPROSYN500 MG PO
[2020-10-22] MEDS ORDERED: ONDANSETRON ODT8 MG PO (18:41)
--- NOTE | 2020-10-24 09:42 | NUR ---
RECORDS SENT TO [facility] FOR FURTHER CARE
== END 2020-10-22 18:59 | disposition home or self-care (01) ==
LOC: ED 15:03
DX: G40.909 Epilepsy, unspecified, not intractable, without status epilepticus (principal); T68.XXXA Hypothermia, initial encounter; F17.200 Nicotine dependence, unspecified, uncomplicated; Z88.0 Allergy status to penicillin; Z88.6 Allergy status to analgesic agent; Z88.1 Allergy status to other antibiotic agents; Z79.899 Other long term (current) drug therapy; X31.XXXA Exposure to excessive natural cold, initial encounter
CPT/HCPCS: 71045; 80053; 83605; 85025; 96365; 96367; 99285-25; J0696; J1953; J7030